=== PATIENT | female | born 1945 | race Caucasian/White ===

== ENCOUNTER 2020-07-22 10:44 | Outpatient (CLI) | payer MEDICARE, SELFPAY | END 2020-07-22 10:45 | disposition home or self-care (01) | PROVIDERS: PCP Internal Medicine | DX: Z23 Encounter for immunization (principal) | CPT/HCPCS: 0001A; 91300 ==

== ENCOUNTER 2020-08-12 10:43 | Outpatient (CLI) | payer MEDICARE, SELFPAY | END 2020-08-12 10:44 | disposition home or self-care (01) | LOC: ANHCOVIDVC 10:43 | PROVIDERS: PCP Internal Medicine | DX: Z23 Encounter for immunization (principal) | CPT/HCPCS: 0002A; 91300 ==

== ENCOUNTER 2021-07-07 08:03 | Emergency (ER) | payer MEDICARE, SELFPAY ==
--- NOTE | ~2021-07-07 | CT_ITS ---
EXAMINATION: CT cervical spine wo con DATE: 07/07/2021 08:28 INDICATION: Neck pain TECHNIQUE: Computed tomography (CT) of the cervical spine was performed without intravenous contrast. The dose-length product (DLP) was 392.47 mGy-cm. Automated exposure control and iterative reconstruc tion technique were employed. COMPARISON: None FINDINGS: There is no fracture. There are 2 mm of retrolisthesis of C4 on C5. The vertebral body heig hts are normal. There is mild loss of intervertebral disc space height at C4-5 and C5-6. The odontoid is intact. The prevertebral soft tissues are normal. There is mild to moderate facet and uncovertebr al joint osteoarthritis. An aneurysm clip is noted in the right sylvian fissure. There is a multinodu lar goiter. IMPRESSION: 1. Moderate cervical spondylosis without acute findings. Reviewed, dictated and finalized at location A. 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
--- NOTE | ~2021-07-07 | CT_ITS ---
EXAMINATION: CT brain wo con INDICATION: Headache COMPARISON: 11/23/2018 TECHNIQUE: Standard unenhanced head CT. The dose-length product (DLP) was 908.00 mGy-cm. The mA was a djusted according to patient size. Iterative reconstruction technique was employed. FINDINGS: There is no acute intraparenchymal hemorrhage. No evidence of mass lesion. No evidence of a cute infarction. An aneurysm clip is noted in the right sylvian fissure. There is unchanged chronic e ncephalomalacia of the right frontotemporal region, the right insula, and the right lentiform nucleus . 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 There is mild periventricular and subcortical hypode nsity probably related to small vessel ischemic disease. There is mild prominence of the sulci and ve ntricles related to cerebral atrophy. Intracranial calcified cerebral atherosclerosis is noted. There are no extra-axial collections. There is no mass effect or midline shift. Changes in the globes are likely from ocular lens surgery. The visualized sinuses and mastoid air cells are well aerated. Shukla es of right temporal craniotomy are noted. IMPRESSION: 1. Areas of prior infarct without acute intracranial abnormality. 2. Age related findings. Reviewed, dictated and finalized at location A. COM NETWORK MANAGER
[2021-07-07 08:07] VITALS: BP 150/93; PULSE 75; RESP 22; TEMP 36.8; O2SAT 95
--- NOTE | 2021-07-07 08:32 | ED.HA ---
HPI - Headache General Chief Complaint: Headache Stated Complaint: SOW, neck back and arm pain Time Seen by Provider: 07/07/21 08:04 Source: patient Mode of arrival: ambulatory Limitations: no limitations History of Present Illness HPI Narrative: Pt has history of cerebral and aortic aneurysms. presents with left sided neck and shoulder pain and a SOW. Pt had b/l neck pain for a couple of weeks and left sided for a couple of days worse today. Pt denies numbness or weakness. MD elicited complaint: headache Onset description: gradually Location: left and neck Quality & Timing: aching Exacerbating factors: none Relieving factors: nothing Associated symptoms: none Related Data Home Medications Medication Instructions Recorded Confirmed acetaminophen 500 mg tablet 1,000 mg PO DAILY tablet 04/29/19 06/06/21 aspirin 81 mg tablet,delayed 81 mg PO DAILY 04/29/19 06/06/21 release Allergies Allergy/AdvReac Type Severity Reaction Status Date / Time labetalol Allergy Intermediate Vomiting Verified 04/27/20 13:08 Review of Systems Review of Systems: All systems reviewed & are unremarkable except as noted in HPI and below PMFSH Past Medical History Medical History Anxiety about health Aortic atherosclerosis CAD (coronary artery disease) Carotid artery stenosis Cerebral aneurysm clipped CKD (chronic kidney disease) stage 3, GFR 30-59 ml/min Congestive heart failure COPD (chronic obstructive pulmonary disease) GERD (gastroesophageal reflux disease) HTN (hypertension) Hyperthyroidism Lichen sclerosus vulver lichen sclerosis Measles Mumps QUENTIN on CPAP SOB (shortness of breath) Thoracic aortic aneurysm Surgical History Surgical History H/O foot surgery H/O: hysterectomy History of coronary artery bypass surgery History of craniotomy Family History Family History Father Family history of coronary artery disease Patient's father is , Onset Age: 92 Mother Patient's mother is , Onset Age: 73 Leukemia Sibling Family history of chronic obstructive pulmonary disease Social History Social History Years smoked: 30 Smoking status: Former smoker Tobacco type: cigarettes Second hand tobacco smoke exposure: Yes Smoking end date: 05/21/09 Alcohol intake: never Exam Const: General: no acute distress and alert Orientation/consciousness: patient oriented x3 HENMT: Head: normal to inspection Eyes: Conjunctivae: conjunctivae normal Neck: Other: tneder with muscle spasm left cervical paraspinous muscles and left trapezius. Chest: Chest palpation & inspection: normal inspection of the chest Resp: Effort & Inspection: normal respiratory effort Auscultation: clear to auscultation bilaterally Cardio: Rate: regular rate GI: GI Palp: Yes Soft to palpation and No Tenderness to palpation present (GI) Auscultation: normal bowel sounds Skin: General skin exam: normal color Neuro: General: patient oriented x3 and moves all extremities Other: strength 5/5 upper extremites Extrem: General: normal to inspection Psych: Mental Status: mental status grossly normal Affect: normal affect Thought content: Yes Normal thought content present Course Vital Signs Vital signs: Vital Signs Temperature 98.3 F 07/07/21 08:07 Pulse Rate 75 07/07/21 08:07 Respiratory Rate 22 H 07/07/21 08:07 Blood Pressure 150/93 H 07/07/21 08:07 Pulse Oximetry 95 07/07/21 08:07 Temperature 98.3 F 07/07/21 08:07 Pulse Rate 68 07/07/21 10:04 Respiratory Rate 18 07/07/21 10:04 Blood Pressure 135/79 07/07/21 10:04 Pulse Oximetry 100 07/07/21 10:04 Discharge Plan Discharge Clinical Impression: Tension headache
[2021-07-07] MEDS: fentaNYL CITRATE INJ (*CRX) 100 MCG/2 ML VIAL 50 MCG IV PUSH (08:34)
[2021-07-07] MEDS: CYCLOBENZAPRINE HCL 10 MG TABLET PO (08:34)
[2021-07-07 08:38] VITALS: BP 133/71; PULSE 69; RESP 20; O2SAT 97
[2021-07-07 10:04] VITALS: BP 135/79; PULSE 68; RESP 18; O2SAT 100
== END 2021-07-07 10:35 | disposition home or self-care (01) ==
PROVIDERS: Emergency Provider Emergency Medicine; PCP Internal Medicine
DX: G44.209 Tension-type headache, unspecified, not intractable (principal); I25.10 Atherosclerotic heart disease of native coronary artery without angina pectoris; I13.0 Hypertensive heart and chronic kidney disease with heart failure and stage 1 through stage 4 chronic kidney disease, or unspecified chronic kidney disease; N18.30 Chronic kidney disease, stage 3 unspecified; I50.9 Heart failure, unspecified; J44.9 Chronic obstructive pulmonary disease, unspecified; K21.9 Gastro-esophageal reflux disease without esophagitis
CPT/HCPCS: 70450; 72125; 96374; 99284; A9270; J3010

== ENCOUNTER 2021-12-05 10:38 | Outpatient (CLI) | payer MEDICARE, SELFPAY ==
[2021-12-05 19:07] LABS: Basophils Absolute Auto 0.1 K/mm3 (0.0-0.1); Basophils Percent Auto 0.7 % (0.2-1.2); Eosinophils Absolute Auto 0.3 K/mm3 (0-0.3); Eosinophils Percent Auto 3.2 % (0-4.4); Hematocrit 39.7 % (37.0-47.0); Hemoglobin 12.5 g/dL (12.0-15.0); Immature Granulocyte Absolute 0.02 K/mm3 (0.00-0.031); Immature Granulocyte Percent A 0.2 % (0-0.5); Lymphocytes Absolute Auto 1.82 K/mm3 (0.9-3.2); Lymphocytes Percent Auto 20.8 % (18.3-44.2); Mean Corpuscular HGB Conc 31.5 g/dl (32-36); Mean Corpuscular Hemoglobin 28.6 pg (26-34); Mean Corpuscular Volume 90.8 fl (80-100); Mean Platelet Volume 11.9 fl (7.4-10.4); Monocytes Absolute Auto 0.6 K/mm3 (0.1-0.6); Monocytes Percent Auto 6.7 % (2.6-8.5); Neutrophils Percent Auto 68.4 % (45.5-73.1); Platelet Count Result 238 k/mm3 (150-375); Red Blood Count 4.37 M/mm3 (4.2-5.4); Red Cell Distribution Width 13.1 % (11.5-14.5); White Blood Count 8.8 K/mm3 (4.5-10.0)
== END 2021-12-05 10:39 | disposition home or self-care (01) ==
LOC: ANHGOSHLAB 10:40
PROVIDERS: PCP Internal Medicine; Visit Provider Internal Medicine
DX: N18.30 Chronic kidney disease, stage 3 unspecified (principal); I70.0 Atherosclerosis of aorta; I25.10 Atherosclerotic heart disease of native coronary artery without angina pectoris; E05.90 Thyrotoxicosis, unspecified without thyrotoxic crisis or storm
CPT/HCPCS: 36415; 85025

== ENCOUNTER 2021-12-08 12:57 | Outpatient (CLI) | payer MEDICARE, SELFPAY ==
[2021-12-08 18:58] LABS: Alanine Aminotransferase 16 U/L (6-35); Alkaline Phosphatase 91 U/L (38-126); Anion Gap 5 mmol/L (8-16); Aspartate Amino Transferase 34 U/L (14-36); Bilirubin,Total 0.6 mg/dL (0.2-1.3); Blood Urea Nitrogen 18 mg/dL (7-17); Calcium 8.4 mg/dL (8.4-10.2); Carbon Dioxide 27 mmol/L (22-30); Chloride 102 mmol/L (98-107); Cholesterol 129 mg/dL (0-200); Estimated Glomerular Filt Rate 44; Glucose 85 mg/dL (65-110); HDL Direct 38 mg/dL; Magnesium 1.7 mg/dL (1.6-2.3); Potassium 4.4 mmol/L (3.4-5.0); Sodium 134 mmol/L (137-145); Triglycerides 163 mg/dL (<150)
[2021-12-08 19:09] LABS: LDL Cholesterol Direct 53 mg/dL
[2021-12-08 19:25] LABS: Thyroid Stimulating Hormone 0.997 uIU/mL (0.465-4.680)
== END 2021-12-08 12:58 | disposition home or self-care (01) ==
LOC: ANHGOSHLAB 13:01
PROVIDERS: PCP Internal Medicine; Visit Provider Internal Medicine
DX: E05.90 Thyrotoxicosis, unspecified without thyrotoxic crisis or storm (principal); N18.30 Chronic kidney disease, stage 3 unspecified; I70.0 Atherosclerosis of aorta; I25.10 Atherosclerotic heart disease of native coronary artery without angina pectoris
CPT/HCPCS: 36415; 80053; 80061; 83735; 84443

== ENCOUNTER 2022-01-20 13:44 | Outpatient (NON) | payer MEDICARE, SELFPAY | END 2022-01-20 13:45 | disposition home or self-care (01) | LOC: ANHGOSHLAB 13:45 | PROVIDERS: PCP Internal Medicine; Visit Provider Nurse Practitioner | DX: N39.0 Urinary tract infection, site not specified (principal) | CPT/HCPCS: 87086; 87088 ==

== ENCOUNTER 2022-01-25 10:45 | Outpatient (CLI) | payer MEDICARE, SELFPAY ==
--- NOTE | ~2022-01-25 | CT_ITS ---
EXAMINATION: CT abdomen pelvis wo con DATE: 01/25/2022 11:18 INDICATION: Right flank pain with CVA tenderness. TECHNIQUE: Computed tomography (CT) of the abdomen and pelvis was performed without intravenous contr ast. Automated exposure control and iterative reconstruction technique were employed. The dose-length product was 313.22 mGy-cm. COMPARISON: CT chest, abdomen and pelvis dated 07/03/[address] urogram dated 09/07/2011 FINDINGS: Mild discoid atelectasis in the right lower lobe. Cardiomegaly. Atherosclerotic coronary artery calci fications with change of prior median sternotomy and coronary artery bypass grafting. Aortic valve ca lcification. Partially visualized new endoluminal stenting along the visualized distal portion of the tortuous descending thoracic aorta. Aneurysmal dilation of the distalmost thoracic aorta measuring u p to 5.0 cm. Small sliding-type hiatal hernia. Calcified gallstones within the normal partially decompressed gallb ladder. Liver, spleen, pancreas and bilateral adrenal glands are normal. Unchanged 2 mm phlebolith al marika the right gonadal vein along side the right ureter. Kidneys and ureters are normal with no urolit hiasis, hydroureteronephrosis or perinephric/ureteral stranding. There is prominent colonic diverticu losis with a sigmoid and descending colon predominance. There is no adjacent inflammatory change to s uggest diverticulitis. Small bowel and appendix are normal. There is calcified atherosclerosis of the aorta and many of the other arteries. Eccentric to the left suprarenal abdominal aortic aneurysm measuring 4.5 x 3.6 cm. Recently this measured 4.4 x 3.8 cm. Th e aorta narrows to normal caliber of 2.7 cm diameter just below the level of the takeoff of the pulmo nary arteries with additional fusiform infrarenal aneurysm measuring up to 4.0 x 3.7 cm. Previously t his measured up to 3.7 x 3.3 cm. Bladder is normal. The uterus is not identified and has likely been surgically resected. 1.8 cm right adnexal cyst/follicle. No free intraperitoneal gas or fluid. No pathologically enlarged abdominal or pelvic lymphadenopathy. Severe thoracolumbar spondylosis. Chronic appearing mild superior endplate c ompression fracture with additional small Schmorl's node at L1 which is new since the prior study. IMPRESSION: 1. Aneurysmal dilation of the thoracic and abdominal aorta as detailed above with interval stenting o f the visualized distal descending thoracic aorta at the site of a prior dissection. The infrarenal a neurysm has increased from 3.7 x 3.3 similar to currently measuring 4.0 x 3.7 cm. 2. Cholelithiasis. 3. Small sliding-type hiatal hernia. 4. Prominent diverticulosis. Reviewed, dictated and finalized at location A. IMPRESSION: 1. Aneurysmal dilation of the thoracic and abdominal aorta as detailed above wi th interval stenting of the visualized distal descending thoracic aorta at the site of a prior dissection. The infrarenal aneurysm has increased from 3.7 x 3. 3 similar to currently measuring 4.0 x 3.7 cm. 2. Cholelithiasis. 3. Small sliding-type hiatal hernia. 4. Prominent diverticulosis.
== END 2022-01-25 10:46 | disposition home or self-care (01) ==
PROVIDERS: PCP Internal Medicine; Visit Provider Clinical Nurse Specialist
DX: N20.0 Calculus of kidney (principal); I51.7 Cardiomegaly; I25.10 Atherosclerotic heart disease of native coronary artery without angina pectoris; K44.9 Diaphragmatic hernia without obstruction or gangrene; K57.30 Diverticulosis of large intestine without perforation or abscess without bleeding; I71.4 Abdominal aortic aneurysm, without rupture; Z95.1 Presence of aortocoronary bypass graft; N94.89 Other specified conditions associated with female genital organs and menstrual cycle
CPT/HCPCS: 74176

== ENCOUNTER 2022-01-26 08:05 | Outpatient (NON) | payer MEDICARE, SELFPAY | END 2022-01-26 08:06 | disposition home or self-care (01) | LOC: ANHGOSHLAB 08:06 | PROVIDERS: PCP Internal Medicine; Visit Provider Clinical Nurse Specialist | DX: N20.0 Calculus of kidney (principal) | CPT/HCPCS: 87086; 87088 ==

== ENCOUNTER → 2022-01-31 10:15 | Outpatient (CLI) | payer MEDICARE, SELFPAY ==
--- NOTE | ~2022-01-31 | XR_ITS ---
EXAM: XR hip BI wo pelvis DATE: 01/31/2022 10:31 HISTORY: M54.10 - Radiculopathy, site unspecified . COMPARISON: None available. FINDINGS: Decreased mineralization. No fracture or dislocation. No lytic or blastic lesion. Mild sup erior hip joint space narrowing on the right, mild subchondral sclerosis bilaterally. Mild greater tr ochanter and pelvic enthesopathy. Degenerative changes in the lumbar spine. No erosion or periosteal change. Vascular calcification. Pelvic phleboliths. Right inguinal surgical clip. IMPRESSION: Mild degenerative changes in the hips. Reviewed, dictated and finalized at location K.
--- NOTE | ~2022-01-31 | XR_ITS ---
EXAM: XR lumbar spine 2-3V DATE: 01/31/2022 10:31 HISTORY: M54.10 - Radiculopathy, site unspecified . COMPARISON: None available. FINDINGS: Decreased mineralization. 5 nonrib-bearing lumbar-type vertebral bodies. Pedicles intact. 2 mm retrolistheses at L1-2 and L2-3. Vertebral body heights preserved. Disc space narrowing and yamini nal osteophytosis at all levels, severe at L4-5 and L5-S1 where there is vacuum disc phenomenon. Mult ilevel facet hypertrophy and sclerosis from L2/3 through L5-S1. No fracture or dislocation. Atheroscl erotic calcification. Mild fusiform dilation of the abdominal aorta. Partial visualization of a thora cic aortic endograft. IMPRESSION: Minimal grade 1 retrolistheses at L1-2 and L2-3. Degenerative disc disease at all lumbar levels, severe at L4-5 and L5-S1. Multilevel facet arthropathy. Reviewed, dictated and finalized at location K. IMPRESSION: Minimal grade 1 retrolistheses at L1-2 and L2-3. Degenerative disc disease at all lumbar levels, severe at L4-5 and L5-S1. Multilevel facet arthro brian.
== END ==
PROVIDERS: PCP Nurse Practitioner; Visit Provider Nurse Practitioner
DX: M16.0 Bilateral primary osteoarthritis of hip (principal); M51.36 Other intervertebral disc degeneration, lumbar region
CPT/HCPCS: 72100; 73521

== ENCOUNTER 2022-02-27 09:05 | Outpatient (CLI) | payer MEDICARE, SELFPAY ==
--- NOTE | ~2022-02-27 | CT_ITS ---
EXAMINATION: CT diagnostic chest wo con DATE: 02/27/2022 09:36 INDICATION: Right upper lobe nodule TECHNIQUE: Computed tomography (CT) of the chest was performed without intravenous contrast. The dose -length product (DLP) was 127.58 mGy-cm. Automated exposure control and iterative reconstruction tech [employer] were employed. COMPARISON: 07/03/2015 FINDINGS: There has been interval placement of an endoluminal stent in the distal descending thoracic aorta. There is a 3 mm nodule in the left lower lobe. No suspicious pulmonary nodules are identified . There is mild atelectasis. No pleural effusion or pneumothorax. There is a 4.7 cm fusiform aneurysm of the ascending aorta measured at the level of the main pulmonary artery. Changes of coronary arter y bypass grafting are noted. There is cardiomegaly. No pathologically enlarged thoracic lymph nodes a re identified. There is severe thoracic spondylosis. IMPRESSION: 1. No CT correlate for the patient's symptoms. Suspicious pulmonary nodules are identified. 2. Fusiform aneurysm of the ascending aorta without significant change. Reviewed, dictated and finalized at location A.
== END 2022-02-27 09:06 | disposition home or self-care (01) ==
PROVIDERS: PCP Internal Medicine; Visit Provider Internal Medicine
DX: R91.1 Solitary pulmonary nodule (principal); I71.40 Abdominal aortic aneurysm, without rupture, unspecified
CPT/HCPCS: 71250

== ENCOUNTER 2022-03-07 10:49 | Outpatient (CLI) | payer MEDICARE, SELFPAY ==
[2022-03-07 19:54] LABS: Hematocrit 38.3 % (37.0-47.0); Hemoglobin 12.5 g/dL (12.0-15.0); Mean Corpuscular HGB Conc 32.6 g/dl (32-36); Mean Corpuscular Hemoglobin 29.1 pg (26-34); Mean Corpuscular Volume 89.1 fl (80-100); Mean Platelet Volume 10.4 fl (7.4-10.4); Platelet Count Result 305 k/mm3 (150-375); Red Cell Distribution Width 13.8 % (11.5-14.5); White Blood Count 9.2 K/mm3 (4.5-10.0)
[2022-03-07 20:40] LABS: Anion Gap 13 mmol/L (8-16); Blood Urea Nitrogen 18 mg/dL (7-17); Calcium 9.4 mg/dL (8.4-10.2); Carbon Dioxide 24 mmol/L (22-30); Chloride 102 mmol/L (98-107); Estimated Glomerular Filt Rate > 60; Glucose 101 mg/dL (65-110); Potassium 4.4 mmol/L (3.4-5.0); Sodium 139 mmol/L (137-145)
== END 2022-03-07 10:50 | disposition home or self-care (01) ==
LOC: ANHGOSHLAB 10:51
PROVIDERS: PCP Internal Medicine; Visit Provider Internal Medicine
DX: I10 Essential (primary) hypertension (principal); N18.30 Chronic kidney disease, stage 3 unspecified
CPT/HCPCS: 36415; 80048; 85027

== ENCOUNTER → 2022-04-05 13:29 | Outpatient (CLI) | payer MEDICARE, SELFPAY ==
--- NOTE | ~2022-04-05 | XR_ITS ---
EXAMINATION: XR thoracic spine 3V DATE: 04/05/2022 13:55 INDICATION: Mid back pain. TECHNIQUE: 3 views of thoracic spine were obtained. COMPARISON: chest CT 02/27/2022 FINDINGS: There is 8 degrees dextrocurvature of thoracic spine. There is kyphosis of thoracic spine. There is mild chronic anterior wedging of T5-T11 vertebral bodies. There is decreased disc height at many levels, severe from T5-T6 through T9-T10. There is a stent graft in descending thoracic aorta. M delmis sternotomy wires and mediastinal surgical clips are seen, likely from prior coronary artery byp ass grafting. IMPRESSION: 1. Severe thoracic spondylosis. 2. Thoracic kyphosis. Reviewed, dictated and finalized at location A. STANT TERMINAL MANAGER
== END ==
PROVIDERS: PCP Internal Medicine; Visit Provider Nurse Practitioner Family
DX: M47.894 Other spondylosis, thoracic region (principal)
CPT/HCPCS: 72072

== ENCOUNTER → 2022-04-17 09:21 | Outpatient (CLI) | payer MEDICARE, SELFPAY ==
--- NOTE | ~2022-04-17 | MR_ITS ---
EXAMINATION: MR thoracic spine wo con DATE: 04/17/2022 10:26 INDICATION: Myelopathy. Gait instability. TECHNIQUE: Magnetic resonance imaging (MRI) of the thoracic spine was performed without intravenous c ontrast. Sagittal localizer T1-weighted FSE of the cervical spine was obtained. Thoracic spine sequen kimi included sagittal T2-weighted FSE, sagittal T1-weighted FSE, sagittal T2-weighted FS FSE, and axi al T2-weighted FSE. COMPARISON: CT chest 02/27/2022 FINDINGS: There is 5 degrees dextrocurvature of thoracic spine. There is kyphosis of thoracic spine. There is mild chronic anterior wedging of T7-T10 vertebral bodies and L1 vertebral body. There is mod erately decreased disc height from T4-T5 through T7-T8, severely decreased disc height at T8-T9 and T 9-T10, and mildly decreased disc height at T11-T12. At T6, there is a central extrusion with mild angel tral canal stenosis and ventral indentation of the spinal cord. At T7-T8, there is a central extrusio n with mild central canal stenosis. At T8-T9, there is a right central extrusion with mild central ca nal stenosis and ventral indentation of the spinal cord. At T11-T12 and T12-L1, the discs are bulging with mild central canal stenosis. There is multilevel facet joint osteoarthritis, severe at multiple levels. There is multilevel mild neural foraminal stenosis bilaterally. The spinal cord signal inten sity is normal. The conus medullaris is at L1. Again seen is a fusiform aneurysm of descending aorta with stent graft. IMPRESSION: 1. Severe thoracic spondylosis. Reviewed, dictated and finalized at location A. NIGHT SITTER
--- NOTE | ~2022-04-17 | MR_ITS ---
EXAMINATION: MR cervical spine wo con DATE: 04/17/2022 10:23 INDICATION: Myelopathy. Gait instability. TECHNIQUE: Magnetic resonance imaging (MRI) of the cervical spine was performed without intravenous c ontrast. COMPARISON: None FINDINGS: There is hypolordosis of cervical spine. Vertebral body heights are normal. There is mildly decreased disc height at C4-C5 and moderately decreased disc height at C5-C6. There is developmental osseous central canal stenosis in cervical spine There is increased T2-weighted signal intensity in the spinal cord at C5-C6, consistent with myelomalacia. The following disc levels are specifically di scussed: C2-C3: There is a left central extrusion. There is no uncovertebral joint osteoarthritis. There is mo derate right and severe left facet joint osteoarthritis. There is mild left neural foraminal stenosis . There is moderate central canal stenosis with ventral and dorsal indentation of the cord. C3-C4: The disc does not extend beyond the endplate margin. There is mild bilateral uncovertebral win nt osteoarthritis. There is moderate right and severe left facet joint osteoarthritis. There is mild bilateral neural foraminal stenosis. There is mild central canal stenosis. C4-C5: The disc is bulging. There is severe right and moderate left uncovertebral joint osteoarthriti s. There is moderate bilateral facet joint osteoarthritis. There is moderate right and mild left neur al foraminal stenosis. There is moderate central canal stenosis with ventral and dorsal indentation o f the spinal cord. C5-C6: The disc is bulging. There is severe bilateral uncovertebral joint osteoarthritis. There is mi ld bilateral facet joint osteoarthritis. There is severe bilateral neural foraminal stenosis. There i s severe central canal stenosis with ventral and dorsal indentation of the spinal cord and increased signal in the cord. C6-C7: There is a left central extrusion. There is mild bilateral uncovertebral joint osteoarthritis. There is mild bilateral facet joint osteoarthritis. There is no neural foraminal stenosis. There is mild central canal stenosis. C7-T1: The disc does not extend beyond the endplate margin. There is no uncovertebral joint osteoarth ritis. There is mild right and severe left facet joint osteoarthritis. There is mild left neural fora carola stenosis. There is no central canal stenosis. IMPRESSION: 1. Myelomalacia at C5-C6. 2. Severe cervical spondylosis. Reviewed, dictated and finalized at location A. AL DEVELOPER
== END ==
PROVIDERS: PCP Internal Medicine
DX: M41.35 Thoracogenic scoliosis, thoracolumbar region (principal); R26.89 Other abnormalities of gait and mobility; M47.894 Other spondylosis, thoracic region; M47.892 Other spondylosis, cervical region
CPT/HCPCS: 72141; 72146

== ENCOUNTER 2022-08-15 10:19 | Outpatient (CLI) | payer MEDICARE, SELFPAY ==
[2022-08-15 19:03] LABS: Basophils Absolute Auto 0.1 K/mm3 (0.0-0.1); Basophils Percent Auto 0.6 % (0.2-1.2); Eosinophils Absolute Auto 0.3 K/mm3 (0-0.3); Eosinophils Percent Auto 3.8 % (0-4.4); Hematocrit 39.8 % (37.0-47.0); Hemoglobin 12.4 g/dL (12.0-15.0); Immature Granulocyte Absolute 0.01 K/mm3 (0.00-0.031); Immature Granulocyte Percent A 0.1 % (0-0.5); Lymphocytes Absolute Auto 1.78 K/mm3 (0.9-3.2); Lymphocytes Percent Auto 22.8 % (18.3-44.2); Mean Corpuscular HGB Conc 31.2 g/dl (32-36); Mean Corpuscular Hemoglobin 28.3 pg (26-34); Mean Corpuscular Volume 90.9 fl (80-100); Mean Platelet Volume 11.3 fl (7.4-10.4); Monocytes Absolute Auto 0.7 K/mm3 (0.1-0.6); Monocytes Percent Auto 8.5 % (2.6-8.5); Neutrophils Percent Auto 64.2 % (45.5-73.1); Platelet Count Result 239 k/mm3 (150-375); Red Blood Count 4.38 M/mm3 (4.2-5.4); Red Cell Distribution Width 13.4 % (11.5-14.5); White Blood Count 7.8 K/mm3 (4.5-10.0)
[2022-08-15 19:06] LABS: Alanine Aminotransferase 21 U/L (6-35); Albumin Level 4.3 g/dL (3.5-5.1); Alkaline Phosphatase 97 U/L (38-126); Anion Gap 9 mmol/L (8-16); Aspartate Amino Transferase 24 U/L (14-36); Bilirubin,Total 0.7 mg/dL (0.2-1.3); Blood Urea Nitrogen 16 mg/dL (7-17); Calcium 9.1 mg/dL (8.4-10.2); Carbon Dioxide 27 mmol/L (22-30); Chloride 99 mmol/L (98-107); Cholesterol 134 mg/dL (0-200); Estimated Glomerular Filt Rate > 60; Glucose 96 mg/dL (65-110); HDL Direct 39 mg/dL; Potassium 4.8 mmol/L (3.4-5.0); Sodium 135 mmol/L (137-145); Triglycerides 107 mg/dL (<150)
[2022-08-15 19:17] LABS: LDL Cholesterol Direct 65 mg/dL
[2022-08-15 19:34] LABS: Thyroid Stimulating Hormone 0.592 uIU/mL (0.465-4.680)
== END 2022-08-15 10:20 | disposition home or self-care (01) ==
LOC: ANHGOSHLAB 10:20
PROVIDERS: PCP Internal Medicine; Visit Provider Internal Medicine
DX: E05.90 Thyrotoxicosis, unspecified without thyrotoxic crisis or storm (principal); I25.10 Atherosclerotic heart disease of native coronary artery without angina pectoris; I65.29 Occlusion and stenosis of unspecified carotid artery; I70.0 Atherosclerosis of aorta; I12.9 Hypertensive chronic kidney disease with stage 1 through stage 4 chronic kidney disease, or unspecified chronic kidney disease; N18.30 Chronic kidney disease, stage 3 unspecified
CPT/HCPCS: 36415; 80053; 80061; 84443; 85025

== ENCOUNTER → 2022-10-03 10:57 | Outpatient (CLI) | payer MEDICARE, SELFPAY ==
--- NOTE | ~2022-10-03 | MR_ITS ---
MRI of the lumbar spine Clinical History: Spinal stenosis Technique: Axial T2-weighted images, and sagittal T1-weighted, T2-weighted, and T2 fat-sat images wer e acquired. Findings: There is no fracture or subluxation of the lumbar spine. Vertebral bodies maintain normal h eight and alignment. No suspicious bone marrow signal abnormality seen. At L1-L2, there is moderate degenerative disc narrowing with mild disc bulge and mild facet arthropat hy. No spinal canal stenosis. There is mild bilateral neural foraminal narrowing. At L2-L3, there is advanced degenerative disc narrowing. Disc bulge and facet arthropathy result in s evere spinal canal stenosis/thecal sac compression. There is severe right neural foraminal narrowing and mild left neural foraminal narrowing. At L3-L4, there is disc bulge and advanced facet arthropathy, which result in severe spinal canal deborah nosis/thecal sac compression. There is moderate to severe bilateral neural foraminal narrowing. At L4-L5, disc bulge and facet arthropathy result in severe spinal canal stenosis/thecal sac compress ion. There is severe bilateral neural foraminal narrowing. At L5-S1, diffuse disc bulge is present with mild facet arthropathy. There is lateral recess stenosis bilaterally, with severe bilateral neural foraminal narrowing. Paravertebral soft tissues are unremarkable. Impression: Advanced degenerative spondylosis, especially at L2-L3, L3-L4, L4-L5, as detailed above. Reviewed, dictated and finalized at location . Impression: Advanced degenerative spondylosis, especially at L2-L3, L3-L4, L4-L5, as detail ed above.
--- NOTE | ~2022-10-03 | XR_ITS ---
XR lumbar spine 2-3V 10/03/2022 11:48 Indication: Low back pain Procedure: 3 views lumbar spine Comparison: 01/31/2022 Findings: There is levoscoliosis. Osteopenia. There is loss of disc height at all lumbar levels most advanced at L4-5 and L5-S1. There is multilevel facet hypertrophy at L3-4 through L5-S1. There is gra de 1 degenerative spondylolisthesis at L3-4. There is lower abdominal aortic aneurysm measuring 3.3 c m. No acute fracture or traumatic malalignment. There are gallstones. There is a partially visualized aortic endograft. Impression: 1: Severe lumbar spondylosis with levoscoliosis. 2: Lower abdominal aortic aneurysm measuring 3.3 cm. 3: Cholelithiasis. Reviewed, dictated and finalized at location L. Impression: 1: Severe lumbar spondylosis with levoscoliosis. 2: Lower abdominal aortic aneurysm measuring 3.3 cm. 3: Cholelithiasis.
== END ==
PROVIDERS: PCP Internal Medicine; Visit Provider Neurological Surgery
DX: M47.896 Other spondylosis, lumbar region (principal); K80.20 Calculus of gallbladder without cholecystitis without obstruction
CPT/HCPCS: 72100; 72148

== ENCOUNTER 2023-01-17 09:20 | Outpatient (CLI) | payer MEDICARE, SELFPAY ==
--- NOTE | ~2023-01-17 | XR_ITS ---
Clinical Indication: Cough PA and lateral views of the chest: Comparison: 11/26/2015 Findings: There is linear scarring or atelectasis at the left upper lobe. Cardiomediastinal silhouet te is within normal limits. There is ectasia of the descending thoracic aorta with aortic stent graft in place, unchanged. Bones and soft tissues are unremarkable. Impression: Linear scarring or atelectasis left upper lobe. Ectatic descending thoracic aorta with aortic stent graft in place, similar to prior exam. Reviewed, dictated and finalized at location M. Impression: Linear scarring or atelectasis left upper lobe. Ectatic descending thoracic aorta with aortic stent graft in place, similar to prior exam.
== END 2023-01-17 09:21 | disposition home or self-care (01) ==
PROVIDERS: PCP Internal Medicine; Visit Provider Nurse Practitioner
DX: J44.1 Chronic obstructive pulmonary disease with (acute) exacerbation (principal)
CPT/HCPCS: 71046

== ENCOUNTER 2023-02-20 10:42 | Outpatient (CLI) | payer MEDICARE, SELFPAY ==
[2023-02-20 18:28] LABS: Basophils Absolute Auto 0.1 K/mm3 (0.0-0.1); Basophils Percent Auto 0.7 % (0.2-1.2); Eosinophils Absolute Auto 0.4 K/mm3 (0-0.3); Eosinophils Percent Auto 3.8 % (0-4.4); Hematocrit 39.3 % (37.0-47.0); Hemoglobin 12.2 g/dL (12.0-15.0); Immature Granulocyte Absolute 0.02 K/mm3 (0.00-0.031); Immature Granulocyte Percent A 0.2 % (0-0.5); Lymphocytes Absolute Auto 1.94 K/mm3 (0.9-3.2); Lymphocytes Percent Auto 20.3 % (18.3-44.2); Mean Corpuscular Hemoglobin 27.9 pg (26-34); Mean Corpuscular Volume 89.7 fl (80-100); Monocytes Absolute Auto 0.7 K/mm3 (0.1-0.6); Monocytes Percent Auto 7.5 % (2.6-8.5); Neutrophils Absolute Auto 6.4 K/mm3 (1.3-6.7); Neutrophils Percent Auto 67.5 % (45.5-73.1); Platelet Count Result 260 k/mm3 (150-375); Red Blood Count 4.38 M/mm3 (4.2-5.4); Red Cell Distribution Width 15.3 % (11.5-14.5); White Blood Count 9.5 K/mm3 (4.5-10.0)
[2023-02-20 19:27] LABS: Alanine Aminotransferase 26 U/L (6-35); Albumin Level 4.3 g/dL (3.5-5.1); Alkaline Phosphatase 86 U/L (38-126); Anion Gap 6 mmol/L (8-16); Aspartate Amino Transferase 39 U/L (14-36); Bilirubin,Total 0.8 mg/dL (0.2-1.3); Blood Urea Nitrogen 14 mg/dL (7-17); Carbon Dioxide 34 mmol/L (22-30); Chloride 97 mmol/L (98-107); Estimated Glomerular Filt Rate > 60; Glucose 86 mg/dL (65-110); Potassium 4.2 mmol/L (3.4-5.0); Sodium 137 mmol/L (137-145)
== END 2023-02-20 10:43 | disposition home or self-care (01) ==
PROVIDERS: PCP Internal Medicine; Visit Provider Internal Medicine
DX: E05.90 Thyrotoxicosis, unspecified without thyrotoxic crisis or storm (principal); I25.10 Atherosclerotic heart disease of native coronary artery without angina pectoris; I10 Essential (primary) hypertension
CPT/HCPCS: 36415; 80053; 84439; 84443; 85025

== ENCOUNTER 2023-03-05 11:29 | Outpatient (CLI) | payer MEDICARE, SELFPAY ==
--- NOTE | ~2023-03-05 | XR_ITS ---
XR chest 2V DATE: 03/05/2023 11:44 INDICATION: Dyspnea TECHNIQUE: PA and lateral views COMPARISON: 01/17/2023 PA and lateral chest FINDINGS: Cardiomegaly. Tortuosity, ectasia and calcification of the thoracic aorta, with endovascular stent of the descendin g thoracic aorta. Chronic discoid density in the left mid to upper lung. No pulmonary infiltrate or consolidation, pleural effusion or pulmonary vascular congestion or pneumo thorax is detected. Diffuse osteopenia. IMPRESSION: Cardiomegaly Chronic focal discoid scarring, left lung Aortic calcification and ectasia and tortuosity and descending thoracic aortic endovascular stent No significant change since 01/17/2023 Reviewed, dictated and finalized at location B.
== END 2023-03-05 11:30 | disposition home or self-care (01) ==
LOC: ANHIMG 11:32
PROVIDERS: PCP Internal Medicine; Visit Provider Internal Medicine Pulmonary Disease
DX: R06.00 Dyspnea, unspecified (principal); I51.7 Cardiomegaly; I70.0 Atherosclerosis of aorta; I77.819 Aortic ectasia, unspecified site; J98.4 Other disorders of lung
CPT/HCPCS: 71046

== ENCOUNTER → 2023-04-10 10:43 | Outpatient (CLI) | payer MEDICARE, SELFPAY ==
--- NOTE | ~2023-04-10 | XR_ITS ---
XR chest 2V 04/10/2023 11:19 Indication: Cough and shortness of breath Procedure: 2 view chest Comparison: Comparison to multiple prior studies sequentially, with oldest reviewed study dated 10/07. Findings: Cardiomegaly. There is atherosclerosis and ectasia of the aorta with stent in the descendin g thoracic aorta. Status post median sternotomy for CABG. Chronic atelectasis/scarring left upper tho rax. No acute focal pneumonia, edema or effusion. There is pulmonary vascular congestion. Impression: 1: No acute cardiopulmonary disease. Reviewed, dictated and finalized at location L. REPAIRER Impression: 1: No acute cardiopulmonary disease.
== END ==
PROVIDERS: PCP Nurse Practitioner; Visit Provider Nurse Practitioner
DX: R05.9 Cough, unspecified (principal); R06.02 Shortness of breath
CPT/HCPCS: 71046

== ENCOUNTER → 2023-04-16 16:04 | Outpatient (CLI) | payer MEDICARE, SELFPAY ==
--- NOTE | ~2023-04-16 | XR_ITS ---
XR chest 2V 04/16/2023 16:11 Indication: Cough and congestion Procedure: 2 view chest Comparison: Comparison to multiple prior studies sequentially, with oldest reviewed study dated 12/2015. Findings: Chronic left upper lobe atelectasis/scarring. Cardiomegaly. Status post median sternotomy f or CABG. There is an endovascular stent in the ectatic descending thoracic aorta. No pleural effusion , edema or pneumothorax. Impression: 1: Chronic left upper lobe atelectasis/scarring. Reviewed, dictated and finalized at location B. GREASE MAKER Impression: 1: Chronic left upper lobe atelectasis/scarring.
== END ==
PROVIDERS: PCP Clinical Nurse Specialist; Visit Provider Clinical Nurse Specialist
DX: R05.9 Cough, unspecified (principal); R09.81 Nasal congestion
CPT/HCPCS: 71046

== ENCOUNTER → 2023-04-17 11:33 | Outpatient (CLI) | payer MEDICARE, SELFPAY ==
--- NOTE | ~2023-04-17 | US_ITS ---
EXAMINATION: US thyroid DATE: 04/17/2023 11:52 INDICATION: Nontoxic multinodular goiter. TECHNIQUE: Multiple ultrasound images of the thyroid were obtained. COMPARISON: Ultrasound 09/03/2014 FINDINGS: The right thyroid lobe measures 5.1 x 2.4 x 3.0 cm. The left thyroid lobe measures 4.5 x 1.9 x 2.0 c m. In the right thyroid lobe, there is a 1.6 cm almost entirely cystic nodule (TI-RADS TR1). In the left thyroid lobe, there is a 12 mm mixed cystic and solid, isoechoic, wider than tall nodule with sm ooth margin without echogenic foci (TR2). The thyroid demonstrates diffusely heterogeneous echogenici ty. Vascularity is increased. IMPRESSION: 1. Thyroid nodules, likely not clinically significant. No follow-up is needed. 2. Heterogeneous, hypervascular thyroid, likely chronic lymphocytic (Jojo) thyroiditis. Reviewed, dictated and finalized at location A. E MOUNTER
== END ==
PROVIDERS: PCP Internal Medicine; Visit Provider Internal Medicine
DX: E04.2 Nontoxic multinodular goiter (principal)
CPT/HCPCS: 76536

== ENCOUNTER 2023-04-17 12:29 | Outpatient (CLI) | payer MEDICARE, SELFPAY ==
[2023-04-17 13:20] LABS: Basophils Absolute Auto 0.1 K/mm3 (0.0-0.1); Basophils Percent Auto 0.5 % (0.2-1.2); Eosinophils Absolute Auto 0.8 K/mm3 (0-0.3); Eosinophils Percent Auto 6.3 % (0-4.4); Hemoglobin 12.9 g/dL (12.0-15.0); Immature Granulocyte Absolute 0.07 K/mm3 (0.00-0.031); Immature Granulocyte Percent A 0.6 % (0-0.5); Lymphocytes Absolute Auto 2.13 K/mm3 (0.9-3.2); Mean Corpuscular HGB Conc 31.5 g/dl (32-36); Mean Corpuscular Hemoglobin 27.6 pg (26-34); Mean Corpuscular Volume 87.6 fl (80-100); Mean Platelet Volume 10.9 fl (7.4-10.4); Monocytes Absolute Auto 1.2 K/mm3 (0.1-0.6); Monocytes Percent Auto 9.4 % (2.6-8.5); Neutrophils Absolute Auto 8.3 K/mm3 (1.3-6.7); Neutrophils Percent Auto 66.2 % (45.5-73.1); Platelet Count Result 245 k/mm3 (150-375); Red Blood Count 4.68 M/mm3 (4.2-5.4); Red Cell Distribution Width 14.1 % (11.5-14.5); White Blood Count 12.6 K/mm3 (4.5-10.0)
[2023-04-17 13:26] LABS: Anion Gap 4 mmol/L (8-16); Blood Urea Nitrogen 26 mg/dL (7-17); Calcium 8.9 mg/dL (8.4-10.2); Carbon Dioxide 34 mmol/L (22-30); Chloride 97 mmol/L (98-107); Estimated Glomerular Filt Rate > 60; Glucose 93 mg/dL (65-110); Potassium 4.2 mmol/L (3.4-5.0); Sodium 135 mmol/L (137-145)
[2023-04-17 13:35] LABS: NT Pro B Type Natriuretic Pept 392 pg/mL (19.9-100)
== END 2023-04-17 12:30 | disposition home or self-care (01) ==
LOC: ANHGOSHLAB 12:30
PROVIDERS: PCP Internal Medicine; Visit Provider Clinical Nurse Specialist
DX: R06.00 Dyspnea, unspecified (principal)
CPT/HCPCS: 36415; 80048; 83880; 85025

== ENCOUNTER 2023-04-24 12:05 | Outpatient (CLI) | payer MEDICARE, SELFPAY ==
--- NOTE | 2023-04-24 12:49 | ECHO_ITS ---
Patient Info Name: Deepti Shepherd Age: 77 years : 1945 Gender: Female Ht: 63 in Wt: 198 lbs BSA: 2.04 m2 HR: 57 bpm BP: 123 / 98 mmHg Heart Rhythm: Sinus Rhythm Technical Quality: Good Exam Date: 04/24/2023 2:10 PM Exam Location: Echo Lab Patient Status: Outpatient Admit Date: 04/24/2023 Staff Ordering Physician: Kimani Issa MD Attending Provider: Kimani Issa MD Referring Physician: Luis Manuel LINDER; Exam Type: CA echo doppler color flow Study Info Complete two-dimensional, color flow and Doppler transthoracic echocardiogram is performed. Summary 1. Complete two-dimensional, color flow and Doppler transthoracic echocardiogram is performed. 2. Left ventricular chamber dimension is normal. 3. Left ventricular systolic function is normal, estimated at 55-60%. 4. There is mild concentric increased left ventricular wall thickness. 5. E/e' 11 is mildly elevated. 6. Left atrial chamber dimension is moderately enlarged. 7. Right atrial chamber dimension is mildly enlarged. 8. There is moderate aortic valve sclerosis. 9. There is trace aortic valve regurgitation. 10. There is trace tricuspid valve regurgitation. 11. No pulmonary hypertension, estimated pulmonary arterial systolic pressure is 12 mmHg. Left Ventricle E/e' 11 is mildly elevated. Left ventricular chamber dimension is normal. Left ventricular systolic function is normal, estimated at 55-60%. There is mild concentric increased left ventricular wall thickness. Right Ventricle Right ventricular chamber dimension is not well visualized. Left Atria Left atrial chamber dimension is moderately enlarged. Right Atria Right atrial chamber dimension is mildly enlarged. Aortic Valve The aortic valve is probable trileaflet. There is moderate aortic valve sclerosis. There is no aortic valve stenosis. There is trace aortic valve regurgitation. Pulmonic Valve There is no pulmonic regurgitation. Mitral Valve There is no mitral valve stenosis. There is no mitral valve regurgitation. Tricuspid Valve There is trace tricuspid valve regurgitation. No pulmonary hypertension, estimated pulmonary arterial systolic pressure is 12 mmHg. Pericardium/Pleural There is no pericardial effusion. Inferior Vena Cava Normal inferior vena cava with >50% collapse upon inspiration consistent with normal right atrial pressure, 5 mmHg. Aorta The aortic root size at the sinus of Valsalva is normal. Left Ventricular Outflow Tract Name Value Normal LVOT 2D LVOT Diameter 2.0 cm LVOT Doppler LVOT Peak Gradient 5 mmHg LVOT Mean Gradient 3 mmHg LVOT VTI 36 cm LVOT VTI/AV VTI Ratio 0.9 LVOT Stroke Volume 112 ml LVOT CO 5.6 l/min LVOT CI 2.8 l/min/m2 Pulmonic Valve Name Value Normal RVOT Doppler
[2023-04-24 13:00] VITALS: PULSE 54; O2SAT 92
[2023-04-24 13:03] VITALS: PULSE 77; O2SAT 86
[2023-04-24 13:04] VITALS: O2SAT 87
[2023-04-24 13:05] VITALS: O2SAT 90
[2023-04-24 13:15] VITALS: PULSE 60; O2SAT 93
--- NOTE | 2023-04-24 14:41 | HOMEO2EVAL ---
Evaluation was performed at [facility] Home Oxygen Evaluation RC: Home Oxygen (O2) Evaluation Start: 04/24/23 14:38 Freq: Status: Active Protocol: RPE Activity Type Activity Date Activity User E-sign Co-sign Detail Recorded Client Recorded Date Recorded By Document 04/24/23 13:00 KAYCE [email or web address] 04/24/23 14:41 KAYCE Document 04/24/23 13:03 KAYCE [id number] 04/24/23 14:41 KAYCE Document 04/24/23 13:04 KAYCE [id number] 04/24/23 14:41 KAYCE Document 04/24/23 13:05 KAYCE [id number] 04/24/23 14:41 KAYCE Document 04/24/23 13:15 KAYCE [email or web address] 04/24/23 14:41 KAYCE 04/24/23 04/24/23 04/24/23 13:00 13:03 13:04 Home O2 Evaluation [Oxygen] -Test Phase Resting Exercise Exercise -Oxygen Delivery Room Air Room Air Nasal Cannula -Oxygen Flow Rate (L/min) 1 [Pulse Oximetry] -Pulse Oximetry (90-100 %) 92 86 L 87 L [Pulse Rate] -Pulse Rate (60-100 beats/min) 54 L 77 [Evaluation] -Activity Tolerance -Rate of Perceived Exertion (PE) Query Text:Click the Protocol Button to View the RPE Scale [Exercise] -Ambulation Distance (feet) -Ambulation Distance (meters) [Comments] -Home Oxygen Evaluation Comments [Charges] -Evaluation Charges O2 Evaluation by Pulmonary 04/24/23 04/24/23 13:05 13:15 Home O2 Evaluation [Oxygen] -Test Phase Exercise Resting -Oxygen Delivery Nasal Cannula Room Air -Oxygen Flow Rate (L/min) 2 [Pulse Oximetry] -Pulse Oximetry (90-100 %) 90 93 [Pulse Rate] -Pulse Rate (60-100 beats/min) 60 [Evaluation] -Activity Tolerance Good -Rate of Perceived Exertion (PE) 13 Somewhat Query Text:Click the Protocol Button Hard to View the RPE Scale [Exercise] -Ambulation Distance (feet) 500 -Ambulation Distance (meters) 152.39 [Comments] -Home Oxygen Evaluation Comments Pt requires 2L home O2 with activity [Charges] -Evaluation Charges
--- NOTE | 2023-04-24 14:42 | PCRCNOTE ---
New home o2 eval faed to office staff, needs 2 l with activity. Pt requesting POC, will relay this to office.
--- NOTE | 2023-05-01 14:57 | WPDPFTINT ---
PFT Procedure Performed PFT Procedure Performed Spirometry with Pre/Post Bronchodilator Plethysmography (Lung Vol) Flow Vol Loop PFT Interpretation This is a pulmonary function test with pre and post-bronchodilator spirometry, and plethysmography. The test was performed and results interpreted in accordance with the 2019 and 2005 ATS/ERS Task Force guidelines respectively using the Global Lung Function Initiative-2012 reference equations. Patient demonstrated good effort and cooperation. Reproducibility criteria were met. The quality of the pre bronchodilator spirometry maneuver was Grade A and post bronchodilator spirometry maneuver was Grade B. Findings: Spirometry: There is decreased maximal expiratory airflow at all lung volumes with concave expiratory flow tracing. The contour the inspiratory flow tracing is normal. The pre bronchodilator FVC is 0.79 L, 31% predicted. The pre bronchodilator FEV1 is 0.53 L, 27% predicted. The pre bronchodilator FEV1: FVC ratio 67%. The post bronchodilator FVC is 0.95 L, representing a 160 mL increase or 20% increase. The post bronchodilator FEV1 is 0.63 L, representing a 100 mL increase or 20% increase. The post bronchodilator FEV1: FVC ratio 67%. Plethysmography: The total lung capacity is 6.09 L, 124% predicted. The residual functional residual capacity is 5.28 L, 187% predicted. The residual volume is 5.13 L, 223% predicted. In comparison to previous pulmonary function testing performed on 08/29/2018 the post bronchodilator FVC has decreased from 1.41 L to 0.95 L. The post bronchodilator FEV1 is decreased from 0.94 L to 0.63 L. The total lung capacity has increased from 4.58 L to 6.09 L. The functional residual capacity has increased from 3.84 L to 5.28 L. The residual volume has increased from 3.13 L to 5.13 L. Impression: The spirometry is normal without evidence of an obstructive abnormality. There is no significant improvement after inhaling a single dose of albuterol. The lung volumes are normal. The diffusing capacity is normal. Impression: There is a severe obstructive abnormality without significant improvement after inhaling a single dose of albuterol as the absolute increase in the FEV1 is less than 200 mL. The increase in residual volume is consistent with air trapping from an obstructive abnormality. Hyperinflation is present as demonstrated by the increase in functional residual capacity and total lung capacity and is consistent with an obstructive abnormality. In comparison to previous pulmonary function testing on 08/29/2018 there has been a greater than anticipated time dependent decrease in the FVC and FEV1 with a greater than anticipated time dependent increase in the total lung capacity, functional residual capacity and residual volume. Clinical correlation is recommended.
== END 2023-04-24 12:06 | disposition home or self-care (01) ==
PROVIDERS: PCP Internal Medicine; Visit Provider Internal Medicine Pulmonary Disease
DX: J44.9 Chronic obstructive pulmonary disease, unspecified (principal); I35.8 Other nonrheumatic aortic valve disorders; I35.1 Nonrheumatic aortic (valve) insufficiency; I07.1 Rheumatic tricuspid insufficiency; Z87.891 Personal history of nicotine dependence
CPT/HCPCS: 93306; 94060; 94618; 94726

== ENCOUNTER 2023-06-26 08:44 | Outpatient (CLI) | payer MEDICARE, SELFPAY ==
--- NOTE | ~2023-06-26 | NM_ITS ---
EXAMINATION: NM ashley stress w perfusion DATE: 06/26/2023 10:43 INDICATION: Dyspnea TECHNIQUE: Rest images were obtained following intravenous administration of 10.4 mCi Tc99m tetrofosm in (Myoview). The patient was infused intravenously with Lexiscan (Regadenoson). Then, 84.0 mCi Tc99m tetrofosmin (Myoview) was administered intravenously, and stress images were obtained and first the supine position with repeat imaging performed in the prone position. Data was reconstructed into shor t axis and horizontal and vertical long axis SPECT images. Gated SPECT images were also obtained. COMPARISON: None. FINDINGS: Large region of significant artifactually decreased activity along much of the anterior and lateral rios on the supine rest and post stress imaging which largely normalizes on the post stress imaging performed in the prone position. No definitive perfusion defects on the post stress imaging obtained in the prone position to suggest ischemia or infarction. There is normal left ventricular c hamber size, wall motion and ejection fraction. Left ventricular ejection fraction measures >70%. IMPRESSION: 1. Normal myocardial perfusion during stress with prone imaging. 2. Left ventricular ejection fraction measuring >70%. Reviewed, dictated and finalized at location A. ICAL DEPENDENCY THERAPIST
--- NOTE | 2023-06-26 09:20 | NST_ITS ---
Patient Info Name: Deepti Shepherd Age: 77 years : 1945 Gender: Female Ht: 63 in Wt: 195 lbs BSA: 2.02 m? BP: 121 / 68 mmHg HR: 49 bpm Heart Rhythm: Sinus Rhythm Exam Date: 06/26/2023 9:41 AM Admit Date: 06/26/2023 Exam Location: Echo Lab Patient Status: Outpatient Exam Type: CA stress sahley w NM Staff Ordering Physician: Raza Kinney DO Attending Provider: Raza Kinney DO Exercise Technologist: Mouna Villalpando CT Exercise Physician: Shayan Phillips DO Study Info Indications Code Description R06.09 Other forms of dyspnea Procedure(s) A regadenoson stress test was performed. Summary 1. 1. Negative lexiscan stress test for ischemic ST changes by ECG criteria. 2. 2. Stable hemodynamics throughout the test. 3. 3. Nuclear scan to follow and will be reported separately. Please correlate with it. 4. 4. Patient informed of the above results. Stress ECG Details Protocol: Lexiscan Total Time: 1 min : 0 secTotal Dose: 0.4 mg Rest HR: 52 bpm Rest Sys BP: 121 mmHg Rest Swartz BP: 68 mmHg Max Pred HR: 142 bpm Target HR: 121 bpm Peak HR: 73 bpm Peak Sys BP: 145 mmHg Peak Swartz BP: 69 mmHg % Max Pred HR:51 % Max RPP: 10,585 bpm*mmHg Termination Reason: Completed protocol Cardiac Symptoms: Shortness of breath Resting ECG Sinus bradycardia. Stress ECG No ST changes. Arrhythmias None. Stage Duration (min) Dose Medication(s) HR (bpm) SBP (mmHg ) DBP (mmHg ) Symptoms Comments REST 0 min : 58 sec 50 121 68 REST 10 min : 11 sec 52 121 68 STAGE 1 0 min : 59 sec 60 145 69 RECOVERY 1 min : 0 sec 71 145 69 RECOVERY 2 min : 0 sec 67 145 69 RECOVERY 3 min : 0 sec 68 145 69 RECOVERY 3 min : 27 sec 67 137 75 Report Signatures Electronically signed by Shayan Phillips DO on 2023 10 : 16 MTDD
== END 2023-06-26 08:45 | disposition home or self-care (01) ==
PROVIDERS: PCP Internal Medicine; Visit Provider Internal Medicine
DX: I25.10 Atherosclerotic heart disease of native coronary artery without angina pectoris (principal)
CPT/HCPCS: 78452; 93017; A9502; J2785

== ENCOUNTER 2023-06-30 08:28 | Inpatient (IN) | payer MEDICARE, SELFPAY ==
[2023-06-30] VITALS (12 sets, daily range): BP systolic 123–135; BP diastolic 61–99; PULSE 55–71; RESP 16–20; TEMP 36.4–36.6; O2SAT 93–100; BMI 34.4
--- NOTE | ~2023-06-30 | CT_ITS ---
EXAMINATION: CT brain wo con INDICATION: Headache COMPARISON: 07/07/2021 TECHNIQUE: Standard unenhanced head CT. The dose-length product (DLP) was 529.67 mGy-cm. The mA was a djusted according to patient size. Iterative reconstruction technique was employed. FINDINGS: No acute intraparenchymal hemorrhage. No evidence of mass lesion. No evidence of acute infa rction. Aneurysm clip is again noted in the right sylvian fissure. There is unchanged chronic encepha lomalacia of the right frontotemporal region, the right insula, and the right lentiform nucleus. An o ld infarct is noted in the left basal ganglia. There is mild periventricular and subcortical hypodens ity probably related to small vessel ischemic disease. There is mild prominence of the sulci and vent ricles related to cerebral atrophy. Intracranial calcified cerebral atherosclerosis is noted. No extr a-axial collections. No mass effect or midline shift. Changes in the globes are likely from ocular le ns surgery. The visualized sinuses and mastoid air cells are well aerated. There are changes of right temporal craniotomy. IMPRESSION: 1. Right-sided aneurysm clipping and areas of prior infarction without acute intracranial abnormality . 2. Age related findings. Reviewed, dictated and finalized at location F. UNITY HEALTH COUNSELOR IMPRESSION: 1. Right-sided aneurysm clipping and areas of prior infarction without acute in tracranial abnormality. 2. Age related findings.
--- NOTE | ~2023-06-30 | XR_ITS ---
EXAMINATION: XR chest 2V DATE: 06/30/2023 09:26 INDICATION: Shortness of breath TECHNIQUE: AP and lateral views of the chest are obtained. COMPARISON: 04/16/2023 FINDINGS: There is subsegmental atelectasis or scarring of the left midlung zone. The lungs are free of acute opacities. No pleural effusion or pneumothorax. Cardiomegaly is noted. There is an endovascu lar stent in the descending thoracic aorta. There is moderate thoracic spondylosis. IMPRESSION: 1. Cardiomegaly. Reviewed, dictated and finalized at location F. ER RECEPTIONIST IMPRESSION: 1. Cardiomegaly.
--- NOTE | ~2023-06-30 | CT_ITS ---
EXAMINATION:CT diagnostic chest wo con DATE: 07/03/2023 14:51 INDICATION: Left-sided atelectasis. Congestive heart failure. TECHNIQUE: Computed tomography (CT) of the chest was performed without intravenous contrast. Automate d exposure control and iterative reconstruction technique were employed. The dose-length product (DLP ) was 386.38 mGy-cm. COMPARISON: Chest CT 02/27/2022 FINDINGS: There is mild atelectasis bilaterally. No pleural effusion. Cardiomegaly is noted. There ar e coronary artery calcifications. There are changes of coronary artery bypass grafting. No pericardia l effusion. There is a 12 mm nodule in right thyroid lobe, likely not clinically significant. Calcifi ed right hilar and mediastinal lymph nodes are consistent with old granulomatous disease. There is a fusiform aneurysm of ascending aorta measuring 5.0 cm . There is a fusiform aneurysm of ascending tho racic aorta measuring up to 5.0 cm with stent graft. The central pulmonary arteries are enlarged, con sistent with pulmonary arterial hypertension. There is severe thoracic spondylosis. IMPRESSION: 1. Mild atelectasis in the lungs. 2. Cardiomegaly. 3. Fusiform aneurysm of ascending and descending aorta measuring up to 5.0 cm with stent graft in krystle cending thoracic aorta. Reviewed, dictated and finalized at location A. K OUT MAN IMPRESSION: 1. Mild atelectasis in the lungs. 2. Cardiomegaly. 3. Fusiform aneurysm of ascending and descending aorta measuring up to 5.0 cm w ith stent graft in descending thoracic aorta.
--- NOTE | ~2023-06-30 | XR_ITS ---
EXAMINATION: XR sniff test without CXR2V DATE: 07/03/2023 14:46 INDICATION: Shortness of breath. Paralysis of left hemidiaphragm. TECHNIQUE: I performed fluoroscopy of the chest while the patient performed normal breathing, deep br eathing, and forceful sniffing. The number of images was 850. The fluoroscopy exposure time was 0.5 m inutes. COMPARISON: Chest CT 07/03/2023, chest 2 views 01/17/2023 FINDINGS: There is chronic mild elevation of left hemidiaphragm. There is normal motion of the diaphr agm with all breathing tasks. There is a stent graft in descending thoracic aorta. IMPRESSION: 1. Normal motion of the diaphragm. Reviewed, dictated and finalized at location A. INE JOINER CEMENTER
--- NOTE | 2023-06-30 08:48 | ECG_ITS ---
Measurements Intervals [place] Rate: 56 P: 37 FL: 148 QRS: -19 QRSD: 90 T: 53 QT: 431 QTc: 417 Interpretive Statements SINUS BRADYCARDIA OTHERWISE NORMAL ECG NO PREVIOUS ECG AVAILABLE FOR COMPARISON Electronically Signed On 06-30-2023 10:18:48 BUYER ASSISTANT by Taqueria Sweeney M.D.
--- NOTE | 2023-06-30 09:11 | ED.SOB ---
HPI - SOB/Dyspnea General Chief Complaint: Shortness of Breath/Dyspnea Stated Complaint: diff breathing/marie Time Seen by Provider: 06/30/23 09:09 Source: patient Mode of arrival: ambulatory Limitations: no limitations History of Present Illness HPI Narrative: This is a 77-year-old female that presents to the emergency department for shortness of breath. Worsening over the last couple of days. Associated with a productive cough of yellow sputum. Reports she takes daily Breztri as well as albuterol as needed. Her master cook is Dr. Issa. She also has had a right-sided headache since last night. Denies fever, chest pain, vomiting, focal numbness or weakness. Related Data Home Medications Medication Instructions Recorded Confirmed aspirin 81 mg tablet,delayed 81 mg PO DAILY 04/29/19 06/05/23 release (Adult Low Dose Aspirin) acetaminophen 500 mg tablet 1,000 mg PO DAILY PRN 10/10/22 06/05/23 (Tylenol Extra Strength) sennosides 8.6 mg capsule (senna) 8.6 mg PO DAILY 02/20/23 06/05/23 budesonide 160 mcg-glycopyr 9 2 inh inhalation BID 06/05/23 06/05/23 mcg-formot 4.8 mcg/actuation HFA inhaler (Breztri Aerosphere) pregabalin 100 mg capsule 100 mg PO BID 06/05/23 06/05/23 Allergies Allergy/AdvReac Type Severity Reaction Status Date / Time labetalol AdvReac Intermediate Vomiting Verified 06/30/23 12:41 Review of Systems Review of Systems: CONSTITUTIONAL: Denies fever ENT: Reports congestion CARDIOVASCULAR: Denies chest pain, or edema. RESPIRATORY: Reports cough and dyspnea. GASTROINTESTINAL: Denies vomiting NEUROLOGIC: Reports headache. Denies numbness, or weakness. All systems reviewed & are unremarkable except as noted in HPI and below [facility] Past Medical History Medical History Abdominal aortic aneurysm (AAA) Anxiety about health Aortic atherosclerosis CAD (coronary artery disease) Carotid artery stenosis Cerebral aneurysm clipped CKD (chronic kidney disease) stage 3, GFR 30-59 ml/min Congestive heart failure COPD (chronic obstructive pulmonary disease) GERD (gastroesophageal reflux disease) HTN (hypertension) Hyperthyroidism Lichen sclerosus vulver lichen sclerosis Measles Mumps QUENTIN on CPAP SOB (shortness of breath) Thoracic aortic aneurysm Surgical History Surgical History H/O foot surgery H/O: hysterectomy History of coronary artery bypass surgery History of craniotomy Family History Family History Father Family history of coronary artery disease Patient's father is , Onset Age: 92 Mother Patient's mother is , Onset Age: 73 Leukemia Sibling Family history of chronic obstructive pulmonary disease Heart disease Social History Social History Smoking packs per day: 0.75 Smoking cigarettes per day: 15.0 Years smoked: 30 Smoking pack-years: 22.50 Smoking status: Former smoker Tobacco type: cigarettes Second hand tobacco smoke exposure: Yes Smoking end date: 05/21/09 Alcohol intake: never Do You Feel Safe in your Home?: Yes Lack of Transportation: No Lack of Food: Never True Current Housing: I Have Housing Concerned About Future Housing: No Difficulty Paying Gas/Electric Bills: No Difficulty Paying for Meds: No Currently Unemployed: No Education: Decline to Answer Difficulty w/ Childcare or Family Care: No Exam Narrative: GENERAL: Elderly, well-nourished, and in no acute distress. HEAD: Normocephalic, atraumatic. EYES: PERRLA and EOMI. ENT: Nares clear, no rhinorrhea or epistaxis. Mucous membranes moist. Oropharynx without tonsillar hypertrophy exudate or other lesions. Bilateral TMs pearly powell non-bulging NECK: Supple. No adenopathy or masses. CHEST: No respiratory d
[2023-06-30 09:13] LABS: Basophils Percent Auto 0.3 % (0.2-1.2); Eosinophils Absolute Auto 0.2 K/mm3 (0-0.3); Eosinophils Percent Auto 1.7 % (0-4.4); Hematocrit 34.9 % (37.0-47.0); Immature Granulocyte Absolute 0.04 K/mm3 (0.00-0.031); Immature Granulocyte Percent A 0.4 % (0-0.5); Lymphocytes Absolute Auto 1.41 K/mm3 (0.9-3.2); Lymphocytes Percent Auto 12.8 % (18.3-44.2); Mean Corpuscular HGB Conc 31.5 g/dl (32-36); Mean Corpuscular Hemoglobin 27.9 pg (26-34); Mean Corpuscular Volume 88.6 fl (80-100); Mean Platelet Volume 11.3 fl (7.4-10.4); Monocytes Absolute Auto 1.1 K/mm3 (0.1-0.6); Monocytes Percent Auto 9.5 % (2.6-8.5); Neutrophils Absolute Auto 8.3 K/mm3 (1.3-6.7); Neutrophils Percent Auto 75.3 % (45.5-73.1); Platelet Count Result 210 k/mm3 (150-375); Red Blood Count 3.94 M/mm3 (4.2-5.4)
[2023-06-30 09:25] LABS: Alanine Aminotransferase 15 U/L (6-35); Albumin Level 3.7 g/dL (3.5-5.1); Alkaline Phosphatase 77 U/L (38-126); Anion Gap 4 mmol/L (8-16); Aspartate Amino Transferase 23 U/L (14-36); Bilirubin,Total 0.8 mg/dL (0.2-1.3); Blood Urea Nitrogen 10 mg/dL (7-17); Calcium 8.9 mg/dL (8.4-10.2); Carbon Dioxide 30 mmol/L (22-30); Chloride 103 mmol/L (98-107); Estimated Glomerular Filt Rate > 60; Glucose 117 mg/dL (65-110); Potassium 4.2 mmol/L (3.4-5.0); Sodium 137 mmol/L (137-145)
[2023-06-30] MEDS: ALBUTEROL SULFATE NEB 2.5 MG/3 ML INH 15 MG INHALATION (09:51)
[2023-06-30] MEDS: IPRATROPIUM BR 0.02% INH SOLN 0.5 MG/2.5 ML VIAL 1.5 MG INHALATION (09:51)
[2023-06-30 09:55] LABS: Base Excess ABG 2.6 mEq/l (+/-2.0); Carboxyhemoglobin 0.7 % THb (0-2.0); Fractional Inspired Oxygen 21 %; HCO3 ABG 27.4 mEq/l (22.0-26.0); Methemoglobin ABG 0.3 %THb (0-1.5); Oxygen Content ABG 15.3 %vol (16.0-22.0); Oxygen Saturation ABG 91.1 % (95.0-100.0); Oxyhemoglobin 89.4 % THb (90.0-100.0); PO2 ABG 59.2 mmHg (80.0-100.0); PO2 FiO2 Ratio Arterial Blood 2.82 %; Reduced Hemoglobin 9.6 %THb (0-5.0); Total Hemoglobin 12.2 g/dL (12.0-18.0); pH ABG 7.422 (7.350-7.450)
[2023-06-30 09:56] LABS: Device ROOM AIR; Modified Allen's Test Pass; Site Drawn RIGHT RADIAL
[2023-06-30 10:05] LABS: NT Pro B Type Natriuretic Pept 1960 pg/mL (19.9-100)
[2023-06-30] MEDS: methylPREDNISolone SOD SUCC 125 MG VIAL IV PUSH (10:23)
[2023-06-30] MEDS: ACETAMINOPHEN 500 MG TABLET 1000 MG PO (10:23)
[2023-06-30 10:29] LABS: Influenza A QL RT-PCR Negative (Negative); Influenza B QL RT-PCR Negative (Negative); RSV RNA, RT-PCR Negative (Negative); SARS-CoV-2 RNA PCR Negative (Negative)
[2023-06-30] MEDS: AZITHROMYCIN 500 MG/NS 250 ML 500 MG/250 ML BAG 250 MG IVPB (13:41)
--- NOTE | 2023-06-30 14:16 | ADMGEN ---
This patient, Deepti Shepherd, was admitted to 3 Med Surg Room 313-01. Patient/family oriented to hospital policies and general routines including ID bracelet, bed and alarms, visiting hours, pain management, procedures, bathroom and other care routines, personal items, smoking policy, room service/diet, and visiting hours. Information on how to activate the Rapid Response Team has been discussed. Patient/Family are encouraged to report perceived risks to care and to ask questions if they do not understand what they are told or what they should do.
--- NOTE | 2023-06-30 14:59 | PM.IMHP ---
H&P: HPI History of Present Illness Date/Time: 06/30/23 14:45 Chief Complaint: Shortness of breath. Narrative: This is a very pleasant 77-year-old female who carries a diagnosis of COPD, obstructive sleep apnea intolerant to CPAP, coronary artery disease status post 3 vessel bypass, ascending aortic aneurysm, carotid artery stenosis, hypertension, hyperlipidemia, hyperthyroidism, cerebral aneurysm status post clipping, and gastroesophageal reflux disease who presented to the emergency department for evaluation of shortness of breath. The patient provides the following history. She is not necessarily limited by her breathing on a day-to-day basis but she has periods of time where she will have exacerbations and issues with wheezing and shortness of breath with exertion for several weeks at a time. The last several weeks she has noticed that she is wheezing a bit at nighttime and the last 3 days she has had progressive dyspnea on lesser and lesser exertion. She has been using her daily inhaler (Breztri) and her rescue inhaler which does not seem to be providing her with longstanding relief. She also complains of a right-sided headache since last evening and a cough which has been productive of copious amounts of thick, yellow sputum. She denies fever, chills, sweats, sore throat, chest pain, pleuritic pain, orthopnea, paroxysmal nocturnal dyspnea, edema, vomiting, dysphagia, concerns for aspiration, and sick contacts. In the ED: She was afebrile on arrival to the ED with stable vital signs. Her SpO2 has been running in the low to mid 90s on room air. ABG - 7.422/43/59.2/27.4. Her labs were pretty unremarkable aside from a WBC count of 11.0 and proBNP 1960. She tested negative for influenza, RSV, and COVID. Brain CT showed no acute findings. Chest x-ray showed cardiomegaly. She was given 125 mg IV Solu-Medrol, a DuoNeb, and a dose of azithromycin and ceftriaxone and she is being admitted in this setting for further treatment. Review of Systems Review of Systems: Twelve systems were reviewed and are negative except for as per HPI. [facility] Past Medical History Medical History (Updated 06/30/23 @ 15:48 by Grecia Anderson PA-C) Anxiety Aortic atherosclerosis Ascending aortic aneurysm Carotid artery stenosis Cerebral aneurysm Status post rupture and clipping x2. Chronic kidney disease Chronic obstructive pulmonary disease Longstanding diagnosis however PFTs reportedly show a nonspecific pattern with severe restrictive defect but a normal TLC. Congestive heart failure Coronary artery disease Gastroesophageal reflux disease Hypertension Hyperthyroidism Lichen sclerosus of vulva Obstructive sleep apnea on CPAP Not compliant with CPAP due to claustrophobia. Now wearing 3 L nasal cannula at nighttime. Osteoarthritis Surgical History Surgical History (Updated 06/30/23 @ 15:42 by Grecia Anderson PA-C) History of bladder suspension procedure History of coronary artery bypass graft x 3 (08/2010) History of craniotomy With clipping of cerebral aneurysms. History of tonsillectomy History of total hysterectomy History of tubal ligation Family History Family History Father Family history of coronary artery disease Patient's father is , Onset Age: 92 Mother Patient's mother is , Onset Age: 73 Leukemia Sibling Family history of chronic obstructive pulmonary disease Heart disease Social History Social History (Updated 06/30/23 @ 15:43 by Grecia Anderson PA-C) Social History: Surrogate medical decision maker: Code status: Full code. Smoking packs per day: 0.75 Smoking cigarettes per day: 15.0 Years smoked: 30 Smoking pack-years: 22.50 Smoking status: Former smoker Tobacco type: cigarettes Second hand tobacco smoke exposure: Yes Smoking end date: 05/21/09 Alcohol intake: never Substance use: never Subs
[2023-06-30] MEDS: METOPROLOL TARTRATE 50 MG TAB PO (17:46)
[2023-06-30] MEDS: PREGABALIN (*CRX) 50 MG CAPSULE 100 MG PO (17:46)
[2023-06-30] MEDS: IPRATROPIUM BR 0.02% INH SOLN 0.5 MG/2.5 ML VIAL INHALATION (21:00)
[2023-06-30] MEDS: ALBUTEROL SULFATE NEB 2.5 MG/3 ML INH INHALATION (21:00)
[2023-06-30] MEDS: ATORVASTATIN 40 MG TABLET 80 MG PO (21:24)
[2023-06-30] MEDS: guaiFENesin 12 HR 600 MG TABCR PO (21:24)
[2023-07-01] VITALS (22 sets, daily range): BP systolic 110–135; BP diastolic 47–62; PULSE 52–84; RESP 14–22; TEMP 36.2–36.9; O2SAT 90–94
[2023-07-01] MEDS: IPRATROPIUM BR 0.02% INH SOLN 0.5 MG/2.5 ML VIAL INHALATION ×4 (02:08→20:16)
[2023-07-01] MEDS: ALBUTEROL SULFATE NEB 2.5 MG/3 ML INH INHALATION ×4 (02:08→20:17)
[2023-07-01] MEDS: methylPREDNISolone SOD SUCC 125 MG VIAL 60 MG IV PUSH ×3 (05:21→21:14)
[2023-07-01 07:04] LABS: Hematocrit 33.2 % (37.0-47.0); Hemoglobin 10.7 g/dL (12.0-15.0); Mean Corpuscular HGB Conc 32.2 g/dl (32-36); Mean Corpuscular Hemoglobin 27.7 pg (26-34); Mean Platelet Volume 11.7 fl (7.4-10.4); Platelet Count Result 204 k/mm3 (150-375); Red Blood Count 3.86 M/mm3 (4.2-5.4); Red Cell Distribution Width 14.4 % (11.5-14.5); White Blood Count 9.2 K/mm3 (4.5-10.0)
[2023-07-01 07:20] LABS: Anion Gap 5 mmol/L (8-16); Blood Urea Nitrogen 15 mg/dL (7-17); Calcium 8.8 mg/dL (8.4-10.2); Carbon Dioxide 28 mmol/L (22-30); Chloride 103 mmol/L (98-107); Estimated CRCL calculation 67 ml/min; Estimated Glomerular Filt Rate > 60; Glucose 149 mg/dL (65-110); Magnesium 1.5 mg/dL (1.6-2.3); Potassium 4.2 mmol/L (3.4-5.0); Sodium 136 mmol/L (137-145)
[2023-07-01 07:45] LABS: Free T4 Free Thyroxine 1.11 ng/mL (0.78-2.19)
[2023-07-01 07:47] LABS: Thyroid Stimulating Hormone 0.304 uIU/mL (0.465-4.680)
[2023-07-01] MEDS: amLODIPine BESYLATE 5 MG TABLET 10 MG PO (08:33)
[2023-07-01] MEDS: PANTOPRAZOLE 40 MG TABLET PO (08:33)
[2023-07-01] MEDS: LOSARTAN POTASSIUM 25 MG TABLET PO (08:34)
[2023-07-01] MEDS: PREGABALIN (*CRX) 50 MG CAPSULE 100 MG PO ×2 (08:34→16:47)
[2023-07-01] MEDS: ASPIRIN 81 MG ENTERIC TABLET PO (08:34)
[2023-07-01] MEDS: guaiFENesin 12 HR 600 MG TABCR PO ×2 (08:34→20:33)
[2023-07-01] MEDS: methiMAzole 5 MG TAB PO (08:34)
[2023-07-01] MEDS: FLUoxetine HCL 20 MG CAPSULE PO (08:34)
[2023-07-01] MEDS: METOPROLOL TARTRATE 50 MG TAB PO ×2 (08:34→16:47)
[2023-07-01] MEDS: ENOXAPARIN 40 MG/0.4 ML SYRINGE SUB-Q (08:36)
[2023-07-01] MEDS: FLUTICASONE/UMECLIDIN/VILANTER 100-62.5-25 MCG ELLIPTA 1 PUFF INHALATION (09:29)
[2023-07-01] MEDS: AZITHROMYCIN 500 MG/NS 250 ML 500 MG/250 ML BAG 250 MG IVPB (14:55)
--- NOTE | 2023-07-01 15:03 | PM.IMPN ---
Progress Note: A&P Assessment and Plan (1) COPD exacerbation: Code(s): J44.1 - Chronic obstructive pulmonary disease with (acute) exacerbation Status: Acute Assessment and Plan: Presented with SOB, increased cough and septum production ABG on presentation ABG - 7.422/43/59.2/27.4 Sputum cultures pending Nebulizer treatments ordered q6hr azithromycin and ceftriaxone IV Solu-Medrol 3L O2 via NC with activity and sleep Continue to monitor respiratory status (2) Obstructive sleep apnea: Code(s): G47.33 - Obstructive sleep apnea (adult) (pediatric) Status: Acute Assessment and Plan: QUENTIN- CPAP intolerant 3L O2 via NC with activity and sleep Continue to monitor respiratory status (3) Hypertension: Code(s): I10 - Essential (primary) hypertension Status: Acute Assessment and Plan: BP stable Take Blood pressure in right arm for consistency- 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 Continue home blood pressure medications Continue to monitor (4) Coronary artery disease: Code(s): I25.10 - Atherosclerotic heart disease of [place] coronary artery without angina pectoris Status: Acute Assessment and Plan: No acute issues regarding CAD Continue home medications Monitor (5) Hyperthyroidism: Code(s): E05.90 - Thyrotoxicosis, unspecified without thyrotoxic crisis or storm Status: Acute Assessment and Plan: TSH ordered 0.304, T4 1.11, T3 pending Continue to monitor for symptoms Time Spent With Patient Time with patient: 15 - 25 minutes Subjective Date/time seen: 07/01/23 0830 Interval history: 77 year old pleasant female examined at bedside in interval assessment as she presented to ED with concerns for increased shortness of breath that worsened over a few days. She was admitted for continued on nebulizer treatments, steroids and antibiotics for acute COPD exacerbation VS congestive heart failure VS community acquired pneumonia . Today at the time of assessment she stated she is breathing better and can not hear her audible wheezes any more. Patient stated that she does get out of breath with activity at home and it will subside with rest. She notes that she wear 3L of O2 via nasal cannula at home with activity and during sleep as she can not tolerate a CPAP, and will complete the same here. She denies chest pain. BP this am 135/62- Please take in right arm. Today WBC 9.2. after administration of azithromycin and ceftriaxone. Will order BNP for trend. Sputum and blood cultures are pending. Will continue to monitor and provide support as appropriate. All patient's questions were answered to satisfaction. Review of Systems Review of Systems: All systems reviewed & are unremarkable except as noted in HPI and below Exam Narrative: General: Well-developed, nontoxic-appearing female sitting up in bed in no acute respiratory distress. HEENT: PERRL, EOMI. Sclera anicteric. Tacky mucous membranes. Neck: Supple. No JVD or lymphadenopathy. Respiratory: Respirations are nonlabored and she is speaking in full sentences. Lung sounds are a bit diminished throughout with prolonged expiratory wheezing. Occasional rhonchi improve with cough. Cardiovascular: Regular rate and rhythm with S1-S2. Gastrointestinal: Abdomen is soft, nontender, and nondistended with positive bowel sounds. Skin: Warm and dry. No rash or lesions on limited exam. Extremities: No cyanosis or clubbing. Trace pretibial edema bilaterally. Radial and pedal pulses intact. Neurological: Alert. Cranial nerves 2-12 are grossly intact. No gross focal deficits to casual conversation. Psychiatric: Pleasant and cooperative with normal mood and affect. Judgment and insight intact. Objective Data Vital Signs Vital Signs: Vital Signs - 24 hr 06/30/23 18:02 06/30/23 20:32 06/30/23 21:00 Temperature 97.8 F Pulse Rate 71 66 Respiratory Rate 18 20 Bl
[2023-07-01] MEDS: ATORVASTATIN 40 MG TABLET 80 MG PO (20:33)
[2023-07-02] VITALS (17 sets, daily range): BP systolic 117–151; BP diastolic 43–75; PULSE 55–74; RESP 16–28; TEMP 35.8–36.4; O2SAT 93–96
[2023-07-02] MEDS: ALBUTEROL SULFATE NEB 2.5 MG/3 ML INH INHALATION ×4 (01:08→20:33)
[2023-07-02] MEDS: IPRATROPIUM BR 0.02% INH SOLN 0.5 MG/2.5 ML VIAL INHALATION ×4 (01:08→20:33)
[2023-07-02] MEDS: methylPREDNISolone SOD SUCC 125 MG VIAL 60 MG IV PUSH ×3 (06:01→21:10)
[2023-07-02 06:37] LABS: Hematocrit 32.7 % (37.0-47.0); Hemoglobin 10.3 g/dL (12.0-15.0); Mean Corpuscular HGB Conc 31.5 g/dl (32-36); Mean Corpuscular Volume 85.6 fl (80-100); Platelet Count Result 221 k/mm3 (150-375); Red Blood Count 3.82 M/mm3 (4.2-5.4); Red Cell Distribution Width 14.6 % (11.5-14.5); White Blood Count 11.8 K/mm3 (4.5-10.0)
[2023-07-02 06:51] LABS: Alanine Aminotransferase 19 U/L (6-35); Albumin Level 3.5 g/dL (3.5-5.1); Alkaline Phosphatase 67 U/L (38-126); Anion Gap 8 mmol/L (8-16); Aspartate Amino Transferase 20 U/L (14-36); Bilirubin,Total 0.3 mg/dL (0.2-1.3); Blood Urea Nitrogen 20 mg/dL (7-17); Calcium 8.6 mg/dL (8.4-10.2); Carbon Dioxide 28 mmol/L (22-30); Chloride 99 mmol/L (98-107); Estimated CRCL calculation 52 ml/min; Estimated Glomerular Filt Rate > 60; Glucose 161 mg/dL (65-110); Potassium 3.9 mmol/L (3.4-5.0); Sodium 135 mmol/L (137-145)
[2023-07-02 06:57] LABS: NT Pro B Type Natriuretic Pept 2800 pg/mL (19.9-100)
[2023-07-02] MEDS: FLUTICASONE/UMECLIDIN/VILANTER 100-62.5-25 MCG ELLIPTA 1 PUFF INHALATION (07:43)
[2023-07-02] MEDS: ASPIRIN 81 MG ENTERIC TABLET PO (08:59)
[2023-07-02] MEDS: LOSARTAN POTASSIUM 25 MG TABLET PO (08:59)
[2023-07-02] MEDS: methiMAzole 5 MG TAB PO (08:59)
[2023-07-02] MEDS: amLODIPine BESYLATE 5 MG TABLET 10 MG PO (08:59)
[2023-07-02] MEDS: SENNOSIDES 8.6 MG TABLET PO (08:59)
[2023-07-02] MEDS: FLUoxetine HCL 20 MG CAPSULE PO (08:59)
[2023-07-02] MEDS: PANTOPRAZOLE 40 MG TABLET PO (08:59)
[2023-07-02] MEDS: guaiFENesin 12 HR 600 MG TABCR PO ×2 (08:59→21:06)
[2023-07-02] MEDS: METOPROLOL TARTRATE 50 MG TAB PO ×2 (08:59→17:11)
[2023-07-02] MEDS: ENOXAPARIN 40 MG/0.4 ML SYRINGE SUB-Q (08:59)
[2023-07-02] MEDS: PREGABALIN (*CRX) 50 MG CAPSULE 100 MG PO ×2 (08:59→17:11)
--- NOTE | 2023-07-02 13:17 | P.PNIM_ITS ---
Progress Note: A&P Assessment and Plan (1) COPD exacerbation: Code(s): J44.1 - Chronic obstructive pulmonary disease with (acute) exacerbation Status: Acute Assessment and Plan: * Presented with SOB, increased cough and septum production * ABG on presentation ABG - 7.422/43/59.2/27.4 * Sputum cultures pending * Nebulizer treatments ordered q6hr * azithromycin and ceftriaxone * IV Solu-Medrol * 3L O2 via NC with activity and sleep * Continue to monitor respiratory status * 2/12: Expressed breathing seems somewhat better, No auidble wheezing * Lungs Diminished, Prolonged Expiratory wheezing noted * Continue IV steroid, IV abx * Sputum and Blood cultures pending * 3L O2 with activity and sleep * Continue to monitor respiratory status and O2 saturation (2) Dyspnea: Qualifiers: Dyspnea type: dyspnea on exertion Qualified Code(s): R06.09 - Other forms of dyspnea Code(s): R06.00 - Dyspnea, unspecified Status: Acute Assessment and Plan: * See # 1 (3) Obstructive sleep apnea: Code(s): G47.33 - Obstructive sleep apnea (adult) (pediatric) Status: Acute Assessment and Plan: * QUENTIN- CPAP intolerant * 3L O2 via NC with activity and sleep * Continue to monitor respiratory status * 2: Maintain O2 at 3L via NC with activity and sleep. 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 * Continue home blood pressure medications * Continue to monitor * 2: BP 134/70 this am * Home BP medications Losartan, Amlodipine, Metoprolol continued * Vital q4hrs * Continue to monitor (5) Coronary artery disease: Code(s): I25.10 - Atherosclerotic heart disease of [place] coronary artery without angina pectoris Status: Acute Assessment and Plan: * No acute issues regarding CAD * Continue home medications * Monitor (6) Hyperthyroidism: Code(s): E05.90 - Thyrotoxicosis, unspecified without thyrotoxic crisis or storm Status: Acute Assessment and Plan: * TSH ordered 0.304, T4 1.11, T3 pending * Continue to monitor for symptoms Time Spent With Patient Time with patient: 15 - 25 minutes Subjective Date/time seen: 07/02/23 0910 Interval history: 77 year old [place] female examined at bedside in interval assessment as she presented to ED with concerns for increased shortness of breath that worsened over a few days. She was admitted for continued nebulizer treatments, steroids and antibiotics for acute COPD exacerbation VS congestive heart failure VS community acquired pneumonia . Today at the time of assessment she stated she is breathing better and can not hear her audible wheezes any more. Patient stated that she does get out of breath with activity at home and it will subside with rest. She notes that she wears 3L of O2 via nasal cannula at home with activity and during sleep as she can not tolerate a CPAP, and will complete the same he re. She denies chest pain. BP this am 135/62- Please take in right arm. Today WBC 9.2. after administration of azithromycin and ceftriaxone. Will order BNP for trend. Sputum and blood cultures are pending. Will continue to monitor and provide support as appropriate. All patient's questions were answered to satisfaction. 07/02: Deepti andrade 77 year old, examined at bedside interval assessme
--- NOTE | 2023-07-02 13:17 | PM.IMPN ---
Progress Note: A&P Assessment and Plan (1) COPD exacerbation: Code(s): J44.1 - Chronic obstructive pulmonary disease with (acute) exacerbation Status: Acute Assessment and Plan: Presented with SOB, increased cough and septum production ABG on presentation ABG - 7.422/43/59.2/27.4 Sputum cultures pending Nebulizer treatments ordered q6hr azithromycin and ceftriaxone IV Solu-Medrol 3L O2 via NC with activity and sleep Continue to monitor respiratory status 2/12: Expressed breathing seems somewhat better, No auidble wheezing Lungs Diminished, Prolonged Expiratory wheezing noted Continue IV steroid, IV abx Sputum and Blood cultures pending 3L O2 with activity and sleep Continue to monitor respiratory status and O2 saturation (2) Dyspnea: Qualifiers: Dyspnea type: dyspnea on exertion Qualified Code(s): R06.09 - Other forms of dyspnea Code(s): R06.00 - Dyspnea, unspecified Status: Acute Assessment and Plan: See # 1 (3) Obstructive sleep apnea: Code(s): G47.33 - Obstructive sleep apnea (adult) (pediatric) Status: Acute Assessment and Plan: QUENTIN- CPAP intolerant 3L O2 via NC with activity and sleep Continue to monitor respiratory status 2/: Maintain O2 at 3L via NC with activity and sleep. 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 Continue home blood pressure medications Continue to monitor 2: BP 134/70 this am Home BP medications Losartan, Amlodipine, Metoprolol continued Vital q4hrs Continue to monitor (5) Coronary artery disease: Code(s): I25.10 - Atherosclerotic heart disease of [place] coronary artery without angina pectoris Status: Acute Assessment and Plan: No acute issues regarding CAD Continue home medications Monitor (6) Hyperthyroidism: Code(s): E05.90 - Thyrotoxicosis, unspecified without thyrotoxic crisis or storm Status: Acute Assessment and Plan: TSH ordered 0.304, T4 1.11, T3 pending Continue to monitor for symptoms Time Spent With Patient Time with patient: 15 - 25 minutes Subjective Date/time seen: 07/02/23 0910 Interval history: 77 year old pleasant female examined at bedside in interval assessment as she presented to ED with concerns for increased shortness of breath that worsened over a few days. She was admitted for continued nebulizer treatments, steroids and antibiotics for acute COPD exacerbation VS congestive heart failure VS community acquired pneumonia . Today at the time of assessment she stated she is breathing better and can not hear her audible wheezes any more. Patient stated that she does get out of breath with activity at home and it will subside with rest. She notes that she wears 3L of O2 via nasal cannula at home with activity and during sleep as she can not tolerate a CPAP, and will complete the same here. She denies chest pain. BP this am 135/62- Please take in right arm. Today WBC 9.2. after administration of azithromycin and ceftriaxone. Will order BNP for trend. Sputum and blood cultures are pending. Will continue to monitor and provide support as appropriate. All patient's questions were answered to satisfaction. 07/02: Deepti is pleasant 77 year old, examined at bedside interval assessment. Per chart review and patient interview she has ongoing issues with dyspnea. Her cable television access coordinator is Dr. Issa. She expressed that her breathing does feel better today, and can not hear her self wheezing any longer. Lungs sound are diminished throughout with prolonged expiratory wheezing and ronchi noted. She denies any pain, chest pain, fever, nausea, or chill. Blood and sputum cultures are pending at
[2023-07-02] MEDS: AZITHROMYCIN 500 MG/NS 250 ML 500 MG/250 ML BAG 250 MG IVPB (15:27)
[2023-07-02] MEDS: ATORVASTATIN 40 MG TABLET 80 MG PO (21:06)
[2023-07-03] VITALS (12 sets, daily range): BP systolic 124–165; BP diastolic 43–70; PULSE 48–64; RESP 14–19; TEMP 35.8–36.9; O2SAT 93–100
[2023-07-03] MEDS: methylPREDNISolone SOD SUCC 125 MG VIAL 60 MG IV PUSH (05:28)
[2023-07-03 07:49] LABS: Hematocrit 37.5 % (37.0-47.0); Hemoglobin 11.8 g/dL (12.0-15.0); Mean Corpuscular HGB Conc 31.5 g/dl (32-36); Mean Corpuscular Hemoglobin 27.6 pg (26-34); Mean Corpuscular Volume 87.8 fl (80-100); Mean Platelet Volume 11.1 fl (7.4-10.4); Platelet Count Result 256 k/mm3 (150-375); Red Blood Count 4.27 M/mm3 (4.2-5.4); Red Cell Distribution Width 14.6 % (11.5-14.5); White Blood Count 11.5 K/mm3 (4.5-10.0)
[2023-07-03] MEDS: ALBUTEROL SULFATE NEB 2.5 MG/3 ML INH INHALATION ×2 (07:51→22:48)
[2023-07-03] MEDS: IPRATROPIUM BR 0.02% INH SOLN 0.5 MG/2.5 ML VIAL INHALATION ×2 (07:51→22:48)
[2023-07-03] MEDS: FLUTICASONE/UMECLIDIN/VILANTER 100-62.5-25 MCG ELLIPTA 1 PUFF INHALATION (07:52)
[2023-07-03 07:54] LABS: Alanine Aminotransferase 22 U/L (6-35); Albumin Level 4.1 g/dL (3.5-5.1); Alkaline Phosphatase 71 U/L (38-126); Anion Gap 7 mmol/L (8-16); Aspartate Amino Transferase 26 U/L (14-36); Bilirubin,Total 0.4 mg/dL (0.2-1.3); Blood Urea Nitrogen 19 mg/dL (7-17); Calcium 8.9 mg/dL (8.4-10.2); Carbon Dioxide 30 mmol/L (22-30); Chloride 101 mmol/L (98-107); Estimated CRCL calculation 60 ml/min; Estimated Glomerular Filt Rate > 60; Glucose 153 mg/dL (65-110); Potassium 4.2 mmol/L (3.4-5.0); Sodium 138 mmol/L (137-145)
[2023-07-03 08:13] LABS: Hemoglobin A1C 6.4 % (<5.7)
[2023-07-03] MEDS: METOPROLOL TARTRATE 50 MG TAB PO ×2 (09:22→16:46)
[2023-07-03] MEDS: amLODIPine BESYLATE 5 MG TABLET 10 MG PO (09:22)
[2023-07-03] MEDS: ASPIRIN 81 MG ENTERIC TABLET PO (09:22)
[2023-07-03] MEDS: ENOXAPARIN 40 MG/0.4 ML SYRINGE SUB-Q (09:23)
[2023-07-03] MEDS: LOSARTAN POTASSIUM 25 MG TABLET PO (09:23)
[2023-07-03] MEDS: guaiFENesin 12 HR 600 MG TABCR PO ×2 (09:23→20:15)
[2023-07-03] MEDS: methiMAzole 5 MG TAB PO (09:23)
[2023-07-03] MEDS: SENNOSIDES 8.6 MG TABLET PO (09:23)
[2023-07-03] MEDS: PREGABALIN (*CRX) 50 MG CAPSULE 100 MG PO ×2 (09:23→16:46)
[2023-07-03] MEDS: PANTOPRAZOLE 40 MG TABLET PO (09:23)
[2023-07-03] MEDS: FLUoxetine HCL 20 MG CAPSULE PO (09:23)
--- NOTE | 2023-07-03 13:59 | P.PNIM_ITS ---
Progress Note: A&P Assessment and Plan (1) COPD exacerbation: Code(s): J44.1 - Chronic obstructive pulmonary disease with (acute) exacerbation Status: Acute Assessment and Plan: * Presented with SOB, increased cough and septum production * ABG on presentation ABG - 7.422/43/59.2/27.4 * Sputum cultures pending * Nebulizer treatments ordered q6hr * azithromycin and ceftriaxone * IV Solu-Medrol * 3L O2 via NC with activity and sleep * Continue to monitor respiratory status * 07/02: Expressed breathing seems somewhat better, No auidble wheezing * Lungs Diminished, Prolonged Expiratory wheezing noted * Continue IV steroid, IV abx * Sputum and Blood cultures pending * 3L O2 with activity and sleep * Continue to monitor respiratory status and O2 saturation * 07/03: Pulmonology consulted- Dr Issa suggest issues are cardiac related- request cardiolgy consult. * IV abx converted to PO- Augmentin and Azythromcyin * No respiratory distress noted at rest during the time of assessment. Patient able to speak in full sentences without issues. (2) Dyspnea: Qualifiers: Dyspnea type: dyspnea on exertion Qualified Code(s): R06.09 - Other forms of dyspnea Code(s): R06.00 - Dyspnea, unspecified Status: Acute Assessment and Plan: * See # 1 (3) Obstructive sleep apnea: Code(s): G47.33 - Obstructive sleep apnea (adult) (pediatric) Status: Acute Assessment and Plan: * QUENTIN- CPAP intolerant * 3L O2 via NC with activity and sleep * Continue to monitor respiratory status * 07/02: Maintain O2 at 3L via NC with activity and sleep. 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 * Continue to monitor, Vitals q4hrs (5) Coronary artery disease: Code(s): I25.10 - Atherosclerotic heart disease of [place] coronary artery without angina pectoris Status: Acute Assessment and Plan: * No acute issues regarding CAD * Continue home medications * Monitor * 07/03: Pulmonology suggest that issues may be cardiac related and suggest cardiology consult in addition. * Reviewed previous echo 04/24/23 and stress test on 06/26/23. * Cardiology consulted and appreciate recommendations for further care. (6) Hyperthyroidism: Code(s): E05.90 - Thyrotoxicosis, unspecified without thyrotoxic crisis or storm Status: Acute Assessment and Plan: * TSH ordered 0.304, T4 1.11, T3 pending * Continue to monitor for symptoms Time Spent With Patient Time with patient: 15 - 25 minutes Subjective Date/time seen: 07/03/23 5841 Interval history: 77 year old pleasant female examined at bedside in interval assessment as she presented to ED with concerns for increased shortness of breath that worsened over a few days. She was admitted for continued nebulizer treatments, steroids and antibiotics for acute COPD exacerbation VS congestive heart failure VS community acquired pneumonia . Today at the time of assessment she stated she is breathing better and can not hear her audible wheezes any more. Patient stated that she d
--- NOTE | 2023-07-03 13:59 | PM.IMPN ---
Progress Note: A&P Assessment and Plan (1) COPD exacerbation: Code(s): J44.1 - Chronic obstructive pulmonary disease with (acute) exacerbation Status: Acute Assessment and Plan: Presented with SOB, increased cough and septum production ABG on presentation ABG - 7.422/43/59.2/27.4 Sputum cultures pending Nebulizer treatments ordered q6hr azithromycin and ceftriaxone IV Solu-Medrol 3L O2 via NC with activity and sleep Continue to monitor respiratory status 2: Expressed breathing seems somewhat better, No auidble wheezing Lungs Diminished, Prolonged Expiratory wheezing noted Continue IV steroid, IV abx Sputum and Blood cultures pending 3L O2 with activity and sleep Continue to monitor respiratory status and O2 saturation 07/03: Pulmonology consulted- Dr Issa suggest issues are cardiac related- request cardiolgy consult. IV abx converted to PO- Augmentin and Azythromcyin No respiratory distress noted at rest during the time of assessment. Patient able to speak in full sentences without issues. (2) Dyspnea: Qualifiers: Dyspnea type: dyspnea on exertion Qualified Code(s): R06.09 - Other forms of dyspnea Code(s): R06.00 - Dyspnea, unspecified Status: Acute Assessment and Plan: See # 1 (3) Obstructive sleep apnea: Code(s): G47.33 - Obstructive sleep apnea (adult) (pediatric) Status: Acute Assessment and Plan: QUENTIN- CPAP intolerant 3L O2 via NC with activity and sleep Continue to monitor respiratory status 07/02: Maintain O2 at 3L via NC with activity and sleep. 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 Continue to monitor, Vitals q4hrs (5) Coronary artery disease: Code(s): I25.10 - Atherosclerotic heart disease of [place] coronary artery without angina pectoris Status: Acute Assessment and Plan: No acute issues regarding CAD Continue home medications Monitor 2/13: Pulmonology suggest that issues may be cardiac related and suggest cardiology consult in addition. Reviewed previous echo 04/24/23 and stress test on 06/26/23. Cardiology consulted and appreciate recommendations for further care. (6) Hyperthyroidism: Code(s): E05.90 - Thyrotoxicosis, unspecified without thyrotoxic crisis or storm Status: Acute Assessment and Plan: TSH ordered 0.304, T4 1.11, T3 pending Continue to monitor for symptoms Time Spent With Patient Time with patient: 15 - 25 minutes Subjective Date/time seen: 07/03/23 0946 Interval history: 77 year old pleasant female examined at bedside in interval assessment as she presented to ED with concerns for increased shortness of breath that worsened over a few days. She was admitted for continued nebulizer treatments, steroids and antibiotics for acute COPD exacerbation VS congestive heart failure VS community acquired pneumonia . Today at the time of assessment she stated she is breathing better and can not hear her audible wheezes any more. Patient stated that she does get out of breath with activity at home and it will subside with rest. She notes that she wears 3L of O2 via nasal cannula at home with activity and during sleep as she can not tolerate a CPAP, and will complete the same here. She denies chest pain. BP this am 135/62- Please take in right arm. Today WBC 9.2. after administration of azithromycin and ceftriaxone. Will order BNP for trend. Sputum and blood cultures are pending. Will denise
--- NOTE | 2023-07-03 14:27 | PM.CNPUL ---
Assessment and Plan Assessment and plan (1) Obstructive sleep apnea: Code(s): G47.33 - Obstructive sleep apnea (adult) (pediatric) Status: Acute (2) Acute hypoxemic respiratory failure: Code(s): J96.01 - Acute respiratory failure with hypoxia Status: Acute Assessment and Plan: This 77-year-old female patient, who has a history of obesity and untreated sleep apnea, has been experiencing episodes of wheezing and shortness of breath. She has a known diagnosis of COPD, yet her pulmonary function tests over the years have consistently displayed a non-specific pattern with severely reduced expiratory flow rates, a preserved FEV1 to FVC ratio, and normal TLC. The consistently elevated FRC and RV found in her pulmonary function tests cannot be explained by obstructive airway disease alone. The patient has previously reported that her wheezing is episodic, triggered by physical activity, generally unresponsive to short-acting bronchodilators, and often self-resolving. During today's physical examination, the patient presented with some crackles at the bases of her lungs but no wheezing. She has a known history of left ventricular diastolic dysfunction, and given her elevated BNP levels, it's possible that congestive heart failure is the root cause of her wheezing and shortness of breath, rather than a COPD exacerbation. Additionally, physical examination revealed evidence of asymmetrical chest wall expansion, which, in conjunction with her chronically elevated left hemidiaphragm, could suggest left diaphragm paralysis. In terms of a treatment plan, I have ordered a chest CT to rule out CHF and a chest fluoroscopy to investigate possible weakness in the left hemidiaphragm. I recommend discontinuing IV steroids and antibiotics. I have also ordered an IV dosage of 20mg Lasix. The patient will require a new echocardiogram and a cardiology evaluation. I will continue to monitor the patient's progress in conjunction with you. (3) Hypoxemia: Code(s): R09.02 - Hypoxemia Status: Acute (4) Dyspnea: Qualifiers: Dyspnea type: dyspnea on exertion Qualified Code(s): R06.09 - Other forms of dyspnea Code(s): R06.00 - Dyspnea, unspecified Status: Acute (5) CAD (coronary artery disease): Qualifiers: Associated angina: without angina Coronary Disease-Associated Artery/Lesion type: [place] artery [place] vs. transplanted heart: [place] heart Qualified Code(s): I25.10 - Atherosclerotic heart disease of [place] coronary artery without angina pectoris Code(s): I25.10 - Atherosclerotic heart disease of [place] coronary artery without angina pectoris Status: Acute History of Present Illness History of Present Illness Consult date: 07/03/23 Chief complaint: COPD Exacerbation Narrative: This 77-year-old female is seen in consultation for episodic wheezing. The patient has multiple medical problems including obstructive sleep apnea intolerant to CPAP, coronary artery disease status post 3 vessel bypass, ascending aortic aneurysm carotid artery stenosis hypertension hyperlipidemia hyperthyroidism cerebral aneurysm status post clipping and GERD. The patient carries a diagnosis of COPD and has been using maintenance bronchodilators. The patient's problem seems to be episodic wheezing which may occur with activities and also at rest or at night. Patient presented to the to the emergency room with a again wheezing and shortness of breath. She had no fever chills sweats chest pain lower extremity edema. On admission her chest x-ray showed cardiomegaly and left lung discoid atelectasis. Her BNP was elevated at 1960. On arterial blood gases she had a pH of 7.42, pCO2 43 and PO2 of 59.2 on room air. The patient has been treated with antibiotics, IV steroids and short-acting bronchodilators presumably for COPD exacerbation. As stated above the patient carries a diagnosis of COPD although there has been
[2023-07-03] MEDS: FUROSEMIDE INJ 40 MG/4 ML VIAL 20 MG IV PUSH (16:46)
[2023-07-03] MEDS: AZITHROMYCIN 250 MG TABLET 500 MG PO (16:46)
[2023-07-03 16:52] LABS: Glucose Point of Care 70 mg/dl (65-105)
[2023-07-03] MEDS: ATORVASTATIN 40 MG TABLET 80 MG PO (20:15)
[2023-07-03 20:52] LABS: Glucose Point of Care 133 mg/dl (65-105)
[2023-07-04] VITALS (16 sets, daily range): BP systolic 107–136; BP diastolic 54–73; PULSE 45–96; RESP 13–18; TEMP 35.6–36.5; O2SAT 90–99
--- NOTE | 2023-07-04 | ECHO_ITS ---
Patient Info Name: Deepti Shepherd Age: 77 years : 1945 Gender: Female Ht: 62 in Wt: 200 lbs BSA: 2.04 m2 HR: 49 bpm BP: 130 / 73 mmHg Heart Rhythm: Sinus Rhythm Technical Quality: Good Exam Date: 07/04/2023 10:30 AM Exam Location: Echo Lab Patient Status: Inpatient Admit Date: 07/01/2023 Staff Ordering Physician: Shireen Bell PA-C [employer] Specialist: Vikash Hicks RDCS Attending Provider: Celestino Deleon MD Referring Physician: Ray MYERS; Exam Type: CA echo doppler color flow Study Info Indications - concern of chf Complete two-dimensional, color flow and Doppler transthoracic echocardiogram is performed. Summary 1. Complete two-dimensional, color flow and Doppler transthoracic echocardiogram is performed. 2. Left ventricular chamber dimension is normal. 3. Left ventricular systolic function is normal, estimated at 55-60%. 4. There is mildly increased left ventricular wall thickness. 5. The left ventricular diastolic function is grade II diastolic dysfunction. 6. Left atrial chamber dimension is moderately enlarged. 7. Right atrial chamber dimension is mildly enlarged. 8. There is mild mitral valve regurgitation. 9. There is moderate aortic valve calcification. 10. There is mild aortic valve regurgitation. 11. There is mild tricuspid valve regurgitation. 12. Mild pulmonary hypertension, estimated pulmonary arterial systolic pressure is 38 mmHg. 13. There is mild pulmonic regurgitation. Left Ventricle Left ventricular chamber dimension is normal. Left ventricular systolic function is normal, estimated at 55-60%. There is mildly increased left ventricular wall thickness. The left ventricular diastolic function is grade II diastolic dysfunction. Right Ventricle Right ventricular chamber dimension is normal. Right ventricular systolic function is normal. Left Atria Left atrial chamber dimension is moderately enlarged. Right Atria Right atrial chamber dimension is mildly enlarged. Aortic Valve The aortic valve is trileaflet. There is no aortic valve stenosis. There is mild aortic valve regurgitation. There is moderate aortic valve calcification. Pulmonic Valve The pulmonic valve is normal. There is no pulmonic valve stenosis. There is mild pulmonic regurgitation. Mitral Valve The mitral valve has thickened leaflets. There is no mitral valve stenosis. There is mild mitral valve regurgitation. Tricuspid Valve The tricuspid valve leaflets are normal. There is no significant tricuspid valve stenosis. There is mild tricuspid valve regurgitation. Mild pulmonary hypertension, estimated pulmonary arterial systolic pressure is 38 mmHg. Pericardium/Pleural The pericardium appears normal. There is no pericardial effusion. Inferior Vena Cava Normal inferior vena cava with >50% collapse upon inspiration consistent with elevated right atrial pressure, 10 mmHg. Aorta The aortic root size at the sinus of Valsalva is normal. Left Ventricular Outflow Tract Name Value Normal LVOT 2D LVOT Diameter 2.0 cm LVOT Doppler LVOT Peak Gradient 4 mmHg LVOT Mean Gradient 3 mmHg LVOT VTI
[2023-07-04] MEDS: ACETAMINOPHEN 325 MG TABLET 650 MG PO ×2 (04:30→15:52)
[2023-07-04 06:10] LABS: Hematocrit 36.4 % (37.0-47.0); Hemoglobin 11.5 g/dL (12.0-15.0); Mean Corpuscular HGB Conc 31.6 g/dl (32-36); Mean Corpuscular Hemoglobin 27.1 pg (26-34); Mean Corpuscular Volume 85.8 fl (80-100); Mean Platelet Volume 10.9 fl (7.4-10.4); Platelet Count Result 257 k/mm3 (150-375); Red Blood Count 4.24 M/mm3 (4.2-5.4); Red Cell Distribution Width 14.7 % (11.5-14.5); White Blood Count 12.2 K/mm3 (4.5-10.0)
[2023-07-04 06:23] LABS: Alanine Aminotransferase 22 U/L (6-35); Albumin Level 3.7 g/dL (3.5-5.1); Alkaline Phosphatase 68 U/L (38-126); Anion Gap 5 mmol/L (8-16); Aspartate Amino Transferase 23 U/L (14-36); Bilirubin,Total 0.5 mg/dL (0.2-1.3); Blood Urea Nitrogen 21 mg/dL (7-17); Calcium 8.9 mg/dL (8.4-10.2); Carbon Dioxide 36 mmol/L (22-30); Chloride 98 mmol/L (98-107); Estimated CRCL calculation 47 ml/min; Estimated Glomerular Filt Rate > 60; Glucose 97 mg/dL (65-110); Potassium 3.4 mmol/L (3.4-5.0); Sodium 139 mmol/L (137-145)
[2023-07-04 07:22] LABS: Glucose Point of Care 93 mg/dl (65-105)
[2023-07-04] MEDS: ALBUTEROL SULFATE NEB 2.5 MG/3 ML INH INHALATION ×3 (08:10→20:58)
[2023-07-04] MEDS: IPRATROPIUM BR 0.02% INH SOLN 0.5 MG/2.5 ML VIAL INHALATION ×3 (08:10→20:58)
[2023-07-04] MEDS: FLUTICASONE/UMECLIDIN/VILANTER 100-62.5-25 MCG ELLIPTA 1 PUFF INHALATION (08:11)
[2023-07-04] MEDS: METOPROLOL TARTRATE 50 MG TAB PO ×2 (08:46→17:03)
[2023-07-04] MEDS: PREGABALIN (*CRX) 50 MG CAPSULE 100 MG PO ×2 (08:46→17:03)
[2023-07-04] MEDS: methiMAzole 5 MG TAB PO (08:47)
[2023-07-04] MEDS: AMOXICILLIN/CLAVULANATE K 875-125 MG TAB 1 TABLET PO ×2 (08:47→20:50)
[2023-07-04] MEDS: FLUoxetine HCL 20 MG CAPSULE PO (08:47)
[2023-07-04] MEDS: guaiFENesin 12 HR 600 MG TABCR PO ×2 (08:47→20:50)
[2023-07-04] MEDS: PANTOPRAZOLE 40 MG TABLET PO (08:47)
[2023-07-04] MEDS: LOSARTAN POTASSIUM 25 MG TABLET PO (08:47)
[2023-07-04] MEDS: AZITHROMYCIN 250 MG TABLET 500 MG PO (08:47)
[2023-07-04] MEDS: amLODIPine BESYLATE 5 MG TABLET 10 MG PO (08:47)
[2023-07-04] MEDS: ASPIRIN 81 MG ENTERIC TABLET PO (08:47)
[2023-07-04] MEDS: ENOXAPARIN 40 MG/0.4 ML SYRINGE SUB-Q (08:48)
--- NOTE | 2023-07-04 09:47 | PM.PNPUL ---
Progress Note: A&P Assessment and Plan (1) Acute hypoxemic respiratory failure: Code(s): J96.01 - Acute respiratory failure with hypoxia Status: Acute Assessment and Plan: This 77-year-old female patient, who has a history of obesity and untreated sleep apnea, has been experiencing episodes of wheezing and shortness of breath. She has a known diagnosis of COPD, yet her pulmonary function tests over the years have consistently displayed a non-specific pattern with severely reduced expiratory flow rates, a preserved FEV1 to FVC ratio, and normal TLC. The consistently elevated FRC and RV found in her pulmonary function tests cannot be explained by obstructive airway disease alone. The patient has previously reported that her wheezing is episodic, triggered by physical activity, generally unresponsive to short-acting bronchodilators, and often self-resolving. In addition to wheezing she had on admission she had cough with sputum production of yellow phlegm. She was briefly treated with a IV steroids nebulized short-acting bronchodilators and she still on ox. She received Lasix IV last night. Her BNP was elevated on admission. She has not had any wheezing over the last 24 hours. She remains on room air. The patient's clinical history cough wheezing with sputum production suggest some lower respiratory tract infection like bronchitis which seems to have improved on antibiotics nebulized short-acting bronchodilators and IV steroids. It is possible that patient had some component of congestive heart failure given the elevated BNP and crackles heard on physical examination. Her respiratory status is back at baseline this a.m.. Chest CT showed no active lung disease. Again she has prominent pulmonary arteries consistent with pulmonary hypertension although recent echocardiogram showed no evidence of elevated pulmonary artery systolic pressure. Chest fluoroscopy showed no evidence of left diaphragm paralysis. patient has known history of left ventricular diastolic dysfunction and untreated sleep disordered breathing which makes pulmonary hypertension quite likely. Plan: Okay to DC patient home today. She will continue with current antibiotic for total of 7 days, prednisone 40 mg p.o. daily for 5 days, Trelegy inhaler daily, rescue albuterol inhaler for p.r.n. use, Lasix 20 mg p.o. daily. She will continue with her supplemental oxygen 3 liters/minute at night. Patient will return to pulmonary clinic in approximately 1 month for follow-up. Will sign off please call with any questions. (2) COPD exacerbation: Code(s): J44.1 - Chronic obstructive pulmonary disease with (acute) exacerbation Status: Acute (3) Thoracic aortic aneurysm: Qualifiers: Thoracic aorta location: unspecified Presence of rupture: without rupture Qualified Code(s): I71.20 - Thoracic aortic aneurysm, without rupture, unspecified Code(s): I71.2 - Thoracic aortic aneurysm, without rupture Status: Acute (4) Obstructive sleep apnea: Code(s): G47.33 - Obstructive sleep apnea (adult) (pediatric) Status: Acute Subjective Date/time seen: 07/04/23 09:47 Interval history: Patient stated she is doing better. She has had no wheezing over the last 24 hours. She remains on room air. Sputum production significantly less. No shortness of breath. She has undergone chest CT and chest fluoroscopy for question paralyzed diaphragm. Review of Systems Review of Systems: All systems reviewed & are unremarkable except as noted in HPI and below (HPI and below) Exam Narrative: GENERAL APPEARANCE: Well developed, well nourished, alert and cooperative, and appears to be in no acute distress while on room air SKIN: Inspection of the skin reveals no rashes, ulcerations or petechiae. HEENT: Sclerae anicteric and conjunctivae pink and moist. Extraocular movements were intact and pupils were equal, round, and reactive to light. The oral muc
[2023-07-04 11:22] LABS: Glucose Point of Care 114 mg/dl (65-105)
--- NOTE | 2023-07-04 11:29 | PM.CNCAR ---
Assessment and Plan Assessment and plan (1) COPD exacerbation: Code(s): J44.1 - Chronic obstructive pulmonary disease with (acute) exacerbation Status: Acute Assessment and Plan: She is shortness of breath as responsive to dialyzes and steroids. She has had a stress test that was normal within the past couple weeks. Treat underlying COPD (2) Abdominal aortic aneurysm (AAA): Qualifiers: Abdominal aorta location: unspecified Presence of rupture: without rupture Qualified Code(s): I71.40 - Abdominal aortic aneurysm, without rupture, unspecified Code(s): I71.40 - Abdominal aortic aneurysm, without rupture, unspecified Status: Acute Assessment and Plan: Followed by vascular surgery at [place] (3) CAD (coronary artery disease): Qualifiers: Coronary Disease-Associated Artery/Lesion type: [place] artery [place] vs. transplanted heart: [place] heart Associated angina: without angina Qualified Code(s): I25.10 - Atherosclerotic heart disease of [place] coronary artery without angina pectoris Code(s): I25.10 - Atherosclerotic heart disease of [place] coronary artery without angina pectoris Status: Acute Assessment and Plan: 1. Normal myocardial perfusion during stress with prone imaging. 2. Left ventricular ejection fraction measuring >70%. Continue aspirin, statin, metoprolol, amlodipine. Could add long-acting nitrate if this later sounds more anginal but again it does not sound like typical angina since his appearing randomly and she describes as wheeziness which is improved with nebulizers and steroids. Echocardiogram recently performed last month also is unremarkable as detailed above (4) Hypertension: Code(s): I10 - Essential (primary) hypertension Status: Acute Assessment and Plan: Continue current meds History of Present Illness History of Present Illness Consult date/time: 07/04/23 11:29 Requesting physician: Kimberly Dominguez APRN Consult reason: shortness of breath Reason For Visit: COPD Exacerbation Narrative: Reason for consultation: Shortness of breath Date of service 07/04/2023 Requesting provider: Gautam Dominguez History: Patient is a 77-year-old female who has episodic episodes of wheeziness responding to steroids and nebulizer treatments and antibiotics. This story however is much different than what reportedly was her told to pulmonology. Regardless daily today she had an acute episode of headache and eventually she had associated shortness of breath to the point that she states that she simply could not breathe. With nebulizers, symptoms did improve. She denies any unusual chest pain, syncope, presyncope, paroxysmal nocturnal dyspnea, orthopnea, edema palpitation Chest x-ray nor CT scan of the chest show significant pulmonary edema. Review of Systems Review of Systems: All systems reviewed & are unremarkable except as noted in HPI and below Constitutional: Constitutional: Denies body ache(s) Eyes: Eyes: Denies blurry vision ENT: Reports Normal hearing present Cardiovascular: Cardiovascular: Reports chest pain and Denies diaphoresis Respiratory: Respiratory: Denies chest congestion and Reports dyspnea Gastrointestinal: Gastrointestinal: Denies abdominal pain Genitourinary: Genitourinary: Denies hematuria Musculoskeletal: Musculoskeletal: Denies back pain Integumentary/Breasts: Skin/Breast: Denies erythema Neurologic: Denies Abnormal speech present Psychiatric: Psychiatric: Denies confusion Endocrine: Endocrine: Denies excessive sweating Hematologic/Lymphatic: Hematologic/Lymphatic: Denies easy bleeding Allergic/Immunologic: Allergic/Immunologic: Denies GI upset with certain foods PMFSH Past Medical History Medical History Anxiety Aortic atherosclerosis Ascending aortic aneurysm Carotid artery stenosis Cerebral aneurysm Status post rupture
--- NOTE | 2023-07-04 13:26 | P.PNIM_ITS ---
Progress Note: A&P Assessment and Plan (1) COPD exacerbation: Code(s): J44.1 - Chronic obstructive pulmonary disease with (acute) exacerbation Status: Acute Assessment and Plan: Presented with SOB, increased cough and septum production * ABG on presentation ABG - 7.422/43/59.2/27.4 * Sputum cultures positive H. Flu * Nebulizer treatments ordered q6hr * IV abx converted to PO - Augmentin * 3L O2 via NC with activity and sleep - this is her home level * Continue to monitor respiratory status * 07/03: Pulmonology consulted- Dr. Issa suggest issues are cardiac related - request cardiology consult. * Echocardiogram showing EF of 55-60% with diastolic dysfunction grade 2 (2) Dyspnea: Qualifiers: Dyspnea type: dyspnea on exertion Qualified Code(s): R06.09 - Other forms of dyspnea Code(s): R06.00 - Dyspnea, unspecified Status: Acute Assessment and Plan: * See # 1 (3) Obstructive sleep apnea: Code(s): G47.33 - Obstructive sleep apnea (adult) (pediatric) Status: Acute Assessment and Plan: * QUENTIN- CPAP intolerant * 3L O2 via NC with activity and sleep * Continue to monitor respiratory status * 07/02: Maintain O2 at 3L via NC with activity and sleep. Patient expressed she is Claustrophobic and can not tolerate CPAP (4) Hypertension: Code(s): I10 - Essential (primary) hypertension Status: Acute Assessment and Plan: * Take Blood pressure in right arm for consistency- 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 * Continue home blood pressure medications * Continue to monitor * Home BP medications Losartan, Amlodipine, Metoprolol continued (5) Coronary artery disease: Code(s): I25.10 - Atherosclerotic heart disease of [place] coronary artery without angina pectoris Status: Acute Assessment and Plan: * No acute issues regarding CAD * Continue home medications * Monitor (6) Hyperthyroidism: Code(s): E05.90 - Thyrotoxicosis, unspecified without thyrotoxic crisis or storm Status: Acute Assessment and Plan: * TSH ordered 0.304, T4 1.11 * Continue to monitor for symptoms Subjective Date/time seen: 07/04/23 13:26 Interval history: Patient states that she is doing better today. She is no longer having any audible wheezing on auscultation she does have some scant wheezes. Her breath sounds are distant. Cardiology in the room at the time my evaluation. They believe that patient is experiencing more of a COPD exacerbation. Echocardiogram ordered which did reveal a grade 2 diastolic dysfunction. Discussed issues regarding untreated sleep apnea with the patient. She does use O2 at night but refuses CPAP. Discussed that long-term sleep apnea without treatment can cause heart failure. Exam Narrative: GENERAL: Comfortable, no acute distress HENMT: moist mucous membranes EYES: EOM intact b/l NECK: no lymphadenopathy RESPIRATORY: distant breath sounds, scant wheezing CARDIO: RRR GI: soft, nontender, bowel sounds present SKIN: no rashes EXTREMITIES: no edema, redness or tenderness Objective Data Vital Signs Vital Signs: Vital Signs - 24 hr 07/03/23 16:00 07/03/23 16:00 07/03/23 20:00 Temperature 97.4 F L Pulse Rate 51 L 60 Respiratory Rate 16
--- NOTE | 2023-07-04 13:26 | PM.IMPN ---
Progress Note: A&P Assessment and Plan (1) COPD exacerbation: Code(s): J44.1 - Chronic obstructive pulmonary disease with (acute) exacerbation Status: Acute Assessment and Plan: Presented with SOB, increased cough and septum production ABG on presentation ABG - 7.422/43/59.2/27.4 Sputum cultures positive H. Flu Nebulizer treatments ordered q6hr IV abx converted to PO - Augmentin 3L O2 via NC with activity and sleep - this is her home level Continue to monitor respiratory status 07/03: Pulmonology consulted- Dr. Issa suggest issues are cardiac related - request cardiology consult. Echocardiogram showing EF of 55-60% with diastolic dysfunction grade 2 (2) Dyspnea: Qualifiers: Dyspnea type: dyspnea on exertion Qualified Code(s): R06.09 - Other forms of dyspnea Code(s): R06.00 - Dyspnea, unspecified Status: Acute Assessment and Plan: See # 1 (3) Obstructive sleep apnea: Code(s): G47.33 - Obstructive sleep apnea (adult) (pediatric) Status: Acute Assessment and Plan: QUENTIN- CPAP intolerant 3L O2 via NC with activity and sleep Continue to monitor respiratory status 07/02: Maintain O2 at 3L via NC with activity and sleep. Patient expressed she is Claustrophobic and can not tolerate CPAP (4) Hypertension: Code(s): I10 - Essential (primary) hypertension Status: Acute Assessment and Plan: Take Blood pressure in right arm for consistency- 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 Continue home blood pressure medications Continue to monitor Home BP medications Losartan, Amlodipine, Metoprolol continued (5) Coronary artery disease: Code(s): I25.10 - Atherosclerotic heart disease of [place] coronary artery without angina pectoris Status: Acute Assessment and Plan: No acute issues regarding CAD Continue home medications Monitor (6) Hyperthyroidism: Code(s): E05.90 - Thyrotoxicosis, unspecified without thyrotoxic crisis or storm Status: Acute Assessment and Plan: TSH ordered 0.304, T4 1.11 Continue to monitor for symptoms Subjective Date/time seen: 07/04/23 13:26 Interval history: Patient states that she is doing better today. She is no longer having any audible wheezing on auscultation she does have some scant wheezes. Her breath sounds are distant. Cardiology in the room at the time my evaluation. They believe that patient is experiencing more of a COPD exacerbation. Echocardiogram ordered which did reveal a grade 2 diastolic dysfunction. Discussed issues regarding untreated sleep apnea with the patient. She does use O2 at night but refuses CPAP. Discussed that long-term sleep apnea without treatment can cause heart failure. Exam Narrative: GENERAL: Comfortable, no acute distress HENMT: moist mucous membranes EYES: EOM intact b/l NECK: no lymphadenopathy RESPIRATORY: distant breath sounds, scant wheezing CARDIO: RRR GI: soft, nontender, bowel sounds present SKIN: no rashes EXTREMITIES: no edema, redness or tenderness Objective Data Vital Signs Vital Signs: Vital Signs - 24 hr 07/03/23 16:00 07/03/23 16:00 07/03/23 20:00 Temperature 97.4 F L Pulse Rate 51 L 60 Respiratory Rate 16 Blood Pressure 136/55 L Pulse Oximetry 94 94 Oxygen Delivery Room Air Oxygen Flow Rate 07/03/23 20:00 07/03/23 22:48 07/03/23 22:52 Temperature 97.1 F L Pulse Rate 55 L 48 L 48 L Respiratory Rate 14 18 Blood Pressure 130/59 L Pulse Oximetry 93 97 Oxygen Delivery Nasal Cannula Oxygen Flow Rate 3 07/03/23 23:36 07/03/23 20:00 07/04/23 00:00 Temperature 96.9 F L Pulse Rate 50 L 54 L 56 L Respiratory Rate 14 Blood Pressure 136/43 L Pulse Oximetry 100 Oxygen Delivery Oxygen Flow Rate 07/04/23 04:00 07/04/23 04:00 07/04/23 07:58 Temperature 96.9 F L 96.6 F
[2023-07-04 16:15] LABS: Glucose Point of Care 139 mg/dl (65-105)
[2023-07-04] MEDS: ATORVASTATIN 40 MG TABLET 80 MG PO (20:50)
[2023-07-04 22:02] LABS: Glucose Point of Care 168 mg/dl (65-105)
[2023-07-05] VITALS (12 sets, daily range): BP systolic 103–142; BP diastolic 58–90; PULSE 53–96; RESP 16–18; TEMP 35.6–36.9; O2SAT 92–100
[2023-07-05] MEDS: ALBUTEROL SULFATE NEB 2.5 MG/3 ML INH INHALATION ×3 (02:23→13:19)
[2023-07-05] MEDS: IPRATROPIUM BR 0.02% INH SOLN 0.5 MG/2.5 ML VIAL INHALATION ×3 (02:23→13:19)
[2023-07-05 06:08] LABS: Hemoglobin 11.9 g/dL (12.0-15.0); Mean Corpuscular HGB Conc 31.3 g/dl (32-36); Mean Corpuscular Hemoglobin 27.4 pg (26-34); Mean Corpuscular Volume 87.6 fl (80-100); Platelet Count Result 245 k/mm3 (150-375); Red Blood Count 4.34 M/mm3 (4.2-5.4); Red Cell Distribution Width 14.7 % (11.5-14.5); White Blood Count 9.8 K/mm3 (4.5-10.0)
[2023-07-05 06:24] LABS: Anion Gap 2 mmol/L (8-16); Blood Urea Nitrogen 26 mg/dL (7-17); Calcium 8.2 mg/dL (8.4-10.2); Carbon Dioxide 37 mmol/L (22-30); Chloride 98 mmol/L (98-107); Estimated CRCL calculation 47 ml/min; Estimated Glomerular Filt Rate > 60; Glucose 93 mg/dL (65-110); Potassium 3.5 mmol/L (3.4-5.0); Sodium 137 mmol/L (137-145)
[2023-07-05] MEDS: FLUTICASONE/UMECLIDIN/VILANTER 100-62.5-25 MCG ELLIPTA 1 PUFF INHALATION (07:15)
[2023-07-05 07:30] LABS: Triiodothyronine T3 Free 2.7 pg/mL (2.3-4.2)
[2023-07-05 08:05] LABS: Glucose Point of Care 79 mg/dl (65-105)
[2023-07-05] MEDS: PANTOPRAZOLE 40 MG TABLET PO (08:20)
[2023-07-05] MEDS: ASPIRIN 81 MG ENTERIC TABLET PO (08:20)
[2023-07-05] MEDS: PREGABALIN (*CRX) 50 MG CAPSULE 100 MG PO (08:21)
[2023-07-05] MEDS: methiMAzole 5 MG TAB PO (08:27)
[2023-07-05] MEDS: AMOXICILLIN/CLAVULANATE K 875-125 MG TAB 1 TABLET PO (08:27)
[2023-07-05] MEDS: guaiFENesin 12 HR 600 MG TABCR PO (08:27)
[2023-07-05] MEDS: LOSARTAN POTASSIUM 25 MG TABLET PO (08:35)
[2023-07-05] MEDS: ENOXAPARIN 40 MG/0.4 ML SYRINGE SUB-Q (08:36)
[2023-07-05] MEDS: FLUoxetine HCL 20 MG CAPSULE PO (08:36)
[2023-07-05] MEDS: METOPROLOL TARTRATE 50 MG TAB PO (08:36)
[2023-07-05] MEDS: amLODIPine BESYLATE 5 MG TABLET 10 MG PO (08:36)
[2023-07-05 11:21] LABS: Glucose Point of Care 201 mg/dl (65-105)
[2023-07-05] MEDS: INSULIN ASPART (*BKC) 100 UNITS/ML SUB-Q (11:53)
--- NOTE | 2023-07-05 14:42 | PM.DS ---
DS: Admitting Diagnosis Discharge Date 07/05/23 Admitting Diagnosis COPD exacerbation DS: Discharge Diagnosis Discharge Diagnosis (1) COPD exacerbation: Code(s): J44.1 - Chronic obstructive pulmonary disease with (acute) exacerbation Status: Acute (2) Dyspnea: Qualifiers: Dyspnea type: dyspnea on exertion Qualified Code(s): R06.09 - Other forms of dyspnea Code(s): R06.00 - Dyspnea, unspecified Status: Acute (3) Obstructive sleep apnea: Code(s): G47.33 - Obstructive sleep apnea (adult) (pediatric) Status: Acute (4) Hypertension: Code(s): I10 - Essential (primary) hypertension Status: Acute (5) Coronary artery disease: Code(s): I25.10 - Atherosclerotic heart disease of [place] coronary artery without angina pectoris Status: Acute (6) Hyperthyroidism: Code(s): E05.90 - Thyrotoxicosis, unspecified without thyrotoxic crisis or storm Status: Acute DS: Summary Hospital Course Hospital Course: This is a 77-year-old female with a past medical history of COPD, untreated QUENTIN intolerant to CPAP, CAD status post 3 vessel bypass, ascending aortic aneurysm, carotid artery stenosis, hypertension, hyperlipidemia, hypothyroidism, cerebral aneurysm status post clipping and GERD that presented to the ED on 06/30/2023 due to worsening shortness of breath. Patient had been taking her daily inhalers at home without relief of her shortness of breath. She had also developed a productive cough with copious amounts of yellow thick sputum. Chest x-ray revealing cardiomegaly with no signs of pneumonia. She was started on treatment for COPD with IV Solu-Medrol, DuoNebs and azithromycin. Was negative for influenza, RSV and COVID. Patient continue to use her 3 L of home oxygen with activity and sleep. Pulmonology was consulted on the patient and they believe that patient is having cardiac issues. Cardiology was consulted on the patient and a repeat echocardiogram was performed revealing a grade 2 diastolic dysfunction. I discussed these results with Cardiology and due to patient not being and in active exacerbation will recommend follow-up as an outpatient. Her labs and vital signs are stable patient is medically cleared for discharge at this time. Time Spent with Patient Time attestation: Total time spent providing and/or coordinating discharge services: Exam Narrative: GENERAL: Comfortable, no acute distress HENMT: moist mucous membranes EYES: EOM intact b/l NECK: no lymphadenopathy RESPIRATORY: distant breath sounds CARDIO: RRR GI: soft, nontender, bowel sounds present SKIN: no rashes EXTREMITIES: no edema, redness or tenderness DS: Data Data Completed and Pending Labs on day of discharge: Labs from last 24 hours 07/05/23 07/05/23 07/05/23 11:15 07:54 05:49 WBC 9.8 RBC 4.34 Hgb 11.9 L Hct 38.0 MCV 87.6 MCH 27.4 MCHC 31.3 L RDW 14.7 H Plt Count 245 MPV 11.0 H Sodium 137 Potassium 3.5 Chloride 98 Carbon Dioxide 37 H Anion Gap 2 L BUN 26 H Creatinine 0.90 Estim Creat Clear Calc 47 Estimated GFR > 60 Glucose 93 POC Capillary Glucose 201 H 79 Calcium 8.2 L Free T3 07/04/23 07/04/23 07/01/23 20:07 16:11 06:29 WBC RBC Hgb Hct MCV MCH MCHC RDW Plt Count MPV Sodium Potassium Chloride Carbon Dioxide Anion Gap BUN Creatinine Estim Creat Clear Calc Estimated GFR Glucose POC Capillary Glucose 168 H 139 H Calcium Free T3 2.7 Preliminary micro results at discharge 06/30/23 14:51 Blood Culture - Preliminary Blood 06/30/23 14:51 Blood Culture - Preliminary Blood Discharge Plan Discharge Attending physician on discharge: Celestino Deleon Consulting providers: Kimberly Dominguez; Terra Fuentes; Kimani Issa; Lucille Vásquez Discharging Clinician: Jose
--- NOTE | 2023-07-05 16:00 | PCCCNOTE ---
On 07/05/23, the student, [Susi Ahmadi], provided care and completed [facility] documentation on this patient. I have reviewed the student's documentation and agree with the findings.
[2023-07-05 16:45] LABS: Glucose Point of Care 121 mg/dl (65-105)
== END 2023-07-05 17:20 | disposition home health service (06) | DRG 192 ==
LOC: ANHED 12:51 → ANH3MEDSUR 13:22
PROVIDERS: Emergency Medicine; Nurse Practitioner Family; Physician Assistant; Admitting Provider Internal Medicine; Emergency Provider Physician Assistant; PCP Internal Medicine; Visit Provider Internal Medicine Critical Care Medicine
DX: J44.1 Chronic obstructive pulmonary disease with (acute) exacerbation (principal); I13.10 Hypertensive heart and chronic kidney disease without heart failure, with stage 1 through stage 4 chronic kidney disease, or unspecified chronic kidney disease; G47.33 Obstructive sleep apnea (adult) (pediatric); I25.10 Atherosclerotic heart disease of native coronary artery without angina pectoris; E05.90 Thyrotoxicosis, unspecified without thyrotoxic crisis or storm; I71.21 Aneurysm of the ascending aorta, without rupture; I65.29 Occlusion and stenosis of unspecified carotid artery; E78.5 Hyperlipidemia, unspecified; E66.9 Obesity, unspecified; E03.9 Hypothyroidism, unspecified; K21.9 Gastro-esophageal reflux disease without esophagitis; N18.30 Chronic kidney disease, stage 3 unspecified; Z91.199 Patient's noncompliance with other medical treatment and regimen due to unspecified reason; Z20.822 Contact with and (suspected) exposure to COVID-19; Z90.710 Acquired absence of both cervix and uterus; Z79.82 Long term (current) use of aspirin; Z95.1 Presence of aortocoronary bypass graft; Z87.891 Personal history of nicotine dependence; Z99.81 Dependence on supplemental oxygen; Z68.34 Body mass index [BMI] 34.0-34.9, adult
CPT/HCPCS: 36415; 36600; 70450; 71046; 71250; 76000; 80048; 80053; 82375; 82805; 82948; 83036; 83050; 83735; 83880; 84439; 84443; 84481; 85025; 85027; 87040; 87070; 87205; 87637; 93005; 93306; 94640; 96365; 96372; 96375; 97161; 97165; 99291; A9270; G0378; J0456; J0696; J1650; J1815; J1940; J2930

== ENCOUNTER 2024-03-21 14:43 | Outpatient (CLI) | payer MEDICARE, SELFPAY ==
--- NOTE | ~2024-03-21 | MR_ITS ---
EXAMINATION: MR lumbar spine wo con DATE: 03/21/2024 15:31 INDICATION: Low back pain. Lumbar radiculopathy. TECHNIQUE: Magnetic resonance imaging (MRI) of the lumbar spine was performed without intravenous con trast. Sequences included sagittal T2-weighted FSE, sagittal T2-weighted FS FSE, sagittal T1-weighted FSE, and axial T2-weighted FSE. COMPARISON: Lumbar spine MRI 10/03/2022, chest CT 07/03/2023 FINDINGS: There is 5 degrees levocurvature of lumbar spine. There is 3 mm retrolisthesis of L5 on S1. There are Schmorl's nodes at multiple levels. There is moderately decreased disc height at L1-L2, L2 -L3, and L3-L4 and severely decreased disc height at L4-L5 and L5-S1. There is ligamentum flavum hype rtrophy at the disc levels from L1-L2 through L4-L5. The distal spinal cord signal intensity is luis l. The conus medullaris is at L1. There is a fusiform aneurysm of distal descending thoracic aorta me asuring 4.5 cm. The following disc levels are specifically discussed: L1-L2: The disc is bulging. There is mild bilateral facet joint osteoarthritis. There is mild right a nd moderate left neural foraminal stenosis. There is mild central canal stenosis. L2-L3: The disc is bulging and has an annular fissure. There is severe bilateral facet joint osteoart hritis. There is moderate right and mild left neural foraminal stenosis. There is moderate central ca nal stenosis. L3-L4: The disc is bulging and has an annular fissure. There is severe bilateral facet joint osteoart hritis. There is mild bilateral neural foraminal stenosis. There is severe central canal stenosis. L4-L5: The disc is bulging and has an annular fissure. There is severe right and moderate left facet joint osteoarthritis. There is moderate right and mild left neural foraminal stenosis. There is moder ate central canal stenosis. L5-S1: The disc is bulging and has an annular fissure. There is moderate bilateral facet joint osteoa rthritis. There is moderate bilateral neural foraminal stenosis. There is mild central canal stenosis . IMPRESSION: 1. Severe lumbar spondylosis, stable from 10/03/2022. Reviewed, dictated and finalized at location B.
== END 2024-03-21 14:44 | disposition home or self-care (01) ==
LOC: GOSHIMG 14:44
PROVIDERS: PCP Internal Medicine; Visit Provider Nurse Practitioner Family
DX: M47.26 Other spondylosis with radiculopathy, lumbar region (principal)
CPT/HCPCS: 72148

== ENCOUNTER 2024-06-24 14:24 | Outpatient (CLI) | payer MEDICARE, SELFPAY ==
--- NOTE | ~2024-06-24 | XR_ITS ---
XR chest 2V 06/24/2024 14:38 Indication: Dyspnea Procedure: PA and lateral views of the chest Comparison: Comparison to multiple prior studies sequentially, with oldest reviewed study dated 06/30. Findings: Cardiomegaly. There is chronic atelectasis/scarring left mid thorax. There is thoracic aort ic ectasia with endovascular stent in the descending thoracic aorta. There is scoliosis. No acute foc al pneumonia, edema or pleural effusion. No pneumothorax. Impression: 1: No acute cardiopulmonary disease. No significant interval change. Reviewed, dictated and finalized at location B. R WOOD CUTTER Impression: 1: No acute cardiopulmonary disease. No significant interval change.
== END 2024-06-24 14:25 | disposition home or self-care (01) ==
PROVIDERS: PCP Internal Medicine; Visit Provider Clinical Nurse Specialist
DX: R09.89 Other specified symptoms and signs involving the circulatory and respiratory systems (principal); J44.1 Chronic obstructive pulmonary disease with (acute) exacerbation
CPT/HCPCS: 71046

== ENCOUNTER 2024-07-03 10:31 | Emergency (ER) | payer MEDICARE, SELFPAY ==
[2024-07-03] VITALS (7 sets, daily range): BP systolic 88–132; BP diastolic 63–81; PULSE 60–83; RESP 16–26; TEMP 36.6; O2SAT 94–97
--- NOTE | ~2024-07-03 | XR_ITS ---
EXAMINATION: XR chest 1V portable DATE: 07/03/2024 11:18 INDICATION: Cough and congestion TECHNIQUE: frontal view of the chest was obtained. COMPARISON: Chest radiograph dated 06/24/2024 FINDINGS: Unchanged mild elevation the left hemidiaphragm. Stable appearance of a linear band of discoid atelec tasis/scarring at the left midlung zone and minimal streaky atelectasis at the left costophrenic angl e. Unchanged prominent left paracardial fat pad which obscures the left heart border. No new airspace opacities, pulmonary edema, pleural effusion or pneumothorax. Mild cardiomegaly. Median sternotomy w ires and mediastinal surgical clips are seen, likely from prior coronary artery bypass grafting. Ther e is also been endoluminal stent grafting of the tortuous mid to distal descending thoracic aorta. IMPRESSION: 1. Unchanged mild discoid atelectasis in the left mid to lower lung zones. No acute cardiopulmonary d isease. 2. Cardiomegaly. 3. Endoluminal stent grafting of the mid to distal descending thoracic aorta. Reviewed, dictated and finalized at location A. [facility] IMPRESSION: 1. Unchanged mild discoid atelectasis in the left mid to lower lung zones. No a cute cardiopulmonary disease. 2. Cardiomegaly. 3. Endoluminal stent grafting of the mid to distal descending thoracic aorta.
--- OUTSIDE RECORDS SUMMARY | 2024-07-03 10:50 | XMS_ITS | Referral Summary ---
Author Organization [facility] Address [address] [place] [address] Care Team Providers Care Reports Developer Name Role Phone Raza Kinney DO Primary Care Provider [phone]- [phone] Allergies Active Allergy Reactions Criticality Noted Date Comments Labetalol Nausea only Low Medications amLODIPine (NORVASC) 10 mg tablet Take 1 tablet (10 mg total) by mouth daily 8 Active methIMAzole (TAPAZOLE) 5 mg tablet 1 tablet (5 mg total) as directed Every other day 8 Active metoprolol (LOPRESSOR) 50 mg tablet Take 1 tablet (50 mg total) by mouth 2 (two) times a day 8 Active sennosides 8.6 mg capsule daily as needed Active aspirin 81 mg chewable tablet daily. 2 Active diphenhydrAMINE- acetaminophen (TYLENOL PM) 25-500 mg tablet Act rere albuterol sulfate 90 mcg/actuation aerosol powdr breath activated Inhale Act rere FLUoxetine (PROzac) 20 mg capsule Take 1 capsule (20 mg total) by mouth daily 9 Active atorvastatin (LIPITOR) 80 mg tablet Take 1 tablet (80 mg total) by mouth daily 9 Active fluticasone furoate (ARNUITY) 100 mcg/actuation inhaler Inhale 1 puff daily Rinse mouth with water after use. Do not swallow. Active omeprazole (PriLOSEC) 40 mg capsule Take 1 capsule (40 mg total) by mouth daily 1 Active fluticasone-umec lidin-vilanter (TRELEGY ELLIPTA) 100-62.5-25 mcg inhaler Inhale 1 puff daily Active nitrofurantoin monohydrate (MACROBID) 100 mg capsule 2 Active phenazopyridine (PYRIDIUM) 200 mg tablet 2 Active sulfamethoxazole -trimethoprim (BACTRIM DS) 800-160 mg per tablet Take 1 tablet by mouth every 12 (twelve) hours 2 Active pregabalin (LYRICA) 100 mg capsule Take 1 capsule (100 mg total) by mouth 2 (two) times a day 4 Active losartan (COZAAR) 25 mg tablet Take 1 tablet (25 mg total) by mouth daily 4 Active Active Problems Problem Noted Date Diagnosed Date Heart murmur 07/18/2023 Diastolic dysfunction without heart failure 06/22 Trigeminal neuralgia 01/14/2019 Aneurysm of thoracic aorta 05/02/2016 Surgical follow-up care 10/19/2015 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 Headache 03/04/2015 Unstable angina pectoris (CMS/HCC) 10/04/2013 Overview (08/23/2016): Unstable angina Mixed hyperlipidemia 10/04/2013 Overview (08/24/2016): MIXED HYPERLIPIDEMIA Precordial pain 10/04/2013 Overview (08/25/2016): PRECORDIAL PAIN Hypertension 10/04/2013 Overview (08/25/2016): HYPERTENSION NOS Family history of ischemic heart disease 014 Overview (08/25/2016): FAM HX-ISCHEM HEART DIS Dyspnea on exertion 10/04/2013 Overview (08/25/2016): Dyspnea on exertion Abnormal electrocardiography 10/04/2013 Overview (08/25/2016): Abnormal EKG Coronary artery disease invo lving [place] coronary artery of [place] heart without angina pectoris 05/08/2013 Nonruptured cerebral aneurysm 05/08/2013 Immunizations Name Administration Dates Next Due Influenza, Trivalent, High D ose, Split, Preservative Free, Intramuscular 03/28/2019,02/28/2018 Pneumococcal Polysaccharide PPV23 03/18/2018 Social History Tobacco Use Types Packs/Day Years Used Date Smoking Tobacco: Former Cigarettes 1 50 0 11/05/1957 - 11/06/2007 Smokeless Tobacco: Never Tobacco Cessation:Counseling Given: Not Answered Comments:Smoking History Packs/day: 1 Packs Alcohol Use Standard Drinks/Week Comments No 0 (1 standard drink = 0.6 oz pur e alcohol) RARELY AUDIT-C Answer Date Recorded Q1: How often do you have a drink containing alc ohol? Patient declined 04/06/2022 Q2: How many drinks containi ng alcohol do you have on a typical day when you are drinking? Patient declined 04/06/2022 Q3: How often do you have si x or more drinks on one occasion? 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 Gender Identity Female 06/20/2021 10:31 AM HOUSE SITTER Sexual Orientation Not on file Occupation Industry Job Start Date Job End Date Retired Not on file Not on file Not on file Last Filed Vital Signs Vital Sign Reading Time Taken Comments Blood Pressure 134/80 03/10/2024 1:23 PM CDT Pulse 55 03/10/2024 1:23 PM CDT Temperature 36.3 C (97.3 F) 11/04/2019 10:17 AM CDT Respiratory Rate 23 01/22/2019 8:40 AM CDT Oxygen Saturation 96% 03/10/2024 1:23 PM CDT Inhaled Oxygen Concentration - - Weight 90.3 kg (199 lb) 03/10/2024 1:23 PM CDT Height 160 cm (5' 3 ) 03/10/2024 1:23 PM CDT Body Mass Index 35.25 03/10/2024 1:23 PM CDT Plan of Treatment Not on file Medical Devices Implanted Type Area Hire Car Driver Device Identifier Shelf Expiration Date Model / Serial / Lot Stent-09/14/2015 Implanted:09/13 by Jose Chambers MD (Quantity not on file) Stent Thoracic [facility] [id number] / [id number] / Description: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 Implanted:10/09 (Quantity not on file) Head Insurance MEDICARE SOLUTIONS Member Subscriber Plan / Payer (Ef fective 2016-Present) Name:Deepti Hernandez Relation to Subscriber:Self Name:Deepti Hernandez Payer ID:[id number] (NAIC) Type:[facility] MEDICARE Address: [place] [id number] [place] [id number] MDCR HMO REF [place] [phone] MEDICARE SOLUTIONS MEDICARE SOLUTIONS Care Teams Reports Developer Relationship Specialty Start Date End Date Raza Kinney DO PCP - General 11/06/16
--- OUTSIDE RECORDS SUMMARY | 2024-07-03 10:50 | XMS_ITS | Clinical Summary ---
Author Organization [facility] Address [address] [place] [address] Care Team Providers Care Rehab Spec Name Role Phone Raza Kinney DO Primary Care Provider [phone]- [phone] Allergies Active Allergy Reactions Criticality Noted Date [...] Abnormal EKG Coronary artery disease invo lving [place] coronary artery of [place] heart without angina pectoris 05/08/2013 Nonruptured cerebral aneurysm 05/08/2013 Immunizations Name Administration Dates Next Due Influenza, Trivalent, High D ose, Split, Preservative Free, Intramuscular 03/28/2019,02/28/2018 Pneumococcal Polysaccharide PPV23 03/18/2018 Surgical History Surgery Date Site/Laterality Comments CORONARY ARTERY BYPASS GRAFT CEREBRAL ANEURYSM REPAIR AORTIC ANEURYSM REPAIR TONSILLECTOMY FOOT SURGERY Bilateral HYSTERECTOMY partial Medical History Medical History Date Comments Chest pain Hypertension Hypothyroidism COPD (chronic obstructive pulmonary disease) (HC C) Hypercholesteremia Coronary artery disease Muscle spasm Family History Medical History Relation Name Comments Heart attack Brother Royce [place]; Cause of De ath: [place] Heart attack Daughter Heart disease Father Family history of cardiac disorder - (Added by TW Conv) Parkinsonism Father Stroke Father Bone cancer Mother Leukemia Mother Family history of leukemia - (Added by TW Conv) Diabetes Sister 1 Heart attack Sister 1 Diabetes Sister 2 Heart attack Son Hodgkin's lymphoma Son Relation Name Status Comments Brotheda Crane (Age 51) Daughter Father Mother Sister 1 Sister 2 Son Social History Tobacco Use Types Packs/Day Years [...] on file 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 Gender Identity Female 06/20/2021 10:31 AM WILDLIFE REMOVAL SPECIALIST Sexual Orientation Not on file Occupation Industry Job Start Date Job End Date Retired Not on file Not on file Not on file Obstetrics History Last Filed Vital Signs Vital Sign Reading [...] 03/10/2024 1:23 PM CDT Plan of Treatment Health Maintenance Due Date Last Done Comments Depression Screening 1944 Fall Risk Assessment 1945 Hepatitis C Screening 1945 Osteoporosis Screening-Bone Density Scan 1944 DTaP/Tdap/Td Vaccine (1 - Tdap) 10/07/1955 Hepatitis B Screening 1962 Zoster Vaccine (1 of 2) 1994 Well Visit 65+ 2009 Pneumococcal vaccine 65+ (2 of 2 - PCV) 03/18/2019 1 Influenza Vaccine (#1) 2024 03/28/2019, 2017 Medical Devices Implanted Type Area Imcu Nurse Device Identifier Shelf Expiration Date Model / Serial / Lot Stent-09/14/2015 Implanted:09/13 by Jose Chambers MD (Quantity not on file) Stent Thoracic [employer] [id number] / [id number] / Description: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 Implanted:10/09 (Quantity not on file) Head Insurance MEDICARE SOLUTIONS [facility] MDCR HMO REF Care Teams Rehab Spec Relationship Specialty Start Date End Date Raza Kinney DO PCP - General 11/06/16
--- OUTSIDE RECORDS SUMMARY | 2024-07-03 10:50 | XMS_ITS | Encounter Summary ---
Author Organization [facility] Healthcare Address [address] [place] [address] Care Team Providers Care Sane Nurse Name Role Phone Raza Kinney DO Primary Care Provider [phone]- [phone] Encounter Details Date Type Department Care Team (Late st Contact Info) Description 06/30/2023 Orders Only [facility] Health Information Management [address] [place] [id number] Scanning, Provider Social History Tobacco Use Types Packs/Day Years Used Date Smoking Tobacco: Former Cigarettes 1 50 0 11/05/1957 - 11/06/2007 Smokeless Tobacco: Never Comments:Smoking History Pac ks/day: 1 Packs Alcohol Use Standard Drinks/Week Comments [...] on file Legal Sex Female 10:18 AM 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 RESOURCE INTERNSHIP Gender Identity Female 06/20/2021 10:31 AM HUMAN RESOURCE INTERNSHIP Sexual Orientation Not on file Occupation Industry Job Start Date Job End Date Retired Not on file Not on file Not on file documented as of this encounter Plan of Treatment Not on file documented as of this encounter Procedures Procedure Name Priority Date/Time Associated Diagnosis Comments SCAN - RADIOLOGY/IMAGING 06/30/2023 documented in this encounter Results * SCAN - RADIOLOGY/IMAGING (06/30/2023) Anatomical Region Laterality Modality Other us Provider Scanning Final Result documented in this encounter Visit Diagnoses Not on filedocumented in this encounter Care Teams Sane Nurse Relationship Specialty Start Date End Date Raza Kinney DO PCP - General 11/06/16 documented as of this encounter
--- OUTSIDE RECORDS SUMMARY | 2024-07-03 10:50 | XMS_ITS | Encounter Summary ---
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 Gender Identity Female 06/20/2021 10:31 AM FUNCTIONAL CONSULTANT Sexual Orientation Not on file Occupation Industry Job Start Date Job End Date Retired Not on file Not on file Not on file documented as of this encounter Plan of Treatment Not on file documented as of this encounter Procedures Procedure Name Priority Date/Time Associated Diagnosis Comments SCAN - RADIOLOGY/IMAGING 07/03/2023 documented in this encounter Results * SCAN - RADIOLOGY/IMAGING (07/03/2023) Anatomical Region Laterality Modality Other us Provider Scanning Edited Result - Final documented in this encounter Visit Diagnoses Not on filedocumented in this encounter Care Teams Tube Maker Relationship Specialty Start Date End Date Raza Kinney DO PCP - General 11/06/16 documented as of this encounter
--- OUTSIDE RECORDS SUMMARY | 2024-07-03 10:51 | XMS_ITS | Clinical Summary ---
Author Organization [facility] Address [address] [facility] [place] [address] Care Team Providers Care Mammography Technologist Name Role Phone MonsterRaza rendon Sharmin DO Primary Care Provider [phone] Source Comments [facility],non-owned Affiliates and Associated Physician Practices is amultiple site organization consisting of ambulatory clinics and hospital sitesin [place], [place], [place] and [place]. This disclosure is being madepursuant to the Care Everywhere program and may not contain all information available regarding this patient. Last updated 18.[facility] Cozy [place] Allergies Active Allergy Reactions Criticality Noted Date Comments Labetalol Vomiting 02/01/2021 Medications * Be aware that medications may not be up to date on this document. Alwaysverify current medications with the patient. Medication Sig Dispensed Refills Start Date End Date Status albuterol HFA (PROVENTIL;VENTOLIN;P ROAIR) 108 (90 Base) MCG/ACT inhaler Inhale 2 puffs by mouth every 6 hours as needed Active amLODIPine (NORVASC) 10 MG tablet Take 10 mg by mouth once daily Active aspirin EC (ECOTRIN) 81 MG tablet Take 81 mg by mouth once daily Active atorvastatin (LIPITOR) 80 MG tablet Take 80 mg by mouth at bedtime Active diphenhydramine-APAP, sleep, (TYLENOL PM EXTRA STRENGTH) 25-500 MG tablet Take 1 tablet by mouth nightly as needed for Insomnia Active FLUoxetine (PROZAC) 20 MG capsule Take 20 mg by mouth once daily Active lisinopril (PRINIVIL; ZESTRIL) 20 MG tablet Take 20 mg by mouth once daily Active methIMAzole (TAPAZOLE) 5 MG tablet Take 5 mg by mouth every evening Active metoprolol tartrate (LOPRESSOR) 50 MG tablet Take 50 mg by mouth 2 times daily Active omeprazole (PRILOSEC) 40 MG capsule Take 40 mg by mouth once daily Active senna (SENOKOT) 8.6 MG tablet Take 8.6 mg by mouth once daily Active Fluticasone-Umeclidin -Vilant (TRELEGY ELLIPTA) 100-62.5-25 MCG/INH Inhale 1 puff by mouth once daily Active Active Problems Problem Noted Date Diagnosed Date Headache 03/04/2015 Essential (primary) hypertension 05/08/2013 Nonruptured cerebral aneurysm 05/08/2013 Atherosclerotic heart diseas e of [facility] coronary artery without angina pectoris 05/08/2013 Social History Tobacco Use Types Packs/Day Years Used Date Smoking Tobacco: Former Cigarettes Q uit: 02/01/2011 Alcohol Use Standard Drinks/Week Comments No 0 (1 standard drink = 0.6 oz pur e alcohol) Sex and Gender Information Value Date Recorded Sex Assigned at Not on file Gender Identity Not on file Sexual Orientation Not on file Last Filed Vital Signs Vital Sign Reading Time Taken Comments Blood Pressure 119/69 02/01/2021 8:30 PM CDT Pulse 60 02/01/2021 8:30 PM CDT Temperature 36.7 C (98.1 F) 02/01/2021 8:30 PM CDT Respiratory Rate 16 02/01/2021 8:30 PM CDT Oxygen Saturation 100% 02/01/2021 8:30 PM CDT Inhaled Oxygen Concentration - - Weight 86.2 kg (190 lb) 02/01/2021 6:24 PM CDT Height 160 cm (5' 3 ) 02/01/2021 6:24 PM CDT Body Mass Index 33.66 02/01/2021 6:24 PM CDT Plan of Treatment Health Maintenance Due Date Last Done Comments BONE DENSITY TESTING 1944 DTAP/TDAP/TD VACCINES (1 - Tdap) 10/07/1963 PNEUMOCOCCAL VACCINE 50+ (1 of 1 - PCV) 1994 ZOSTER VACCINE (1 of 2) 1994 Respiratory Syncytial Virus (RSV) Vaccine Pt: or over 60 yrs (1 - 1-dose 75+ series) 10/07/2019 COVID-19 VACCINE ( - 2023-2 5 season) 2024 INFLUENZA VACCINE (#1) 2024 02/28/2018 DEPRESSION SCREENING 05/21/2024 MEDICARE AWV CALENDAR YEAR 2024 HEPATITIS B VACCINE Aged Out No longe r eligible based on patient's age to complete this topic HIB VACCINE Aged Out No longer eligi ble based on patient's age to complete this topic HPV VACCINE Aged Out No longer eligi ble based on patient's age to complete this topic MENINGOCOCCAL (Group B) VACCINE Aged Out No longer eligible based on patient's age to complete this topic MENINGOCOCCAL VACCINE Aged Out No belia kacey eligible based on patient's age to complete this topic Care Teams Mammography Technologist Relationship Specialty Start Date End Date Raza Kinney DO PCP - General 05/08/13
--- OUTSIDE RECORDS SUMMARY | 2024-07-03 10:51 | XMS_ITS | Patient Health Summary ---
Author Organization [facility] Address [address] [place] [address] Care Team Providers Care Vascular Tech Name Role Phone GregoriaRaza Sharmin DO Primary Care Provider [phone] Note from [facility],non-owned Affiliates and Associated Physician Practices is amultiple site organization consisting of ambulatory clinics and hospital sitesin [place], [place], [place] and [place]. This disclosure is being madepursuant to the Care Everywhere program and may not contain all information available regarding this patient. Last updated 18.[facility] Allergies * Labetalol(Vomiting) Medications * Be aware that medications may not be up to date on this document. Alwaysverify current medications with the patient. * albuterol HFA (PROVENTIL;VENTOLIN;PROAIR) 108 (90 Base) MCG/ACT inhaler Inhale 2 puffs by mouth every 6 hours as needed * amLODIPine (NORVASC) 10 MG tablet Take 10 mg by mouth once daily * aspirin EC (ECOTRIN) 81 MG tablet Take 81 mg by mouth once daily * atorvastatin (LIPITOR) 80 MG tablet Take 80 mg by mouth at bedtime * diphenhydramine-APAP, sleep, (TYLENOL PM EXTRA STRENGTH) 25-500 MG tablet Take 1 tablet by mouth nightly as needed for Insomnia * FLUoxetine (PROZAC) 20 MG capsule Take 20 mg by mouth once daily * lisinopril (PRINIVIL; ZESTRIL) 20 MG tablet Take 20 mg by mouth once daily * methIMAzole (TAPAZOLE) 5 MG tablet Take 5 mg by mouth every evening * metoprolol tartrate (LOPRESSOR) 50 MG tablet Take 50 mg by mouth 2 times daily * omeprazole (PRILOSEC) 40 MG capsule Take 40 mg by mouth once daily * senna (SENOKOT) 8.6 MG tablet Take 8.6 mg by mouth once daily * Dgkoumlqekv-Ycudywlun-Rxcpqs (TRELEGY ELLIPTA) 100-62.5-25 MCG/INH Inhale 1 puff by mouth once daily Active Problems Problem Noted Date Diagnosed Date Headache 03/04/2015 Essential (primary) hypertension 05/08/2013 Nonruptured cerebral aneurysm 05/08/2013 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 Social [...] Mass Index 33.66 02/01/2021 6:24 PM CDT Procedures * CARDIAC EKG ORDER(Performed 02/03/2021) * CT ANGIO NECK(Performed 02/01/2021) Performed for Paresthesias * CT ANGIO BRAIN(Performed 02/01/2021) Performed for Paresthesias * CT HEAD WO CONTRAST(Performed 02/01/2021) Performed for Paresthesias * EKG 12-LEAD(Performed 02/01/2021) Performed for Paresthesias * PTT(Performed 02/01/2021) * PT-INR(Performed 02/01/2021) * COMPREHENSIVE METABOLIC PANEL(Performed 02/01/2021) * CBC W AUTO DIFFERENTIAL(Performed 02/01/2021) * CT ANGIO BRAIN(Performed 05/08/2013) * CREATININE BLOOD - POCT (IP) [facility](Performed 05/08/2013) * CT ANGIO BRAIN(Performed 05/02/2012) * CREATININE BLOOD - POCT (IP) [facility](Performed 05/02/2012) * LAB MICROBIOLOGY - [facility](Performed 10/09/2010) Results * CARDIAC EKG ORDER (02/03/2021 11:48 AM CDT) Narrative 02/03/2021 11:48 AM CDT Ordered by an unspecified provider. Scanned Document CARDIAC SERVICES ORD ERABLES * CT ANGIO NECK [id number] (02/01/2021 7:35 PM CDT) Anatomical Region Laterality Modality Head Computed Tomogra phy 02/01/2021 8:05 PM CDT Impressions 02/01/2021 8:26 PM CDT Abnormal CTA neck. Percent stenosis per NASCET criteria is 70-99% on the left. Complete occlusion in the right side. *Reading Radiologist: ANDERS GOODEN on 02/01/2021 at 8:26 PM Narrative 02/01/2021 8:[address] ANGIO NECK Ordering provider: CLOE WISDOM History: . Anesthesia of skin. Comparison: None. Technique: CT angiogram neck was performed following timed intravenous injection of contrast. Thin slice axial images and reformatted coronal images were obtained. Three dimensional reformatted images of the neck were also obtained using a [employer] workstation. 50 cc Isovue-300 was given IV. Radiation reduction technique utilized. The radiation dose 6.37 mGy. FINDINGS: Postoperative changes are seen in the right temporal lobe area with aneurysmal clip. Encephalomalacia is seen in the area. RIGHT CERVICAL CAROTID ARTERY: Occluded right internal carotid artery above the bifurcation is seen. LEFT CERVICAL CAROTID ARTERY: Moderate atheromatous disease of the carotid bulb and proximal internal carotid artery. Percent stenosis per NASCET criteria is 70-99% No carotid dissection. Otherwise, no significant atheromatous disease or stenosis of the cervical carotid system. VISUALIZED BILATERAL INTRACRANIAL CAROTID ARTERIES: Occlusion in the right side. The left is patent. Right posterior communicating artery is noted. VERTEBRAL BASILAR SYSTEM: Normal contour Dominant left vertebral artery. VISUALIZED AORTIC ARCH AND BRANCHING VESSELS: Mild atheromatous disease but no significant stenosis. Intramural thrombus is seen in the aortic arch. SOFT TISSUES: Multiple hypodensities in the right lobe of the thyroid may be nodules. CERVICAL SPINE: Age appropriate degenerative changes. Procedure Note nAders Gooden MD - 02/01/2021 CT ANGIO NECK Ordering provider: COLE WISDOM History: . Anesthesia of skin. Comparison: None. Technique: CT angiogram neck was performed following timed intravenous injection of contrast. Thin slice axial images and reformatted coronal images were obtained. Three dimensional reformatted images of the neck were also obtained using a [employer] workstation. 50 cc Isovue-300 was given IV. Radiation reduction technique utilized. The radiation dose 6.37 mGy. FINDINGS: Postoperative changes are seen in the right temporal lobe area with aneurysmal clip. Encephalomalacia is seen in the area. RIGHT CERVICAL CAROTID ARTERY: Occluded right internal carotid artery above the bifurcation is seen. LEFT CERVICAL CAROTID ARTERY: Moderate atheromatous disease of the carotid bulb and proximal internal carotid artery. Percent stenosis per NASCET criteria is 70-99% No carotid dissection. Otherwise, no significant atheromatous disease or stenosis of the cervical carotid system. VISUALIZED BILATERAL INTRACRANIAL CAROTID ARTERIES: Occlusion in the right side. The left is patent. Right posterior communicating artery is noted. VERTEBRAL BASILAR SYSTEM: Normal contour Dominant left vertebral artery. VISUALIZED AORTIC ARCH AND BRANCHING VESSELS: Mild atheromatous disease but no significant stenosis. Intramural thrombus is seen in the aortic arch. SOFT TISSUES: Multiple hypodensities in the right lobe of the thyroid may be nodules. CERVICAL SPINE: Age appropriate degenerative changes. IMPRESSION Abnormal CTA neck. Percent stenosis per NASCET criteria is 70-99% on the left. Complete occlusion in the right side. *Reading Radiologist: ANDERS GOODEN on 02/01/2021 at 8:26 PM Cole Wisdom DO CT ORDERABLES * CT ANGIO HEAD [id number] (02/01/2021 7:34 PM CDT) Only the most recent of3 resultswithin the time period is included. Anatomical Region Laterality Modality Head Computed Tomogra phy 02/01/2021 7:52 PM CDT Impressions 02/01/2021 8:07 PM CDT 1. Complete occlusion of the right internal carotid artery, maybe chronic in nature. Better appreciated in comparison to the prior CT-brain from 02/01/2021. 2. Mild atrophy and chronic ischemic changes. 3. Findings are overall similar in comparison to the prior CT-brain from 02/01/2021. Findings were discussed over the phone with Cole Wisdom DO at 8:00 pm SHUTTLE VAN DRIVER on 02/01/2021. *Reading Radiologist: Mc Spain on 02/01/2021 at 8:07 PM Narrative 02/01/2021 8:[address] ANGIOGRAM OF THE BRAIN CLINICAL HISTORY: Right facial numbness for one week. TECHNIQUE: Axial images obtained. Coronal images obtained. Sagittal images obtained. Exam is performed with 50 mL of Isovue-300 intravenous contrast. 3D maximum intensity projections (MIPs) were performed. Per PQRS, CT exam is performed using one or more of the following dose reduction technique: Automated exposure control, adjustment of mA and/or KV according to patient size, or use of iterative reconstruction techniques. COMPARISON: CT-brain of 02/01/2021. FINDINGS: There is complete occlusion of the right internal carotid artery, maybe chronic in nature. Atherosclerotic calcifications of the left intracranial internal carotid artery is seen. The anterior cerebral arteries are patent. The middle cerebral arteries are patent. The posterior cerebral arteries are patent. The bilateral vertebral arteries are patent. The veins and venous sinuses are patent. Negative for acute bleed. Negative for acute infarct. Mild cerebral and cerebellar atrophy is seen. Mild chronic ischemic changes in the deep white matter seen. Normal sized ventricles. Extra-axial compartments are normal. Sinuses are clear. Mastoid air spaces are clear. Middle ear cavities are clear. Scalp is unremarkable. Negative for enhancing mass lesion post contrast administration. Craniotomy changes of the right frontotemporal bone. Post-surgical encephalomalacia of the right temporal lobe. Procedure Note Mc Spain MD - 02/01/2021 CT ANGIOGRAM OF THE BRAIN CLINICAL HISTORY: Right facial numbness for one week. TECHNIQUE: Axial images obtained. Coronal images obtained. Sagittal images obtained. Exam is performed with 50 mL of Isovue-300 intravenous contrast. 3D maximum intensity projections (MIPs) were performed. Per PQRS, CT exam is performed using one or more of the following dose reduction technique: Automated exposure control, adjustment of mA and/or KV according to patient size, or use of iterative reconstruction techniques. COMPARISON: CT-brain of 02/01/2021. FINDINGS: There is complete occlusion of the right internal carotid artery, maybe chronic in nature. Atherosclerotic calcifications of the left intracranial internal carotid artery is seen. The anterior cerebral arteries are patent. The middle cerebral arteries are patent. The posterior cerebral arteries are patent. The bilateral vertebral arteries are patent. The veins and venous sinuses are patent. Negative for acute bleed. Negative for acute infarct. Mild cerebral and cerebellar atrophy is seen. Mild chronic ischemic changes in the deep white matter seen. Normal sized ventricles. Extra-axial compartments are normal. Sinuses are clear. Mastoid air spaces are clear. Middle ear cavities are clear. Scalp is unremarkable. Negative for enhancing mass lesion post contrast administration. Craniotomy changes of the right frontotemporal bone. Post-surgical encephalomalacia of the right temporal lobe. IMPRESSION 1. Complete occlusion of the right internal carotid artery, maybe chronic in nature. Better appreciated in comparison to the prior CT-brain from 02/01/2021. 2. Mild atrophy and chronic ischemic changes. 3. Findings are overall similar in comparison to the prior CT-brain from 02/01/2021. Findings were discussed over the phone with Cole Wisdom DO at 8:00 pm SHUTTLE VAN DRIVER on 02/01/2021. *Reading Radiologist: Mc Spain on 02/01/2021 at 8:07 PM Cole Wisdom DO CT ORDERABLES * CT BRAIN WO CONTRAST [id number] (02/01/2021 7:33 PM CDT) Anatomical Region Laterality Modality Head Computed Tomogra phy 02/01/2021 7:47 PM CDT Impressions 02/01/2021 7:52 PM CDT 1. Negative for acute intracranial process. 2. Mild atrophy and chronic ischemic changes. *Reading Radiologist: Mc Spain on 02/01/2021 at 7:52 PM Narrative 02/01/2021 7:[address] OF THE BRAIN WITHOUT IV CONTRAST CLINICAL HISTORY: Right side facial numbness for one week. TECHNIQUE: Serial axial images obtained. Exam is performed without intravenous contrast. Per PQRS, CT exam is performed using one or more of the following dose reduction techniques: Automated exposure control, adjustment of the mA and/or KV according to patient size, or use of iterative reconstruction techniques. COMPARISON: None FINDINGS: Negative for acute bleed. Negative for acute infarct. Mild cerebral and cerebellar atrophy is seen. Mild chronic ischemic changes in the deep white matter seen. Normal sized ventricles. Extra-axial compartments are normal. Sinuses are clear. Mastoid air spaces are clear. Middle ear cavities are clear. Scalp is unremarkable. Craniotomy changes of the right frontotemporal bone. Post-surgical encephalomalacia of the right temporal lobe. Procedure Note Mc Spain MD - 02/01/2021 CT OF THE BRAIN WITHOUT IV CONTRAST CLINICAL HISTORY: Right side facial numbness for one week. TECHNIQUE: Serial axial images obtained. Exam is performed without intravenous contrast. Per PQRS, CT exam is performed using one or more of the following dose reduction techniques: Automated exposure control, adjustment of the mA and/or KV according to patient size, or use of iterative reconstruction techniques. COMPARISON: None FINDINGS: Negative for acute bleed. Negative for acute infarct. Mild cerebral and cerebellar atrophy is seen. Mild chronic ischemic changes in the deep white matter seen. Normal sized ventricles. Extra-axial compartments are normal. Sinuses are clear. Mastoid air spaces are clear. Middle ear cavities are clear. Scalp is unremarkable. Craniotomy changes of the right frontotemporal bone. Post-surgical encephalomalacia of the right temporal lobe. IMPRESSION 1. Negative for acute intracranial process. 2. Mild atrophy and chronic ischemic changes. *Reading Radiologist: Mc Spain on 02/01/2021 at 7:52 PM Cole Wisdom DO CT ORDERABLES * EKG 12-LEAD (02/01/2021 6:53 PM CDT) Ventricular Rate 59 BPM [facility] Atrial Rate 59 BPM [facility] P-R Interval 148 ms [facility] QRS Duration ms 84 ms [facility] Q-T Interval ms 458 ms [facility] QTC Calculation (Bezet) 453 ms [facility] MUSE Calculated P [place] 37 degrees [facility] MUSE Calculated R [place] -22 degrees [facility] MUSE Calculated T [place] 53 degrees [facility] Interpretation EKG SINUS BRADYCARDIA ANTERIOR INFARCT , AGE UNDETERMINED ABNORMAL ECG NO PREVIOUS ECGS AVAILABLE Confirmed by ACOSTA ALMARAZ MD ([id number]), video effects editor RUTH WILLIS ([id number]) on 02/02/2021 8:58:[address] [facility] 02/01/2021 6:53 PM CDT 02/02/2021 8:58 AM CDT Cole Wisdom DO ECG ORDERABLES Performing Organization Address [facility] Co de Phone Number [facility] * PTT (02/01/2021 6:42 PM CDT) PTT 29.4 23.0 - 38.4 sec 02/01/2021 7:[address] [facility] Blood BLOOD SPECIMEN / Unknown Venipuncture / Unknown 02/01/2021 6:42 PM CDT 02/01/2021 6:46 PM CDT Cole Wisdom DO LAB - COAGULATION OR DERABLES Performing Organization Address [facility] Co de Phone Number [facility] [address] * (ABNORMAL) PT-INR (02/01/2021 6:42 PM CDT) PT 13.0 11.3 - 14.8 sec 02/01/2021 7:[address] [facility] INR 1.02(L) 2 - 3 02/01/2021 7:[address] [facility] Blood BLOOD SPECIMEN / Unknown Venipuncture / Unknown 02/01/2021 6:42 PM CDT 02/01/2021 6:[address] [facility] - 02/01/2021 7:01 PM CDT Recommended therapeutic INR ranges for Oral Anticoagulant Therapy: 2.0-3.0 For prevention of Thrombosis or Embolism and treatment of Venous Thrombosis. 2.5- 3.5 for prevention of Recurrent Embolism or treatment of patients with Mechanical Prosthetic Heart Valves. Cole Wisdom DO LAB - COAGULATION OR DERABLES [facility] [address] * (ABNORMAL) CBC W AUTO DIFFERENTIAL (02/01/2021 6:42 PM CDT) [facility] Signature WBC 10.0 4.0 - 10.0 x10E9/L 02/01/2021 6:[address] [facility] RBC 4.05 3.93 - 5.22 x10E12/L 02/01/2021 6:[address] [facility] Hemoglobin 11.9 11.2 - 15.7 gm/dL 02/01/2021 6:[address] [facility] Hematocrit 36.3 34.1 - 44.9 % 02/01/2021 6:[address] [facility] MCV 89.6 78.0 - 100.0 fl 02/01/2021 6:[address] [facility] MCH 29.4 25.6 - 34.0 pg 02/01/2021 6:[address] [facility] MCHC 32.8 32.3 - 36.5 gm/dL 02/01/2021 6:[address] [facility] RDW 13.8 11.6 - 14.4 % 02/01/2021 6:[address] [facility] MPV 10.5 9.4 - 12.4 fl 02/01/2021 6:[address] [facility] Platelet Count 253 163 - 369 x10E9/L 02/01/2021 6:[address] [facility] Neutrophils % 60.0 40.0 - 75.0 % 02/01/2021 6:[address] [facility] Lymphocytes % 26.3 19.3 - 53.1 % 02/01/2021 6:[address] [facility] Monocytes % 9.1 4.7 - 12.5 % 02/01/2021 6:[address] [facility] Eosinophils % 4.2 0.7 - 7.0 % 02/01/2021 6:[address] [facility] Basophils % 0.2 0.1 - 1.2 % 02/01/2021 6:[address] [facility] Immature Granulocytes 0.2 0 - 0.5 % 02/01/2021 6:[address] [facility] Neutrophil Absolute 5.98 1.56 - 6.13 x10E9/L 02/01/2021 6:[address] [facility] Lymphocytes Absolute 2.62 1.18 - 3.74 x10E9/L 02/01/2021 6:[address] [facility] Monocytes Absolute 0.91(H) 0.24 - 0.86 x10E9/L 02/01/2021 6:[address] [facility] Eosinophils Absolute 0.42 0.04 - 0.54 x10E9/L 02/01/2021 6:[address] [facility] Basophils Absolute 0.02 0.01 - 0.08 x10E9/L 02/01/2021 6:[address] [facility] Immature Granulocytes Absolute 0.02 0 - 0.03 x10E9/L 02/01/2021 6:[address] [facility] nRBC Auto 0 <=0 /100 WBC 02/01/2021 6:[address] [facility] nRBC Absolute 0.00 <=0 x10E9/L 02/01/2021 6:[address] [facility] Blood BLOOD SPECIMEN / Unknown Venipuncture / Unknown 02/01/2021 6:42 PM CDT 02/01/2021 6:46 PM CDT Cole Wisdom DO LAB - HEMATOLOGY ORD ERABLES Performing Organization Address [facility]/State/[facility] Co de Phone Number [facility] [address] * (ABNORMAL) COMPREHENSIVE METABOLIC PANEL (02/01/2021 6:42 PM CDT) [facility] Glucose 104 70 - 125 mg/dL 02/01/2021 7:[address] [facility] Sodium 138 136 - 145 mmol/L 02/01/2021 7:[address] [facility] Potassium 4.3 3.4 - 4.5 mmol/L 02/01/2021 7:[address] [facility] Chloride 101 98 - 107 mmol/L 02/01/2021 7:[address] [facility] CO2 25 22 - 29 mmol/L 02/01/2021 7:[address] [facility] Calcium 9.6 8.4 - 10.2 mg/dL 02/01/2021 7:[address] [facility] Anion Gap 16 10 - 20 mmol/L 02/01/2021 7:[address] [facility] BUN 20.7(H) 9.8 - 20.1 mg/dL 02/01/2021 7:[address] [facility] Creatinine 1.11 0.57 - 1.11 mg/dL 02/01/2021 7:[address] [facility] eGFR by MDRD 48(L) >60 mL/min/1.7 3m2 02/01/2021 7:[address] [facility] eGFR by MDRD 58(L) >60 mL/min/1.7 3m2 02/01/2021 7:[address] [facility] Alkaline Phosphatase 107 40 - 150 U/L 02/01/2021 7:[address] [facility] ALT 15 5 - 55 U/L 02/01/2021 7:[address] [facility] AST 15 5 - 34 U/L 02/01/2021 7:[address] [facility] Protein Total 6.7 6.4 - 8.3 gm/dL 02/01/2021 7:[address] [facility] Albumin 3.5 3.5 - 5.0 gm/dL 02/01/2021 7:[address] [facility] Globulin Total 3.2 2.6 - 4.0 gm/dL 02/01/2021 7:[address] [facility] Albumin/Globulin Ratio 1.1 0.9 - 1.6 02/01/2021 7:[address] [facility] Bilirubin Total 0.4 0.2 - 1.2 mg/dL 02/01/2021 7:[address] [facility] Blood BLOOD SPECIMEN / Unknown Venipuncture / Unknown 02/01/2021 6:42 PM CDT 02/01/2021 6:46 PM T Cole Wisdom DO LAB - CHEMISTRY [facility] Organization Address City/State/ZIP Co de Phone Number [facility] [address] * CREATININE BLOOD - POCT () [facility] (05/08/2013 10:54 AM SHUTTLE VAN DRIVER) Only the most recent of2 resultswithin the time period is included. Creatinine POCT 0.91 0.3 - 1.3 mg/dL [facility] eGFR POCT 60 60 ml/min [facility] 05/08/2013 10:5 4 AM SHUTTLE VAN DRIVER Emerald Burnett MD LAB - POINT OF CAR E ORDERABLES [facility] * LAB MICROBIOLOGY - [facility] (10/09/2010 5:13 AM CDT) 10/09/2010 5:13 AM CDT Narrative [facility] - 10/09/2010 5:13 AM CDT Sadaf Piedra MD LAB - MICROB IOLOGY ORDERABLES [facility] Care Teams Vascular Tech Relationship Specialty Start Date End Date Raza Kinney DO PCP - General 05/08/13
--- OUTSIDE RECORDS SUMMARY | 2024-07-03 10:51 | XMS_ITS | Referral Summary ---
Author Organization [facility] Address [address] [place] [address] Care Team Providers Care Smoking Pipe Repairer Name Role Phone MonsterRaza rendon Sharmin DO Primary Care Provider [phone] Source Comments [facility],non-owned Affiliates and Associated Physician Practices is amultiple site organization consisting of ambulatory clinics and hospital sitesin [place], [place], [place] and [place]. This disclosure is being madepursuant to the Care Everywhere program and may not contain all information available regarding this patient. Last updated 18.[facility] [employer] Allergies Active Allergy Reactions Criticality Noted Date [...] aneurysm 05/08/2013 Atherosclerotic heart diseas e of [place] coronary artery without angina pectoris 05/08/2013 Social [...] 02/01/2021 6:24 PM CDT Plan of Treatment Not on file Care Teams Smoking Pipe Repairer Relationship Specialty Start Date End Date Raza Kinney DO PCP - General 05/08/13
--- OUTSIDE RECORDS SUMMARY | 2024-07-03 11:36 | XMS_ITS | Clinical Summary ---
Author Organization [facility] Address [address] [facility] [facility] [place] [address] Care Team Providers Care Grease And Tallow Pumper Name Role Phone MonsterRaza rendon Sharmin DO Primary Care Provider [phone] Source Comments [facility],non-owned Affiliates and Associated Physician Practices is amultiple site organization consisting of ambulatory clinics and hospital sitesin [place], [place], [place] and [place]. This disclosure is being madepursuant to the Care Everywhere program and may not contain all information available regarding this patient. Last updated 18.[facility] [employer] Allergies Active Allergy Reactions Criticality Noted Date [...] aneurysm 05/08/2013 Atherosclerotic heart diseas e of [place] coronary artery without angina pectoris 05/08/2013 Social [...] age to complete this topic Care Teams Grease And Tallow Pumper Relationship Specialty Start Date End Date Raza Kinney DO PCP - General 05/08/13
--- OUTSIDE RECORDS SUMMARY | 2024-07-03 11:36 | XMS_ITS | Clinical Summary ---
Author Organization [facility] Address [address] [place] [address] Care Team Providers Care Cotton Feeder Name Role Phone Raza Kinney DO Primary Care Provider [phone]- [phone] Allergies Active Allergy Reactions Criticality Noted Date [...] Abnormal EKG Coronary artery disease invo [place] coronary artery of [place] heart without angina pectoris 05/08/2013 Nonruptured cerebral [...] Relation Name Comments Heart attack Brother Royce [place]; Cause of De ath: [place] Heart attack Daughter Heart disease Father Family [...] on file Legal Sex Female 10:18 AM MAINTENANCE TEAM LEADER Gender Identity Female 06/20/2021 10:31 AM MAINTENANCE TEAM LEADER Sexual Orientation Not on file Occupation Industry [...] 03/28/2019, 2017 Medical Devices Implanted Type Area Animation Camera Operator Device Identifier Shelf Expiration Date Model / Serial / Lot Stent-09/14/2015 Implanted:09/13 by Jose Chambers MD (Quantity not on file) Stent Thoracic [employer] [id number] / [id number] / Description: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 Implanted:10/09 (Quantity not on file) Head Insurance [facility] MED[facility] Address: [facility] [address] [place] [address] [facility] MDCR HMO REF [facility] MEDICARE Address: [address] [address] [place] [address] [facility] MEDICARE Address: [address] [address] [place] [address] [facility] Address: [address] [address] [place] [address] Care Teams Cotton Feeder Relationship Specialty Start Date End Date Raza Kinney DO PCP - General 11/06/16
--- OUTSIDE RECORDS SUMMARY | 2024-07-03 11:36 | XMS_ITS | Referral Summary ---
Author Organization [facility] Address [address] [place] [address] Care Team Providers Care Small Parts Assembler Name Role Phone Raza Kinney DO Primary Care Provider +1- [phone] Allergies Active Allergy Reactions Criticality Noted Date [...] Abnormal EKG Coronary artery disease invo [place] coronary artery of [place] heart without angina pectoris 05/08/2013 Nonruptured cerebral [...] on file Legal Sex Female 10:18 AM CHEMIST Gender Identity Female 06/20/2021 10:31 AM CHEMIST Sexual Orientation Not on file Occupation Industry [...] on file Medical Devices Implanted Type Area Railroad Brake Operator Device Identifier Shelf Expiration Date Model / Serial / Lot Stent-09/14/2015 Implanted:09/13 by Jose Chambers MD (Quantity not on file) Stent Thoracic [facility] [id number] / [id number] / Description: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 Implanted:10/09 (Quantity not on file) Head Insurance [facility] MEDIC[facility] Address: [place] [id number] [place] [id number] MDCR HMO [facility] Address: [address] [address] [place] [id number] [facility] MED[facility] Address: [address] [address] [place] [address] MEDICARE SOLUTIONS Care Teams Small Parts Assembler Relationship Specialty Start Date End Date Raza Kinney DO PCP - General 11/06/16
--- OUTSIDE RECORDS SUMMARY | 2024-07-03 11:36 | XMS_ITS | Patient Health Summary ---
Author Organization [facility] Address [address] [facility] [place] [address] Care Team Providers Care Auto Polisher Name Role Phone GregoriaRaza Sharmin DO Primary Care Provider [phone] Note from [facility],non-owned Affiliates and Associated Physician Practices is amultiple site organization consisting of ambulatory clinics and hospital sitesin [place], [place], [place] and [place]. This disclosure is being madepursuant to the Care Everywhere program and may not contain all information available regarding this patient. Last updated 18.[facility] Allergies * Labetalol(Vomiting) Medications * Be [...] 8.6 mg by mouth once daily * Lhikglgsjer-Tnawhvypy-Eovepr (TRELEGY ELLIPTA) 100-62.5-25 MCG/INH Inhale 1 puff by mouth once daily Active Problems Problem Noted Date Diagnosed Date Headache 03/04/2015 Essential (primary) hypertension 05/08/2013 Nonruptured cerebral aneurysm 05/08/2013 Atherosclerotic heart diseas e of [place] coronary artery without angina pectoris 05/08/2013 Social [...] 05/08/2013) * CREATININE BLOOD - POCT (IP) [facility](Performed 05/08/2013) * CT ANGIO BRAIN(Performed 05/02/2012) * CREATININE BLOOD - POCT (IP) [facility](Performed 05/02/2012) * LAB MICROBIOLOGY - [facility](Performed 10/09/2010) Results * CARDIAC EKG ORDER (02/03/2021 11:48 AM CDT) Narrative 02/03/2021 11:48 AM CDT Ordered by an unspecified provider. Scanned Document CARDIAC SERVICES ORD ERABLES * CT ANGIO NECK [id number] (02/01/2021 7:35 PM CDT) Anatomical Region Laterality Modality Head Computed Tomogra phy 02/01/2021 8:05 PM CDT Impressions 02/01/2021 8:26 PM CDT Abnormal CTA neck. Percent stenosis per NASCET criteria is 70-99% on the left. Complete occlusion in the right side. *Reading Radiologist: ANDERS GOODEN on 02/01/2021 at 8:26 PM Narrative 02/01/2021 8:[address] ANGIO NECK Ordering provider: COLE WISDOM History: . Anesthesia of skin. Comparison: None. Technique: CT angiogram neck was performed following timed intravenous injection of contrast. Thin slice axial images and reformatted coronal images were obtained. Three dimensional reformatted images of the neck were also obtained using a [employer] workstation. 50 cc Isovue-300 was given IV. [...] SPINE: Age appropriate degenerative changes. Procedure Note Anders Gooden MD - 02/01/2021 CT ANGIO NECK Ordering provider: COLE WISDOM History: . Anesthesia of skin. Comparison: None. Technique: CT angiogram neck was performed following timed intravenous injection of contrast. Thin slice axial images and reformatted coronal images were obtained. Three dimensional reformatted images of the neck were also obtained using a [employer] workstation. 50 cc Isovue-300 was given IV. [...] DO CT ORDERABLES * CT ANGIO HEAD [id number] (02/01/2021 7:34 PM CDT) Only the most [...] with Cole Wisdom DO at 8:00 pm POLE SETTER on 02/01/2021. *Reading Radiologist: Mc Spain on [...] with Cole Wisdom DO at 8:00 pm POLE SETTER on 02/01/2021. *Reading Radiologist: Mc Spain on 02/01/2021 at 8:07 PM Cole Wisdom DO CT ORDERABLES * CT BRAIN WO CONTRAST [id number] (02/01/2021 7:33 PM CDT) Anatomical Region Laterality [...] (Bezet) 453 ms SMC MUSE Calculated P [place] 37 degrees SMC MUSE Calculated R [place] -22 degrees SMC MUSE Calculated T [place] 53 degrees [facility] MUSE Interpretation EKG SINUS BRADYCARDIA ANTERIOR INFARCT , AGE UNDETERMINED ABNORMAL ECG NO PREVIOUS ECGS AVAILABLE Confirmed by ACOSTA ALMARAZ MD ([id number]), film editor RUTH WILLIS ([id number]) on 02/02/2021 8:58:59 AM [facility] MUSE 02/01/2021 6:53 PM CDT 02/02/2021 8:58 AM CDT Cole Wisdom DO ECG ORDERABLES Performing Organization Address [facility] Co de Phone Number [facility] MUSE * PTT (02/01/2021 6:42 PM CDT) PTT 29.4 23.0 - 38.4 sec 02/01/2021 7:02 PM CDT [facility] Blood BLOOD SPECIMEN / Unknown Venipuncture / Unknown 02/01/2021 6:42 PM CDT 02/01/2021 6:46 PM CDT Cole Wisdom DO LAB - COAGULATION OR DERABLES Performing Organization Address [facility] Co de Phone Number [facility] [address] * (ABNORMAL) PT-INR (02/01/2021 6:42 PM CDT) PT 13.0 11.3 - 14.8 sec 02/01/2021 7:01 PM CDT [facility] INR 1.02(L) 2 - 3 02/01/2021 7:01 PM CDT [facility] Blood BLOOD SPECIMEN / Unknown Venipuncture / Unknown 02/01/2021 6:42 PM CDT 02/01/2021 6:46 PM CDT Narrative [facility] - 02/01/2021 7:01 PM CDT Recommended therapeutic INR ranges for Oral Anticoagulant Therapy: 2.0-3.0 For prevention of Thrombosis or Embolism and treatment of Venous Thrombosis. 2.5- 3.5 for prevention of Recurrent Embolism or treatment of patients with Mechanical Prosthetic Heart Valves. Cole Wisdom DO LAB - COAGULATION OR DERABLES [facility] [address] * (ABNORMAL) CBC W AUTO DIFFERENTIAL (02/01/2021 6:42 PM CDT) [facility] Signature WBC 10.0 4.0 - 10.0 x10E9/L 02/01/2021 6:49 PM CDT [facility] RBC 4.05 3.93 - 5.22 x10E12/L 02/01/2021 6:49 PM CDT [facility] Hemoglobin 11.9 11.2 - 15.7 gm/dL 02/01/2021 6:49 PM CDT [facility] Hematocrit 36.3 34.1 - 44.9 % 02/01/2021 6:49 PM CDT [facility] MCV 89.6 78.0 - 100.0 fl 02/01/2021 6:49 PM CDT [facility] MCH 29.4 25.6 - 34.0 pg 02/01/2021 6:49 PM CDT [facility] MCHC 32.8 32.3 - 36.5 gm/dL 02/01/2021 6:49 PM CDT [facility] RDW 13.8 11.6 - 14.4 % 02/01/2021 6:49 PM CDT [facility] MPV 10.5 9.4 - 12.4 fl 02/01/2021 6:49 PM CDT [facility] Platelet Count 253 163 - 369 x10E9/L 02/01/2021 6:49 PM CDT [facility] Neutrophils % 60.0 40.0 - 75.0 % 02/01/2021 6:49 PM CDT [facility] Lymphocytes % 26.3 19.3 - 53.1 % 02/01/2021 6:49 PM CDT [facility] Monocytes % 9.1 4.7 - 12.5 % 02/01/2021 6:49 PM CDT [facility] Eosinophils % 4.2 0.7 - 7.0 % 02/01/2021 6:49 PM CDT [facility] Basophils % 0.2 0.1 - 1.2 % 02/01/2021 6:49 PM CDT [facility] Immature Granulocytes 0.2 0 - 0.5 % 02/01/2021 6:49 PM CDT [facility] Neutrophil Absolute 5.98 1.56 - 6.13 x10E9/L 02/01/2021 6:49 PM CDT [facility] Lymphocytes Absolute 2.62 1.18 - 3.74 x10E9/L 02/01/2021 6:49 PM CDT [facility] Monocytes Absolute 0.91(H) 0.24 - 0.86 x10E9/L 02/01/2021 6:49 PM CDT [facility] Eosinophils Absolute 0.42 0.04 - 0.54 x10E9/L 02/01/2021 6:49 PM CDT [facility] Basophils Absolute 0.02 0.01 - 0.08 x10E9/L 02/01/2021 6:49 PM CDT [facility] Immature Granulocytes Absolute 0.02 0 - 0.03 x10E9/L 02/01/2021 6:49 PM CDT [facility] nRBC Auto 0 <=0 /100 WBC 02/01/2021 6:49 PM CDT [facility] nRBC Absolute 0.00 <=0 x10E9/L 02/01/2021 6:49 PM CDT [facility] Blood BLOOD SPECIMEN / Unknown Venipuncture / Unknown 02/01/2021 6:42 PM CDT 02/01/2021 6:46 PM CDT Cole Wisdom DO LAB - HEMATOLOGY ORD ERABLES Performing Organization Address [facility]/State/[facility] Co de Phone Number [facility] [address] * (ABNORMAL) COMPREHENSIVE METABOLIC PANEL (02/01/2021 6:42 PM CDT) [facility] Glucose 104 70 - 125 mg/dL 02/01/2021 7:14 PM CDT [facility] Sodium 138 136 - 145 mmol/L 02/01/2021 7:14 PM CDT [facility] Potassium 4.3 3.4 - 4.5 mmol/L 02/01/2021 7:14 PM CDT [facility] Chloride 101 98 - 107 mmol/L 02/01/2021 7:14 PM CDT [facility] CO2 25 22 - 29 mmol/L 02/01/2021 7:14 PM CDT [facility] Calcium 9.6 8.4 - 10.2 mg/dL 02/01/2021 7:14 PM T [facility] Anion Gap 16 10 - 20 mmol/L 02/01/2021 7:14 PM T [facility] BUN 20.7(H) 9.8 - 20.1 mg/dL 02/01/2021 7:14 PM T [facility] Creatinine 1.11 0.57 - 1.11 mg/dL 02/01/2021 7:14 PM T [facility] eGFR by MDRD 48(L) >60 mL/min/1.7 3m2 02/01/2021 7:14 PM T [facility] eGFR by MDRD 58(L) >60 mL/min/1.7 3m2 02/01/2021 7:14 PM T [facility] Alkaline Phosphatase 107 40 - 150 U/L 02/01/2021 7:14 PM T [facility] ALT 15 5 - 55 U/L 02/01/2021 7:14 PM T [facility] AST 15 5 - 34 U/L 02/01/2021 7:14 PM T [facility] Protein Total 6.7 6.4 - 8.3 gm/dL 02/01/2021 7:14 PM T [facility] Albumin 3.5 3.5 - 5.0 gm/dL 02/01/2021 7:14 PM T [facility] Globulin Total 3.2 2.6 - 4.0 gm/dL 02/01/2021 7:14 PM T [facility] Albumin/Globulin Ratio 1.1 0.9 - 1.6 02/01/2021 7:14 PM T [facility] Bilirubin Total 0.4 0.2 - 1.2 mg/dL 02/01/2021 7:14 PM T [facility] Blood BLOOD SPECIMEN / Unknown Venipuncture / Unknown 02/01/2021 6:42 PM CDT 02/01/2021 6:46 PM T Cole Wisdom DO LAB - CHEMISTRY LISETTE [facility]EC[facility] Organization Address City/State/ZIP Co de Phone Number [facility] [address] * CREATININE BLOOD - POCT () [facility] (05/08/2013 10:54 AM POLE SETTER) Only the most recent of2 resultswithin the time period is included. Creatinine POCT 0.91 0.3 - 1.3 mg/dL [facility] eGFR POCT 60 60 ml/min [facility] 05/08/2013 10:5 4 AM POLE SETTER Emerald Burnett MD LAB - POINT OF CAR E ORDERABLES [facility] * LAB MICROBIOLOGY - [facility] (10/09/2010 5:13 AM CDT) 10/09/2010 5:13 AM CDT Narrative [facility] - 10/09/2010 5:13 AM CDT Sadaf Piedra MD LAB - MICROB IOLOGY ORDERABLES [facility] Care Teams Auto Polisher Relationship Specialty Start Date End Date Raza Kinney DO PCP - General 05/08/13
--- OUTSIDE RECORDS SUMMARY | 2024-07-03 11:36 | XMS_ITS | Encounter Summary ---
Author Organization [facility] Healthcare Address [address] [place] [address] Care Team Providers Care Silvering Department Supervisor Name Role Phone Raza Kinney DO Primary Care Provider [phone]- [phone] Encounter Details Date Type Department Care Team (Late st Contact Info) Description 07/03/2023 Orders Only [facility] Health Information Management [address] [place] [id number] Scanning, Provider Social History Tobacco Use [...] on file Legal Sex Female 10:18 AM DATA MODELING ARCHITECT Gender Identity Female 06/20/2021 10:31 AM DATA MODELING ARCHITECT Sexual Orientation Not on file Occupation Industry [...] on filedocumented in this encounter Care Teams Silvering Department Supervisor Relationship Specialty Start Date End Date Raza Kinney DO PCP - General 11/06/16 documented as of this encounter
--- OUTSIDE RECORDS SUMMARY | 2024-07-03 11:36 | XMS_ITS | Encounter Summary ---
Author Organization [facility] Healthcare Address [address] [place] [address] Care Team Providers Care Grader Patrol Name Role Phone Raza Kinney DO Primary Care Provider [phone]- [phone] Encounter Details Date Type Department Care Team (Late st Contact Info) Description 06/30/2023 Orders Only [facility] Health Information Management [address] [place] [id number] Scanning, Provider Social History Tobacco Use [...] on file Legal Sex Female 10:18 AM FLIGHT INSPECTOR Gender Identity Female 06/20/2021 10:31 AM FLIGHT INSPECTOR Sexual Orientation Not on file Occupation Industry [...] on filedocumented in this encounter Care Teams Grader Patrol Relationship Specialty Start Date End Date Raza Kinney DO PCP - General 11/06/16 documented as of this encounter
--- OUTSIDE RECORDS SUMMARY | 2024-07-03 11:36 | XMS_ITS | Referral Summary ---
Author Organization [facility] Address [address] [place] [address] Care Team Providers Care Customer Sales Distributor Name Role Phone MonsterRaza rendon Sharmin DO Primary Care Provider [phone] Source Comments [facility],non-owned Affiliates and Associated Physician Practices is amultiple site organization consisting of ambulatory clinics and hospital sitesin [place], [place], [place] and [place]. This disclosure is being madepursuant to the Care Everywhere program and may not contain all information available regarding this patient. Last updated 18.[facility] Frazr Allergies Active Allergy Reactions Criticality Noted Date [...] aneurysm 05/08/2013 Atherosclerotic heart diseas e of [place] coronary artery without angina pectoris 05/08/2013 Social [...] of Treatment Not on file Care Teams Customer Sales Distributor Relationship Specialty Start Date End Date Raza Kinney DO PCP - General 05/08/13
[2024-07-03 12:06] LABS: Influenza A QL RT-PCR Positive (Negative); Influenza B QL RT-PCR Negative (Negative); RSV RNA, RT-PCR Negative (Negative); SARS-CoV-2 RNA PCR Negative (Negative)
[2024-07-03 13:02] LABS: Basophils Percent Auto 0.1 % (0.2-1.2); Eosinophils Absolute Auto 0.1 K/mm3 (0-0.3); Eosinophils Percent Auto 0.6 % (0-4.4); Hematocrit 38.3 % (37.0-47.0); Hemoglobin 12.2 g/dL (12.0-15.0); Immature Granulocyte Absolute 0.05 K/mm3 (0.00-0.031); Immature Granulocyte Percent A 0.6 % (0-0.5); Lymphocytes Absolute Auto 1.23 K/mm3 (0.9-3.2); Lymphocytes Percent Auto 15.7 % (18.3-44.2); Mean Corpuscular HGB Conc 31.9 g/dl (32-36); Mean Corpuscular Hemoglobin 28.2 pg (26-34); Mean Corpuscular Volume 88.7 fl (80-100); Monocytes Absolute Auto 0.9 K/mm3 (0.1-0.6); Monocytes Percent Auto 11.5 % (2.6-8.5); Neutrophils Absolute Auto 5.6 K/mm3 (1.3-6.7); Neutrophils Percent Auto 71.5 % (45.5-73.1); Platelet Count Result 128 k/mm3 (150-375); Red Blood Count 4.32 M/mm3 (4.2-5.4); Red Cell Distribution Width 14.7 % (11.5-14.5); White Blood Count 7.8 K/mm3 (4.5-10.0)
[2024-07-03 13:20] LABS: Anion Gap 8 mmol/L (4-12); Blood Urea Nitrogen 20 mg/dL (7-17); Calcium 8.2 mg/dL (8.4-10.2); Carbon Dioxide 30 mmol/L (22-30); Chloride 100 mmol/L (98-107); Estimated CRCL calculation 48 ml/min; Estimated Glomerular Filt Rate > 60; Glucose 101 mg/dL (65-110); Potassium 3.9 mmol/L (3.4-5.0); Sodium 138 mmol/L (137-145)
[2024-07-03] MEDS: IPRATROPIUM 0.5 MG/ALBUTEROL SULFATE 2.5 MG AMPUL.NEB 3 ML INHALATION (13:45)
[2024-07-03] MEDS: predniSONE 20 MG TABLET 40 MG PO (14:05)
--- NOTE | 2024-07-03 14:51 | ED_ITS ---
HPI - URI/Sore Throat General Chief Complaint: Upper Respiratory Infection Stated Complaint: COUGH,CONGESTION Time Seen by Provider: 07/03/24 11:11 History of Present Illness HPI Narrative: Patient presenting with URI symptoms, has been having cough and shortness of breath and decreased appetite. Related Data Home Medications ?Medication ?Instructions ?Recorded ?Confirmed ?Last Taken ?Type aspirin 81 mg tablet,delayed 81 mg PO DAILY 04/29/19 07/03/24 07/03/24 History release (Adult Low Dose Aspirin) acetaminophen 500 mg tablet 1,000 mg PO DAILY PRN Pain, Mild 10/10/22 07/03/24 Unknown History (Tylenol Extra Strength) Allergies Allergy/AdvReac Type Severity Reaction Status Date / Time labetalol AdvReac Intermediate Vomiting Verified 07/03/24 10:32 Review of Systems 2 Review of Systems: All systems reviewed & are unremarkable except as noted in HPI and below PMFSH Past Medical History Medical History Ascending aortic aneurysm Anxiety Osteoarthritis Chronic obstructive pulmonary disease Longstanding diagnosis however PFTs reportedly show a nonspecific pattern with severe restrictive defect but a normal TLC. Gastroesophageal reflux disease Obstructive sleep apnea on CPAP Not compliant with CPAP due to claustrophobia. Now wearing 3 L nasal cannula at nighttime. Lichen sclerosus of vulva Hypertension Chronic kidney disease Coronary artery disease Carotid artery stenosis Congestive heart failure Aortic atherosclerosis Cerebral aneurysm Status post rupture and clipping x2. Hyperthyroidism Surgical History Surgical History History of coronary artery bypass graft x 3 (08/2010) History of tonsillectomy History of tubal ligation History of bladder suspension procedure History of total hysterectomy History of craniotomy With clipping of cerebral aneurysms. Family History Family History (Updated 06/24/24 @ 13:53 by Irina Li CMA) Father Family history of coronary artery disease Patient's father is , Onset Age: 92 Mother Patient's mother is , Onset Age: 73 Leukemia Sibling Family history of chronic obstructive pulmonary disease Heart disease Social History Social History Social History: Surrogate medical decision maker: Code status: Full code. Smoking packs per day: 0.75 Smoking cigarettes per day: 15.0 Years smoked: 30 Smoking pack-years: 22.50 Smoking status: Former smoker Tobacco type: cigarettes Second hand tobacco smoke exposure: Yes Smoking end date: 05/21/09 Alcohol intake: never Substance use: never Substance use type: does not use Do You Feel Safe in your Home?: Yes Lack of Transportation: No Lack of Food: Never True Current Housing: I Have Housing Concerned About Future Housing: No Difficulty Paying Gas/Electric Bills: No Difficulty Paying for Meds: No Currently Unemployed: No Education: Don't Know Difficulty w/ Childcare or Family Care: No Spiritual care concerns: No Exam 2 Narrative: EXAMINATION OF ORGAN SYSTEMS/BODY AREAS: Constitutional: Vital signs per nursing GENERAL:[No acute distress, non-toxic appearing.] HEAD: Normal with no signs of head trauma. EYES: EOMI, conjunctiva normal ENT: Hearing grossly intact LUNGS: Diminished lung sounds and wheezing bilaterally HEART: [Regular rate and rhythm] ABD: [Soft], [nontender to palpation] EXT: Normal range of motion SKIN: [No rashes or lesions.] NEURO: [Alert and oriented x 3. No gross focal sensory or strength deficits.] PSYCH: Normal affect Course Vital Signs Vital signs: Vital Signs Temperature 97.8 F 07/03/24 10:39 Pulse Rate 83 07/03/24 10:39 Respiratory Rate 16 07/03/24 10:39 Blood Pressure 132/81 07/03/24 10:39 Pulse Oximetry 94 07/03/24 10:39 Oxygen Delivery Room Air 07/03/24 10:39 Temperature 97.8 F 07/03/24 10:39 Pulse Rate 64 07/03/24 16:25 Respiratory Rate 20 07/03/24 16:25 Blood Pressure 123/69 07/03/24 16:25 Pulse Oximetry 97 07/03/24 16:25 Oxygen Delivery Nasal Cannula 07/03/24 11:23 Oxygen Flow Rate 2 07/03/24 11:23 MDM - URI/Sore Throat MDM Narrative Medical decision making narrative: Patient presents here with shortness of breath, URI symptoms. Chest x-ray clear, but she did test positive for the flu. Initially required some oxygen, she is given breathing treatments and steroids and on re-evaluation states she feels much better, oxygen improved and now 96-97% on RA, blood pressure reading was soft so I did provide IV fluids; though when I did re- evaluate her blood pressure cuff she had been laying with her arm up, and repeat blood pressure reading is 123/69 and patient has been mentating well and does not appear to have any symptomatic hypotension. Just in case, she is observed here for a little while longer, and her blood pressure continues to be completely stable. So does her oxygen saturation. Given this I really do not feel she needs to be admitted and patient is happy to go home at this time, we did discuss very strict return precautions and she is agreeable to this. I did refill her albuterol and give her steroid rx. F/u to PCP discussed Lab Data 07/03/24 12:44 07/03/24 12:44 Labs: Lab Results 07/03/24 07/03/24 Range/Units 11:22 12:44 WBC 7.8 (4.5-10.0) K/mm3 RBC 4.32 (4.2-5.4) M/mm3 Hgb 12.2 (12.0-15.0) g/dL Hct 38.3 (37.0-47.0) % MCV 88.7 (80-100) fl MCH 28.2 (26-34) pg MCHC 31.9 L (32-36) g/dl RDW 14.7 H (11.5-14.5) % Plt Count 128 L (150-375) k/mm3 MPV 12.0 H (7.4-10.4) fl Immature Gran % (Auto) 0.6 H (0-0.5) % Neut % (Auto) 71.5 (45.5-73.1) % Lymph % (Auto) 15.7 L (18.3-44.2) % [place] % (Auto) 11.5 H (2.6-8.5) % Eos % (Auto) 0.6 (0-4.4) % Baso % (Auto) 0.1 L (0.2-1.2) % Lymph # (Auto) 1.23 (0.9-3.2) K/mm3 [place] # (Auto) 0.9 H (0.1-0.6) K/mm3 Eos # (Auto) 0.1 (0-0.3) K/mm3 Baso # (Auto) 0.0 (0.0-0.1) K/mm3 Abs Immat Gran (auto) 0.05 H (0.00-0.031) K/mm3 Absolute Neuts (auto) 5.6 (1.3-6.7) K/mm3 Absolute Nucleated RBC 0.000 (0.0-0.012) K/mm3 Nucleated RBC % 0.0 (0.0-0.2) % Sodium 138 (137-145) mmol/L Potassium 3.9 (3.4-5.0) mmol/L Chloride 100 (98-107) mmol/L Carbon Dioxide 30 (22-30) mmol/L Anion Gap 8 (4-12) mmol/L BUN 20 H (7-17) mg/dL Creatinine 0.89 (0.7-1.0) mg/dL Estim Creat Clear Calc 48 ml/min Estimated GFR > 60 (59 - ) Glucose 101 (65-110) mg/dL Calcium 8.2 L (8.4-10.2) mg/dL Influenza A (RT-PCR) Positive A (Negative) Influenza B (RT-PCR) Negative (Negative) RSV (RT-PCR) Negative (Negative) SARS-CoV-2 RNA (RT-PCR) Negative (Negative) Discharge Plan Discharge Clinical Impression: Flu, Bronchitis Patient Disposition: Home, Self-Care Condition: Stable Instructions: Influenza (ED), Acute Bronchitis (ED) Additional Instructions: Please take the medications as prescribed, and if you start having any concerning symptoms, such as shortness of breath, chest pain, lightheadedness, or anything else, come back to the emergency room immediately. Patient that your keeping adequately hydrated. Follow-up with your doctor in the next 2 days. Patient Language: Kuwaiti Prescriptions: New prednisone 20 mg tablet 40 mg PO DAILY 4 Days Qty: 8 0RF albuterol sulfate 90 mcg/actuation HFA aerosol inhaler 2 puff inhalation QID PRN (Reason: shortness of breath or wheezing) Qty: 8.5 0RF oseltamivir [Tamiflu] 75 mg capsule 75 mg PO Q12H 5 Days Qty: 10 0RF No Action losartan 25 mg tablet 25 mg PO DAILY Qty: 90 3RF prednisone 20 mg tablet 20 mg PO BID Qty: 10 0RF albuterol sulfate 90 mcg/actuation HFA aerosol inhaler 2 puff inhalation Q4H PRN (Reason: shortness of breath or wheezing) Qty: 8.5 2RF aspirin [Adult Low Dose Aspirin] 81 mg tablet,delayed release (DR/EC) 81 mg PO DAILY acetaminophen [Tylenol Extra Strength] 500 mg tablet 1,000 mg PO DAILY PRN (Reason: Pain, Mild) pregabalin 100 mg capsule 100 mg PO BID Qty: 180 3RF amlodipine 10 mg tablet 10 mg PO DAILY Qty: 100 1RF Rx Instructions: TAKE 1 TABLET BY MOUTH DAILY omeprazole 20 mg capsule,delayed release(DR/EC) 20 mg PO DAILY Qty: 100 1RF Rx Instructions: TAKE 1 CAPSULE BY MOUTH DAILY Trelegy Ellipta 100-62.5-25 mcg blister with device 1 inh inhalation Q24H 30 Days Qty: 60 11RF atorvastatin 80 mg tablet 80 mg PO HS Qty: 100 1RF Rx Instructions: TAKE 1 TABLET BY MOUTH DAILY methimazole 5 mg tablet 5 mg PO DAILY Qty: 100 1RF Rx Instructions: TAKE 1 TABLET BY MOUTH DAILY metoprolol tartrate 50 mg tablet 50 mg PO BID Qty: 200 1RF Rx Instructions: TAKE 1 TABLET BY MOUTH EVERY 12 HOURS fluoxetine 20 mg capsule See Rx Instructions .ROUTE .COMPLEX Qty: 100 2RF Dose Instruction: TAKE 1 CAPSULE BY MOUTH DAILY Rx Instructions: TAKE 1 CAPSULE BY MOUTH DAILY Follow-up/Referrals: Raza Kinney DO [Primary Care Provider] -
[2024-07-03] MEDS: LACTATED RINGERS 1,000 ML 999 ML IV CONT (14:52)
== END 2024-07-03 17:10 | disposition home or self-care (01) ==
PROVIDERS: Emergency Provider Emergency Medicine; PCP Internal Medicine
DX: J11.1 Influenza due to unidentified influenza virus with other respiratory manifestations (principal); Z20.822 Contact with and (suspected) exposure to COVID-19; J44.9 Chronic obstructive pulmonary disease, unspecified; N18.9 Chronic kidney disease, unspecified; I13.0 Hypertensive heart and chronic kidney disease with heart failure and stage 1 through stage 4 chronic kidney disease, or unspecified chronic kidney disease; I50.9 Heart failure, unspecified; I70.0 Atherosclerosis of aorta; E05.90 Thyrotoxicosis, unspecified without thyrotoxic crisis or storm; G47.33 Obstructive sleep apnea (adult) (pediatric); M19.90 Unspecified osteoarthritis, unspecified site; F41.9 Anxiety disorder, unspecified; Z95.1 Presence of aortocoronary bypass graft; Z90.710 Acquired absence of both cervix and uterus; Z87.891 Personal history of nicotine dependence; Z79.82 Long term (current) use of aspirin; Z79.899 Other long term (current) drug therapy; I51.7 Cardiomegaly
CPT/HCPCS: 36415; 71045; 80048; 85025; 87637; 94640; 96360; 99283; J7120; J7512

== ENCOUNTER 2024-07-07 14:06 | Emergency (ER) | payer MEDICARE, SELFPAY ==
[2024-07-07] VITALS (7 sets, daily range): BP systolic 106–122; BP diastolic 69–88; PULSE 60–79; RESP 16–20; TEMP 36.3; O2SAT 94–97
--- NOTE | ~2024-07-07 | XR_ITS ---
EXAMINATION: XR chest 2V DATE: 07/07/2024 15:22 INDICATION: Shortness of breath. Influenza. TECHNIQUE: PA and lateral views of the chest were obtained. COMPARISON: Chest radiograph dated 07/03/2024 FINDINGS: Again seen is linear discoid atelectasis/scarring in the left midlung zone and more subtly at the demetrice ateral lung bases. No new airspace opacities, pulmonary edema, pleural effusion or pneumothorax. Card iomegaly with small left pericardial fat pad. Median sternotomy wires and mediastinal surgical clips are seen, likely from prior coronary artery bypass grafting. Endoluminal stent grafting of the descen ding thoracic aorta. Chronic mild anterior wedging of a midthoracic vertebral body. IMPRESSION: 1. No acute cardiopulmonary disease. 2. Cardiomegaly. 2. Stable appearance of endoluminal stent grafting of the mid to distal descending thoracic aorta. Reviewed, dictated and finalized at location A. GER OF DISASTER RECOVERY IMPRESSION: 1. No acute cardiopulmonary disease. 2. Cardiomegaly. 2. Stable appearance of endoluminal stent grafting of the mid to distal descend ing thoracic aorta.
--- NOTE | ~2024-07-07 | CT_ITS ---
EXAMINATION: CTA chest PE protocol DATE: 07/07/2024 17:54 INDICATION: SOA TECHNIQUE: Computed tomography angiography (CTA) of the chest was performed with 100 mL Omnipaque-350 intravenous contrast timed to evaluate the pulmonary arteries. Coronal maximum intensity projection 3D-reconstructions were created by the technologist. The dose-length product (DLP) was 516.10 mGy-cm. Automated exposure control and iterative reconstruction technique were employed. COMPARISON: X-ray chest, same date; CT chest 07/03/2023. FINDINGS: Lung parenchyma and airways: Right lower lobe medial basilar anteromedial right middle lobe atelectas is/scar, lungs otherwise clear. Patent airways. Pleura: Unremarkable. Thoracic inlet, axillae and chest wall: Multiple thyroid nodules measuring less than 1.5 cm. Intact s ternotomy wires. Thoracic aorta: The ascending thoracic aorta is dilated to 5.3 cm. the arch is dilated to 3.2 cm. The descending thoracic aorta is dilated to 4.8 cm at the hiatus, with an endograft in place. Heavy calc ified and noncalcified atherosclerotic plaque within the thoracic aorta. Mediastinum: Dilated central pulmonary arteries as can be seen with pulmonary arterial hypertension. Heart and pericardium: Severe cardiomegaly. No pericardial effusion. Coronary artery calcifications: Moderate. Upper abdomen: No significant finding. Bones: No acute osseous finding. Pulmonary arteries: Study quality: Motion artifact in the lower lobes, overall diagnostic. No pulmona ry emboli detected. IMPRESSION: No CT evidence of acute pulmonary embolus. No acute process detected in the chest. Reviewed, dictated and finalized at location K. ATIONAL INSTITUTION PRESIDENT
--- NOTE | 2024-07-07 14:49 | ED.SOB ---
HPI - SOB/Dyspnea General Chief Complaint: Shortness of Breath/Dyspnea <OSIEL Gibson Last Filed: 07/07/24 15:17> Stated Complaint: dyspnea <OSIEL Gibson Last Filed: 07/07/24 15:17> Time Seen by Provider: 07/07/24 14:49 <OSIEL Gibson Last Filed: 07/07/24 15:17> Focused HPI: Patient is a 78 y/o female, with PMH of COPD, who presents to the ED with c/o SOB. Patient reports she was diagnosed with Influenza A on 07/03. States she has been having increased SOB over the past several weeks, though it has become worse recently. States she is supposed to wear 3L NC with exertion. States recently she has had to wear the oxygen almost 24/7. Shortness of breath is significantly worse with any sort of exertion, states she has had trouble even walking around her house without oxygen. She does still have a productive cough. Denies fevers. Denies lower extremity pain or swelling. Denies chest pain. Was referred to the ED today by PCP. SaO2 was 95% on RA upon arrival to the ED. GENERAL: Elderly, obese with BMI of 35.1, and in no acute distress. HEAD: Normocephalic, atraumatic. CHEST: No respiratory distress. Coarse lung sounds in bases demetrice, rhonchi in L lower lobe, no wheezing. Frequent coughing. HEART: Regular rate and rhythm.? NEURO: ?Alert and oriented x3. Patient screened in triage and initial orders placed.? ?Additional care and disposition to be based upon?diagnostic testing and treatment. <OSIEL Gibson Last Filed: 07/07/24 15:17> Source: patient <OSIEL Gibson Last Filed: 07/07/24 15:17> Mode of arrival: ambulatory <OSIEL Gibson Last Filed: 07/07/24 15:17> Limitations: no limitations <OSIEL Gibson Last Filed: 07/07/24 15:17> History of Present Illness HPI Narrative: Agree with HPI <Omi Phillips MD - Last Filed: 07/07/24 18:42> Related Data Home Medications: Home Medications ?Medication ?Instructions ?Recorded ?Confirmed ?Last Taken ?Type aspirin 81 mg tablet,delayed 81 mg PO DAILY 04/29/19 07/03/24 07/03/24 History release (Adult Low Dose Aspirin) acetaminophen 500 mg tablet 1,000 mg PO DAILY PRN Pain, Mild 10/10/22 07/03/24 Unknown History (Tylenol Extra Strength) <Jeanna Flores PA-C - Last Filed: 07/07/24 15:17> Allergies/Adverse Reactions: Allergies Allergy/AdvReac Type Severity Reaction Status Date / Time labetalol AdvReac Intermediate Vomiting Verified 07/03/24 10:32 <Jeanna Flores PA-C - Last Filed: 07/07/24 15:17> Review of Systems Review of Systems: All systems reviewed & are unremarkable except as noted in HPI and below <Omi Phillips MD - Last Filed: 07/07/24 18:42> Constitutional: Constitutional: Reports no additional constitutional complaints <Omi Phillips MD - Last Filed: 07/07/24 18:42> Cardiovascular: Cardiovascular: Reports no additional cardiovascular complaints <Omi Phillips MD - Last Filed: 07/07/24 18:42> Respiratory: Respiratory: Denies chest congestion, Reports cough, Reports dyspnea and Denies wheezing <Omi Phillips MD - Last Filed: 07/07/24 18:42> Gastrointestinal: Gastrointestinal: Reports no additional gastrointestinal complaints <Omi Phillips MD - Last Filed: 07/07/24 18:42> Musculoskeletal: Musculoskeletal: Reports no additional musculoskeletal complaints <Omi Phillips MD - Last Filed: 07/07/24 18:42> [facility] Past Medical History Medical History: Medical History Ascending aortic aneurysm Anxiety Osteoarthritis Chronic obstructive pulmonary disease Longstanding diagnosis however PFTs reportedly show a nonspecific pattern with severe restrictive defect but a normal TLC. Gastroesophageal reflux disease Obstructive sleep apnea on CPAP Not compliant with CPAP due to claustrophobia. Now wearing 3 L nasal cannula at nighttime. Lichen sclerosus of vulva Hypertension Chronic kidney disease Coronary artery disease Carotid artery stenosis Congestive heart failure Aortic atherosclerosis Cerebral aneurysm Status post rupture and clipping x2. Hyperthyroidism <Jeanna Flores PA-C - Last Filed: 07/07/24 15:17> Surgical History Surgical History: Surgical History History of coronary artery bypass graft x 3 (08/2010) History of tonsillectomy History of tubal ligation History of bladder suspension procedure History of total hysterectomy History of craniotomy With clipping of cerebral aneurysms. <Jeanna Flores PA-C - Last Filed: 07/07/24 15:17> Family History Family History: Family History (Updated 06/24/24 @ 13:53 by Irina Li [facility]) Father Family history of coronary artery disease Patient's father is , Onset Age: 92 Mother Patient's mother is , Onset Age: 73 Leukemia Sibling Family history of chronic obstructive pulmonary disease Heart disease <Jeanna Flores PA-C - Last Filed: 07/07/24 15:17> Social History Social History: Social History Social History: Surrogate medical decision maker: Code status: Full code. Smoking packs per day: 0.75 Smoking cigarettes per day: 15.0 Years smoked: 30 Smoking pack-years: 22.50 Smoking status: Former smoker Tobacco type: cigarettes Second hand tobacco smoke exposure: Yes Smoking end date: 05/21/09 Alcohol intake: never Substance use: never Substance use type: does not use Do You Feel Safe in your Home?: Yes Lack of Transportation: No Lack of Food: Never True Current Housing: I Have Housing Concerned About Future Housing: No Difficulty Paying Gas/Electric Bills: No Difficulty Paying for Meds: No Currently Unemployed: No Education: Don't Know Difficulty w/ Childcare or Family Care: No Spiritual care concerns: No <Jeanna Flores PA-C - Last Filed: 07/07/24 15:17> Exam Narrative: GENERAL: Well-appearing, well-nourished, and in no acute distress. HEAD: Normocephalic, atraumatic. ENT: Mucous membranes moist. CHEST: Faint scattered wheezing. No respiratory distress. HEART: Regular rate and rhythm. Normal peripheral pulses. ABDOMEN: Soft, nontender, nondistended. EXTREMITIES: Normal range of motion. No edema. SKIN: Warm, dry, no rash. NEURO: Alert and oriented x3. PSYCH: Normal mood and affect. <Omi Phillips MD - Last Filed: 07/07/24 18:42> Course Course Emergency Course: Leukocytosis related to steroid use. No pulmonary edema or pneumonia. Patient given some diuresis as BNP has increased. She also received a breathing treatment. Ambulatory without hypoxia while wearing her home 3 L of oxygen. Will discharge home and recommend follow-up with PCP. <Omi Phillips MD - Last Filed: 07/07/24 18:42> Vital Signs Vital signs: Vital Signs Temperature 97.4 F L 07/07/24 14:08 Pulse Rate 67 07/07/24 14:08 Respiratory Rate 18 07/07/24 14:08 Pulse Oximetry 95 07/07/24 14:08 Temperature 97.4 F L 07/07/24 14:08 Pulse Rate 79 07/07/24 18:32 Respiratory Rate 17 07/07/24 18:32 Blood Pressure 115/82 07/07/24 18:32 Pulse Oximetry 97 07/07/24 18:32 Oxygen Delivery Room Air 07/07/24 15:55 <Jeanna Flores PA-C - Last Filed: 07/07/24 15:17> Vital Signs Temperature 97.4 F L 07/07/24 14:08 Pulse Rate 67 07/07/24 14:08 Respiratory Rate 18 07/07/24 14:08 Pulse Oximetry 95 07/07/24 14:08 Temperature 97.4 F L 07/07/24 14:08 Pulse Rate 79 07/07/24 18:32 Respiratory Rate 17 07/07/24 18:32 Blood Pressure 115/82 07/07/24 18:32 Pulse Oximetry 97 07/07/24 18:32 Oxygen Delivery Room Air 07/07/24 15:55 <Omi Phillips MD - Last Filed: 07/07/24 18:42> MDM - SOB/Dyspnea MDM Narrative Medical decision making narrative: MSE by ALINA in triage. <Jeanna Flores PA-C - Last Filed: 07/07/24 15:17> Lab Data Result diagrams: 07/07/24 15:15 07/07/24 15:15 <Jeanna Flores PA-C - Last Filed: 07/07/24 15:17> Labs: Lab Results 07/07/24 07/07/24 Range/Units 15:15 15:16 WBC 16.3 H (4.5-10.0) K/mm3 RBC 4.29 (4.2-5.4) M/mm3 Hgb 12.3 (12.0-15.0) g/dL Hct 37.0 (37.0-47.0) % MCV 86.2 (80-100) fl MCH 28.7 (26-34) pg MCHC 33.2 (32-36) g/dl RDW 13.9 (11.5-14.5) % Plt Count 185 (150-375) k/mm3 MPV 11.8 H (7.4-10.4) fl Immature Gran % (Auto) 0.9 H (0-0.5) % Neut % (Auto) 90.9 H (45.5-73.1) % Lymph % (Auto) 4.6 L (18.3-44.2) % [place] % (Auto) 3.4 (2.6-8.5) % Eos % (Auto) 0.1 (0-4.4) % Baso % (Auto) 0.1 L (0.2-1.2) % Lymph # (Auto) 0.75 L (0.9-3.2) K/mm3 [place] # (Auto) 0.6 (0.1-0.6) K/mm3 Eos # (Auto) 0.0 (0-0.3) K/mm3 Baso # (Auto) 0.0 (0.0-0.1) K/mm3 Abs Immat Gran (auto) 0.14 H (0.00-0.031) K/mm3 Absolute Neuts (auto) 14.8 H (1.3-6.7) K/mm3 Absolute Nucleated RBC 0.000 (0.0-0.012) K/mm3 Nucleated RBC % 0.0 (0.0-0.2) % Platelet Estimate Adequate (Adequate) Anisocytosis 1+ Ovalocytes 1+ [place] Cells 2+ Schistocytes None seen PT 13.7 (11.1-14.7) Seconds INR 1.0 APTT 21.9 L (22.3-36.8) Seconds Sodium 134 L (137-145) mmol/L Potassium 3.7 (3.4-5.0) mmol/L Chloride 98 (98-107) mmol/L Carbon Dioxide 27 (22-30) mmol/L Anion Gap 9 (4-12) mmol/L BUN 25 H (7-17) mg/dL Creatinine 0.82 (0.7-1.0) mg/dL Estim Creat Clear Calc 52 ml/min Estimated GFR > 60 (59 - ) Glucose 229 H (65-110) mg/dL Calcium 8.4 (8.4-10.2) mg/dL Magnesium 1.2 L (1.6-2.3) mg/dL Total Bilirubin 0.7 (0.2-1.3) mg/dL AST 22 (14-36) U/L ALT 25 (6-35) U/L Alkaline Phosphatase 74 (38-126) U/L Troponin I < 0.012 (0.000-0.034) ng/mL NT-Pro-B Natriuret Pep 5880 H (19.9-100) pg/mL Total Protein 6.0 L (6.3-8.2) g/dL Albumin 3.7 (3.5-5.1) g/dL <Jeanna Flores PA-C - Last Filed: 07/07/24 15:17> Lab Results 07/07/24 07/07/24 Range/Units 15:15 15:16 WBC 16.3 H (4.5-10.0) K/mm3 RBC 4.29 (4.2-5.4) M/mm3 Hgb 12.3 (12.0-15.0) g/dL Hct 37.0 (37.0-47.0) % MCV 86.2 (80-100) fl MCH 28.7 (26-34) pg MCHC 33.2 (32-36) g/dl RDW 13.9 (11.5-14.5) % Plt Count 185 (150-375) k/mm3 MPV 11.8 H (7.4-10.4) fl Immature Gran % (Auto) 0.9 H (0-0.5) % Neut % (Auto) 90.9 H (45.5-73.1) % Lymph % (Auto) 4.6 L (18.3-44.2) % [place] % (Auto) 3.4 (2.6-8.5) % Eos % (Auto) 0.1 (0-4.4) % Baso % (Auto) 0.1 L (0.2-1.2) % Lymph # (Auto) 0.75 L (0.9-3.2) K/mm3 [place] # (Auto) 0.6 (0.1-0.6) K/mm3 Eos # (Auto) 0.0 (0-0.3) K/mm3 Baso # (Auto) 0.0 (0.0-0.1) K/mm3 Abs Immat Gran (auto) 0.14 H (0.00-0.031) K/mm3 Absolute Neuts (auto) 14.8 H (1.3-6.7) K/mm3 Absolute Nucleated RBC 0.000 (0.0-0.012) K/mm3 Nucleated RBC % 0.0 (0.0-0.2) % Platelet Estimate Adequate (Adequate) Anisocytosis 1+ Ovalocytes 1+ [place] Cells 2+ Schistocytes None seen PT 13.7 (11.1-14.7) Seconds INR 1.0 APTT 21.9 L (22.3-36.8) Seconds Sodium 134 L (137-145) mmol/L Potassium 3.7 (3.4-5.0) mmol/L Chloride 98 (98-107) mmol/L Carbon Dioxide 27 (22-30) mmol/L Anion Gap 9 (4-12) mmol/L BUN 25 H (7-17) mg/dL Creatinine 0.82 (0.7-1.0) mg/dL Estim Creat Clear Calc 52 ml/min Estimated GFR > 60 (59 - ) Glucose 229 H (65-110) mg/dL Calcium 8.4 (8.4-10.2) mg/dL Magnesium 1.2 L (1.6-2.3) mg/dL Total Bilirubin 0.7 (0.2-1.3) mg/dL AST 22 (14-36) U/L ALT 25 (6-35) U/L Alkaline Phosphatase 74 (38-126) U/L Troponin I < 0.012 (0.000-0.034) ng/mL NT-Pro-B Natriuret Pep 5880 H (19.9-100) pg/mL Total Protein 6.0 L (6.3-8.2) g/dL Albumin 3.7 (3.5-5.1) g/dL <Omi Phillips MD - Last Filed: 07/07/24 18:42> Imaging Data Radiologist's impression: ITS Impressions Chest X-Ray 07/07/24 15:23 IMPRESSION: 1. No acute cardiopulmonary disease. 2. Cardiomegaly. 2. Stable appearance of endoluminal stent grafting of the mid to distal descending thoracic aorta. Chest CTA 07/07/24 18:18 IMPRESSION: No CT evidence of acute pulmonary embolus. No acute process detected in the chest. <Omi Phillips MD - Last Filed: 07/07/24 18:42> ECG Data EKG #1: ECG completion date: 07/07/24 <Omi Phillips MD - Last Filed: 07/07/24 18:42> ECG completion time: 14:57 <Omi Phillips MD - Last Filed: 07/07/24 18:42> EKG Interpretation: normal rate (69), sinus rhythm, non-specific ST changes, normal QRS, normal QT and other (baseline artifact) <Omi Phillips MD - Last Filed: 07/07/24 18:42> Discharge Plan Discharge Clinical Impression: Influenza A <Jeanna Flores PA-C - Last Filed: 07/07/24 15:17> Patient Disposition: Home, Self-Care <Jeanna Flores PA-C - Last Filed: 07/07/24 15:17> Condition: Stable <Jeanna Flores PA-C - Last Filed: 07/07/24 15:17> Instructions: Influenza (ED) <Jeanna Flores PA-C - Last Filed: 07/07/24 15:17> Additional Instructions: Please return to the emergency department if you develop severe and persistent chest pain, difficulty breathing, dizziness, leg swelling or if you are coughing up blood as these can be signs of a medical emergency. Please call your doctor for a follow up appointment to determine the need for further testing. <Jeanna Flores PA-C - Last Filed: 07/07/24 15:17> Patient Language: Latvian <Jeanna Flores PA-C - Last Filed: 07/07/24 15:17> Prescriptions: No Action losartan 25 mg tablet 25 mg PO DAILY Qty: 90 3RF prednisone 20 mg tablet 20 mg PO BID Qty: 10 0RF albuterol sulfate 90 mcg/actuation HFA aerosol inhaler 2 puff inhalation Q4H PRN (Reason: shortness of breath or wheezing) Qty: 8.5 2RF aspirin [Adult Low Dose Aspirin] 81 mg tablet,delayed release (DR/EC) 81 mg PO DAILY acetaminophen [Tylenol Extra Strength] 500 mg tablet 1,000 mg PO DAILY PRN (Reason: Pain, Mild) pregabalin 100 mg capsule 100 mg PO BID Qty: 180 3RF prednisone 20 mg tablet 40 mg PO DAILY 4 Days Qty: 8 0RF albuterol sulfate 90 mcg/actuation HFA aerosol inhaler 2 puff inhalation QID PRN (Reason: shortness of breath or wheezing) Qty: 8.5 0RF oseltamivir [Tamiflu] 75 mg capsule 75 mg PO Q12H 5 Days Qty: 10 0RF amlodipine 10 mg tablet 10 mg PO DAILY Qty: 100 1RF Rx Instructions: TAKE 1 TABLET BY MOUTH DAILY omeprazole 20 mg capsule,delayed release(DR/EC) 20 mg PO DAILY Qty: 100 1RF Rx Instructions: TAKE 1 CAPSULE BY MOUTH DAILY Trelegy Ellipta 100-62.5-25 mcg blister with device 1 inh inhalation Q24H 30 Days Qty: 60 11RF atorvastatin 80 mg tablet 80 mg PO HS Qty: 100 1RF Rx Instructions: TAKE 1 TABLET BY MOUTH DAILY methimazole 5 mg tablet 5 mg PO DAILY Qty: 100 1RF Rx Instructions: TAKE 1 TABLET BY MOUTH DAILY metoprolol tartrate 50 mg tablet 50 mg PO BID Qty: 200 1RF Rx Instructions: TAKE 1 TABLET BY MOUTH EVERY 12 HOURS fluoxetine 20 mg capsule See Rx Instructions .ROUTE .COMPLEX Qty: 100 2RF Dose Instruction: TAKE 1 CAPSULE BY MOUTH DAILY Rx Instructions: TAKE 1 CAPSULE BY MOUTH DAILY <Jeanna Flores PA-C - Last Filed: 07/07/24 15:17> Follow-up/Referrals: Raza Kinney DO [Primary Care Provider] - 1 Week <Jeanna Flores PA-C - Last Filed: 07/07/24 15:17>
--- NOTE | 2024-07-07 14:53 | ECG_ITS ---
Test Date: 2024-07-07 14:57:39 Measurements Intervals [place] Rate: 69 P: 150 IL: 202 QRS: -22 QRSD: 87 T: 43 QT: 402 QTc: 431 Interpretive Statements SINUS RHYTHM DELAYED PRECORDIAL R/S TRANSITION LOW QRS VOLTAGE IN PRECORDIAL LEADS BASELINE ARTIFACT- I, II, III, AVR, AVL, AVF, V1-V6 BORDERLINE ECG No previous ECG available for comparison Electronically Signed On 07-07-2024 15:04:04 SALES & SERVICE ASSOCIATE by Shayan Phillips D.O.
[2024-07-07 15:20] LABS: Basophils Percent Auto 0.1 % (0.2-1.2); Eosinophils Percent Auto 0.1 % (0-4.4); Hemoglobin 12.3 g/dL (12.0-15.0); Immature Granulocyte Absolute 0.14 K/mm3 (0.00-0.031); Immature Granulocyte Percent A 0.9 % (0-0.5); Lymphocytes Absolute Auto 0.75 K/mm3 (0.9-3.2); Lymphocytes Percent Auto 4.6 % (18.3-44.2); Mean Corpuscular HGB Conc 33.2 g/dl (32-36); Mean Corpuscular Hemoglobin 28.7 pg (26-34); Mean Corpuscular Volume 86.2 fl (80-100); Mean Platelet Volume 11.8 fl (7.4-10.4); Monocytes Absolute Auto 0.6 K/mm3 (0.1-0.6); Monocytes Percent Auto 3.4 % (2.6-8.5); Neutrophils Absolute Auto 14.8 K/mm3 (1.3-6.7); Neutrophils Percent Auto 90.9 % (45.5-73.1); Platelet Count Result 185 k/mm3 (150-375); Red Blood Count 4.29 M/mm3 (4.2-5.4); Red Cell Distribution Width 13.9 % (11.5-14.5); White Blood Count 16.3 K/mm3 (4.5-10.0)
[2024-07-07 15:31] LABS: Alanine Aminotransferase 25 U/L (6-35); Albumin Level 3.7 g/dL (3.5-5.1); Alkaline Phosphatase 74 U/L (38-126); Anion Gap 9 mmol/L (4-12); Aspartate Amino Transferase 22 U/L (14-36); Bilirubin,Total 0.7 mg/dL (0.2-1.3); Blood Urea Nitrogen 25 mg/dL (7-17); Calcium 8.4 mg/dL (8.4-10.2); Carbon Dioxide 27 mmol/L (22-30); Chloride 98 mmol/L (98-107); Estimated CRCL calculation 52 ml/min; Estimated Glomerular Filt Rate > 60; Glucose 229 mg/dL (65-110); Magnesium 1.2 mg/dL (1.6-2.3); Potassium 3.7 mmol/L (3.4-5.0); Sodium 134 mmol/L (137-145)
[2024-07-07 15:38] LABS: Anisocytosis 1+; Burr Cells 2+; Platelet Estimate Adequate (Adequate); Schistocytes None Seen
[2024-07-07 15:39] LABS: Ovalocytes 1+
[2024-07-07 15:43] LABS: Prothrombin Time 13.7 Seconds (11.1-14.7)
[2024-07-07 15:43] LABS: NT Pro B Type Natriuretic Pept 5880 pg/mL (19.9-100); Troponin I < 0.012 ng/mL (0.000-0.034)
[2024-07-07 15:44] LABS: Partial Thromboplastin Time 21.9 Seconds (22.3-36.8)
[2024-07-07] MEDS: IPRATROPIUM 0.5 MG/ALBUTEROL SULFATE 2.5 MG AMPUL.NEB 3 ML INHALATION (16:00)
--- OUTSIDE RECORDS SUMMARY | 2024-07-07 16:45 | XMS_ITS | Clinical Summary ---
Author Organization [facility] Address [address] [facility] [place] [address] Care Team Providers Care Programming Development Project Manager Name Role Phone MonsterRaza rendon Sharmin DO Primary Care Provider [phone] Source Comments [facility],non-owned Affiliates and Associated Physician Practices is amultiple site organization consisting of ambulatory clinics and hospital sitesin [place], [place], [place] and [place]. This disclosure is being madepursuant to the Care Everywhere program and may not contain all information available regarding this patient. Last updated 18.[facility] [place] Allergies Active Allergy Reactions Criticality Noted Date [...] aneurysm 05/08/2013 Atherosclerotic heart diseas e of [place] coronary artery without angina pectoris 05/08/2013 Social [...] age to complete this topic Care Teams Programming Development Project Manager Relationship Specialty Start Date End Date Raza Kinney DO PCP - General 05/08/13
--- OUTSIDE RECORDS SUMMARY | 2024-07-07 16:45 | XMS_ITS | Encounter Summary ---
Author Organization [facility] Healthcare Address [address] [place] [address] Care Team Providers Care Pulping Machine Operator Name Role Phone Raza Kinney DO Primary Care Provider [phone]- [phone] Encounter Details Date Type Department Care Team (Late st Contact Info) Description 06/30/2023 Orders Only [facility] Health Information Management [address] [place] [address] Scanning, Provider Social History Tobacco Use [...] on file Legal Sex Female 10:18 AM ADMITTING OFFICER Gender Identity Female 06/20/2021 10:31 AM ADMITTING OFFICER Sexual Orientation Not on file Occupation Industry [...] on filedocumented in this encounter Care Teams Pulping Machine Operator Relationship Specialty Start Date End Date Raza Kinney DO PCP - General 11/06/16 documented as of this encounter
--- OUTSIDE RECORDS SUMMARY | 2024-07-07 16:45 | XMS_ITS | Encounter Summary ---
Author Organization [facility] Healthcare Address [address] [place] [address] Care Team Providers Care Licensed Tax Consultant Name Role Phone Raza Kinney DO Primary Care Provider [phone]- [phone] Encounter Details Date Type Department Care Team (Late st Contact Info) Description 07/03/2023 Orders Only [facility] Health Information Management [address] [place] [id number] Scanning, Provider Social History Tobacco Use [...] on file Legal Sex Female 10:18 AM FLATBED PRESS OPERATOR Gender Identity Female 06/20/2021 10:31 AM FLATBED PRESS OPERATOR Sexual Orientation Not on file Occupation Industry [...] on filedocumented in this encounter Care Teams Licensed Tax Consultant Relationship Specialty Start Date End Date Raza Kinney DO PCP - General 11/06/16 documented as of this encounter
--- OUTSIDE RECORDS SUMMARY | 2024-07-07 16:45 | XMS_ITS | Referral Summary ---
Author Organization [facility] Address [address] [place] [address] Care Team Providers Care Substation Electrician Supervisor Name Role Phone Raza Kinney DO Primary Care Provider +1- [phone] Allergies Active Allergy Reactions Criticality Noted Date [...] Abnormal EKG Coronary artery disease invo lving [place] coronary artery of [place] heart without angina pectoris 05/08/2013 Nonruptured cerebral aneurysm 05/08/2013 Immunizations Immunization Administration Dates Next Due Influenza, Trivalent, High [...] on file Legal Sex Female 10:18 AM ROLLER BILLET MILL Gender Identity Female 06/20/2021 10:31 AM ROLLER BILLET MILL Sexual Orientation Not on file Occupation Industry [...] on file Medical Devices Implanted Type Area Bow String Maker Device Identifier Shelf Expiration Date Model / Serial / Lot Stent-09/14/2015 Implanted:09/13 by Jose Chambers MD (Quantity not on file) Stent Thoracic [facility] [id number] / [id number] / Description: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 Implanted:10/09 (Quantity not on file) Head Insurance MEDICARE SOLUTIONS [facility] MEDICARE Address: [place] [id number] [place] [id number] MDCR HMO REF [facility] Address: [address] [address] [place] [id number] MEDICARE SOLUTIONS [facility] MEDICARE Address: [address] [address] [place] [address] MEDICARE SOLUTIONS Care Teams Substation Electrician Supervisor Relationship Specialty Start Date End Date Raza Kinney DO PCP - General 11/06/16
--- OUTSIDE RECORDS SUMMARY | 2024-07-07 16:45 | XMS_ITS | Clinical Summary ---
Author Organization [facility] Address [address] [place] [address] Care Team Providers Care Gluing Machine Operator Name Role Phone Raza Kinney DO Primary Care Provider +1- [phone] Allergies Active Allergy Reactions Criticality Noted Date [...] Abnormal EKG Coronary artery disease invo lving [place] coronary artery of [place] heart without angina pectoris 05/08/2013 Nonruptured cerebral [...] Relation Name Comments Heart attack Brother Royce [place]; Cause of De ath: [place] Heart attack Daughter Heart disease Father Family [...] on file Legal Sex Female 10:18 AM NUTRITION TECHNICIAN Gender Identity Female 06/20/2021 10:31 AM NUTRITION TECHNICIAN Sexual Orientation Not on file Occupation Industry [...] 03/28/2019, 2017 Medical Devices Implanted Type Area Crester Device Identifier Shelf Expiration Date Model / Serial / Lot Stent-09/14/2015 Implanted:09/13 by Jose Chambers MD (Quantity not on file) Stent Thoracic [employer] [id number] / [id number] / Description: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 Implanted:10/09 (Quantity not on file) Head Insurance MEDICARE SOLUTIONS [facility] MDCR HMO REF Care Teams Gluing Machine Operator Relationship Specialty Start Date End Date Raza Kinney DO PCP - General 11/06/16
--- OUTSIDE RECORDS SUMMARY | 2024-07-07 16:45 | XMS_ITS | Referral Summary ---
Author Organization [facility] Address [address] [facility] [place] [address] Care Team Providers Care Senior Solutions Architect Name Role Phone MonsterRaza rendon Sharmin DO Primary Care Provider [phone] Source Comments [facility],non-owned Affiliates and Associated Physician Practices is amultiple site organization consisting of ambulatory clinics and hospital sitesin [place], [place], [place] and [place]. This disclosure is being madepursuant to the Care Everywhere program and may not contain all information available regarding this patient. Last updated 18.[facility] [employer] Allergies Active Allergy Reactions Criticality Noted Date [...] aneurysm 05/08/2013 Atherosclerotic heart diseas e of [place] coronary artery without angina pectoris 05/08/2013 Social [...] of Treatment Not on file Care Teams Senior Solutions Architect Relationship Specialty Start Date End Date Raza Kinney DO PCP - General 05/08/13
--- OUTSIDE RECORDS SUMMARY | 2024-07-07 16:45 | XMS_ITS | Patient Health Summary ---
Author Organization [facility] Address [address] [facility] [place] [address] Care Team Providers Care Administrative Judge Name Role Phone GregoriaRaza Sharmin DO Primary Care Provider [phone] Note from [facility],non-owned Affiliates and Associated Physician Practices is amultiple site organization consisting of ambulatory clinics and hospital sitesin [place], [place], [place] and [place]. This disclosure is being madepursuant to the Care Everywhere program and may not contain all information available regarding this patient. Last updated 18.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 Scanned Document CARDIAC SERVICES ORD ERABLES * CT ANGIO NECK [id number] (02/01/2021 7:35 PM CDT) Anatomical Region Laterality [...] the neck were also obtained using a [employer] workstation. 50 cc Isovue-300 was given IV. [...] the neck were also obtained using a [employer] workstation. 50 cc Isovue-300 was given IV. [...] DO CT ORDERABLES * CT ANGIO HEAD [id number] (02/01/2021 7:34 PM CDT) Only the most [...] with Cole Wisdom DO at 8:00 pm CIRCUIT BOARD ASSEMBLER on 02/01/2021. *Reading Radiologist: Mc Spain on [...] with Cole Wisdom DO at 8:00 pm CIRCUIT BOARD ASSEMBLER on 02/01/2021. *Reading Radiologist: Mc Spain on 02/01/2021 at 8:07 PM [address] DO CT ORDERABLES * CT BRAIN WO CONTRAST [id number] (02/01/2021 7:33 PM CDT) Anatomical Region Laterality [...] (Bezet) 453 ms SMC MUSE Calculated P [place] 37 degrees SMC MUSE Calculated R [place] -22 degrees SMC MUSE Calculated T [place] 53 degrees SMC MUSE Interpretation EKG SINUS BRADYCARDIA ANTERIOR INFARCT , AGE UNDETERMINED ABNORMAL ECG NO PREVIOUS ECGS AVAILABLE Confirmed by ACOSTA ALMARAZ MD ([id number]), map editor RUTH WILLIS ([id number]) on 02/02/2021 8:58:59 AM [facility] MUSE 02/01/2021 6:53 PM CDT 02/02/2021 8:58 AM CDT Cole Wisdom DO ECG ORDERABLES Performing Organization Address [facility] Co de Phone Number [facility] MUSE * PTT (02/01/2021 6:42 PM CDT) PTT 29.4 23.0 - 38.4 sec 02/01/2021 7:02 PM CDT [facility] Blood BLOOD SPECIMEN / Unknown Venipuncture / Unknown 02/01/2021 6:42 PM CDT 02/01/2021 6:46 PM CDT Cole Wisdom DO LAB - COAGULATION OR DERABLES Performing Organization Address [facility] Co de Phone Number [facility] [address] * (ABNORMAL) PT-INR (02/01/2021 6:42 PM CDT) PT 13.0 11.3 - 14.8 sec 02/01/2021 7:01 PM CDT [facility] INR 1.02(L) 2 - 3 02/01/2021 7:01 PM CDT [facility] Blood BLOOD SPECIMEN / Unknown Venipuncture / Unknown 02/01/2021 6:42 PM CDT 02/01/2021 6:46 PM CDT Narrative [facility] - 02/01/2021 7:01 PM CDT Recommended therapeutic INR ranges for Oral Anticoagulant Therapy: 2.0-3.0 For prevention of Thrombosis or Embolism and treatment of Venous Thrombosis. 2.5- 3.5 for prevention of Recurrent Embolism or treatment of patients with Mechanical Prosthetic Heart Valves. Cole Wisdom DO LAB - COAGULATION OR DERABLES [facility] [address] * (ABNORMAL) CBC W AUTO DIFFERENTIAL (02/01/2021 6:42 PM CDT) [facility] Signature WBC 10.0 4.0 - 10.0 x10E9/L 02/01/2021 6:49 PM CDT [facility] RBC 4.05 3.93 - 5.22 x10E12/L 02/01/2021 6:49 PM CDT [facility] Hemoglobin 11.9 11.2 - 15.7 gm/dL 02/01/2021 6:49 PM CDT [facility] Hematocrit 36.3 34.1 - 44.9 % 02/01/2021 6:49 PM CDT [facility] MCV 89.6 78.0 - 100.0 fl 02/01/2021 6:49 PM CDT [facility] MCH 29.4 25.6 - 34.0 pg 02/01/2021 6:49 PM CDT [facility] MCHC 32.8 32.3 - 36.5 gm/dL 02/01/2021 6:49 PM CDT [facility] RDW 13.8 11.6 - 14.4 % 02/01/2021 6:49 PM CDT [facility] MPV 10.5 9.4 - 12.4 fl 02/01/2021 6:49 PM CDT [facility] Platelet Count 253 163 - 369 x10E9/L 02/01/2021 6:49 PM CDT [facility] Neutrophils % 60.0 40.0 - 75.0 % 02/01/2021 6:49 PM CDT [facility] Lymphocytes % 26.3 19.3 - 53.1 % 02/01/2021 6:49 PM CDT [facility] Monocytes % 9.1 4.7 - 12.5 % 02/01/2021 6:49 PM CDT [facility] Eosinophils % 4.2 0.7 - 7.0 % 02/01/2021 6:49 PM CDT [facility] Basophils % 0.2 0.1 - 1.2 % 02/01/2021 6:49 PM CDT [facility] Immature Granulocytes 0.2 0 - 0.5 % 02/01/2021 6:49 PM CDT [facility] Neutrophil Absolute 5.98 1.56 - 6.13 x10E9/L 02/01/2021 6:49 PM CDT [facility] Lymphocytes Absolute 2.62 1.18 - 3.74 x10E9/L 02/01/2021 6:49 PM CDT [facility] Monocytes Absolute 0.91(H) 0.24 - 0.86 x10E9/L 02/01/2021 6:49 PM CDT [facility] Eosinophils Absolute 0.42 0.04 - 0.54 x10E9/L 02/01/2021 6:49 PM CDT [facility] Basophils Absolute 0.02 0.01 - 0.08 x10E9/L 02/01/2021 6:49 PM CDT [facility] Immature Granulocytes Absolute 0.02 0 - 0.03 x10E9/L 02/01/2021 6:49 PM CDT [facility] nRBC Auto 0 <=0 /100 WBC 02/01/2021 6:49 PM CDT [facility] nRBC Absolute 0.00 <=0 x10E9/L 02/01/2021 6:49 PM CDT [facility] Blood BLOOD SPECIMEN / Unknown Venipuncture / Unknown 02/01/2021 6:42 PM CDT 02/01/2021 6:46 PM CDT Cole Wisdom DO LAB - HEMATOLOGY ORD ERABLES Performing Organization Address [facility]/State/[facility] Co de Phone Number [facility] [address] * (ABNORMAL) COMPREHENSIVE METABOLIC PANEL (02/01/2021 6:42 PM CDT) [facility] Glucose 104 70 - 125 mg/dL 02/01/2021 7:14 PM CDT [facility] Sodium 138 136 - 145 mmol/L 02/01/2021 7:14 PM CDT [facility] Potassium 4.3 3.4 - 4.5 mmol/L 02/01/2021 7:14 PM CDT [facility] Chloride 101 98 - 107 mmol/L 02/01/2021 7:14 PM CDT [facility] CO2 25 22 - 29 mmol/L 02/01/2021 7:14 PM CDT [facility] Calcium 9.6 8.4 - 10.2 mg/dL 02/01/2021 7:14 PM T [facility] Anion Gap 16 10 - 20 mmol/L 02/01/2021 7:14 PM T [facility] BUN 20.7(H) 9.8 - 20.1 mg/dL 02/01/2021 7:14 PM T [facility] Creatinine 1.11 0.57 - 1.11 mg/dL 02/01/2021 7:14 PM T [facility] eGFR by MDRD 48(L) >60 mL/min/1.7 3m2 02/01/2021 7:14 PM T [facility] eGFR by MDRD 58(L) >60 mL/min/1.7 3m2 02/01/2021 7:14 PM T [facility] Alkaline Phosphatase 107 40 - 150 U/L 02/01/2021 7:14 PM T [facility] ALT 15 5 - 55 U/L 02/01/2021 7:14 PM T [facility] AST 15 5 - 34 U/L 02/01/2021 7:14 PM T [facility] Protein Total 6.7 6.4 - 8.3 gm/dL 02/01/2021 7:14 PM T [facility] Albumin 3.5 3.5 - 5.0 gm/dL 02/01/2021 7:14 PM T [facility] Globulin Total 3.2 2.6 - 4.0 gm/dL 02/01/2021 7:14 PM T [facility] Albumin/Globulin Ratio 1.1 0.9 - 1.6 02/01/2021 7:14 PM T [facility] Bilirubin Total 0.4 0.2 - 1.2 mg/dL 02/01/2021 7:14 PM T [facility] Blood BLOOD SPECIMEN / Unknown Venipuncture / Unknown 02/01/2021 6:42 PM CDT 02/01/2021 6:46 PM T Cole Wisdom DO LAB - CHEMISTRY LISETTE BECERRA [facility] Organization Address City/State/ZIP Co de Phone Number [facility] [address] * CREATININE BLOOD - POCT () [facility] (05/08/2013 10:54 AM CIRCUIT BOARD ASSEMBLER) Only the most recent of2 resultswithin the time period is included. Creatinine POCT 0.91 0.3 - 1.3 mg/dL [facility] eGFR POCT 60 60 ml/min [facility] 05/08/2013 10:5 4 AM CIRCUIT BOARD ASSEMBLER Emerald Burnett MD LAB - POINT OF CAR E ORDERABLES [facility] * LAB MICROBIOLOGY - [facility] (10/09/2010 5:13 AM CDT) 10/09/2010 5:13 AM CDT Narrative [facility] - 10/09/2010 5:13 AM CDT Sadaf Piedra MD LAB - MICROB IOLOGY ORDERABLES [facility] Care Teams Administrative Judge Relationship Specialty Start Date End Date Raza Kinney DO PCP - General 05/08/13
[2024-07-07] MEDS: FUROSEMIDE INJ 40 MG/4 ML VIAL IV PUSH (17:15)
--- OUTSIDE RECORDS SUMMARY | 2024-07-07 17:40 | XMS_ITS | Patient Health Summary ---
Author Organization [facility] Address [address] [place] [address] Care Team Providers Care Custom Bow Maker Name Role Phone GregoriaRaza Sharmin DO Primary Care Provider [phone] Note from [facility],non-owned Affiliates and Associated Physician Practices is amultiple site organization consisting of ambulatory clinics and hospital sitesin [place], [place], [place] and [place]. This disclosure is being madepursuant to the Care Everywhere program and may not contain all information available regarding this patient. Last updated 18.[facility] Allergies * Labetalol(Vomiting) Medications * Be aware [...] 8.6 mg by mouth once daily * Yiaercviuau-Zexvlyoie-Pznmuu (TRELEGY ELLIPTA) 100-62.5-25 MCG/INH Inhale 1 puff by mouth once daily Active Problems Problem Noted Date Diagnosed Date Headache 03/04/2015 Essential (primary) hypertension 05/08/2013 Nonruptured cerebral aneurysm 05/08/2013 Atherosclerotic heart diseas e of [place] coronary artery without angina pectoris 05/08/2013 Social [...] 05/08/2013) * CREATININE BLOOD - POCT (IP) [facility](Performed 05/08/2013) * CT ANGIO BRAIN(Performed 05/02/2012) * CREATININE BLOOD - POCT (IP) [facility](Performed 05/02/2012) * LAB MICROBIOLOGY - [facility](Performed 10/09/2010) Results * CARDIAC EKG ORDER (02/03/2021 11:48 AM CDT) Narrative 02/03/2021 11:48 AM CDT Ordered by an unspecified provider. Scanned Document CARDIAC SERVICES ORD ERABLES * CT ANGIO NECK [id number] (02/01/2021 7:35 PM CDT) Anatomical Region Laterality [...] the neck were also obtained using a Pacta workstation. 50 cc Isovue-300 was given IV. [...] the neck were also obtained using a Soukboard workstation. 50 cc Isovue-300 was given IV. [...] DO CT ORDERABLES * CT ANGIO HEAD [id number] (02/01/2021 7:34 PM CDT) Only the most [...] with Cole Wisdom DO at 8:00 pm VETERINARY ASSISTANT on 02/01/2021. *Reading Radiologist: Mc Spain on [...] with Cole Wisdom DO at 8:00 pm VETERINARY ASSISTANT on 02/01/2021. *Reading Radiologist: Mc Spain on 02/01/2021 at 8:07 PM [address] Wisdom DO CT ORDERABLES * CT BRAIN WO CONTRAST [id number] (02/01/2021 7:33 PM CDT) Anatomical Region Laterality [...] (Bezet) 453 ms [facility] MUSE Calculated P [place] 37 degrees SMC MUSE Calculated R [place] -22 degrees [facility] MUSE Calculated T [place] 53 degrees [facility] MUSE Interpretation EKG SINUS BRADYCARDIA ANTERIOR INFARCT , AGE UNDETERMINED ABNORMAL ECG NO PREVIOUS ECGS AVAILABLE Confirmed by ACOSTA ALMARAZ MD ([id number]), non linear editor RUTH WILLIS ([id number]) on 02/02/2021 8:58:59 AM [facility] 02/01/2021 6:53 PM CDT 02/02/2021 8:58 AM CDT Cole Wisdom DO ECG ORDERABLES Performing Organization Address [facility] Co de Phone Number [facility] * PTT (02/01/2021 6:42 PM CDT) PTT 29.4 23.0 - 38.4 sec 02/01/2021 7:02 PM CDT [facility] Blood BLOOD SPECIMEN / Unknown Venipuncture / Unknown 02/01/2021 6:42 PM CDT 02/01/2021 6:46 PM CDT Cole Wisdom DO LAB - COAGULATION OR DERABLES Performing Organization Address [facility] Co de Phone Number [facility] [address] * (ABNORMAL) PT-INR (02/01/2021 6:42 PM CDT) PT 13.0 11.3 - 14.8 sec 02/01/2021 7:01 PM CDT [facility] INR 1.02(L) 2 - 3 02/01/2021 7:01 PM CDT [facility] Blood BLOOD SPECIMEN / Unknown Venipuncture / Unknown 02/01/2021 6:42 PM CDT 02/01/2021 6:46 PM CDT Narrative [facility] - 02/01/2021 7:01 PM CDT Recommended therapeutic INR ranges for Oral Anticoagulant Therapy: 2.0-3.0 For prevention of Thrombosis or Embolism and treatment of Venous Thrombosis. 2.5- 3.5 for prevention of Recurrent Embolism or treatment of patients with Mechanical Prosthetic Heart Valves. Cole Wisdom DO LAB - COAGULATION OR DERABLES [facility] [address] * (ABNORMAL) CBC W AUTO DIFFERENTIAL (02/01/2021 6:42 PM CDT) [facility] Signature WBC 10.0 4.0 - 10.0 x10E9/L 02/01/2021 6:49 PM CDT [facility] RBC 4.05 3.93 - 5.22 x10E12/L 02/01/2021 6:49 PM CDT [facility] Hemoglobin 11.9 11.2 - 15.7 gm/dL 02/01/2021 6:49 PM CDT [facility] Hematocrit 36.3 34.1 - 44.9 % 02/01/2021 6:49 PM CDT [facility] MCV 89.6 78.0 - 100.0 fl 02/01/2021 6:49 PM CDT [facility] MCH 29.4 25.6 - 34.0 pg 02/01/2021 6:49 PM CDT [facility] MCHC 32.8 32.3 - 36.5 gm/dL 02/01/2021 6:49 PM CDT [facility] RDW 13.8 11.6 - 14.4 % 02/01/2021 6:49 PM CDT [facility] MPV 10.5 9.4 - 12.4 fl 02/01/2021 6:49 PM CDT [facility] Platelet Count 253 163 - 369 x10E9/L 02/01/2021 6:49 PM CDT [facility] Neutrophils % 60.0 40.0 - 75.0 % 02/01/2021 6:49 PM CDT [facility] Lymphocytes % 26.3 19.3 - 53.1 % 02/01/2021 6:49 PM CDT [facility] Monocytes % 9.1 4.7 - 12.5 % 02/01/2021 6:49 PM CDT [facility] Eosinophils % 4.2 0.7 - 7.0 % 02/01/2021 6:49 PM CDT [facility] Basophils % 0.2 0.1 - 1.2 % 02/01/2021 6:49 PM CDT [facility] Immature Granulocytes 0.2 0 - 0.5 % 02/01/2021 6:49 PM CDT [facility] Neutrophil Absolute 5.98 1.56 - 6.13 x10E9/L 02/01/2021 6:49 PM CDT [facility] Lymphocytes Absolute 2.62 1.18 - 3.74 x10E9/L 02/01/2021 6:49 PM CDT [facility] Monocytes Absolute 0.91(H) 0.24 - 0.86 x10E9/L 02/01/2021 6:49 PM CDT [facility] Eosinophils Absolute 0.42 0.04 - 0.54 x10E9/L 02/01/2021 6:49 PM CDT [facility] Basophils Absolute 0.02 0.01 - 0.08 x10E9/L 02/01/2021 6:49 PM CDT [facility] Immature Granulocytes Absolute 0.02 0 - 0.03 x10E9/L 02/01/2021 6:49 PM CDT [facility] nRBC Auto 0 <=0 /100 WBC 02/01/2021 6:49 PM CDT [facility] nRBC Absolute 0.00 <=0 x10E9/L 02/01/2021 6:49 PM CDT [facility] Blood BLOOD SPECIMEN / Unknown Venipuncture / Unknown 02/01/2021 6:42 PM CDT 02/01/2021 6:46 PM CDT Cole Wisdom DO LAB - HEMATOLOGY ORD ERABLES Performing Organization Address [facility]/State/[facility] Co de Phone Number [facility] [address] * (ABNORMAL) COMPREHENSIVE METABOLIC PANEL (02/01/2021 6:42 PM CDT) [facility] Glucose 104 70 - 125 mg/dL 02/01/2021 7:14 PM CDT [facility] Sodium 138 136 - 145 mmol/L 02/01/2021 7:14 PM CDT [facility] Potassium 4.3 3.4 - 4.5 mmol/L 02/01/2021 7:14 PM CDT [facility] Chloride 101 98 - 107 mmol/L 02/01/2021 7:14 PM CDT [facility] CO2 25 22 - 29 mmol/L 02/01/2021 7:14 PM CDT [facility] Calcium 9.6 8.4 - 10.2 mg/dL 02/01/2021 7:14 PM T [facility] Anion Gap 16 10 - 20 mmol/L 02/01/2021 7:14 PM T [facility] BUN 20.7(H) 9.8 - 20.1 mg/dL 02/01/2021 7:14 PM T [facility] Creatinine 1.11 0.57 - 1.11 mg/dL 02/01/2021 7:14 PM T [facility] eGFR by MDRD 48(L) >60 mL/min/1.7 3m2 02/01/2021 7:14 PM T [facility] eGFR by MDRD 58(L) >60 mL/min/1.7 3m2 02/01/2021 7:14 PM T [facility] Alkaline Phosphatase 107 40 - 150 U/L 02/01/2021 7:14 PM T [facility] ALT 15 5 - 55 U/L 02/01/2021 7:14 PM T [facility] AST 15 5 - 34 U/L 02/01/2021 7:14 PM T [facility] Protein Total 6.7 6.4 - 8.3 gm/dL 02/01/2021 7:14 PM T [facility] Albumin 3.5 3.5 - 5.0 gm/dL 02/01/2021 7:14 PM T [facility] Globulin Total 3.2 2.6 - 4.0 gm/dL 02/01/2021 7:14 PM T [facility] Albumin/Globulin Ratio 1.1 0.9 - 1.6 02/01/2021 7:14 PM T [facility] Bilirubin Total 0.4 0.2 - 1.2 mg/dL 02/01/2021 7:14 PM T [facility] Blood BLOOD SPECIMEN / Unknown Venipuncture / Unknown 02/01/2021 6:42 PM CDT 02/01/2021 6:46 PM T Cole Wisdom DO LAB - CHEMISTRY [facility] Organization Address City/State/ZIP Co de Phone Number [facility] [address] * CREATININE BLOOD - POCT () [facility] (05/08/2013 10:54 AM VETERINARY ASSISTANT) Only the most recent of2 resultswithin the time period is included. Creatinine POCT 0.91 0.3 - 1.3 mg/dL [facility] eGFR POCT 60 60 ml/min [facility] 05/08/2013 10:5 4 AM VETERINARY ASSISTANT Emerald Burnett MD LAB - POINT OF CAR E ORDERABLES [facility] * LAB MICROBIOLOGY - [facility] (10/09/2010 5:13 AM CDT) 10/09/2010 5:13 AM CDT Narrative [facility] - 10/09/2010 5:13 AM CDT Sadaf Piedra MD LAB - MICROB IOLOGY ORDERABLES [facility] Care Teams Custom Bow Maker Relationship Specialty Start Date End Date Raza Kinney DO PCP - General 05/08/13
--- OUTSIDE RECORDS SUMMARY | 2024-07-07 17:40 | XMS_ITS | Referral Summary ---
Author Organization [facility] Address [address] [place] [address] Care Team Providers Care Lamp Shades Supervisor Name Role Phone MonsterRaza rendon Sharmin DO Primary Care Provider [phone] Source Comments [facility],non-owned Affiliates and Associated Physician Practices is amultiple site organization consisting of ambulatory clinics and hospital sitesin [place], [place], [place] and [place]. This disclosure is being madepursuant to the Care Everywhere program and may not contain all information available regarding this patient. Last updated 18.[facility] [place] Allergies Active Allergy Reactions Criticality Noted Date [...] aneurysm 05/08/2013 Atherosclerotic heart diseas e of [place] coronary artery without angina pectoris 05/08/2013 Social [...] of Treatment Not on file Care Teams Lamp Shades Supervisor Relationship Specialty Start Date End Date Rzaa Kinney DO PCP - General 05/08/13
--- OUTSIDE RECORDS SUMMARY | 2024-07-07 17:40 | XMS_ITS | Clinical Summary ---
Author Organization [facility] Address [address] [place] [address] Care Team Providers Care Cryptologic Support Specialist Name Role Phone MonsterRaza rendon Sharmin DO Primary Care Provider [phone] Source Comments [facility],non-owned Affiliates and Associated Physician Practices is amultiple site organization consisting of ambulatory clinics and hospital sitesin [place], [place], [place] and [place]. This disclosure is being madepursuant to the Care Everywhere program and may not contain all information available regarding this patient. Last updated 18.[facility] [employer] Allergies Active Allergy Reactions Criticality Noted Date [...] aneurysm 05/08/2013 Atherosclerotic heart diseas e of [place] coronary artery without angina pectoris 05/08/2013 Social [...] age to complete this topic Care Teams Cryptologic Support Specialist Relationship Specialty Start Date End Date Raza Kinney DO PCP - General 05/08/13
== END 2024-07-07 19:09 | disposition home or self-care (01) ==
PROVIDERS: Physician Assistant; Emergency Provider Emergency Medicine; PCP Internal Medicine
DX: J10.1 Influenza due to other identified influenza virus with other respiratory manifestations (principal); F41.9 Anxiety disorder, unspecified; M19.90 Unspecified osteoarthritis, unspecified site; J44.9 Chronic obstructive pulmonary disease, unspecified; I13.0 Hypertensive heart and chronic kidney disease with heart failure and stage 1 through stage 4 chronic kidney disease, or unspecified chronic kidney disease; N18.9 Chronic kidney disease, unspecified; I50.9 Heart failure, unspecified; I25.10 Atherosclerotic heart disease of native coronary artery without angina pectoris
CPT/HCPCS: 36415; 71046; 71275; 80053; 83735; 83880; 84484; 85025; 85610; 85730; 93005; 94640; 96374; 99284; J1940; Q9967

== ENCOUNTER 2024-08-20 10:51 | Outpatient (CLI) | payer MEDICARE, SELFPAY ==
--- NOTE | ~2024-08-20 | MR_ITS ---
EXAMINATION: MR lumbar spine wo con DATE: 08/20/2024 11:25 INDICATION: Acute lumbar radiculopathy TECHNIQUE: Magnetic resonance imaging (MRI) of the lumbar spine was performed without intravenous con trast. Sequences included sagittal T2-weighted FSE, sagittal T2-weighted FS FSE, sagittal T1-weighted FSE, and axial T2-weighted FSE. COMPARISON: 03/21/2024 FINDINGS: Unchanged 5 degree lumbar levocurvature and 3 mm retrolisthesis L5 on S1. Chronic mild superior endpl ate compression fracture with minimal central vertebral body height loss at L1. Remaining vertebral b annamarie heights are normal. There are a few Schmorl's nodes along the endplates in the lumbar and lower t horacic spine. Moderate disc height loss at L1-L2, L2-L3 and L3-L4 and severe disc height loss with a ssociated fibrofatty degenerative endplate changes at L4-L5 and L5-S1. Mild disc height loss at T11-T 12. T1 hyperintense hemangioma at T11. Marrow signal is otherwise unremarkable. The conus medullaris terminates at L1. There is normal signal in the caudal spinal cord. End seen is aneurysmal dilation o f the visualized portion of the partially obscured aorta which measures up to 4.5 cm diameter at the level of the thoracic hiatus. Paravertebral soft tissues are unremarkable. The following disc levels are specifically discussed: T12-L1: Disc is mildly bulging. There is mild left and moderate right facet joint osteoarthritis. The re is no neural foraminal stenosis. There is minimal central canal stenosis. L1-L2: Disc is bulging. There is mild bilateral facet joint osteoarthritis. There is moderate bilater al neural foraminal stenosis. There is mild central canal stenosis. L2-L3: Disc is bulging with annular fissure and superimposed right foraminal zone disc extrusion with disc material extending 10 mm caudal to the level of the superior endplate of L3. There is hypertrop hy of the ligamentum flavum. There is moderate bilateral facet joint osteoarthritis. There is moderat e right and mild left neural foraminal stenosis. There is moderate to severe central canal stenosis. L3-L4: Disc is bulging with annular fissure and small central disc extrusion with disc material exten ding up to 3 mm cephalad to the level of the inferior endplate of L3. There is hypertrophy of the lig amentum flavum. There is severe bilateral facet joint osteoarthritis. There is mild to moderate bilat eral neural foraminal stenosis. There is severe central canal stenosis. L4-L5: Disc is bulging with annular fissure. There is hypertrophy of the ligamentum flavum. There is severe right and moderate left facet joint osteoarthritis. There is moderate right and mild left tenisha ral foraminal stenosis. There is moderate central canal stenosis. L5-S1: Disc is bulging with annular fissure. There is moderate bilateral facet joint osteoarthritis. There is moderate bilateral neural foraminal stenosis. There is mild central canal stenosis. IMPRESSION: 1. No significant interval change in severe lumbar spondylosis. 2. No evident change in a partially visualized at least 4.5 cm aortic aneurysm at the level of the th oracic hiatus. Reviewed, dictated and finalized at location A. IMPRESSION: 1. No significant interval change in severe lumbar spondylosis. 2. No evident change in a partially visualized at least 4.5 cm aortic aneurysm at the level of the thoracic hiatus.
== END 2024-08-20 10:52 | disposition home or self-care (01) ==
PROVIDERS: PCP Internal Medicine; Visit Provider Nurse Practitioner Family
DX: M47.26 Other spondylosis with radiculopathy, lumbar region (principal); I71.20 Thoracic aortic aneurysm, without rupture, unspecified
CPT/HCPCS: 72148

== ENCOUNTER 2024-09-18 14:42 | Outpatient (CLI) | payer MEDICARE, SELFPAY ==
--- OUTSIDE RECORDS SUMMARY | 2024-09-18 15:24 | XMS_ITS | Referral Summary ---
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; Preoperative testing; Hypocalcemia Discharge Disposition: Discharge to home or self care 09/11/2024 Orders Only [facility] Vascular Surgery [address] [place] [address] Medical Office Building [address] [place] [address] Mayur Man MD Bilateral carotid artery stenosis (Primary Dx); Aftercare following surgery of the circulatory system 09/11/2024 1:05 PM CDT - 09/11/2024 4:50 PM CDT Surgery [facility] Operating Room [address] [place] [id number] Mayur Man MD ENDARTERECTOMY - CAROTID WITH PATCH GRAFT 09/11/2024 10:31 AM CDT Anesthesia Event [facility] Operating Room [address] [place] [address] Yemi Hood MD Lentz, William Thomas, NP 09/08/2024 2:40 PM CDT Ancillary Procedure [facility] Vascular Lab IP [address] [facility] [address] [place] [address] 09/08/2024 Telephone [facility] Vascular Surgery [address] [facility] Medical Office Building [address] [place] [phone] Mayur Man MD 08/22/2024 11:30 AM CDT Office Visit [facility] Cardiology [address] [place] [address] Taqueria Sweeney MD Coronary artery disease involving eklutna coronary artery of eklutna heart without angina pectoris (Primary Dx); Mixed hyperlipidemia; Dissection of descending thoracic aorta (HCC); Heart murmur; Primary hypertension from Last 3 Months Allergies Active Allergy Reactions Criticality Noted Date Comments Labetalol Nausea only Low Medications amLODIPine (NORVASC) 10 mg tablet Take 1 tablet (10 mg total) by mouth daily 08/24/19 18 Active methIMAzole (TAPAZOLE) 5 mg tablet 1 tablet (5 mg total) as directed Every other day 10/27/19 18 Active metoprolol (LOPRESSOR) 50 mg tablet Take 1 tablet (50 mg total) by mouth 2 (two) times a day 10/27/19 18 Active aspirin 81 mg chewable tablet daily. 08/06/19 12 Active albuterol sulfate 90 mcg/actuation aerosol powdr breath activated Inhale Active FLUoxetine (PROzac) 20 mg capsule Take 1 capsule (20 mg total) by mouth daily 10/23/19 19 Active atorvastatin (LIPITOR) 80 mg tablet Take 1 tablet (80 mg total) by mouth daily 10/29/19 19 Active fluticasone-ume clidin-vilanter (TRELEGY ELLIPTA) 100-62.5-25 mcg inhaler Inhale 1 puff daily Active pregabalin (LYRICA) 100 mg capsule Take 1 capsule (100 mg total) by mouth 2 (two) times a day 06/12/19 24 Active losartan (COZAAR) 25 mg tablet Take 1 tablet (25 mg total) by mouth daily 06/05/19 24 Active acetaminophen (TYLENOL) 325 mg tablet Take 2 tablets (650 mg total) by mouth every 6 (six) hours as needed for pain 09/14/19 25 Active calcium carbonate (OS-EDMUND) 1,250 mg (500 mg elemental) tabletIndicatio ns:hypocalcemia Take 2 tablets (2,500 mg total) by mouth 2 (two) times a day 120 tablet 11 09/14/19 25 026 Active sennosides 8.6 mg capsule Take 1 capsule by mouth daily as needed (constipatio n) 09/14/19 25 Active ergocalciferol (VITAMIN D) 50,000 unit capsule Take 1 capsule (50,000 Units total) by mouth once a week for 7 doses 7 capsule 09/18/19 25 025 Active sennosides 8.6 mg capsule daily as needed 025 Discontinued diphenhydrAMINE -acetaminophen (TYLENOL PM) 25-500 mg tablet 025 Discontinued(St op Taking at Discharge) fluticasone furoate (ARNUITY) 100 mcg/actuation inhaler Inhale 1 puff daily Rinse mouth with water after use. Do not swallow. 025 Discontinued(St op Taking at Discharge) omeprazole (PriLOSEC) 40 mg capsule Take 1 capsule (40 mg total) by mouth daily 10/21/19 21 025 Discontinued(St op Taking at Discharge) nitrofurantoin monohydrate (MACROBID) 100 mg capsule 01/26/20 22 025 Discontinued(St op Taking at Discharge) phenazopyridine (PYRIDIUM) 200 mg tablet 01/21/20 22 025 Discontinued(St op Taking at Discharge) sulfamethoxazol e-trimethoprim (BACTRIM DS) 800-160 mg per tablet Take 1 tablet by mouth every 12 (twelve) hours 01/21/20 22 025 Discontinued(St op Taking at Discharge) ergocalciferol (VITAMIN D) 50,000 unit capsule Take 1 capsule (50,000 Units total) by mouth once a week for 7 doses 4 capsule 09/18/19 025 Discontinued Active Problems Problem Noted Date Diagnosed Date Hypomagnesemia 09/12/2024 Assessment & Plan (09/12/2024 6:55 AM CDT): Mg 1.3 overnight. Repleted with 4 gm -Repeat Mg level Hypophosphatemia 09/12/2024 Assessment & Plan (09/12/2024 6:56 AM CDT): Improved from 1.8 -Monitor labs Bradycardia 09/12/2024 Assessment & Plan (09/12/2024 7:10 AM CDT): Bradycardia noted this AM with HR 40-50. Likely related to phenylephrine gtt. Asymptomatic -Hold metoprolol for now -Wean phenylephrine gtt -Monitor on tele Carotid artery stenosis, unilateral 09/12/2024 Chronic hypoxic respiratory failure 09/12/2024 Assessment & Plan (09/12/2024 3:06 PM CDT): Hx COPD, home O2 -Continue O2 -Continue inhalers Weakness 09/08/2024 Hypocalcemia 09/08/2024 Assessment & Plan (09/11/2024 7:52 AM CDT): Presenting with a little over 1 week of progressive weakness, numbness, tingling and cramping that is diffuse. Noted to have calcium of 6.1 on presentation with iCal of 2.76. Intact PTH level of 97 along with a low Vitamin D level of 16 raises concern for secondary hyperparathyroidism due to vitamin D deficiency. Risk factors include altered diet with recent multiweek very restricted keto diet (eating meat and cheeses and eggs) does not take a multivitamin, does use daily omeprazole which may contribute via hypomagnesemia - Calcium at 8.5 this morning with Ionized Ca at 4.5. - Endocrine consult placed, continue ergocalciferol 50,000 IU weekly for 6-8 weeks, followed by a maintenance dose of 1,000 to 2,000 IU daily. - CaCO3 supplementation with 1g elemental Ca TID -Hypokalemia/hypomagnesemia improving - Daily iCal and BMP - Replete electrolytes as needed - Telemetry Assessment & Plan (09/12/2024 11:24 AM CDT): Ca 6.1 on admission. DDx PTH related vs unrelated. PTH 97. Vitamin D 25-OH 16. Ca improved with repletion. Symptoms resolved - Daily iCal / calcium / phos / Mg - Ca supplementation - Vitamin D supplementation - Endo following Assessment & Plan (09/11/2024 7:54 AM CDT): Presenting with a little over 1 week of progressive weakness, numbness, tingling and cramping that is diffuse. Noted to have calcium of 6.1 on presentation with iCal of 2.76. Intact PTH level of 97 along with a low Vitamin D level of 16 raises concern for secondary hyperparathyroidism due to vitamin D deficiency. Risk factors include altered diet with recent multiweek very restricted keto diet (eating meat and cheeses and eggs) does not take a multivitamin, does use daily omeprazole which may contribute via hypomagnesemia - Persistent hypocalcemia despite replacement with IV calcium gluconate. Endocrine consult placed, will change to ergocalciferol 50,000 IU weekly for 6-8 weeks, followed by a maintenance dose of 1,000 to 2,000 IU daily. - Start CaCO3 supplementation with 1g elemental Ca TID -Hypokalemia/hypomagnesemia improving - Daily iCal and BMP - Replete electrolytes as needed - Telemetry Assessment & Plan (09/09/2024 2:31 PM CDT): Presenting with a little over 1 week of progressive weakness, numbness, tingling and cramping that is diffuse. Noted to have calcium of 6.1 on presentation with iCal of 2.76. Intact PTH level of 97 along with a low Vitamin D level of 16 raises concern for secondary hyperparathyroidism due to vitamin D deficiency. Risk factors include altered diet with recent multiweek very restricted keto diet (eating meat and cheeses and eggs) does not take a multivitamin, does use daily omeprazole which may contribute via hypomagnesemia although we do not yet have a magnesium level. - Started on Vit D supplementation with 2000 units daily - BID iCal and BMP - Replete electrolytes as needed - Telemetry Assessment & Plan (09/08/2024 8:54 PM CDT): Presenting with a little over 1 week of progressive weakness, numbness, tingling and cramping that is diffuse. Noted to have calcium of 6.1 on presentation with iCal of 2.76. Etiology at present unclear, need PTH to further delineate possibilities, risk factors include altered diet with recent multiweek very restricted keto diet (eating meat and cheeses and eggs) does not take a multivitamin, does use daily omeprazole which may contribute via hypomagnesemia although we do not yet have a magnesium level. Given thyroid disease history consider autoimmune hypoparathyroidism as well. - Phos, Magnesium, PTH, Vitamin D all pending, further workup pending results. - BID iCal and BMP - replete electrolytes as necessary - Telemetry Other emphysema 09/08/2024 Assessment & Plan (09/11/2024 7:52 AM CDT): Hx of COPD, quit tobacco use 15 years ago, has a 15 pack year hx, no PFT's in our system, is on home 3L oxygen - Would benefit from pulm referral as degree of oxygen impairment is incongruent with smoking hx [facility] & Plan (09/12/2024 7:11 AM CDT): COPD, 15 pack year hx, no PFT, home 3L oxygen. No current tobacco use - Would benefit from pulm referral on d/c - Home tregy Assessment & Plan (09/10/2024 7:59 AM CDT): Hx of COPD, quit tobacco use 15 years ago, has a 15 pack year hx, no PFT's in our system, is on home 3L oxygen - Would benefit from pulm referral as degree of oxygen impairment is incongruent with smoking hx - Home trellegy Assessment & Plan (09/09/2024 2:31 PM CDT): Hx of COPD, quit tobacco use 15 years ago, has a 15 pack year hx, no PFT's in our system, is on home 3L oxygen - Would benefit from pulm referral as degree of oxygen impairment is incongruent with smoking hx - Home trellegy Assessment & Plan (09/08/2024 8:54 PM CDT): Hx of COPD, quit tobacco use 15 years ago, has a 15 pack year hx, no PFT's in our system, is on home 3L oxygen - would benefit from pulm referral as degree of oxygen impairment is incongruent with smoking hx - home trellegy Bilateral carotid artery stenosis 09/08/2024 Assessment & Plan (09/11/2024 7:52 AM CDT): Hx of AILEEN occlusion and severe LICA stenosis, initially concern for advanced disease as contributing to presentation but sx classic for hypocalcemia and also improving with calcium supplementation - Carotid US with R ICA severe obs/occl; L ICA >70% stenosis and CTA head and neck unchanged from previous scan in 02/2023. - Plan for carotid endarterectomy with vascular today Assessment & Plan (09/12/2024 6:50 AM CDT): Patient has known carotid dx with occluded R ICA and >70% stenosis of L ICA now with one week history of muscle spasms and neuropathy of bilateral hands and feet. Repeat carotid duplex with progressive disease with increased systolic and diastolic velocities. Patient is interested in undergoing left CEA this admission. - left CEA 09/11 - Wean keith gtt today. Goal BP 110-150. - Hold amlodipine, metoprolol, and losartan while on keith gtt - Monitor NV status q2, on OU Assessment & Plan (09/11/2024 7:54 AM CDT): Hx of AILEEN occlusion and severe LICA stenosis, initially concern for advanced disease as contributing to presentation but sx classic for hypocalcemia and also improving with calcium supplementation - Carotid US with R ICA severe obs/occl; L ICA >70% stenosis and CTA head and neck unchanged from previous scan in 02/2023. - Per vascular planning for performing a carotid endarterectomy potentially tomorrow Assessment & Plan (09/09/2024 2:31 PM CDT): Hx of AILEEN occlusion and severe LICA stenosis, initially concern for advanced disease as contributing to presentation but sx classic for hypocalcemia and also improving with calcium supplementation - Carotid US with R ICA severe obs/occl; L ICA >70% stenosis and CTA head and neck unchanged from previous scan in 02/2023. Per vascular planning to consider intervention this admission in the setting of progressive disease pending clinical stability. Assessment & Plan (09/08/2024 8:54 PM CDT): Hx of AILEEN occlusion and severe LICA stenosis, initially concern for advanced disease as contributing to presentation but sx classic for hypocalcemia and also improving with calcium supplementation - Repeat US today with R occlusion and >70% occlusion of L which is consistent with prior Atrial arrhythmia 09/08/2024 Assessment & Plan (09/11/2024 7:52 AM CDT): On presentation noted to have irregularly irregular rhythm, with HR in 90's, Asx at present, EKG with PAC's (best seen on V1) ST segment prolongation (due to hypocalcemia) and QTc prolongation (calcium and magnesium)_ - ECHO 09/08 Normal LV size. EF 54%. Grade I diastolic dysfunction. Abnormal GLS. LV strain: -13.6%. Normal RV size/function, mild LA dilation, mild-mod MR, mild AV thickening/AR, mild TR (RVSP 30-35 mmHg), mild-mod UT, physiologic pericardial effusion. - Telemetry to monitor rhythm and rate - Continue home metoprolol tartrate 50mg BID which she was previously prescribed for HTN - Monitor rhythm, has CHADSVASC of 5, would likely benefit from DOAC if has any bouts of A. fib Assessment & Plan (09/12/2024 6:48 AM CDT): Noted to have irregularly irregular rhythm HR in 90's, but asymptomatic, EKG with PAC's ST segment prolongation (due to hypocalcemia) and QTc prolongation (calcium and magnesium). - ECHO 09/08 EF 54%. G1DD. Normal RV size/function, mild-mod MR, mild AV thickening/AR, mild TR (RVSP 30-35 mmHg), mild-mod UT, physiologic pericardial effusion. - Telemetry to monitor rhythm and rate - Home metoprolol tartrate 50mg BID on hold due to need for phenylephrine and bradycardia Assessment & Plan (09/10/2024 7:59 AM CDT): On presentation noted to have irregularly irregular rhythm, with HR in 90's, Asx at present, EKG with PAC's (best seen on V1) ST segment prolongation (due to hypocalcemia) and QTc prolongation (calcium and magnesium)_ - ECHO 09/08 Normal LV size. EF 54%. Grade I diastolic dysfunction. Abnormal GLS. LV strain: -13.6%. Normal RV size/function, mild LA dilation, mild-mod MR, mild AV thickening/AR, mild TR (RVSP 30-35 mmHg), mild-mod UT, physiologic pericardial effusion. - Telemetry to monitor rhythm and rate - Continue home metoprolol tartrate 50mg BID which she was previously prescribed for HTN - Monitor rhythm, has CHADSVASC of 5, would likely benefit from DOAC if has any bouts of A. fib Assessment & Plan (09/09/2024 2:31 PM CDT): On presentation noted to have irregularly irregular rhythm, with HR in 90's, Asx at present, EKG with PAC's (best seen on V1) ST segment prolongation (due to hypocalcemia) and QTc prolongation (calcium and magnesium)_ - ECHO 09/08 Normal LV size. EF 54%. Grade I diastolic dysfunction. Abnormal GLS. LV strain: -13.6%. Normal RV size/function, mild LA dilation, mild-mod MR, mild AV thickening/AR, mild TR (RVSP 30-35 mmHg), mild-mod UT, physiologic pericardial effusion. - Telemetry to monitor rhythm and rate - Continue home metoprolol tartrate 50mg BID which she was previously prescribed for HTN - Monitor rhythm, has CHADSVASC of 5, would likely benefit from DOAC if has any bouts of A. fib Assessment & Plan (09/08/2024 9:43 PM CDT): On presentation noted to have irregularly irregular rhythm, with HR in 90's, Asx at present, EKG with PAC's (best seen on V1) ST segment prolongation (due to hypocalcemia) and QTc prolongation (calcium and magnesium)_ - ECHO considering baseline and worsening SOB, mild LE swelling as well - telemetry to monitor rhythm and rate - continue home metoprolol tartrate 50mg BID which she was previously prescribed for HTN - Monitor rhythm, has CHADSVASC of 5, would likely benefit from DOAC if has any bouts of A. fib Anemia 09/08/2024 Assessment & Plan (09/11/2024 7:52 AM CDT): Normocytic anemia to low 11's on presentation, denies blood loss. B12 WNL. Iron panel: Iron 28, Ferritin 155, TIBC 206, TSAT 14% suggest possible functional iron deficiency or anemia of chronic disease. Assessment & Plan (09/12/2024 6:47 AM CDT): Normocytic anemia to low 11's on presentation, B12 WNL. Iron panel: Iron 28, Ferritin 155, TIBC 206, TSAT 14% - likely iron deficiency +/- anemia of chronic disease - monitor , especially in post-op period Assessment & Plan (09/10/2024 7:59 AM CDT): Normocytic anemia to low 11's on presentation, denies blood loss. B12 WNL. Iron panel: Iron 28, Ferritin 155, TIBC 206, TSAT 14% suggest possible functional iron deficiency or anemia of chronic disease. Assessment & Plan (09/09/2024 2:31 PM CDT): Normocytic anemia to low 11's on presentation, denies blood loss - Ferritin, iron panel, B12 Assessment & Plan (09/08/2024 8:54 PM CDT): Normocytic anemia to low 11's on presentation, denies blood loss - Ferritin, iron panel, B12 Hyperthyroidism 09/08/2024 Assessment & Plan (09/11/2024 7:52 AM CDT): Unclear, patient is on low dose methimazole and has been on this for years, unclear who is managing - TSH WNL Assessment & Plan (09/11/2024 7:45 AM CDT): TSH 0.49 on admission, on methimazole - Continue home methimazole Assessment & Plan (09/10/2024 7:59 AM CDT): Unclear, patient is on low dose methimazole and has been on this for years, unclear who is managing - TSH WNL Assessment & Plan (09/09/2024 2:31 PM CDT): Unclear, patient is on low dose methimazole and has been on this for years, unclear who is managing - TSH WNL Assessment & Plan (09/08/2024 8:54 PM CDT): Unclear, patient is on low dose methimazole and has been on this for years, unclear who is managing - repeat TSH ICAO (internal carotid artery occlusion), right 09/08/2024 Heart murmur 07/18/2023 Diastolic dysfunction without heart failure 06/22 Trigeminal neuralgia 01/14/2019 Aneurysm of thoracic aorta 05/02/2016 Surgical follow-up care 10/19/2015 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 Headache 03/04/2015 Unstable angina pectoris 10/04/2013 Overview (08/23/2016): Unstable angina Mixed hyperlipidemia 10/04/2013 Overview (08/24/2016): MIXED HYPERLIPIDEMIA Precordial pain 10/04/2013 Overview (08/25/2016): PRECORDIAL PAIN Hypertension 10/04/2013 Overview (08/25/2016): HYPERTENSION NOS Assessment & Plan (09/11/2024 7:52 AM CDT): Hold home amlodipine and continue metoprolol tartrate and losartan given soft BP Assessment & Plan (09/12/2024 11:23 AM CDT): On amlodipine, metoprolol tartrate and losartan. BPs running on low normal this admission -Restart meds as able Assessment & Plan (09/10/2024 7:59 AM CDT): Hold home amlodipine and continue metoprolol tartrate and losartan given soft BP Assessment & Plan (09/09/2024 2:31 PM CDT): Home amlodipine, metoprolol tartrate and losartan Assessment & Plan (09/08/2024 8:54 PM CDT): Home amlodipine, metoprolol tartrate and losartan Family history of ischemic heart disease 014 Overview (08/25/2016): FAM HX-ISCHEM HEART DIS Dyspnea on exertion 10/04/2013 Overview (08/25/2016): Dyspnea on exertion Abnormal electrocardiography 10/04/2013 Overview (08/25/2016): Abnormal EKG Coronary artery disease invo lving eklutna coronary artery of [place] heart without angina pectoris 05/08/2013 Assessment & Plan (09/11/2024 7:52 AM CDT): Hx of 3V CABG ~10 years ago, follows with Taqueria Sweeney in [facility] cardiology. Denies CP but does have some peripheral edema and worsening SOB over last year - ECHO from 2023 with grade IIDD but normal EF, mod. Aortic sclerosis). Repeat ECHO 09/08 Normal LV size. EF 54%. Grade I diastolic dysfunction. Abnormal GLS. LV strain: -13.6%. - Continue home atorvastatin 80mg and ASA 81mg Assessment & Plan (09/12/2024 6:50 AM CDT): CABG x3 10 years ago, follows with [facility] cardiology. Some peripheral edema and worsening SOB over last year - ECHO 09/08 Normal LV size. EF 54%. G1DD - Home atorvastatin 80mg and ASA 81mg Assessment & Plan (09/10/2024 7:59 AM CDT): Hx of 3V CABG ~10 years ago, follows with Taqueria Sweeney in [facility] cardiology. Denies CP but does have some peripheral edema and worsening SOB over last year - ECHO from 2023 with grade IIDD but normal EF, mod. Aortic sclerosis). Repeat ECHO 09/08 Normal LV size. EF 54%. Grade I diastolic dysfunction. Abnormal GLS. LV strain: -13.6%. - Continue home atorvastatin 80mg and ASA 81mg Assessment & Plan (09/09/2024 2:31 PM CDT): Hx of 3V CABG ~10 years ago, follows with Taqueria Sweeney in [facility] cardiology. Denies CP but does have some peripheral edema and worsening SOB over last year - ECHO from 2023 with grade IIDD but normal EF, mod. Aortic sclerosis). Repeat ECHO 09/08 Normal LV size. EF 54%. Grade I diastolic dysfunction. Abnormal GLS. LV strain: -13.6%. - Continue home atorvastatin 80mg and ASA 81mg Assessment & Plan (09/08/2024 8:54 PM CDT): Hx of 3V CABG ~10 years ago, follows with Taqueria Sweeney in [facility] cardiology. 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 Aortic sclerosis) - home atorvastatin 80mg and ASA 81mg Nonruptured cerebral aneurysm 05/08/2013 Immunizations Immunization Administration [...] = 0.6 oz pur e alcohol) [facility] Utilities Answer Date Recorded In the past 12 months has e [employer], gas, oil, or water company threatened to shut off services in your home? No 09/09/2024 Social Connection and Isolat ion Panel [NHANES] Answer Date Recorded In a typical week, how many times do you talk on the phone with family, friends, or neighbors? More than three times a week 09/09/2024 How often do you get togethe r with friends or relatives? Three times a week 09/09/2024 How often do you attend chur ch or faith services? More than 4 times per year 09/09/2024 Do you belong to any clubs o r organizations such as sabianism groups, unions, fraternal or athletic groups, or school groups? Yes 09/09/2024 How often do you attend meet ings of the clubs or organizations you belong to? More than 4 times per year 09/09/2024 Are you , , di vorced, , never , or living with a partner? 09/09/2024 AUDIT-C Answer Date Recorded Q1: How often do you have a drink containing alcohol? Never 09/11/2024 Q2: How many drinks containi ng alcohol do you have on a typical day when you are drinking? Patient does not drink Q3: How often do you have si x or more drinks on one occasion? Never 09/11/2024 Overall Financial Resource Strain (CARDIA) Answe r Date Recorded How hard is it for you to pa y for the very basics like food, housing, medical care, and heating? Not hard at all 09/09/2024 [facility] - Occupational Stress Questionnaire Answer Date Recorded Do you feel stress - tense, restless, nervous, or anxious, or unable to sleep at night because your mind is troubled all the time - these days? Not at all 09/09/2024 Exercise Vital Sign Answer Date Recorde d On average, how many days pe r week do you engage in moderate to strenuous exercise (like a brisk walk)? 7 days 09/09/2024 On average, how many minutes do you engage in exercise at this level? 20 min 09/09/2024 Hunger Vital Sign Answer Date Recorded Within the past 12 months, y ou worried that your food would run out before you got the money to buy more. Never true 09/10/19 25 Within the past 12 months, t he food you bought just didn't last and you didn't have money to get more. Never true 09/09/2024 PRAPARE - Transportation Answer Date Re corded In the past 12 months, has l ack of transportation kept you from medical appointments or from getting medications? No 08/20 In the past 12 months, has l ack of transportation kept you from meetings, work, or from getting things needed for daily living? No 09/09/2024 Housing Stability Vital Sign Answer Darren e Recorded In the last 12 months, was t here a time when you were not able to pay the mortgage or rent on time? No 09/09/2024 In the past 12 months, how m any times have you moved where you were living? 0 09/09/2024 At any time in the past 12 m [facility], were you homeless or living in a assisted (including now)? No 09/09/2024 Personal Safety Answer Date Recorded Have you ever been in or are you currently in a harmful physical or emotional relationship or is someone making you feel afraid or unsafe? 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 Gender Identity Female 06/20/2021 10:31 AM TRANSMISSION OPERATOR Sexual Orientation Not on file Occupation Industry Job Start Date Job End Date Retired Not on file Not on file Not on file Last Filed Vital Signs Vital Sign Reading Time Taken Comments Blood Pressure 128/112 09/14/2024 7:50 AM CDT Pulse 65 09/14/2024 7:50 AM CDT Temperature 36.8 C (98.2 F) 09/14/2024 3:42 AM CDT Respiratory Rate 18 09/14/2024 7:50 AM CDT Oxygen Saturation 90% 09/14/2024 7:50 AM CDT Inhaled Oxygen Concentration - - Weight 83.9 kg (185 lb) 09/09/2024 12:00 AM CDT Height 160 cm (5' 2.99 ) 09/09/2024 12:00 AM CDT Body Mass Index 32.78 09/09/2024 12:00 AM CDT Plan of Treatment Not on file Medical Devices Implanted Type Area Maintenance Specialist Device Identifier Shelf Expiration Date Model / Serial / Lot Stent- 6 Implanted:08/20 by Jose Chambers MD (Quantity not on file) Stent Thoracic [employer] [id number] / [id number] / Description: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 Implanted:09/19 (Quantity not on file) Head [employer] Patch Vascuguard 0.88cm [id number] - [id number] - [id number] Implanted:Qty: 1 on 09/11/2024 by Mayur Man MD at [facility] Left: Carotid [employer] [id number] 03/14/2026 [id number] / [id number] / [id number] Procedures Procedure Name Priority Date/Time Associated Diagnosis Comments EGFR Routine 09/13/2024 8:21 PM CDT BASIC METABOLIC PANEL Routine 09/13/2024 8:21 PM CDT CALCIUM, IONIZED Routine 09/13/2024 8:21 PM CDT CBC WITHOUT DIFFERENTIAL Routine 09/13/2024 8:21 PM CDT EGFR Routine 09/12/2024 9:21 PM CDT BASIC METABOLIC PANEL Routine 09/12/2024 9:21 PM CDT CALCIUM, IONIZED Routine 09/12/2024 9:21 PM CDT CBC WITHOUT DIFFERENTIAL Routine 09/12/2024 9:21 PM CDT PHOSPHORUS Timed 09/12/2024 9:21 PM CDT MAGNESIUM Timed 09/12/2024 9:21 PM CDT PHOSPHORUS Timed 09/12/2024 8:04 AM CDT MAGNESIUM Timed 09/12/2024 8:04 AM CDT BASIC METABOLIC PANEL Timed 09/11/2024 8:48 PM CDT EGFR Timed 09/11/2024 8:48 PM CDT CALCIUM, IONIZED Routine 09/11/2024 8:48 PM CDT CBC WITHOUT DIFFERENTIAL Routine 09/11/2024 8:48 PM CDT PHOSPHORUS Timed 09/11/2024 8:48 PM CDT MAGNESIUM Timed 09/11/2024 8:[address] STROKE PROTOCOL W WO CONTRAST Critical/Life-T hreatening 09/11/2024 4:55 PM CDT POCT ACTIVATED CLOTTING TIME, LOW RANGE Routine 09/11/2024 1:20 PM CDT POCT ACTIVATED CLOTTING TIME, LOW RANGE Routine 09/11/2024 1:02 PM CDT POCT ACTIVATED CLOTTING TIME, LOW RANGE Routine 09/11/2024 12:42 PM CDT POCT ACTIVATED CLOTTING TIME, LOW RANGE Routine 09/11/2024 12:33 PM CDT POCT ACTIVATED CLOTTING TIME, LOW RANGE Routine 09/11/2024 12:25 PM CDT POCT ACTIVATED CLOTTING TIME, LOW RANGE Routine 09/11/2024 12:06 PM CDT UT AN PROCEDURE PLACEHOLDER Routine 09/11/2024 11:21 AM CDT UT AN PROCEDURE PLACEHOLDER Routine 09/11/2024 11:21 AM CDT UT AN PROCEDURE PLACEHOLDER Routine 09/11/2024 11:21 AM CDT UT AN PROCEDURE PLACEHOLDER Routine 09/11/2024 11:20 AM CDT UT AN ELECTIVE ENDOTRACHEAL AIRWAY Routine 09/11/2024 11:20 AM CDT ENDARTERECTOMY - CAROTID WITH PATCH GRAFT 09/11/2024 10:31 AM CDT ICAO (internal carotid artery occlusion), right TYPE AND SCREEN Timed 09/10/2024 11:29 PM CDT URINALYSIS, MICROSCOPIC ONLY STAT 09/10/2024 9:19 PM CDT URINE CULTURE STAT 09/10/2024 9:19 PM CDT URINALYSIS AND REFLEX TO MICROSCOPIC AND CULTURE STAT 09/10/2024 9:19 PM CDT EGFR Routine 09/10/2024 8:53 PM CDT MAGNESIUM Routine 09/10/2024 8:53 PM CDT BASIC METABOLIC PANEL Routine 09/10/2024 8:53 PM CDT CALCIUM, IONIZED Routine 09/10/2024 8:53 PM CDT CBC WITHOUT DIFFERENTIAL Routine 09/10/2024 8:53 PM CDT PHOSPHORUS Timed 09/10/2024 8:53 PM CDT MAGNESIUM Timed 09/10/2024 8:00 PM CDT EGFR Timed 09/09/2024 8:54 PM CDT PHOSPHORUS Timed 09/09/2024 8:54 PM CDT MAGNESIUM Timed 09/09/2024 8:54 PM CDT CALCIUM, IONIZED Timed 09/09/2024 8:54 PM CDT BASIC METABOLIC PANEL Timed 09/09/2024 8:54 PM CDT EGFR STAT 09/09/2024 4:00 PM CDT CALCIUM, IONIZED STAT 09/09/2024 4:00 PM CDT PHOSPHORUS STAT 09/09/2024 4:00 PM CDT MAGNESIUM STAT 09/09/2024 4:00 PM CDT BASIC METABOLIC PANEL STAT 09/09/2024 4:00 PM CDT TRANSTHORACIC ECHO (TTE) COMPLETE W DOPPLER/CF W CONTRAST Routine 09/09/2024 10:49 AM CDT EGFR Timed 09/09/2024 4:58 AM CDT PHOSPHORUS Timed 09/09/2024 4:58 AM CDT MAGNESIUM Timed 09/09/2024 4:58 AM CDT CALCIUM, IONIZED Timed 09/09/2024 4:58 AM CDT BASIC METABOLIC PANEL Timed 09/09/2024 4:58 AM CDT VITAMIN B12 Routine 09/09/2024 2:05 AM CDT FERRITIN Routine 09/09/2024 2:05 AM CDT IRON PROFILE W/ IBC Routine 09/09/2024 2 :05 AM CDT ECG 12-LEAD Routine 09/08/2024 9:33 PM CDT CRITICAL RESULT CALLBACK CHEMISTRY Routine 09/08/2024 7:58 PM CDT THYROID FUNCTION CASCADE Routine 09/08/2024 7:58 PM CDT PTH Routine 09/08/2024 7:58 PM CDT VITAMIN D 25 HYDROXY Routine 09/08/2024 7:58 PM CDT MAGNESIUM Routine 09/08/2024 7:58 PM CDT PHOSPHORUS Routine 09/08/2024 7:58 PM CDT CALCIUM, IONIZED Timed 09/08/2024 7:58 PM CDT CALCIUM, IONIZED Routine 09/08/2024 7:44 PM CDT CTA HEAD NECK W WO CONTRAST ED 09/08/2024 7:18 PM CDT TROPONIN I HIGH-SENSITIVITY 6-HOUR Timed 09/08/2024 6:30 PM CDT TROPONIN I HIGH-SENSITIVITY 4-HOUR Timed 09/08/2024 5:49 PM CDT US CAROTIDS DUPLEX BILATERAL ED Urgent/IP Urgent 09/08/2024 4:04 PM CDT CRITICAL RESULT CALLBACK CHEMISTRY STAT 09/08/2024 2:21 PM CDT CALCIUM, IONIZED STAT 09/08/2024 2:21 PM CDT TROPONIN I HIGH-SENSITIVITY 2-HOUR Timed 09/08/2024 2:21 PM CDT XR CHEST PA LATERAL 2 VIEWS ED 09/08/2024 1:45 PM CDT ECG 12-LEAD STAT 09/08/2024 12:41 PM CDT CRITICAL RESULT CALLBACK CHEMISTRY STAT 09/08/2024 12:34 PM CDT EGFR STAT 09/08/2024 12:34 PM CDT DIFFERENTIAL AUTO STAT 09/08/2024 12: 34 PM CDT TROPONIN I HIGH-SENSITIVITY SERIES (BASELINE, 2HR, 4HR, 6HR) STAT 09/08/2024 12:34 PM CDT COMPREHENSIVE METABOLIC PANEL STAT 09/08/2024 12:34 PM CDT CBC WITH AUTO DIFFERENTIAL STAT 09/08/2024 12:34 PM CDT from Last 3 Months Results * eGFR (09/13/2024 8:21 PM CDT) eGFR 66 >=60 mL/min/1. 73 m2 Comment: Interpretive Data Reference Interval Normal >/= 90 mL/min/1.73m2 Mildly decreased* 60 - 89 mL/min/1.73m2 Mildly to moderately decreased 45 - 59 mL/min/1.73m2 Moderately to severely decreased 30 - 44 mL/min/1.73m2 Severely decreased 15 - 29 mL/min/1.73m2 Kidney Failure < 15 mL/min/1.73m2 *Relative to young adult level Estimated glomerular filtration rate is determined by the 2020 CKD-EPI equation recommended by the National Kidney Foundation (A Unifying Approach to GFR Estimation: Recommendations of the NKF-ASK Task Force on Reassessing the Inclusion of Race in Diagnosing Kidney Disease, JASN 2020). The CKD-EPI equation should not be used for patients with unstable renal function and has not been validated in children and those over 70. Current interpretive data was last reviewed 2021. Blood 09/13/2024 8:21 PM CDT 09/13/2024 9:11 PM CDT us Giselle Nunez MD LAB BLOOD ORDERABLE S Final Result [facility] Department [place] [address] * Calcium, ionized (09/13/2024 8:21 PM CDT) Calcium, Ionized 4.60 4.50 - 5.10 mg/dL Blood 09/13/2024 8:21 PM CDT 09/13/2024 9:10 PM CDT Giselle Nunez MD LAB BLOOD ORDERABLE S Final Result Performing Organization Address [facility] Co de Phone Number [facility] Department [place] [address] * (ABNORMAL) CBC without differential (09/13/2024 8:21 PM CDT) Pathologist [facility] WBC 11.57(H) 3.80 - 9.90 K/cumm Hgb 9.6(L) 11.9 - 15.5 g/dL [facility] Hct 30.3(L) 35.6 - 45.5 % [facility] Plt 260 150 - 400 K/cumm [facility] MPV 12.0 9.1 - 12.3 fL [facility] RBC 3.52(L) 3.90 - 5.20 M/cumm [facility] MCV 86.1 81.3 - 96.4 fL [facility] MCH 27.3 27.1 - 33.3 pg [facility] MCHC 31.7(L) 32.3 - 35.7 g/dL [facility] RDW CV 15.2(H) 11.1 - 14.9 % [facility] RDW SD 48.4(H) 35.7 - 48.1 fL [facility] NRBC abs 0.00 0.00 - 0.01 K/cumm [facility] Blood 09/13/2024 8:21 PM CDT 09/13/2024 9:12 PM CDT Giselle Nunez MD LAB BLOOD ORDERABLE S Final Result [facility] Department [place] [address] * (ABNORMAL) Basic metabolic panel (09/13/2024 8:21 PM CDT) Pathologist [facility] Sodium 138 135 - 145 mmol/L Potassium, pl 4.6 3.3 - 4.9 mmol/L [facility] Chloride 99 97 - 110 mmol/L [facility] CO2 33(H) 22 - 32 mmol/L [facility] Anion gap 6 2 - 15 mmol/L [facility] BUN 13 6 - 25 mg/dL [facility] Creatinine 0.89 0.60 - 1.10 mg/dL [facility] Glucose 114 70 - 199 mg/dL [facility] Comment: Interpretive Data Fasting glucose >/= 126 mg/dl is diagnostic for diabetes. Fasting is defined as no caloric intake for at least 8 hours. Fasting glucose between 100 mg/dl to 125 mg/dl is diagnostic of prediabetes. In a patient with classic symptoms of hyperglycemia or hyperglycemic crisis, a random glucose >/= 200 mg/dl is diagnostic for diabetes. In the absence of unequivocal hyperglycemia, results should be confirmed by repeat testing. The classification and Diagnosis of Diabetes Diabetes Care 2021; 46: S19-S40. Current interpretive data was last revised 2022. Calcium 9.5 8.5 - 10.3 mg/dL [facility] Blood 09/13/2024 8:21 PM CDT 09/13/2024 9:11 PM CDT Giselle Nunez MD LAB BLOOD ORDERABLE S Final Result [facility] Department [place] [address] * eGFR (09/12/2024 9:21 PM CDT) [facility] eGFR 69 >=60 mL/min/1. 73 m2 Comment: Interpretive Data Reference Interval Normal >/= 90 mL/min/1.73m2 Mildly decreased* 60 - 89 mL/min/1.73m2 Mildly to moderately decreased 45 - 59 mL/min/1.73m2 Moderately to severely decreased 30 - 44 mL/min/1.73m2 Severely decreased 15 - 29 mL/min/1.73m2 Kidney Failure < 15 mL/min/1.73m2 *Relative to young adult level Estimated glomerular filtration rate is determined by the 2020 CKD-EPI equation recommended by the National Kidney Foundation (A Unifying Approach to GFR Estimation: Recommendations of the NKF-ASK Task Force on Reassessing the Inclusion of Race in Diagnosing Kidney Disease, JASN 2020). The CKD-EPI equation should not be used for patients with unstable renal function and has not been validated in children and those over 70. Current interpretive data was last reviewed 2021. Blood 09/12/2024 9:21 PM CDT 09/12/2024 10:29 PM CDT Giselle Nunez MD LAB BLOOD ORDERABLE S Final Result Performing Organization Address City/[facility]/ZIP Co de Phone Number [facility] Department [place] [address] * (ABNORMAL) Calcium, ionized (09/12/2024 9:21 PM CDT) Pathologist [facility] Calcium, Ionized 4.33(L) 4.50 - 5.10 mg/dL Blood 09/12/2024 9:21 PM CDT 09/12/2024 10:18 PM CDT Giselle Nunez MD LAB BLOOD ORDERABLE S Final Result [facility] Department [place] [address] * (ABNORMAL) CBC without differential (09/12/2024 9:21 PM CDT) WBC 10.69(H) 3.80 - 9.90 K/cumm Hgb 9.4(L) 11.9 - 15.5 g/dL [facility] Hct 29.2(L) 35.6 - 45.5 % [facility] Plt 214 150 - 400 K/cumm [facility] MPV 12.2 9.1 - 12.3 fL [facility] RBC 3.45(L) 3.90 - 5.20 M/cumm [facility] MCV 84.6 81.3 - 96.4 fL [facility] MCH 27.2 27.1 - 33.3 pg [facility] MCHC 32.2(L) 32.3 - 35.7 g/dL [facility] RDW CV 15.1(H) 11.1 - 14.9 % [facility] RDW SD 46.3 35.7 - 48.1 fL [facility] NRBC abs 0.00 0.00 - 0.01 K/cumm [facility] Blood 09/12/2024 9:21 PM CDT 09/12/2024 10:30 PM CDT Giselle Nunez MD LAB BLOOD ORDERABLE S Final Result Performing Organization Address [facility] de Phone Number [facility] [place] [address] * Phosphorus (09/12/2024 9:21 PM CDT) Phosphorus, pl 3.0 2.3 - 4.5 mg/dL Blood 09/12/2024 9:21 PM CDT 09/12/2024 10:29 PM CDT Giselle Nunez MD LAB BLOOD ORDERABLE S Final Result Performing Organization Address [facility] de Phone Number [facility] Department [place] [address] * Magnesium (09/12/2024 9:21 PM CDT) Magnesium 1.9 1.4 - 2.5 mg/dL Blood 09/12/2024 9:21 PM CDT 09/12/2024 10:29 PM CDT Giselle Nunez MD LAB BLOOD ORDERABLE S Final Result [facility] Department [place] [address] * (ABNORMAL) Basic metabolic panel (09/12/2024 9:21 PM CDT) Pathologist [facility] Sodium 137 135 - 145 mmol/L Potassium, pl 4.5 3.3 - 4.9 mmol/L [facility] Comment:Hemolyzed; Potassium value may be falsely elevated by as much as 0.3-0.5 mmol/L. Suggest redraw and reanalysis. Chloride 96(L) 97 - 110 mmol/L [facility] CO2 34(H) 22 - 32 mmol/L [facility] Anion gap 7 2 - 15 mmol/L [facility] BUN 13 6 - 25 mg/dL [facility] Creatinine 0.86 0.60 - 1.10 mg/dL [facility] Glucose 141 70 - 199 mg/dL [facility] Comment: Interpretive Data Fasting glucose >/= 126 mg/dl is diagnostic for diabetes. Fasting is defined as no caloric intake for at least 8 hours. Fasting glucose between 100 mg/dl to 125 mg/dl is diagnostic of prediabetes. In a patient with classic symptoms of hyperglycemia or hyperglycemic crisis, a random glucose >/= 200 mg/dl is diagnostic for diabetes. In the absence of unequivocal hyperglycemia, results should be confirmed by repeat testing. The classification and Diagnosis of Diabetes Diabetes Care 2021; 46: S19-S40. Current interpretive data was last revised 2022. Calcium 8.6 8.5 - 10.3 mg/dL [facility] Blood 09/12/2024 9:21 PM CDT 09/12/2024 10:29 PM CDT us Giselle Nunez MD LAB BLOOD ORDERABLE S Final Result [facility] Department [place] [address] * Phosphorus (09/12/2024 8:04 AM CDT) Pathologist [facility] Phosphorus, pl 2.9 2.3 - 4.5 mg/dL Blood 09/12/2024 8:04 AM CDT 09/12/2024 8:34 AM CDT us Giselle Nunez MD LAB BLOOD ORDERABLE S Final Result Performing Organization Address City/[facility] Co de Phone Number [facility] [place] [address] * Magnesium (09/12/2024 8:04 AM CDT) Magnesium 2.2 1.4 - 2.5 mg/dL Blood 09/12/2024 8:04 AM CDT 09/12/2024 8:34 AM CDT Giselle Nunez MD LAB BLOOD ORDERABLE S Final Result Performing Organization Address City/[facility] de Phone Number [facility] [place] [address] * eGFR (09/11/2024 8:48 PM CDT) eGFR 84 >=60 mL/min/1. 73 m2 Comment: Interpretive Data Reference Interval Normal >/= 90 mL/min/1.73m2 Mildly decreased* 60 - 89 mL/min/1.73m2 Mildly to moderately decreased 45 - 59 mL/min/1.73m2 Moderately to severely decreased 30 - 44 mL/min/1.73m2 Severely decreased 15 - 29 mL/min/1.73m2 Kidney Failure < 15 mL/min/1.73m2 *Relative to young adult level Estimated glomerular filtration rate is determined by the 2020 CKD-EPI equation recommended by the National Kidney Foundation (A Unifying Approach to GFR Estimation: Recommendations of the NKF-ASK Task Force on Reassessing the Inclusion of Race in Diagnosing Kidney Disease, JASN 2020). The CKD-EPI equation should not be used for patients with unstable renal function and has not been validated in children and those over 70. Current interpretive data was last reviewed 2021. Blood 09/11/2024 8:48 PM CDT 09/11/2024 8:56 PM CDT us Mayur Man MD LAB BLOOD ORDERABLES Final Res ult Performing Organization Address City/[facility]/ZIP Co de Phone Number [facility] [place] [address] * Calcium, ionized (09/11/2024 8:48 PM CDT) [facility] Calcium, Ionized 4.55 4.50 - 5.10 mg/dL Blood 09/11/2024 8:48 PM CDT 09/11/2024 8:56 PM CDT us Giselle Nunez MD LAB BLOOD ORDERABLE S Final Result Performing Organization Address [facility] de Phone Number [facility] Department [place] [address] * (ABNORMAL) CBC without differential (09/11/2024 8:48 PM CDT) [facility] WBC 9.23 3.80 - 9.90 K/cumm Hgb 9.3(L) 11.9 - 15.5 g/dL [facility] Hct 29.2(L) 35.6 - 45.5 % [facility] Plt 261 150 - 400 K/cumm [facility] MPV 11.5 9.1 - 12.3 fL [facility] RBC 3.40(L) 3.90 - 5.20 M/cumm [facility] MCV 85.9 81.3 - 96.4 fL [facility] MCH 27.4 27.1 - 33.3 pg [facility] MCHC 31.8(L) 32.3 - 35.7 g/dL [facility] RDW CV 15.3(H) 11.1 - 14.9 % [facility] RDW SD 47.8 35.7 - 48.1 fL [facility] NRBC abs 0.00 0.00 - 0.01 K/cumm [facility] Blood 09/11/2024 8:48 PM CDT 09/11/2024 9:25 PM CDT Giselle Nunez MD LAB BLOOD ORDERABLE S Final Result Performing Organization Address [facility] de Phone Number [facility] [place] [address] * Phosphorus (09/11/2024 8:48 PM CDT) [facility] Phosphorus, pl 3.4 2.3 - 4.5 mg/dL Blood 09/11/2024 8:48 PM CDT 09/11/2024 8:56 PM CDT Giselle Nunez MD LAB BLOOD ORDERABLE S Final Result Performing Organization Address [facility] de Phone Number [facility] [place] [address] * (ABNORMAL) Magnesium (09/11/2024 8:48 PM CDT) [facility] Magnesium 1.3(L) 1.4 - 2.5 mg/dL Blood 09/11/2024 8:48 PM CDT 09/11/2024 8:56 PM CDT Giselle Nunez MD LAB BLOOD ORDERABLE S Final Result Performing Organization Address [facility] [place] [address] * (ABNORMAL) Basic metabolic panel (09/11/2024 8:48 PM CDT) [facility] Sodium 137 135 - 145 mmol/L Potassium, pl 4.6 3.3 - 4.9 mmol/L [facility] Chloride 99 97 - 110 mmol/L [facility] CO2 34(H) 22 - 32 mmol/L [facility] Anion gap 4 2 - 15 mmol/L [facility] BUN 8 6 - 25 mg/dL [facility] Creatinine 0.73 0.60 - 1.10 mg/dL [facility] Glucose 200(H) 70 - 199 mg/dL [facility] Comment: Interpretive Data Fasting glucose >/= 126 mg/dl is diagnostic for diabetes. Fasting is defined as no caloric intake for at least 8 hours. Fasting glucose between 100 mg/dl to 125 mg/dl is diagnostic of prediabetes. In a patient with classic symptoms of hyperglycemia or hyperglycemic crisis, a random glucose >/= 200 mg/dl is diagnostic for diabetes. In the absence of unequivocal hyperglycemia, results should be confirmed by repeat testing. The classification and Diagnosis of Diabetes Diabetes Care 2021; 46: S19-S40. Current interpretive data was last revised 2022. Calcium 9.0 8.5 - 10.3 mg/dL [facility] Blood 09/11/2024 8:48 PM CDT 09/11/2024 8:56 PM CDT us Mayur Man MD LAB BLOOD ORDERABLES Final Res ult [facility] Department [place] [address] * CTA Stroke Head Neck W WO Contrast (09/11/2024 4:55 PM CDT) Anatomical Region Laterality Modality Head and Neck N/A Computed Tomogra phy 09/11/2024 5:22 PM CDT Impressions 09/11/2024 6:00 PM CDT 1. Interval changes of left carotid endarterectomy with a new small dissection flap at the distal left common carotid artery. 2. No acute intracranial hemorrhage. 3. 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 No new aneurysm. 4. No new large territory edematous infarct. 5. 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 6. 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 7. Right Bilateral thyroid nodules measuring up to 2.2 cm on the right and 1.5 cm on the left. Recommend correlation with thyroid ultrasound. The non-critical CT head results were discussed with Dr. Flanagan by Dr. Gonzales on 09/11/2024 at 4:58 PM. The Critical CTA results were discussed with Dr. Flanagan by Dr. Gonzales on 09/11/2024 at 5:17 PM. Dictated by: Yusef Gonzales MD The radiology attending physician has personally reviewed this study, and had reviewed and/or edited this written report and agrees with it. Electronically signed by: Karly Gonzalez MD, PhD Narrative 09/11/2024 6:00 PM CDT EXAMINATION: 1. Computed tomography angiography (CTA) of the head without and with contrast 2. 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 Left carotid endarterectomy 09/11/2024. Presenting with left-sided facial droop. TECHNIQUE: CT of the head was performed with images acquired from skull base to vertex without intravenous contrast. Computed tomographic angiography was obtained from the aortic arch to the vertex following the uneventful administration of intravenous contrast. 3D images of the CTA were generated on a dedicated workstation/sports book server. Contrast information: 94 mL Optiray-350 IV COMPARISON: CTA 09/08/2024. FINDINGS: HEAD CT FINDINGS: Postsurgical changes of right frontal craniotomy and right MCA artery aneurysm clipping. No significant change in right MCA territory encephalomalacia involving the frontal and temporal lobes. There is no acute intracranial hemorrhage. There is no large territory of parenchymal edema. There is no mass effect or midline shift. Bilateral lens replacements. The paranasal sinuses, and mastoids are unremarkable. No acute skull fracture. ANGIOGRAPHIC FINDINGS: Calcified and non-calcified atherosclerosis of the ascending and descending thoracic aorta. Two-vessel origin of the aortic branch vessels. There is no significant stenosis of the origins of the great vessels. Focal dissection flap involving the brachiocephalic artery, right common carotid artery, and right subclavian artery, similar to prior. There is no geographic area of vascular paucity in the brain. Left anterior circulation: L CCA and carotid bifurcation: interval changes of carotid endarterectomy with a small new dissection flap at the distal common carotid artery L ICA cervical: no occlusion or significant stenosis L ICA intracranial: no occlusion or significant stenosis L M1: no occlusion or significant stenosis L M2 proximal or dominant: no occlusion or significant stenosis L mid-M2/M3 branches: no occlusion or significant stenosis L IRENE: no occlusion or significant stenosis Right anterior circulation: R CCA: focal dissection flap as described above R carotid bifurcation: High-grade stenosis due to calcified atherosclerotic plaque. 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 There is no evidence for an arteriovenous malformation. INCIDENTAL FINDINGS: Operative changes of left carotid endarterectomy with subcutaneous emphysema and a left neck surgical drain. There is no suspicious cervical lymphadenopathy. There is no significant cervical spondylosis. Limited views of the lung apices are normal bilateral subsegmental atelectasis. Median sternotomy changes. Right thyroid 2.2 cm nodule and left thyroid 1.5 cm nodule. Procedure Note Karly Gonzalez MD PhD - 09/11/2024 EXAMINATION: 1. Computed tomography angiography (CTA) of the head without and with contrast 2. 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 Left carotid endarterectomy 09/11/2024. Presenting with left-sided facial droop. TECHNIQUE: CT of the head was performed with images acquired from skull base to vertex without intravenous contrast. Computed tomographic angiography was obtained from the aortic arch to the vertex following the uneventful administration of intravenous contrast. 3D images of the CTA were generated on a dedicated workstation/sports book server. Contrast information: 94 mL Optiray-350 IV COMPARISON: CTA 09/08/2024. FINDINGS: HEAD CT FINDINGS: Postsurgical changes of right frontal craniotomy and right MCA artery aneurysm clipping. No significant change in right MCA territory encephalomalacia involving the frontal and temporal lobes. There is no acute intracranial hemorrhage. There is no large territory of parenchymal edema. There is no mass effect or midline shift. Bilateral lens replacements. The paranasal sinuses, and mastoids are unremarkable. No acute skull fracture. ANGIOGRAPHIC FINDINGS: Calcified and non-calcified atherosclerosis of the ascending and descending thoracic aorta. Two-vessel origin of the aortic branch vessels. There is no significant stenosis of the origins of the great vessels. Focal dissection flap involving the brachiocephalic artery, right common carotid artery, and right subclavian artery, similar to prior. There is no geographic area of vascular paucity in the brain. Left anterior circulation: L CCA and carotid bifurcation: interval changes of carotid endarterectomy with a small new dissection flap at the distal common carotid artery L ICA cervical: no occlusion or significant stenosis L ICA intracranial: no occlusion or significant stenosis L M1: no occlusion or significant stenosis L M2 proximal or dominant: no occlusion or significant stenosis L mid-M2/M3 branches: no occlusion or significant stenosis L IRENE: no occlusion or significant stenosis Right anterior circulation: R CCA: focal dissection flap as described above R carotid bifurcation: High-grade stenosis due to calcified atherosclerotic plaque. 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 There is no evidence for an arteriovenous malformation. INCIDENTAL FINDINGS: Operative changes of left carotid endarterectomy with subcutaneous emphysema and a left neck surgical drain. There is no suspicious cervical lymphadenopathy. There is no significant cervical spondylosis. Limited views of the lung apices are normal bilateral subsegmental atelectasis. Median sternotomy changes. Right thyroid 2.2 cm nodule and left thyroid 1.5 cm nodule. IMPRESSION: 1. Interval changes of left carotid endarterectomy with a new small dissection flap at the distal left common carotid artery. 2. No acute intracranial hemorrhage. 3. 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 No new aneurysm. 4. No new large territory edematous infarct. 5. 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 6. 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 7. Right Bilateral thyroid nodules measuring up to 2.2 cm on the right and 1.5 cm on the left. Recommend correlation with thyroid ultrasound. The non-critical CT head results were discussed with Dr. Flanagan by Dr. Gonzales on 09/11/2024 at 4:58 PM. The Critical CTA results were discussed with Dr. Flanagan by Dr. Gonzales on 09/11/2024 at 5:17 PM. Dictated by: Yusef Gonzales MD The radiology attending physician has personally reviewed this study, and had reviewed and/or edited this written report and agrees with it. Electronically signed by: Karly Gonzalez MD, PhD Mayur Man MD IMG CT PROCEDURES Final Result * POCT Activated clotting time, low range (09/11/2024 1:20 PM CDT) ACT 147 123 - 168 sec POC Performer [id number] [facility] POC Device Number [id number] [facility] Blood 09/11/2024 1:20 PM CDT 09/11/2024 1:20 PM CDT us Giselle Nunez MD LAB POCT ORDERABLES - DEVICE Final Result [facility] [place] [address] * (ABNORMAL) POCT Activated clotting time, low range (09/11/2024 1:02 PM CDT) ACT 255(H) 123 - 168 sec POC Performer [id number] [facility] POC Device Number [id number] [facility] Blood 09/11/2024 1:02 PM CDT 09/11/2024 1:02 PM CDT Giselle Nunez MD LAB POCT ORDERABLES - DEVICE Final Result Performing Organization Address [facility] Co de Phone Number [facility] [place] [address] * (ABNORMAL) POCT Activated clotting time, low range (09/11/2024 12:42 PM CDT) ACT 298(H) 123 - 168 sec POC Performer [id number] [facility] POC Device Number [id number] [facility] Blood 09/11/2024 12:4 2 PM CDT 09/11/2024 12:42 PM CDT Giselle Nunez MD LAB POCT ORDERABLES - DEVICE Final Result Performing Organization Address [facility] Co de Phone Number [facility] [place] [address] * (ABNORMAL) POCT Activated clotting time, low range (09/11/2024 12:33 PM CDT) ACT 244(H) 123 - 168 sec POC Performer [id number] [facility] POC Device Number [id number] [facility] Blood 09/11/2024 12:3 3 PM CDT 09/11/2024 12:33 PM CDT Giselle Nunez MD LAB POCT ORDERABLES - DEVICE Final Result Performing Organization Address [facility] Co de Phone Number [facility] [place] [address] * (ABNORMAL) POCT Activated clotting time, low range (09/11/2024 12:25 PM CDT) ACT 232(H) 123 - 168 sec POC Performer [id number] [facility] POC Device Number [id number] [facility] Blood 09/11/2024 12:2 5 PM CDT 09/11/2024 12:25 PM CDT Giselle Nunez MD LAB POCT ORDERABLES - DEVICE Final Result Performing Organization Address [facility] [place] [address] * (ABNORMAL) POCT Activated clotting time, low range (09/11/2024 12:06 PM CDT) ACT 256(H) 123 - 168 sec POC Performer [id number] [facility] POC Device Number [id number] [facility] Blood 09/11/2024 12:0 6 PM CDT 09/11/2024 12:06 PM CDT Giselle Nunez MD LAB POCT ORDERABLES - DEVICE Final Result Performing Organization Address [facility] [place] [address] * UT AN PROCEDURE PLACEHOLDER (09/11/2024 11:21 AM CDT) Narrative Vane Garzon - 09/11/2024 11:21 AM CDT Vane Garzon 09/11/2024 11:21 AM Arterial Line Patient location: pre-op holding Indication: continuous blood pressure monitoring and blood sampling needed Ultrasound assisted: yes Staff: Supervising provider: Yemi Hood MD Placed by: Other staff: Vane Garzon Procedure prep: Prep solution: chlorhexadine/alcohol Prep: provider hat/mask and sterile gloves Skin infiltrated with lidocaine 1%: yes Arterial line: Catheter size: 20 gauge Catheter length: 1 and 3/4 inch Catheter type: wire-guided catheter Seldinger technique: yes Laterality: right Site: radial artery Line secured: Tegaderm and tape Results: good waveform and good blood return Number of attempts: 2 Assessment: Events: patient tolerated procedure well with no complications us Yemi Hood MD ANESTHESIA ORDERABLES Kathy l Result * UT AN PROCEDURE PLACEHOLDER (09/11/2024 11:21 AM CDT) Narrative Vane Garzon - 09/11/2024 11:21 AM CDT Vane Garzon 09/11/2024 11:21 AM Peripheral IV Catheter Patient location: OR Staff: Placed by: PHOTO MASK PROCESSOR: Michael Moreira CRNA Preprocedure prep: Prep solution: chlorhexadine PPE: gloves PIV line: Laterality: left Site: forearm Catheter size: 18 g Technique: palpatation and anatomical landmarks Procedure details: good blood return and occlusive dressing applied Number of attempts: 1 Assessment: Events: patient tolerated procedure well with no complications us Yemi Hood MD ANESTHESIA ORDERABLES Kathy l Result * UT AN PROCEDURE PLACEHOLDER (09/11/2024 11:21 AM CDT) Narrative Vane Garzon - 09/11/2024 11:21 AM CDT Vane Garzon 09/11/2024 11:21 AM Peripheral IV Catheter Patient location: OR Staff: Placed by: Other staff: Vane Garzon Preprocedure prep: Prep solution: chlorhexadine PPE: gloves PIV line: Laterality: right Site: hand Catheter size: 20 g Technique: palpatation and anatomical landmarks Procedure details: good blood return and occlusive dressing applied Number of attempts: 1 Assessment: Events: patient tolerated procedure well with no complications us Yemi Hood MD ANESTHESIA ORDERABLES Kathy l Result * UT AN ELECTIVE ENDOTRACHEAL AIRWAY, UT AN PROCEDURE PLACEHOLDER (09/11/2024 11:20 AM CDT) Narrative Vane Garzon - 09/11/2024 11:20 AM CDT Vane Garzon 09/11/2024 11:21 AM Airway Patient location: OR Urgency: elective Indications for airway management: anesthesia Difficult airway: no Staff: Supervising provider: Yemi Hood MD Placed by: Other staff: Vane Garzon Emergent airway documentation: Risks and benefits discussed: yes Consent obtained: yes Consent given by: patient Airway prep: Preoxygenated: yes Patient position: sniffing Mask difficulty assessment: 2 - vent by mask + OA or adjuvant Spontaneous ventilation during airway: absent Sedation level during airway: GA Final airway details: Final airway type: endotracheal airway Tube type: ETT ETT size: 7.0 mm Cuffed: yes Technique used for successful ETT placement: direct laryngoscopy Insertion site: oral Blade type: Spencer Blade size: 3 Cormack-Lehane (direct): grade I - full view of glottis Initial cuff pressure: 28 cm H2O Cuff volume: 8 mL Cuff inflated with: air ETT to teeth: 21 cm Placement verified by: auscultation and CO2 detection Airway secured with: silk tape Number of attempts: 1 Planned trial extubation: yes us Yemi Hood MD ANESTHESIA ORDERABLES Kathy l Result * Type and screen (09/10/2024 11:29 PM CDT) Shahid, indirect Negative ABO Rh A Negative [facility] Blood 09/10/2024 11:2 9 PM CDT 09/11/2024 12:18 AM CDT Narrative [facility] - 09/11/2024 1:31 AM CDT Has the patient had Daratumumab or Isatuximab in the past 6 months?->Unknown Danitza Underwood NP LAB BLOOD BANK TEST ORDERABLES Final Result [facility] Department [place] [address] * (ABNORMAL) Urinalysis reflex to microscopic and culture Urine (09/10/2024 9:19 PM CDT) Color, ur Yellow Yellow Clarity, ur Cloudy(A) Clear [facility] Specific gravity, ur 1.020 1.003 - 1.030 [facility] pH, urine 7.0 [facility] Comment: Interpretive Data U rine pH is affected by diet, medications, systemic acid-base disturbances, and renal tubular function. pH may affect urinary stone formation. For example, urine pH below 6.0 may help reduce the tendency for calcium phosphate stones and pH greater than 6.0 may reduce the tendency for uric acid stone formation. Source: [facility] Current Interpretive Data was last revised on 2017 Protein, ur ql 1+(A) Negative [facility] Glucose, ur ql Negative Negative [facility] Ketones, ur Negative Negative [facility] Bilirubin, ur Negative Negative [facility] Blood, ur Negative Negative [facility] Urobilinogen, ur <2.0 <2.0 mg/dL [facility] Nitrite, ur Negative Negative [facility] Leukocyte esterase, ur 3+(A) Negative [facility] UA reflex comment Reflex to microscopic UA will be performed. [facility] Urine 09/10/2024 9:19 PM CDT 09/10/2024 9:41 PM CDT Giselle Nunez MD LAB MICROBIOLOGY - GENERAL ORDERABLES Final Result Performing Organization Address [facility] de Phone Number [facility] Department [place] [address] * (ABNORMAL) Urinalysis, microscopic only (09/10/2024 9:19 PM CDT) WBC, ur >50(A) 0 - 5 /HPF RBC, ur 11-20(A) 0 - 2 /HPF [facility] Epithelial cells, squamous, ur 1-5 0 - 5 /HPF [facility] Bacteria, ur 1+(A) [facility] Mucous, ur Present(A) [facility] Culture Reflex Comment Reflex to urine culture will be performed. [facility] Urine 09/10/2024 9:19 PM CDT 09/10/2024 9:41 PM CDT Giselle Nunez MD LAB URINE ORDERABLE S Final Result Performing Organization Address City/[facility]/ZIP Co de Phone Number [facility] [place] [address] * (ABNORMAL) Urine culture Urine (09/10/2024 9:19 PM CDT) Report Final Report: Growth indicates contamination with mixed bacterial yasir. Please submit a new specimen with special attention given to the collection process and to prompt transport to the laboratory. (.) Organism GROWTH INDICATES CONTAMINATION WITH MIXED YASIR. [facility] Urine 09/10/2024 9:19 PM CDT 09/10/2024 11:10 PM CDT Narrative [facility] - 09/12/2024 12:39 PM CDT Urine culture reflexed based upon urinalysis results. Testing performed by [facility] ([phone]) us Giselle Nunez MD LAB MICROBIOLOGY - GENERAL ORDERABLES Final Result [facility] Department [place] [address] * eGFR (09/10/2024 8:53 PM CDT) eGFR 69 >=60 mL/min/1. 73 m2 Comment: Interpretive Data Reference Interval Normal >/= 90 mL/min/1.73m2 Mildly decreased* 60 - 89 mL/min/1.73m2 Mildly to moderately decreased 45 - 59 mL/min/1.73m2 Moderately to severely decreased 30 - 44 mL/min/1.73m2 Severely decreased 15 - 29 mL/min/1.73m2 Kidney Failure < 15 mL/min/1.73m2 *Relative to young adult level Estimated glomerular filtration rate is determined by the 2020 CKD-EPI equation recommended by the National Kidney Foundation (A Unifying Approach to GFR Estimation: Recommendations of the NKF-ASK Task Force on Reassessing the Inclusion of Race in Diagnosing Kidney Disease, JASN 202). The CKD-EPI equation should not be used for patients with unstable renal function and has not been validated in children and those over 70. Current interpretive data was last reviewed 2021. Blood 09/10/2024 8:53 PM CDT 09/10/2024 9:24 PM CDT us Giselle Nunez MD LAB BLOOD ORDERABLE S Final Result [facility] [place] [address] * Calcium, ionized (09/10/2024 8:53 PM CDT) [facility] Calcium, Ionized 4.50 4.50 - 5.10 mg/dL Blood 09/10/2024 8:53 PM CDT 09/10/2024 9:19 PM CDT Giselle Nunez MD LAB BLOOD ORDERABLE S Final Result Performing Organization Address City/[facility] Co de Phone Number [facility] [place] [address] * (ABNORMAL) CBC without differential (09/10/2024 8:53 PM CDT) [facility] WBC 9.20 3.80 - 9.90 K/cumm Hgb 10.0(L) 11.9 - 15.5 g/dL [facility] Hct 31.5(L) 35.6 - 45.5 % [facility] Plt 247 150 - 400 K/cumm [facility] MPV 11.7 9.1 - 12.3 fL [facility] RBC 3.70(L) 3.90 - 5.20 M/cumm [facility] MCV 85.1 81.3 - 96.4 fL [facility] MCH 27.0(L) 27.1 - 33.3 pg [facility] MCHC 31.7(L) 32.3 - 35.7 g/dL [facility] RDW CV 15.4(H) 11.1 - 14.9 % [facility] RDW SD 48.2(H) 35.7 - 48.1 fL [facility] NRBC abs 0.00 0.00 - 0.01 K/cumm [facility] Blood 09/10/2024 8:53 PM CDT 09/10/2024 9:31 PM CDT Giselle Nunez MD LAB BLOOD ORDERABLE S Final Result Performing Organization Address [facility] Co de Phone Number [facility] [place] [address] * (ABNORMAL) Phosphorus (09/10/2024 8:53 PM CDT) [facility] Phosphorus, pl 1.8(L) 2.3 - 4.5 mg/dL Blood 09/10/2024 8:53 PM CDT 09/10/2024 9:24 PM CDT Giselle Nunez MD LAB BLOOD ORDERABLE S Final Result Performing Organization Address [facility] de Phone Number [facility] [place] [address] * Magnesium (09/10/2024 8:53 PM CDT) [facility] Magnesium 1.8 1.4 - 2.5 mg/dL Blood 09/10/2024 8:53 PM CDT 09/10/2024 9:24 PM CDT Giselle Nunez MD LAB BLOOD ORDERABLE S Final Result Performing Organization Address [facility] [place] [address] * Basic metabolic panel (09/10/2024 8:53 PM CDT) [facility] Sodium 140 135 - 145 mmol/L Potassium, pl 4.2 3.3 - 4.9 mmol/L [facility] Chloride 100 97 - 110 mmol/L [facility] CO2 30 22 - 32 mmol/L [facility] Anion gap 10 2 - 15 mmol/L [facility] BUN 9 6 - 25 mg/dL [facility] Creatinine 0.86 0.60 - 1.10 mg/dL [facility] Glucose 151 70 - 199 mg/dL [facility] Comment: Interpretive Data Fasting glucose >/= 126 mg/dl is diagnostic for diabetes. Fasting is defined as no caloric intake for at least 8 hours. Fasting glucose between 100 mg/dl to 125 mg/dl is diagnostic of prediabetes. In a patient with classic symptoms of hyperglycemia or hyperglycemic crisis, a random glucose >/= 200 mg/dl is diagnostic for diabetes. In the absence of unequivocal hyperglycemia, results should be confirmed by repeat testing. The classification and Diagnosis of Diabetes Diabetes Care 2021; 46: S19-S40. Current interpretive data was last revised 2022. Calcium 8.5 8.5 - 10.3 mg/dL [facility] Blood 09/10/2024 8:53 PM CDT 09/10/2024 9:24 PM CDT Giselle Nunez MD LAB BLOOD ORDERABLE S Final Result Performing Organization Address City/[facility]/ZIP Co de Phone Number [facility] Department of [facility] [place] [address] * Magnesium (09/10/2024 8:00 PM CDT) [facility] Magnesium 1.9 1.4 - 2.5 mg/dL Blood 09/10/2024 8:00 PM CDT 09/10/2024 9:24 PM CDT Giselle Nunez MD LAB BLOOD ORDERABLE S Final Result Performing Organization Address City/[facility] Co de Phone Number [facility] Department [place] [address] * (ABNORMAL) eGFR (09/09/2024 8:54 PM CDT) [facility] eGFR 57(L) >=60 mL/min/1. 73 m2 Comment: Interpretive Data Reference Interval Normal >/= 90 mL/min/1.73m2 Mildly decreased* 60 - 89 mL/min/1.73m2 Mildly to moderately decreased 45 - 59 mL/min/1.73m2 Moderately to severely decreased 30 - 44 mL/min/1.73m2 Severely decreased 15 - 29 mL/min/1.73m2 Kidney Failure < 15 mL/min/1.73m2 *Relative to young adult level Estimated glomerular filtration rate is determined by the 2020 CKD-EPI equation recommended by the National Kidney Foundation (A Unifying Approach to GFR Estimation: Recommendations of the NKF-ASK Task Force on Reassessing the Inclusion of Race in Diagnosing Kidney Disease, JASN 2020). The CKD-EPI equation should not be used for patients with unstable renal function and has not been validated in children and those over 70. Current interpretive data was last reviewed 2021. Blood 09/09/2024 8:54 PM CDT 09/09/2024 9:10 PM CDT Mike Singh MD LAB BLOOD ORDERABLES Kathy l Result [facility] Department [place] [address] * (ABNORMAL) Calcium, ionized (09/09/2024 8:54 PM CDT) Calcium, Ionized 3.54(L) 4.50 - 5.10 mg/dL Blood 09/09/2024 8:54 PM CDT 09/09/2024 9:10 PM CDT Mike Singh MD LAB BLOOD ORDERABLES Kathy l Result [facility] Department [place] [address] * Phosphorus (09/09/2024 8:54 PM CDT) Phosphorus, pl 2.7 2.3 - 4.5 mg/dL Blood 09/09/2024 8:54 PM CDT 09/09/2024 9:10 PM CDT Giselle Nunez MD LAB BLOOD ORDERABLE S Final Result Performing Organization Address City/[facility]/ZIP Co de Phone Number [facility] [place] [address] * Magnesium (09/09/2024 8:54 PM CDT) Pathologist [facility] Magnesium 1.8 1.4 - 2.5 mg/dL Blood 09/09/2024 8:54 PM CDT 09/09/2024 9:10 PM CDT Giselle Nunez MD LAB BLOOD ORDERABLE S Final Result Performing Organization Address [facility] de Phone Number [facility] [facility] [place] [address] * (ABNORMAL) Basic metabolic panel (09/09/2024 8:54 PM CDT) [facility] Sodium 141 135 - 145 mmol/L Potassium, pl 3.7 3.3 - 4.9 mmol/L [facility] Chloride 102 97 - 110 mmol/L [facility] CO2 31 22 - 32 mmol/L [facility] Anion gap 8 2 - 15 mmol/L [facility] BUN 13 6 - 25 mg/dL [facility] Creatinine 1.01 0.60 - 1.10 mg/dL [facility] Glucose 193 70 - 199 mg/dL [facility] Comment: Interpretive Data Fasting glucose >/= 126 mg/dl is diagnostic for diabetes. Fasting is defined as no caloric intake for at least 8 hours. Fasting glucose between 100 mg/dl to 125 mg/dl is diagnostic of prediabetes. In a patient with classic symptoms of hyperglycemia or hyperglycemic crisis, a random glucose >/= 200 mg/dl is diagnostic for diabetes. In the absence of unequivocal hyperglycemia, results should be confirmed by repeat testing. The classification and Diagnosis of Diabetes Diabetes Care 2021; 46: S19-S40. Current interpretive data was last revised 2022. Calcium 6.6(L) 8.5 - 10.3 mg/dL [facility] Blood 09/09/2024 8:54 PM CDT 09/09/2024 9:10 PM CDT us Mike Singh MD LAB BLOOD ORDERABLES Kathy l Result Performing Organization Address [facility] Co de Phone Number [facility] [place] [address] * (ABNORMAL) eGFR (09/09/2024 4:00 PM CDT) eGFR 57(L) >=60 mL/min/1. 73 m2 Comment: Interpretive Data Reference Interval Normal >/= 90 mL/min/1.73m2 Mildly decreased* 60 - 89 mL/min/1.73m2 Mildly to moderately decreased 45 - 59 mL/min/1.73m2 Moderately to severely decreased 30 - 44 mL/min/1.73m2 Severely decreased 15 - 29 mL/min/1.73m2 Kidney Failure < 15 mL/min/1.73m2 *Relative to young adult level Estimated glomerular filtration rate is determined by the 2020 CKD-EPI equation recommended by the National Kidney Foundation (A Unifying Approach to GFR Estimation: Recommendations of the NKF-ASK Task Force on Reassessing the Inclusion of Race in Diagnosing Kidney Disease, JASN 2020). The CKD-EPI equation should not be used for patients with unstable renal function and has not been validated in children and those over 70. Current interpretive data was last reviewed 2021. Blood 09/09/2024 4:00 PM CDT 09/09/2024 4:07 PM CDT us Giselle Nunez MD LAB BLOOD ORDERABLE S Final Result Performing Organization Address City/[facility]/ZIP Co de Phone Number [facility] [place] [address] * (ABNORMAL) Calcium, ionized (09/09/2024 4:00 PM CDT) Calcium, Ionized 3.37(L) 4.50 - 5.10 mg/dL Blood 09/09/2024 4:00 PM CDT 09/09/2024 4:07 PM CDT Giselle Nunez MD LAB BLOOD ORDERABLE S Final Result Performing Organization Address City/[facility] Co de Phone Number [facility] [place] [address] * Phosphorus (09/09/2024 4:00 PM CDT) [facility] Phosphorus, pl 3.5 2.3 - 4.5 mg/dL Blood 09/09/2024 4:00 PM CDT 09/09/2024 4:07 PM CDT Giselle Nunez MD LAB BLOOD ORDERABLE S Final Result Performing Organization Address [facility] Co de Phone Number [facility] Department [place] [address] * Magnesium (09/09/2024 4:00 PM CDT) [facility] Magnesium 1.9 1.4 - 2.5 mg/dL Blood 09/09/2024 4:00 PM CDT 09/09/2024 4:07 PM CDT Result [facility] Giselle Nunez MD LAB BLOOD ORDERABLE S Final Result Performing Organization Address City/[facility] de Phone Number [facility] [place] [address] * (ABNORMAL) Basic metabolic panel (09/09/2024 4:00 PM CDT) [facility] Sodium 141 135 - 145 mmol/L Potassium, pl 3.7 3.3 - 4.9 mmol/L [facility] Chloride 100 97 - 110 mmol/L [facility] CO2 32 22 - 32 mmol/L [facility] Anion gap 9 2 - 15 mmol/L [facility] BUN 11 6 - 25 mg/dL [facility] Creatinine 1.01 0.60 - 1.10 mg/dL [facility] Glucose 125 70 - 199 mg/dL [facility] Comment: Interpretive Data Fasting glucose >/= 126 mg/dl is diagnostic for diabetes. Fasting is defined as no caloric intake for at least 8 hours. Fasting glucose between 100 mg/dl to 125 mg/dl is diagnostic of prediabetes. In a patient with classic symptoms of hyperglycemia or hyperglycemic crisis, a random glucose >/= 200 mg/dl is diagnostic for diabetes. In the absence of unequivocal hyperglycemia, results should be confirmed by repeat testing. The classification and Diagnosis of Diabetes Diabetes Care 2021; 46: S19-S40. Current interpretive data was last revised 2022. Calcium 6.8(L) 8.5 - 10.3 mg/dL [facility] Blood 09/09/2024 4:00 PM CDT 09/09/2024 4:07 PM CDT us Giselle Nunez MD LAB BLOOD ORDERABLE S Final Result [facility] Department [place] [address] * TRANSTHORACIC ECHO (TTE) COMPLETE W DOPPLER/CF W CONTRAST (09/09/2024 10:49 AM CDT) Anatomical Region Laterality Modality Ultrasound 09/09/2024 9:59 AM CDT Narrative 09/09/2024 11:19 AM CDT [facility] [place] [address] Transthoracic Echocardiographic Report Patient Name: DEEPTI HERNANDEZ J : 1945 (78y 11m) Gender: F Study Date: 09/09/2024 09:59:26 AM Ht(Inch): 62 Wt(Lb): 184.97 BSA: 1.92 Manager Title: Annalisa Cole RD,[facility] Location: [id number] Order Provider: MIKE SINGH Heart Rate: 71 BMI: 33.83 BP: 97/68 Ref Provider: MIKE SINGH PROCEDURES: Echocardiographic Report: Transthoracic complete echo with strain imaging and contrast, 2D, spectral and tissue Doppler, color flow Doppler, M-mode. Contrast: Contrast Enhancement was Employed: After initial imaging due to sub- optimal quality related to co-morbidity defined by patient's body habitus. 0.4 ml Optison Administered, (2.6 ml wasted). Technically difficult study due to: Poor acoustic windows. INDICATIONS: Atrial fibrillation and Coronary artery disease, eklutna vessel. CONCLUSIONS: 1. Normal left ventricular size based on volume index. The Ejection Fraction (Torres's) is measured at 54 %. Grade I diastolic dysfunction (normal LA pressure). The average global longitudinal strain is abnormal. The LV global strain is: -13.6 %. 2. Normal right ventricular size. Normal right ventricular systolic function. 3. Mildly dilated left atrium. 4. Mild to mod mitral valve regurgitation. 5. Mildly thickened aortic valve leaflets. Mild aortic valve regurgitation. 6. Mild tricuspid regurgitation. The Estimated RVSP is : 30-35 mmHg. 7. Mild to mod pulmonic regurgitation. 8. Physiologic pericardial effusion. 9. Aorta not well visualized due to limited TTE windows. . ATTESTATION: I have personally reviewed and interpreted this study without fellow or resident. - DISCLAIMER: The study images and the final report will be retained in the patient chart by the Echo Laboratory for the legally required time period. This chart constitutes the legal record of any testing performed. FINDINGS: Left Ventricle: Normal left ventricular size based on volume index. Normal left ventricular systolic function. The Ejection Fraction (Torres's) is measured at 54 %. Grade I diastolic dysfunction (normal LA pressure). The average global longitudinal strain is abnormal. The LV global strain is: -13.6 %. Paradoxical interventricular septal motion consistent with prior cardiac or thoracic surgery. Right Ventricle: Normal right ventricular size. Normal right ventricular systolic function. Left Atrium: Mildly dilated left atrium. Right Atrium: Right atrial dilatation. Mitral Valve: Mitral valve leaflets appear mildly thickened. Moderate mitral annular calcification. Mild to mod mitral valve regurgitation. The mean transmitral gradient is: 2 mmHg. Aortic Valve: Mildly thickened aortic valve leaflets. Mild aortic valve regurgitation. No aortic valve stenosis. The mean transaortic gradient is 9 mmHg. The aortic valve area by the continuity equation (using VTI) is 1.81 cm2. Aortic valve dimensionless index is 0.52. Tricuspid Valve: Mildly thickened tricuspid valve. Mild tricuspid regurgitation. The Estimated RVSP is : 30-35 mmHg. Pulmonic Valve: Mild to mod pulmonic regurgitation. Pericardium: Physiologic pericardial effusion. Aorta: Aorta not well visualized due to limited TTE windows. Mild aortic root dilation at sinuses of Valsalva. MEASUREMENTS: 2D/MM Value Range Doppler Value Range LVIDd 2D 5.36 cm [ 3.80 - 5.20 ] AV Peak Kee 1.9 m/s [ 1.0 - 1.7 ] LVIDs 2D 3.78 cm [ 2.20 - 3.50 ] AV Peak PG 14.44 mmHg IVSd 2D 1.37 cm [ 0.60 - 0.90 ] AV Mean PG 9 mmHg LVPWd 2D 0.84 cm [ 0.60 - 0.90 ] AV VTI 43.2 cm LV Thickness Ratio 1.6 LVOT Peak Kee 1.0 m/s [ 0.7 - 1.1 ] LV FS 2D 29.50 % [ 27.00 - 45.00 ] LVOT Peak PG 4.00 mmHg LV Mass 2D 238.33 g LVOT Mean PG 2 mmHg LV Mass Index 2D 124.13 g/m2 LVOT VTI 22.4 cm RWT 0.31 LVOT Diam 2.11 cm EDV Mod BP 102.30 ml [ 46.00 - 106.00 ] MEDHAT VTI 1.81 cm2 LV EDV Index 53.28 ml/m2 LVOT/AV VTI 0.52 - Dimensionless index (DVI) ESV Mod BP 47.52 ml [ 14.00 - 42.00 ] MV E Peak Kee 0.8 m/s [ 0.6 - 1.3 ] EF Mod BP 54 % [ 54 - 74 ] MV A Peak Kee 0.9 m/s [ 1.0 - 1.2 ] LV GLS -13.6 % [ -25.0 - -18.0 ] MV E/A 0.9 ratio [ 0.8 - 1.5 ] LA Length 4C 6.35 cm MV Peak Kee 1.1 m/s LA Length 2C 6.08 cm MV Peak PG 4.84 mmHg LA Volume BP 65.49 ml MV Mean PG 2 mmHg LA Volume Index 34.11 ml/m2 [ 16.00 - 34.00 ] MV VTI 29.8 cm RV Base Dimen 2D 4.0 cm [ 2.5 - 4.2 ] MV Decel Time 311.39 msec [ 104.00 - 258.00 ] TAPSE 1.55 cm [ 1.71 - 5.00 ] Med E` Kee 5.9 cm/sec [ 8.0 - 25.0 ] RA Volume 64.39 ml Lat E` Kee 7.7 cm/sec [ 10.0 - 25.0 ] RA Volume Index 33.54 ml/m2 Average E/E` 11.76 AoR Diam 2D 3.92 cm [ 2.70 - 3.70 ] RV S` 9.36 cm/sec Ao Root Index 2.04 cm/m2 [ 1.00 - 2.00 ] TR Peak Kee 2.5 m/s [ 1.0 - 2.8 ] TR Peak PG 25.0 mmHg PI ED Kee 126.85 m/sec Electronically Signed By: Kenan Prado M.D. 09/09/2024 11:18:43 AM CDT Procedure Note Kenan Prado MD PhD - 09/09/2024 [facility] [place] [address] Transthoracic Echocardiographic Report Patient Name: DEEPTI HERNANDEZ Viet : 1945 (78y 11m) Gender: F Study Date: 09/09/2024 09:59:26 AM Ht(Inch): 62 Wt(Lb): 184.97 BSA: 1.92 Manager Title[facility] Location: [id number] OrderProvider: MIKE SINGH Heart Rate: 71 BMI: 33.83 BP: 97/68 Ref Provider: MIKE SINGH PROCEDURES: Echocardiographic Report: Transthoracic complete echo with strain imagingand contrast, 2D, spectral and tissue Doppler, color flow Doppler, M-mode. Contrast: Contrast Enhancement was Employed: After initial imaging due tosub- optimal quality related to co-morbidity defined by patient's body habitus. 0.4 mlOptison Administered, (2.6 ml wasted). Technically difficult study due to: Poor acoustic windows. INDICATIONS: Atrial fibrillation and Coronary artery disease, eklutna vessel. CONCLUSIONS: 1. Normal left ventricular size based on volume index. The EjectionFraction (Torres's) is measured at 54 %. Grade I diastolic dysfunction (normal LA pressure).The average global longitudinal strain is abnormal. The LV global strain is: -13.6%. 2. Normal right ventricular size. Normal right ventricular systolicfunction. 3. Mildly dilated left atrium. 4. Mild to mod mitral valve regurgitation. 5. Mildly thickened aortic valve leaflets. Mild aortic valveregurgitation. 6. Mild tricuspid regurgitation. The Estimated RVSP is : 30-35 mmHg. 7. Mild to mod pulmonic regurgitation. 8. Physiologic pericardial effusion. 9. Aorta not well visualized due to limited TTE windows. . ATTESTATION: I have personally reviewed and interpreted this study without fellow orresident. - DISCLAIMER: The study images and the final report will be retained in the patientchart by the Echo Laboratory for the legally required time period. This chart constitutesthe legal record of any testing performed. FINDINGS: Left Ventricle: Normal left ventricular size based on volume index. Normalleft ventricular systolic function. The Ejection Fraction (Torres's) ismeasured at 54 %. Grade I diastolic dysfunction (normal LA pressure). The average globallongitudinal strain is abnormal. The LV global strain is: -13.6 %. Paradoxicalinterventricular septal motion consistent with prior cardiac or thoracic surgery. Right Ventricle: Normal right ventricular size. Normal right ventricularsystolic function. Left Atrium: Mildly dilated left atrium. Right Atrium: Right atrial dilatation. Mitral Valve: Mitral valve leaflets appear mildly thickened. Moderatemitral annular calcification. Mild to mod mitral valve regurgitation. The meantransmitral gradient is: 2 mmHg. Aortic Valve: Mildly thickened aortic valve leaflets. Mild aortic valveregurgitation. No aortic valve stenosis. The mean transaortic gradient is 9 mmHg. The aorticvalve area by the continuity equation (using VTI) is 1.81 cm2. Aortic valvedimensionless index is 0.52. Tricuspid Valve: Mildly thickened tricuspid valve. Mild tricuspidregurgitation. The Estimated RVSP is : 30-35 mmHg. Pulmonic Valve: Mild to mod pulmonic regurgitation. Pericardium: Physiologic pericardial effusion. Aorta: Aorta not well visualized due to limited TTE windows. Mild aorticroot dilation at sinuses of Valsalva. MEASUREMENTS: 2D/MM Value Range DopplerValue Range LVIDd 2D 5.36 cm [ 3.80 - 5.20 ] AV Peak Vel1.9 m/s [ 1.0 - 1.7 ] LVIDs 2D 3.78 cm [ 2.20 - 3.50 ] AV Peak PG14.44 mmHg IVSd 2D 1.37 cm [ 0.60 - 0.90 ] AV Mean PG9 mmHg LVPWd 2D 0.84 cm [ 0.60 - 0.90 ] AV VTI43.2 cm LV Thickness Ratio 1.6 LVOT Peak Vel1.0 m/s [ 0.7 - 1.1 ] LV FS 2D 29.50 % [ 27.00 - 45.00 ] LVOT Peak PG4.00 mmHg LV Mass 2D 238.33 g LVOT Mean PG2 mmHg LV Mass Index 2D 124.13 g/m2 LVOT VTI22.4 cm RWT 0.31 LVOT Diam2.11 cm EDV Mod BP 102.30 ml [ 46.00 - 106.00 ] MEDHAT VTI1.81 cm2 LV EDV Index 53.28 ml/m2 LVOT/AV VTI0.52 - Dimensionless index (DVI) ESV Mod BP 47.52 ml [ 14.00 - 42.00 ] MV E Peak Vel0.8 m/s [ 0.6 - 1.3 ] EF Mod BP 54 % [ 54 - 74 ] MV A Peak Vel0.9 m/s [ 1.0 - 1.2 ] LV GLS -13.6 % [ -25.0 - -18.0 ] MV E/A0.9 ratio [ 0.8 - 1.5 ] LA Length 4C 6.35 cm MV Peak Vel1.1 m/s LA Length 2C 6.08 cm MV Peak PG4.84 mmHg LA Volume BP 65.49 ml MV Mean PG2 mmHg LA Volume Index 34.11 ml/m2 [ 16.00 - 34.00 ] MV VTI29.8 cm RV Base Dimen 2D 4.0 cm [ 2.5 - 4.2 ] MV Decel Gmkd643.39 msec [ 104.00 - 258.00 ] TAPSE 1.55 cm [ 1.71 - 5.00 ] Med E` Vel5.9 cm/sec [ 8.0 - 25.0 ] RA Volume 64.39 ml Lat E` Vel7.7 cm/sec [ 10.0 - 25.0 ] RA Volume Index 33.54 ml/m2 Average E/E`11.76 AoR Diam 2D 3.92 cm [ 2.70 - 3.70 ] RV S`9.36 cm/sec Ao Root Index 2.04 cm/m2 [ 1.00 - 2.00 ] TR Peak Vel2.5 m/s [ 1.0 - 2.8 ] TR Peak PG 25.0 mmHg PI ED Kee 126.85 m/sec Electronically Signed By: Kenan Prado M.D. 09/09/2024 11:18:43 AM CDT Mike Singh MD CV ECHO PROCEDURES Final Result * eGFR (09/09/2024 4:58 AM CDT) eGFR 70 >=60 mL/min/1. 73 m2 Comment: Interpretive Data Reference Interval Normal >/= 90 mL/min/1.73m2 Mildly decreased* 60 - 89 mL/min/1.73m2 Mildly to moderately decreased 45 - 59 mL/min/1.73m2 Moderately to severely decreased 30 - 44 mL/min/1.73m2 Severely decreased 15 - 29 mL/min/1.73m2 Kidney Failure < 15 mL/min/1.73m2 *Relative to young adult level Estimated glomerular filtration rate is determined by the 2020 CKD-EPI equation recommended by the National Kidney Foundation (A Unifying Approach to GFR Estimation: Recommendations of the NKF-ASK Task Force on Reassessing the Inclusion of Race in Diagnosing Kidney Disease, JASN 2020). The CKD-EPI equation should not be used for patients with unstable renal function and has not been validated in children and those over 70. Current interpretive data was last reviewed 2021. Blood 09/09/2024 4:58 AM CDT 09/09/2024 6:06 AM CDT Mike Singh MD LAB BLOOD ORDERABLES Kathy l Result [facility] [place] [address] * (ABNORMAL) Calcium, ionized (09/09/2024 4:58 AM CDT) Calcium, Ionized 3.59(L) 4.50 - 5.10 mg/dL Blood 09/09/2024 4:58 AM CDT 09/09/2024 6:02 AM CDT Mike Singh MD LAB BLOOD ORDERABLES Kathy l Result [facility] [place] [address] * Phosphorus (09/09/2024 4:58 AM CDT) [facility] Phosphorus, pl 4.2 2.3 - 4.5 mg/dL Blood 09/09/2024 4:58 AM CDT 09/09/2024 6:02 AM CDT Giselle Nunez MD LAB BLOOD ORDERABLE S Final Result Performing Organization Address [facility] [place] [address] * Magnesium (09/09/2024 4:58 AM CDT) [facility] Magnesium 2.0 1.4 - 2.5 mg/dL Comment:Repeated and Verifie d Blood 09/09/2024 4:58 AM CDT 09/09/2024 6:02 AM CDT Giselle Nunez MD LAB BLOOD ORDERABLE S Final Result Performing Organization Address [facility] [place] [address] * (ABNORMAL) Basic metabolic panel (09/09/2024 4:58 AM CDT) [facility] Sodium 143 135 - 145 mmol/L Potassium, pl 2.8(L) 3.3 - 4.9 mmol/L [facility] Chloride 100 97 - 110 mmol/L [facility] CO2 32 22 - 32 mmol/L [facility] Anion gap 11 2 - 15 mmol/L [facility] BUN 9 6 - 25 mg/dL [facility] Creatinine 0.85 0.60 - 1.10 mg/dL [facility] Glucose 108 70 - 199 mg/dL [facility] Comment: Interpretive Data Fasting glucose >/= 126 mg/dl is diagnostic for diabetes. Fasting is defined as no caloric intake for at least 8 hours. Fasting glucose between 100 mg/dl to 125 mg/dl is diagnostic of prediabetes. In a patient with classic symptoms of hyperglycemia or hyperglycemic crisis, a random glucose >/= 200 mg/dl is diagnostic for diabetes. In the absence of unequivocal hyperglycemia, results should be confirmed by repeat testing. The classification and Diagnosis of Diabetes Diabetes Care 2021; 46: S19-S40. Current interpretive data was last revised 2022. Calcium 7.0(L) 8.5 - 10.3 mg/dL [facility] Blood 09/09/2024 4:58 AM CDT 09/09/2024 6:02 AM CDT Mike Singh MD LAB BLOOD ORDERABLES Kathy l Result Performing Organization Address [facility] Co de Phone Number [facility] Department [place] [address] * (ABNORMAL) Iron profile w/ IBC (09/09/2024 2:05 AM CDT) Iron 28(L) 35 - 145 mcg/dL TIBC 206(L) 250 - 400 mcg/dL [facility] Transferrin saturation 14(L) 20 - 50 % [facility] Blood 09/09/2024 2:05 AM CDT 09/09/2024 2:29 AM CDT Mike Singh MD LAB BLOOD ORDERABLES Kathy l Result Performing Organization Address [facility]/ZIP Co de Phone Number [facility] Department [place] [address] * (ABNORMAL) Ferritin (09/09/2024 2:05 AM CDT) Ferritin 155(H) 13 - 150 ng/mL Blood 09/09/2024 2:05 AM CDT 09/09/2024 2:29 AM CDT Mike Singh MD LAB BLOOD ORDERABLES Kathy l Result Performing Organization Address [facility]/ZIP Co de Phone Number [facility] Department [place] [address] * Vitamin B12 (09/09/2024 2:05 AM CDT) Vitamin B12 555 230 - 1,250 pg/mL Blood 09/09/2024 2:05 AM CDT 09/09/2024 2:29 AM CDT Mike Singh MD LAB BLOOD ORDERABLES Kathy l Result Performing Organization Address [facility] Co de Phone Number [facility] Department [place] [address] * ECG 12-LEAD (09/08/2024 9:33 PM CDT) Narrative [facility] - 09/08/2024 9:33 PM CDT Lyndsay Keller MD 09/08/2024 9:34 PM ECG 12 lead Date/Time: 09/08/2024 9:33 PM Performed by: Lyndsay Keller MD Authorized by: Mike Singh MD Rate: ECG rate: 79 ECG rate assessment: normal Rhythm: Rhythm: sinus rhythm Ectopy: Ectopy: PAC QRS: QRS axis: Normal QRS intervals: Normal Conduction: Conduction: abnormal Abnormal conduction: non-specific intraventricular conduction delay ST segments: ST segments: Normal T waves: T waves: flattening T wave flattening noted on lead: diffuse. Previous ECG: Previous ECG: Compared to current Date of previous EC09/06/2015 Interpretation: Interpretation: No significant change Recommended Follow-up: Recommended follow up: further workup in the ED Procedure Note Lyndsay Keller MD - 09/08/2024 9:33 PM CDT Procedure ECG 12 lead Date/Time: 09/08/2024 9:33 PM Performed by: Lyndsay Keller MD Authorized by: Mike Singh MD Rate: ECG rate: 79 ECG rate assessment: normal Rhythm: Rhythm: sinus rhythm Ectopy: Ectopy: PAC QRS: QRS axis: Normal QRS intervals: Normal Conduction: Conduction: abnormal Abnormal conduction: non-specific intraventricular conduction delay ST segments: ST segments: Normal T waves: T waves: flattening T wave flattening noted on lead: diffuse. Previous ECG: Previous ECG: Compared to current Date of previous EC09/06/2015 Interpretation: Interpretation: No significant change Recommended Follow-up: Recommended follow up: further workup in the ED Lyndsay Keller MD 09/08/[id number] Mike Singh MD ECG ORDERABLES Final Res ult Performing Organization Address [facility] Co de Phone Number [facility] * Critical Result Callback Chemistry (09/08/2024 7:58 PM CDT) Date Notified [id number] Time Notified 2109 [facility] TestName Hans [facility] Called/Read Back Shamar [facility] Credentials MD [facility] Called By JOSAFAT [facility] Blood 09/08/2024 7:58 PM CDT 09/08/2024 8:19 PM CDT Mike Singh MD LAB BLOOD ORDERABLES Kathy l Result Performing Organization Address [facility] de Phone Number [facility] Department [place] [address] * Thyroid Function [place] (09/08/2024 7:58 PM CDT) TSH 0.49 0.30 - 4.20 mcIUnit/mL Blood 09/08/2024 7:58 PM CDT 09/08/2024 8:19 PM CDT Mike Singh MD LAB BLOOD ORDERABLES Kathy l Result Performing Organization Address [facility] Co de Phone Number [facility] Department [place] [address] * (ABNORMAL) Calcium, ionized (09/08/2024 7:58 PM CDT) Pathologist [facility] Calcium, Ionized 3.17(C) 4.50 - 5.10 mg/dL Comment:Critical result call ed to and read back by Dejan Alvarenga (rn) on 09/08/2024 20:44:53 CDT to pks. Blood 09/08/2024 7:58 PM CDT 09/08/2024 8:08 PM CDT Narrative [facility] - 09/08/2024 8:45 PM CDT Two hours after Ca gluc infusion complete Mike Singh MD LAB BLOOD ORDERABLES Kathy l Result [facility] [place] [address] * (ABNORMAL) Vitamin D 25 hydroxy (09/08/2024 7:58 PM CDT) [facility] Vitamin D 25-OH 16(L) 30 - 80 ng/mL Blood 09/08/2024 7:58 PM CDT 09/08/2024 8:19 PM CDT Mike Singh MD LAB BLOOD ORDERABLES Kathy l Result Performing Organization Address City/[facility]/ZIP Co de Phone Number [facility] [place] [address] * Phosphorus (09/08/2024 7:58 PM CDT) [facility] Phosphorus, pl 3.3 2.3 - 4.5 mg/dL Blood 09/08/2024 7:58 PM CDT 09/08/2024 8:19 PM CDT Mike Singh MD LAB BLOOD ORDERABLES Kathy l Result [facility] [place] [address] * (ABNORMAL) PTH (09/08/2024 7:58 PM CDT) PTH 97(H) 15 - 65 pg/mL Blood 09/08/2024 7:58 PM CDT 09/08/2024 8:18 PM CDT Mike Singh MD LAB BLOOD ORDERABLES Kathy l Result Performing Organization Address City/[facility] Co de Phone Number [facility] [place] [address] * (ABNORMAL) Magnesium (09/08/2024 7:58 PM CDT) Pathologist [facility] Magnesium 0.7(C) 1.4 - 2.5 mg/dL Comment:Reviewed Blood 09/08/2024 7:58 PM CDT 09/08/2024 8:19 PM CDT Mike Singh MD LAB BLOOD ORDERABLES Kathy l Result Performing Organization Address [facility] Co de Phone Number [facility] [place] [address] * (ABNORMAL) Calcium, ionized (09/08/2024 7:44 PM CDT) [facility] Calcium, Ionized 3.29(L) 4.50 - 5.10 mg/dL Blood 09/08/2024 7:44 PM CDT 09/08/2024 8:08 PM CDT Mike Singh MD LAB BLOOD ORDERABLES Kathy l Result Performing Organization Address [facility] Co de Phone Number [facility] [place] [address] * CTA Head Neck W WO Contrast (09/08/2024 7:18 PM CDT) Anatomical Region Laterality Modality Head and Neck N/A Computed Tomogra phy 09/08/2024 7:52 PM CDT Impressions 09/09/2024 10:18 AM CDT 1. No acute intracranial process. 2. Similar-appearing severe atherosclerotic calcification at the left carotid bifurcation resulting greater than 70% stenosis of the proximal left internal carotid artery. 3. 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 4. 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 5. 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 Otherwise no intracranial large vessel occlusion, high-grade stenosis, aneurysm, or vascular malformation. 6. Multinodular thyroid with slight interval enlargement of a 1.5 cm left thyroid nodule. Follow-up with dedicated ultrasound can be performed if clinically indicated. Dictated by: Dami Garner MD The radiology attending physician has personally reviewed this study, and had reviewed and/or edited this written report and agrees with it. Electronically signed by: Guero Hector M.D, PHD Narrative 09/09/2024 10:18 AM CDT EXAMINATION: 1. Computed tomography angiography (CTA) of the head without and with contrast 2. Computed tomography angiography (CTA) of the neck with contrast HISTORY: 78-year-old presenting with dizziness and limp spasms for several days. Known right internal carotid artery occlusion, left internal carotid artery stenosis, and right middle cerebral artery aneurysm clipping. TECHNIQUE: CT of the head was performed with images acquired from skull base to vertex without intravenous contrast. Computed tomographic angiography was obtained from the aortic arch to the vertex following the uneventful administration of intravenous contrast. 3D images of the CTA were generated on a dedicated workstation/sports book server. Contrast information: 80 mL Optiray-350 IV COMPARISON: 03/10/2023. FINDINGS: HEAD: There are changes of a right frontal craniotomy and right middle cerebral artery aneurysm clipping with encephalomalacia along the right frontal and temporal lobes, similar compared to prior. There is no acute intracranial hemorrhage. Ventricles are of normal size and morphology. No mass effect or midline shift is present. The powell-white matter differentiation is normal. There are bilateral lens replacements. The visualized portions of the mastoids are normal. The visualized portions of the paranasal sinuses are normal. No fractures are identified. Small calcific embolus is seen in a right M4 branch, unchanged. NECK: Scattered subcentimeter lymph nodes are seen in the neck. None are pathologically enlarged. The muscles of the neck are normal. Fascial planes are preserved and the deep spaces of the neck are normal. The visualized airway is widely patent. The base of the skull and the temporal bones are normal. Limited views of the brain including the cerebellum and brainstem are normal. The visualized portions of the orbits are normal. The spinal canal is normal in caliber. Intervertebral disk heights are normal. Neural foramina are normal. There is debris in the trachea. There are multiple thyroid nodules, largest measuring up to 1.5 cm. A left thyroid nodule measuring up to 1.5 cm increase in size previously measuring up to 1.0 cm. CTA: There are severe atherosclerotic calcifications aortic arch with mural thrombus along the superior aspect of the arch. There is a common origin of the brachiocephalic trunk and left common carotid artery, anatomic variant. There is a focal dissection flap in the distal innominate artery and proximal right common carotid artery and right subclavian artery, best seen on series 11 image 577 and series 974. There is similar dating back to 2022 without evidence of propagation. Right common carotid artery is normal. 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 Left common carotid arteries normal to the bifurcation where there is severe atherosclerotic calcification resulting in severe, approximately 77% stenosis. Remaining left internal carotid artery and neck is normal in caliber. There is worsening multifocal moderate narrowing in the right M1 segment. There are changes of a right middle cerebral artery bifurcation aneurysm clipping. No area of vascular paucity with relatively symmetric arborization of MCA branches bilaterally. The right anterior cerebral artery is normal. There is mild multifocal narrowing of the left A1 segment but the left anterior cerebral artery is otherwise normal. There is mild multifocal narrowing of the left M1 segment without large vessel occlusion or high-grade stenosis. The left vertebral artery is dominant. Basilar artery is normal. There is origin of the left posterior communicating artery. Posterior cerebral arteries otherwise normal. No aneurysm or vascular malformation identified. Procedure Note Guero Hector MD PhD - 09/09/2024 EXAMINATION: 1. Computed tomography angiography (CTA) of the head without and with contrast 2. Computed tomography angiography (CTA) of the neck with contrast HISTORY: 78-year-old presenting with dizziness and limp spasms for several days. Known right internal carotid artery occlusion, left internal carotid artery stenosis, and right middle cerebral artery aneurysm clipping. TECHNIQUE: CT of the head was performed with images acquired from skull base to vertex without intravenous contrast. Computed tomographic angiography was obtained from the aortic arch to the vertex following the uneventful administration of intravenous contrast. 3D images of the CTA were generated on a dedicated workstation/sports book server. Contrast information: 80 mL Optiray-350 IV COMPARISON: 03/10/2023. FINDINGS: HEAD: There are changes of a right frontal craniotomy and right middle cerebral artery aneurysm clipping with encephalomalacia along the right frontal and temporal lobes, similar compared to prior. There is no acute intracranial hemorrhage. Ventricles are of normal size and morphology. No mass effect or midline shift is present. The powell-white matter differentiation is normal. There are bilateral lens replacements. The visualized portions of the mastoids are normal. The visualized portions of the paranasal sinuses are normal. No fractures are identified. Small calcific embolus is seen in a right M4 branch, unchanged. NECK: Scattered subcentimeter lymph nodes are seen in the neck. None are pathologically enlarged. The muscles of the neck are normal. Fascial planes are preserved and the deep spaces of the neck are normal. The visualized airway is widely patent. The base of the skull and the temporal bones are normal. Limited views of the brain including the cerebellum and brainstem are normal. The visualized portions of the orbits are normal. The spinal canal is normal in caliber. Intervertebral disk heights are normal. Neural foramina are normal. There is debris in the trachea. There are multiple thyroid nodules, largest measuring up to 1.5 cm. A left thyroid nodule measuring up to 1.5 cm increase in size previously measuring up to 1.0 cm. CTA: There are severe atherosclerotic calcifications aortic arch with mural thrombus along the superior aspect of the arch. There is a common origin of the brachiocephalic trunk and left common carotid artery, anatomic variant. There is a focal dissection flap in the distal innominate artery and proximal right common carotid artery and right subclavian artery, best seen on series 11 image 577 and series 974. There is similar dating back to 2022 without evidence of propagation. Right common carotid artery is normal. 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 Left common carotid arteries normal to the bifurcation where there is severe atherosclerotic calcification resulting in severe, approximately 77% stenosis. Remaining left internal carotid artery and neck is normal in caliber. There is worsening multifocal moderate narrowing in the right M1 segment. There are changes of a right middle cerebral artery bifurcation aneurysm clipping. No area of vascular paucity with relatively symmetric arborization of MCA branches bilaterally. The right anterior cerebral artery is normal. There is mild multifocal narrowing of the left A1 segment but the left anterior cerebral artery is otherwise normal. There is mild multifocal narrowing of the left M1 segment without large vessel occlusion or high-grade stenosis. The left vertebral artery is dominant. Basilar artery is normal. There is origin of the left posterior communicating artery. Posterior cerebral arteries otherwise normal. No aneurysm or vascular malformation identified. IMPRESSION: 1. No acute intracranial process. 2. Similar-appearing severe atherosclerotic calcification at the left carotid bifurcation resulting greater than 70% stenosis of the proximal left internal carotid artery. 3. 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 4. 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 5. 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 Otherwise no intracranial large vessel occlusion, high-grade stenosis, aneurysm, or vascular malformation. 6. Multinodular thyroid with slight interval enlargement of a 1.5 cm left thyroid nodule. Follow-up with dedicated ultrasound can be performed if clinically indicated. Dictated by: Dami Garner MD The radiology attending physician has personally reviewed this study, and had reviewed and/or edited this written report and agrees with it. Electronically signed by: Guero Hector M.D, PHD Joann Arellano MD IM CT PROCEDURES Final Result * Troponin I high-sensitivity 6-hour (09/08/2024 6:30 PM CDT) Trop I hs 12 <=17 ng/L Comment: Interpretive Data For further [facility] resources including the diagnostic algorithm and an aid in interpretation, copy and paste this link: [email or web address] [email or web address].org/show/[email or web address] Current Interpretive Data last revised 2019. Trop I hs delta -3 ng/L OT[facility] Trop I hs interp Insignificant OT[facility] Blood 09/08/2024 6:30 PM CDT 09/08/2024 6:39 PM CDT David Milian MD LAB BLOOD ORD ERABLES Final Result Performing Organization Address City/[facility] Co de Phone Number OTIS [facility] [place] [address] * Troponin I high-sensitivity 4-hour (09/08/2024 5:49 PM CDT) Trop I hs 13 <=17 ng/L Comment: Interpretive Data For further hscTnI resources including the diagnostic algorithm and an aid in interpretation, copy and paste this link: https://bjhlab.testcatalog.org/show/hsTrop-[email or web address] Current Interpretive Data last revised 2019. Trop I hs delta See Comment ng/L OTIS [facility] Comment:Inappropriate collec tion time to report a delta. Trop I hs pct delta See Comment % [facility] Comment:Inappropriate collec tion time to report a delta. Trop I hs interp See Comment [facility] Comment:Inappropriate collec tion time to report a delta. Blood 09/08/2024 5:49 PM CDT 09/08/2024 6:02 PM CDT us David Milian MD LAB BLOOD ORD ERABLES Final Result Performing Organization Address City/[facility]/ZIP Co de Phone Number OTIS [facility] Department [facility] [place] [address] * US Carotids Duplex Bilateral (09/08/2024 4:04 PM CDT) Anatomical Region Laterality Modality Vascular Bilateral Ultrasound 09/08/2024 3:13 PM CDT Narrative 09/09/2024 1:30 AM CDT [facility] - Department of Vascular Surgery, Vascular Laboratory [address] [place] [id number] Carotid Duplex Ultrasound Report Patient Name: DEEPTI HERNANDEZ J : 1945 (78y 11m) Study Date: 09/08/2024 3:13:18 PM Gender: F Tech: OR Location: [id number] Ref Provider: CONY WOODS Quality: Adequate Order Provider: CONY WOODS PROCEDURES: Carotid Report: Carotid duplex examination of the extracranial arteries was performed using 2D, color and spectral Doppler. INDICATIONS: LICA stenosis/AILEEN occlusion now symptomatic (per Dr. Man) - MEASUREMENTS: Right Value Units Left Value Units RT Prox CCA PSV 20 cm/sec LT Prox CCA PSV 66 cm/sec RT Prox CCA EDV 0 cm/sec LT Prox CCA EDV 23 cm/sec RT Distal CCA PSV 15 cm/sec LT Distal CCA PSV 78 cm/sec RT Distal CCA EDV 0 cm/sec LT Distal CCA EDV 27 cm/sec RT Prox ICA PSV 0 cm/sec LT Prox ICA PSV 503 cm/sec RT Prox ICA EDV 0 cm/sec LT Prox ICA EDV 180 cm/sec RT Mid ICA PSV 0 cm/sec LT Mid ICA PSV 174 cm/sec RT Mid ICA EDV 0 cm/sec LT Mid ICA EDV 71 cm/sec RT Distal ICA PSV 0 cm/sec LT Distal ICA PSV 100 cm/sec RT Distal ICA EDV 0 cm/sec LT Distal ICA EDV 46 cm/sec RT ECA Prx PSV 438 cm/sec LT ECA Prx PSV 142 cm/sec RT ICA/CCA 0.00 ratio LT ICA/CCA 6.46 ratio RT VERT PSV 60 cm/sec LT VERT PSV 88 cm/sec FINDINGS: Performing Manager Title: Christiane Rodriguez RVT. Rt Common Carotid Artery: The plaque in the right CCA appears to be homogenous and smooth. Atherosclerotic changes of the right common carotid artery with no hemodynamically significant Doppler findings. Rt Internal Carotid Artery: No evidence of color filling and absent Doppler signals within the right internal carotid artery. Significant atherosclerotic disease present on 2D imaging. (previously documented). Rt External Carotid Artery: Patent right external carotid artery with evidence of atherosclerotic disease present. Rt Vertebral Artery: The right vertebral artery is patent with antegrade flow. Lt Common Carotid Artery: The plaque in the left CCA appears to be heterogeneous and smooth. Atherosclerotic changes of the left common carotid artery with no hemodynamically significant Doppler findings. Lt Internal Carotid Artery: The plaque in the left internal carotid artery appears to be heterogeneous, calcified and irregular. Significant atherosclerotic changes of the left internal carotid artery with elevated peak systolic velocity and end diastolic velocity, as above. >70% stenosis. Lt External Carotid Artery: Patent left external carotid artery with evidence of atherosclerotic disease present. Lt Vertebral Artery: The left vertebral artery is patent with antegrade flow. Provider Notification: Results called on the above date to Joann Arellano MD. Time called 15:45. CONCLUSIONS: 1. The right internal carotid artery disease is consistent with a severe obstruction or complete occlusion. 2. The left internal carotid artery disease is consistent with a more than 70% stenosis. 3. No evidence of hemodynamically significant stenosis in the common carotid artery bilaterally. 4. Normal, antegrade flow is noted in bilateral vertebral arteries. HISTORY: Visual disturbance, carotid disease. PREVIOUS STUDIES: Previous carotid ultrasound on 03-10-24 Right: occluded LT: >70% stenosis. DISCLAIMER: The study images and the final report will be retained in the patient chart by the Vascular Laboratory for the legally required time period. This chart constitutes the legal record of any testing performed. ATTESTATION: I have reviewed and interpreted the pertinent images and measurements of this study. I attest to the conclusions in the final report that is provided above. Electronically Signed By: Franc Kovacs MD FACS 09/09/2024 12:18:56 AM CDT Procedure Note Franc Kovacs MD - 09/09/2024 [facility] - Department of Vascular Surgery,Vascular Laboratory [address] [place] [address] Carotid Duplex Ultrasound Report Patient Name: DEEPTI HERNANDEZ J : 1945 (78y 11m) Study Date: 09/08/2024 3:13:18 PM Gender: F Tech: OR Location: [facility] Provider: CONY WOODS Quality: Adequate Order Provider: CONY WOODS PROCEDURES: Carotid Report: Carotid duplex examination of the extracranial arterieswas performed using 2D, color and spectral Doppler. INDICATIONS: LICA stenosis/AILEEN occlusion now symptomatic (per Dr. Man) - MEASUREMENTS: Right Value Units Left Value Units RT Prox CCA PSV 20 cm/sec LT Prox CCA PSV 66 cm/sec RT Prox CCA EDV 0 cm/sec LT Prox CCA EDV 23 cm/sec RT Distal CCA PSV 15 cm/sec LT Distal CCA PSV 78 cm/sec RT Distal CCA EDV 0 cm/sec LT Distal CCA EDV 27 cm/sec RT Prox ICA PSV 0 cm/sec LT Prox ICA PSV 503 cm/sec RT Prox ICA EDV 0 cm/sec LT Prox ICA EDV 180 cm/sec RT Mid ICA PSV 0 cm/sec LT Mid ICA PSV 174 cm/sec RT Mid ICA EDV 0 cm/sec LT Mid ICA EDV 71 cm/sec RT Distal ICA PSV 0 cm/sec LT Distal ICA PSV 100 cm/sec RT Distal ICA EDV 0 cm/sec LT Distal ICA EDV 46 cm/sec RT ECA Prx PSV 438 cm/sec LT ECA Prx PSV 142 cm/sec RT ICA/CCA 0.00 ratio LT ICA/CCA 6.46 ratio RT VERT PSV 60 cm/sec LT VERT PSV 88 cm/sec FINDINGS: Performing Manager Title: Christiane Rodriguez RVT. Rt Common Carotid Artery: The plaque in the right CCA appears to behomogenous and smooth. Atherosclerotic changes of the right common carotid artery with no hemodynamically significant Doppler findings. Rt Internal Carotid Artery: No evidence of color filling and absentDoppler signals within the right internal carotid artery. Significant atheroscleroticdisease present on 2D imaging. (previously documented). Rt External Carotid Artery: Patent right external carotid artery withevidence of atherosclerotic disease present. Rt Vertebral Artery: The right vertebral artery is patent with antegradeflow. Lt Common Carotid Artery: The plaque in the left CCA appears to beheterogeneous and smooth. Atherosclerotic changes of the left common carotid artery with nohemodynamically significant Doppler findings. Lt Internal Carotid Artery: The plaque in the left internal carotid arteryappears to be heterogeneous, calcified and irregular. Significant atheroscleroticchanges of the left internal carotid artery with elevated peak systolic velocity and enddiastolic velocity, as above. >70% stenosis. Lt External Carotid Artery: Patent left external carotid artery withevidence of atherosclerotic disease present. Lt Vertebral Artery: The left vertebral artery is patent with antegradeflow. Provider Notification: Results called on the above date to Norma Arellano MD. Time called 15:45. CONCLUSIONS: 1. The right internal carotid artery disease is consistent with a severeobstruction or complete occlusion. 2. The left internal carotid artery disease is consistent with a more than70% stenosis. 3. No evidence of hemodynamically significant stenosis in the commoncarotid artery bilaterally. 4. Normal, antegrade flow is noted in bilateral vertebral arteries. HISTORY: Visual disturbance, carotid disease. PREVIOUS STUDIES: Previous carotid ultrasound on 03-10-24 Right: occluded LT: >70% stenosis. DISCLAIMER: The study images and the final report will be retained in the patientchart by the Vascular Laboratory for the legally required time period. This chartconstitutes the legal record of any testing performed. ATTESTATION: I have reviewed and interpreted the pertinent images and measurements ofthis study. I attest to the conclusions in the final report that is provided above. Electronically Signed By: Franc Kovacs MD [facility] 09/09/2024 12:18:56 AM CDT Cony Woods MD [facility] PROCEDURES Final Result * Troponin I high-sensitivity 2-hour (09/08/2024 2:21 PM CDT) Trop I hs 14 <=17 ng/L Comment: Interpretive Data For further hscTnI resources including the diagnostic algorithm and an aid in interpretation, copy and paste this link: https://bjhlab.testcatalog.org/show/[email or web address] Current Interpretive Data last revised 2019. Trop I hs delta -1 ng/L [facility] Trop I hs interp Insignificant [facility] Blood 09/08/2024 2:21 PM CDT 09/08/2024 2:49 PM CDT us David Milian MD LAB BLOOD ORD ERABLES Final Result [facility] Department [place] [address] * Critical Result Callback Chemistry (09/08/2024 2:21 PM CDT) Date Notified [id number] Time Notified 1550 [facility] TestName Ca Ionized OTIS MANZO Called/Read Back ramila MANZO Credentials RN OTIS MANZO Called By gerda MANZO Blood 09/08/2024 2:21 PM CDT 09/08/2024 3:22 PM CDT Cony Woods MD LAB BLOOD ORDERABLES Fin al Result Performing Organization Address City/[facility] Co de Phone Number [facility] Department [place] [address] * (ABNORMAL) Calcium, ionized (09/08/2024 2:21 PM CDT) Pathologist [facility] Calcium, Ionized 2.76(C) 4.50 - 5.10 mg/dL Comment:Verified Blood 09/08/2024 2:21 PM CDT 09/08/2024 2:49 PM CDT Cony Woods MD LAB BLOOD ORDERABLES Fin al Result Performing Organization Address [facility] de Phone Number [facility] Department of [place] [address] * XR Chest Pa Lateral 2 Views (09/08/2024 1:45 PM CDT) Anatomical Region Laterality Modality Body, Chest N/A Computed Radiogr aphy 09/08/2024 2:30 PM CDT Impressions 09/08/2024 2:30 PM CDT Comparison is made to a prior CT dated 03/06/2013. Median sternotomy wires are aligned and intact. 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 There are streaky areas of atelectasis within the left midlung and right mid to lower lobe, with mild bibasilar atelectasis. No focal consolidation or pulmonary edema. No pleural effusion or pneumothorax. There is moderate persistent enlargement of cardiac silhouette. Mediastinal contours are likely unchanged after accounting for technique differences. Electronically signed by: Celestino Silverio M.D. Narrative 09/08/2024 2:30 PM CDT EXAMINATION: 2 view chest radiograph Procedure Note Celestino Silverio MD - 09/08/2024 EXAMINATION: 2 view chest radiograph IMPRESSION: Comparison is made to a prior CT dated 03/06/2013. Median sternotomy wires are aligned and intact. 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 There are streaky areas of atelectasis within the left midlung and right mid to lower lobe, with mild bibasilar atelectasis. No focal consolidation or pulmonary edema. No pleural effusion or pneumothorax. There is moderate persistent enlargement of cardiac silhouette. Mediastinal contours are likely unchanged after accounting for technique differences. Electronically signed by: Celestino Silverio M.D. David Milian MD IMG XR PROCED URES Final Result * ECG 12-LEAD (09/08/2024 12:41 PM CDT) Narrative [facility] [place] - 09/08/2024 12:41 PM CDT Ricco Damian MD 09/08/2024 12:42 PM ECG 12 lead Date/Time: 09/08/2024 12:41 PM Performed by: Ricco Damian MD Authorized by: David Milian MD Comments: Irregularly irregular rhythm, rate of 90, left axis deviation, otherwise normal intervals, no convincing evidence of ischemia. Atrial fibrillation, not present on prior EKGs David Milian MD ECG ORDERABLE S Final Result [facility] * Troponin I high-sensitivity series (baseline, 2hr, 4hr, 6hr) (09/08/2024 12:34 PM CDT) Trop I hs 15 <=17 ng/L Comment: Interpretive Data For further hscTnI resources including the diagnostic algorithm and an aid in interpretation, copy and paste this link: [email or web address]://bjhlab.testcatalog.org/show/[email or web address] Current Interpretive Data last revised 2019. Blood 09/08/2024 12:3 4 PM CDT 09/08/2024 12:50 PM CDT David Milian MD LAB BLOOD ORD ERABLES Final Result Performing Organization Address City/[facility]/ZIP Co de Phone Number OTIS [facility] [place] [address] * eGFR (09/08/2024 12:34 PM CDT) eGFR 72 >=60 mL/min/1. 73 m2 Comment: Interpretive Data Reference Interval Normal >/= 90 mL/min/1.73m2 Mildly decreased* 60 - 89 mL/min/1.73m2 Mildly to moderately decreased 45 - 59 mL/min/1.73m2 Moderately to severely decreased 30 - 44 mL/min/1.73m2 Severely decreased 15 - 29 mL/min/1.73m2 Kidney Failure < 15 mL/min/1.73m2 *Relative to young adult level Estimated glomerular filtration rate is determined by the 2020 CKD-EPI equation recommended by the National Kid[employer] (A Unifying Approach to GFR Estimation: Recommendations of the NKF-ASK Task Force on Reassessing the Inclusion of Race in Diagnosing Kidney Disease, JASN 202). The CKD-EPI equation should not be used for patients with unstable renal function and has not been validated in children and those over 70. Current interpretive data was last reviewed 2021. Blood 09/08/2024 12:3 4 PM CDT 09/08/2024 12:50 PM CDT us David Milian MD LAB BLOOD ORD ERABLES Final Result Performing Organization Address City/[facility]/ZIP Co de Phone Number OTIS [facility] Department [place] [address] * (ABNORMAL) Differential, auto (09/08/2024 12:34 PM CDT) Neutrophil abs 8.43(H) 1.50 - 6.50 K/cumm Imm gran abs 0.04 0.00 - 0.10 K/cumm [facility] Lymphocyte abs 1.79 0.80 - 3.30 K/cumm [facility] Monocyte abs 1.02(H) 0.20 - 0.80 K/cumm [facility] Eosinophil abs 0.33 0.00 - 0.50 K/cumm [facility] Basophil abs 0.04 0.00 - 0.10 K/cumm [facility] Neutrophil pct 72.4 % [facility] Comment: Interpretive Data Percent cell count reference ranges are not reported, since discordance with absolute values may lead to misinterpretation of CBC data. Current Interpretive Data was last revised on 2017. Imm gran pct 0.3 % [facility] Comment: Interpretive Data Percent cell count reference ranges are not reported, since discordance with absolute values may lead to misinterpretation of CBC data. Current Interpretive Data was last revised on 2017. Lymphocyte pct 15.4 % [facility] Comment: Interpretive Data Percent cell count reference ranges are not reported, since discordance with absolute values may lead to misinterpretation of CBC data. Current Interpretive Data was last revised on 2017. Monocyte pct 8.8 % [facility] Comment: Interpretive Data Percent cell count reference ranges are not reported, since discordance with absolute values may lead to misinterpretation of CBC data. Current Interpretive Data was last revised on 2017. Eosinophil pct 2.8 % [facility] Comment: Interpretive Data Percent cell count reference ranges are not reported, since discordance with absolute values may lead to misinterpretation of CBC data. Current Interpretive Data was last revised on 2017. Basophil pct 0.3 % [facility] Comment: Interpretive Data Percent cell count reference ranges are not reported, since discordance with absolute values may lead to misinterpretation of CBC data. Current Interpretive Data was last revised on 2017. Blood 09/08/2024 12:3 4 PM CDT 09/08/2024 12:50 PM CDT David Milian MD LAB BLOOD ORD ERABLES Final Result Performing Organization Address City/[facility] Co de Phone Number [facility] [place] [address] * Critical Result Callback Chemistry (09/08/2024 12:34 PM CDT) Pathologist [facility] Date Notified [id number] Time Notified 1320 [facility]IS [facility] TestName Calcium [facility] Called/Read Back Cony [facility] Credentials MD [facility] Called By PD [facility] Blood 09/08/2024 12:3 4 PM CDT 09/08/2024 12:50 PM CDT David Milian MD LAB BLOOD ORD ERABLES Final Result Performing Organization Address [facility] Co de Phone Number [facility] Department [place] [address] * (ABNORMAL) CBC with auto differential (09/08/2024 12:34 PM CDT) [facility] WBC 11.65(H) 3.80 - 9.90 K/cumm Hgb 11.4(L) 11.9 - 15.5 g/dL [facility] Hct 35.1(L) 35.6 - 45.5 % [facility] Plt 300 150 - 400 K/cumm [facility] MPV 11.4 9.1 - 12.3 fL [facility] RBC 4.18 3.90 - 5.20 M/cumm [facility] MCV 84.0 81.3 - 96.4 fL [facility] MCH 27.3 27.1 - 33.3 pg [facility] MCHC 32.5 32.3 - 35.7 g/dL [facility] RDW CV 15.4(H) 11.1 - 14.9 % [facility] RDW SD 46.9 35.7 - 48.1 fL [facility] NRBC abs 0.00 0.00 - 0.01 K/cumm [facility] Blood Venous blood specimen / Unknown 09/08/2024 12:34 PM CDT 09/08/2024 12:50 PM CDT David Milian MD LAB BLOOD ORD ERABLES Final Result [facility] Department [place] [address] * (ABNORMAL) Comprehensive metabolic panel (09/08/2024 12:34 PM CDT) Sodium 139 135 - 145 mmol/L Potassium, pl 3.9 3.3 - 4.9 mmol/L [facility] Comment:Hemolyzed; Potassium value may be falsely elevated by as much as 0.6-1.0 mmol/L. Suggest redraw and reanalysis. Chloride 96(L) 97 - 110 mmol/L [facility] CO2 28 22 - 32 mmol/L [facility] Anion gap 15 2 - 15 mmol/L [facility] BUN 8 6 - 25 mg/dL [facility] Creatinine 0.83 0.60 - 1.10 mg/dL [facility] Glucose 98 70 - 199 mg/dL [facility] Comment: Interpretive Data Fasting glucose >/= 126 mg/dl is diagnostic for diabetes. Fasting is defined as no caloric intake for at least 8 hours. Fasting glucose between 100 mg/dl to 125 mg/dl is diagnostic of prediabetes. In a patient with classic symptoms of hyperglycemia or hyperglycemic crisis, a random glucose >/= 200 mg/dl is diagnostic for diabetes. In the absence of unequivocal hyperglycemia, results should be confirmed by repeat testing. The classification and Diagnosis of Diabetes Diabetes Care 202; 46: S19-S40. Current interpretive data was last revised 2022. Calcium 6.1(C) 8.5 - 10.3 mg/dL [facility] Bilirubin, total 0.5 0.1 - 1.2 mg/dL [facility] Protein, pl 7.0 6.5 - 8.5 g/dL [facility] Albumin 3.5 3.5 - 5.0 g/dL [facility] Alk phos 81 40 - 130 Units/L [facility] ALT 16 7 - 45 Units/L [facility] 41 10 - 45 Units/L [facility] Comment:Hemolyzed; result ma y be falsely elevated Blood 09/08/2024 12:3 4 PM CDT 09/08/2024 12:50 PM CDT us David Milian MD LAB BLOOD ORD ERABLES Final Result [facility] Department [place] [address] from Last [address] [facility] MEDICARE ADVANTAGE [employer] MDCR HMO REF [facility] MEDICARE ADVANTAGE 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
--- OUTSIDE RECORDS SUMMARY | 2024-09-18 15:24 | XMS_ITS | Clinical Summary ---
Author Organization [facility] Address [address] [place] [address] Care Team Providers Care Blood Tester Name Role Phone Mike Kinney DO Primary Care Provider [phone] Allergies Active Allergy Reactions Criticality Noted Date [...] (six) hours as needed for pain 09/14/19 Active calcium carbonate (OS-EDMUND) 1,250 mg (500 [...] nitrofurantoin monohydrate (MACROBID) 100 mg capsule 01/26/20 025 Discontinued(St op Taking at Discharge) phenazopyridine (PYRIDIUM) 200 mg tablet 01/21/20 025 Discontinued(St op Taking at Discharge) sulfamethoxazol e-trimethoprim (BACTRIM DS) 800-160 mg per tablet Take 1 tablet by mouth every 12 (twelve) hours 01/21/20 025 Discontinued(St op Taking at Discharge) ergocalciferol (VITAMIN D) 50,000 unit capsule Take 1 capsule (50,000 Units total) by mouth once a week for 7 doses 4 capsule 09/18/19 25 025 Discontinued Active Problems Problem Noted Date [...] hx - Home trellegy Assessment & Plan (09/12/2024 7:11 AM CDT): COPD, 15 pack year hx, no PFT, home 3L oxygen. No current tobacco use - Would benefit from pulm referral on d/c - Home trelegy Assessment & Plan (09/10/2024 7:59 AM CDT): [...] thickening/AR, mild TR (RVSP 30-35 mmHg), mild-mod VT, physiologic pericardial effusion. - Telemetry to monitor [...] thickening/AR, mild TR (RVSP 30-35 mmHg), mild-mod VT, physiologic pericardial effusion. - Telemetry to monitor [...] thickening/AR, mild TR (RVSP 30-35 mmHg), mild-mod VT, physiologic pericardial effusion. - Telemetry to monitor [...] thickening/AR, mild TR (RVSP 30-35 mmHg), mild-mod VT, physiologic pericardial effusion. - Telemetry to monitor [...] Abnormal EKG Coronary artery disease invo lving grindstone coronary artery of grindstone heart without angina pectoris 05/08/2013 Assessment & Plan (09/11/2024 7:52 AM CDT): Hx of 3V CABG ~10 years ago, follows with [facility] S[facility]ey in [facility] cardiology. Denies CP but [...] CABG x3 10 years ago, follows with [facility] cardiology. Some peripheral edema and worsening SOB over last year - ECHO 09/08 Normal LV size. EF 54%. G1DD - Home atorvastatin 80mg and ASA 81mg Assessment & Plan (09/10/2024 7:59 AM CDT): Hx of 3V CABG ~10 years ago, follows with [facility] Sweeney in [facility] cardiology. Denies CP but [...] years ago, follows with [facility] Sweeney in [facility] cardiology. Denies CP but [...] years ago, follows with [facility] Sweeney in [facility] cardiology. 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 Aortic sclerosis) - home atorvastatin 80mg and ASA 81mg Nonruptured cerebral aneurysm 05/08/2013 Encounters Date Type Department Care Team Description 09/11/2024 1:05 PM CDT - 09/11/2024 4:50 PM CDT Surgery [facility] Operating Room [address] [place] [address] Mayur Man MD ENDARTERECTOMY - CAROTID WITH PATCH GRAFT 09/11/2024 10:31 AM CDT Anesthesia Event [facility] Operating Room [address] [place] [address] Yemi Hood MD Lentz, William Thomas, NP 09/11/2024 Orders Only [facility] Vascular Surgery [address] [facility] [address] [place] [address] Mayur Man MD Bilateral carotid artery stenosis (Primary Dx); Aftercare following surgery of the circulatory system 09/08/2024 2:40 PM CDT Ancillary Procedure [facility] Vascular Lab IP [address] [facility] [address] [place] [address] 09/08/2024 12:45 PM CDT - 09/14/2024 2:42 PM CDT Hospital Encounter [facility] [address] [place] [address] Rah Moore MD Kane, MD Nicolasa Cummings, MD Enrique Damon Tarek Waleed Metry, MD Rubin, Brian G., MD Weakness (Primary Dx); ICAO (internal carotid artery occlusion), right; Coronary artery disease involving autologous artery coronary bypass graft with angina pectoris; Preoperative testing; Hypocalcemia Discharge Disposition: Discharge to home or self care 09/08/2024 Telephone [facility] Vascular Surgery [address] [facility] [address] [place] [address] Mayur Man MD 08/22/2024 11:30 AM CDT Office Visit [facility] Cardiology [address] [place] [address] [facility] Sweeney MD Coronary artery disease involving grindstone coronary artery of grindstone heart without angina pectoris (Primary Dx); Mixed hyperlipidemia; Dissection of descending thoracic aorta (HCC); Heart murmur; Primary hypertension from Last 3 Months Immunizations Immunization Administration Dates Next Due Influenza, [...] Relation Name Comments Heart attack Brother Royce [place]; Cause of De ath: [place] Heart attack Daughter Heart disease Father Family history of cardiac disorder - (Added by TW Conv) Parkinsonism Father Stroke Father Bone cancer Mother Leukemia Mother Family history of leukemia - (Added by TW Conv) Diabetes Sister 1 Heart attack Sister 1 Diabetes Sister 2 Heart attack Son Hodgkin's lymphoma Son Relation Name Status Comments Brother Royce (Age 51) Daughter Father Mother Sister 1 Sister 2 Son Social History Tobacco Use Types Packs/Day Years Used Date Smoking Tobacco: Former Cigarettes 1 50 0 11/05/1957 - 11/06/2007 Smokeless Tobacco: Never Tobacco Cessation:Counseling Given: Not Answered Comments:Smoking History Packs/day: 1 Packs Alcohol Use Standard Drinks/Week Comments No 0 (1 standard drink = 0.6 oz pur e alcohol) [facility] Utilities Answer Date Recorded In the past 12 months has [employer], gas, oil, or water [employer] threatened to shut off services in your [...] week 09/09/2024 How often do you attend [facility] ch or episcopal services? More than 4 times per year 09/09/2024 Do you belong to any clubs o r organizations such as sikh groups, unions, fraternal or athletic groups, or [...] and heating? Not hard at all 09/09/2024 [facility] [place] of Occupat ional Health - Occupational Stress [...] any time in the past 12 m [facility], were you homeless or living in a fdc (including now)? No 09/09/2024 Personal Safety Answer Date Recorded Have you ever been in or are you currently in a harmful physical or emotional relationship or is someone making you feel afraid or unsafe? Denies 09/11/2024 Comments No Sex and Gender Information Value Date Recorded Sex Assigned at Not on file Legal Sex Female 10:18 AM ACCOUNT PLANNER Gender Identity Female 06/20/2021 10:31 AM ACCOUNT PLANNER Sexual Orientation Not on file Occupation Industry [...] 09/09/2024 12:00 AM CDT Plan of Treatment Health Maintenance Due Date Last Done Comments Depression Screening 1945 Hepatitis C Screening 1945 Osteoporosis Screening-Bone Density Scan 1944 DTaP/Tdap/Td Vaccine (1 - Tdap) 10/07/1955 Hepatitis B Screening 1962 Zoster Vaccine (1 of 2) 1994 Well Visit 65+ 2009 Pneumococcal vaccine 65+ (2 of 2 - PCV) 03/18/2019 1 Influenza Vaccine (Season Ended) 2025 03/28/20 19, 02/28/2018 Fall Risk Assessment 09/14/2025 09/14/2024 Medical Devices Implanted Type Area Senior Internal Auditor Device Identifier Shelf Expiration Date Model / Serial / Lot Stent- 6 Implanted:08/20 by Jose Chambers MD (Quantity not on file) Stent Thoracic Med[employer]onic [id number] / [id number] / Description: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 Implanted:09/19 (Quantity not on file) Head [employer] [facility] Harish Patch Vascuguard 0.88cm [id number] - [id number] - [id number] Implanted:Qty: 1 on 09/11/2024 by Mayur Man MD at [facility] Left: Carotid [facility] Harish [id number] 03/14/2026 [id number] / [id number] / [id number] Procedures Procedure Name Priority Date/Time Associated Diagnosis [...] LOW RANGE Routine 09/11/2024 12:06 PM CDT VT AN PROCEDURE PLACEHOLDER Routine 09/11/2024 11:21 AM CDT VT AN PROCEDURE PLACEHOLDER Routine 09/11/2024 11:21 AM CDT VT AN PROCEDURE PLACEHOLDER Routine 09/11/2024 11:21 AM CDT VT AN PROCEDURE PLACEHOLDER Routine 09/11/2024 11:20 AM CDT VT AN ELECTIVE ENDOTRACHEAL AIRWAY Routine 09/11/2024 11:20 [...] Results * eGFR (09/13/2024 8:21 PM CDT) [facility] eGFR 66 >=60 mL/min/1. 73 m2 Comment: [...] ORDERABLE S Final Result Performing Organization Address City/[facility]/ZIP Co de Phone Number [facility] Department [place] [address] * Calcium, ionized (09/13/2024 8:21 PM CDT) Calcium, Ionized 4.60 4.50 - 5.10 mg/dL Blood 09/13/2024 8:21 PM CDT 09/13/2024 9:10 PM CDT Giselle Nunez MD LAB BLOOD ORDERABLE S Final Result Performing Organization Address City/[facility] Co de Phone Number [facility] Department [place] [address] * (ABNORMAL) CBC without differential (09/13/2024 8:21 PM CDT) WBC 11.57(H) 3.80 - 9.90 K/cumm Hgb 9.6(L) 11.9 - 15.5 g/dL [facility] Hct 30.3(L) 35.6 - 45.5 % [facility] Plt 260 150 - 400 K/cumm [facility] MPV 12.0 9.1 - 12.3 fL [facility] RBC 3.52(L) 3.90 - 5.20 M/cumm [facility] MCV 86.1 81.3 - 96.4 fL [facility] MCH 27.3 27.1 - 33.3 pg [facility] MCHC 31.7(L) 32.3 - 35.7 g/dL [facility] RDW CV 15.2(H) 11.1 - 14.9 % [facility] RDW SD 48.4(H) 35.7 - 48.1 fL [facility] NRBC abs 0.00 0.00 - 0.01 K/cumm [facility] Blood 09/13/2024 8:21 PM CDT 09/13/2024 9:12 PM CDT Janine Santos Nunez MD LAB BLOOD ORDERABLE S Final Result [facility] Department [place] [address] * (ABNORMAL) Basic metabolic panel (09/13/2024 8:21 PM CDT) Sodium 138 135 - 145 mmol/L Potassium, pl 4.6 3.3 - 4.9 mmol/L [facility] Chloride 99 97 - 110 mmol/L [facility] CO2 33(H) 22 - 32 mmol/L [facility] Anion gap 6 2 - 15 mmol/L [facility] BUN 13 6 - 25 mg/dL [facility] Creatinine 0.89 0.60 - 1.10 mg/dL [facility] Glucose 114 70 - 199 mg/dL [facility] Comment: Interpretive Data Fasting glucose >/= 126 [...] 2022. Calcium 9.5 8.5 - 10.3 mg/dL [facility] Blood 09/13/2024 8:21 PM CDT 09/13/2024 9:11 PM CDT Giselle Nunez MD LAB BLOOD ORDERABLE S Final Result OT[facility] [place] [address] * eGFR (09/12/2024 9:21 PM CDT) eGFR 69 >=60 mL/min/1. 73 [...] LAB BLOOD ORDERABLE S Final Result OTIS [facility] [place] [address] * (ABNORMAL) Calcium, ionized (09/12/2024 9:21 PM CDT) [facility] Calcium, Ionized 4.33(L) 4.50 - 5.10 mg/dL Blood 09/12/2024 9:21 PM CDT 09/12/2024 10:18 PM CDT Giselle Nunez MD LAB BLOOD ORDERABLE S Final Result [facility] Department [place] [address] * (ABNORMAL) CBC without differential (09/12/2024 9:21 PM CDT) [facility] WBC 10.69(H) 3.80 - 9.90 K/cumm Hgb 9.4(L) 11.9 - 15.5 g/dL [facility] Hct 29.2(L) 35.6 - 45.5 % [facility] Plt 214 150 - 400 K/cumm [facility] MPV 12.2 9.1 - 12.3 fL [facility] RBC 3.45(L) 3.90 - 5.20 M/cumm [facility] MCV 84.6 81.3 - 96.4 fL [facility] MCH 27.2 27.1 - 33.3 pg [facility] MCHC 32.2(L) 32.3 - 35.7 g/dL [facility] RDW CV 15.1(H) 11.1 - 14.9 % [facility] RDW SD 46.3 35.7 - 48.1 fL [facility] NRBC abs 0.00 0.00 - 0.01 K/cumm [facility] Blood 09/12/2024 9:21 PM CDT 09/12/2024 10:30 PM CDT Giselle Nunez MD LAB BLOOD ORDERABLE S Final Result [facility] Department [place] [address] * Phosphorus (09/12/2024 9:21 PM CDT) [facility] Phosphorus, pl 3.0 2.3 - 4.5 mg/dL Blood 09/12/2024 9:21 PM CDT 09/12/2024 10:29 PM CDT Giselle Nunez MD LAB BLOOD ORDERABLE S Final Result Performing Organization Address [facility] [place] [address] * Magnesium (09/12/2024 9:21 PM CDT) [facility] Magnesium 1.9 1.4 - 2.5 mg/dL Blood 09/12/2024 9:21 PM CDT 09/12/2024 10:29 PM CDT Giselle Nunez MD LAB BLOOD ORDERABLE S Final Result Performing Organization Address [facility] de Phone Number [facility] [place] [address] * (ABNORMAL) Basic metabolic panel (09/12/2024 9:21 PM CDT) [facility] Sodium 137 135 - 145 mmol/L Potassium, pl 4.5 3.3 - 4.9 mmol/L [facility] Comment:Hemolyzed; Potassium value may be falsely elevated by as much as 0.3-0.5 mmol/L. Suggest redraw and reanalysis. Chloride 96(L) 97 - 110 mmol/L [facility] CO2 34(H) 22 - 32 mmol/L [facility] Anion gap 7 2 - 15 mmol/L [facility] BUN 13 6 - 25 mg/dL [facility] Creatinine 0.86 0.60 - 1.10 mg/dL [facility] Glucose 141 70 - 199 mg/dL [facility] Comment: Interpretive Data Fasting glucose >/= 126 [...] 2022. Calcium 8.6 8.5 - 10.3 mg/dL [facility] Blood 09/12/2024 9:21 PM CDT 09/12/2024 10:29 PM CDT Giselle Nunez MD LAB BLOOD ORDERABLE S Final Result [facility] Department [place] [address] * Phosphorus (09/12/2024 8:04 AM CDT) Phosphorus, pl 2.9 2.3 - 4.5 mg/dL Blood 09/12/2024 8:04 AM CDT 09/12/2024 8:34 AM CDT Giselle Nunez MD LAB BLOOD ORDERABLE S Final Result [facility] Department [place] [address] * Magnesium (09/12/2024 8:04 AM CDT) Magnesium 2.2 1.4 - 2.5 mg/dL Blood 09/12/2024 8:04 AM CDT 09/12/2024 8:34 AM CDT Giselle Nunez MD LAB BLOOD ORDERABLE S Final Result Performing Organization Address [facility] Co de Phone Number [facility] [place] [address] * eGFR (09/11/2024 8:48 PM CDT) eGFR [...] 8:48 PM CDT 09/11/2024 8:56 PM CDT Mayur Man MD LAB BLOOD ORDERABLES Final Res ult [facility] [place] [address] * Calcium, ionized (09/11/2024 8:48 PM CDT) Calcium, Ionized 4.55 4.50 - 5.10 mg/dL Blood 09/11/2024 8:48 PM CDT 09/11/2024 8:56 PM CDT Giselle Nnuez MD LAB BLOOD ORDERABLE S Final Result Performing Organization Address [facility]/ZIP Co de Phone Number [facility] [place] [address] * (ABNORMAL) CBC without differential (09/11/2024 8:48 PM CDT) Pathologist [facility] WBC 9.23 3.80 - 9.90 K/cumm Hgb 9.3(L) 11.9 - 15.5 g/dL [facility] Hct 29.2(L) 35.6 - 45.5 % [facility] Plt 261 150 - 400 K/cumm [facility] MPV 11.5 9.1 - 12.3 fL [facility] RBC 3.40(L) 3.90 - 5.20 M/cumm [facility] MCV 85.9 81.3 - 96.4 fL [facility] MCH 27.4 27.1 - 33.3 pg [facility] MCHC 31.8(L) 32.3 - 35.7 g/dL [facility] RDW CV 15.3(H) 11.1 - 14.9 % [facility] RDW SD 47.8 35.7 - 48.1 fL [facility] NRBC abs 0.00 0.00 - 0.01 K/cumm [facility] Blood 09/11/2024 8:48 PM CDT 09/11/2024 9:25 PM CDT Giselle Nunez MD LAB BLOOD ORDERABLE S Final Result [facility] [place] [address] * Phosphorus (09/11/2024 8:48 PM CDT) Pathologist [facility] Phosphorus, pl 3.4 2.3 - 4.5 mg/dL Blood 09/11/2024 8:48 PM CDT 09/11/2024 8:56 PM CDT Giselle Nunez MD LAB BLOOD ORDERABLE S Final Result Performing Organization Address City/[facility]/ZIP Co de Phone Number [facility] Department [place] [address] * (ABNORMAL) Magnesium (09/11/2024 8:48 PM CDT) Pathologist [facility] Magnesium 1.3(L) 1.4 - 2.5 mg/dL Blood 09/11/2024 8:48 PM CDT 09/11/2024 8:56 PM CDT Giselle Nunez MD LAB BLOOD ORDERABLE S Final Result Performing Organization Address [facility] Co de Phone Number [facility] [place] [address] * (ABNORMAL) Basic metabolic panel (09/11/2024 8:48 PM CDT) Pathologist [facility] Sodium 137 135 - 145 mmol/L Potassium, pl 4.6 3.3 - 4.9 mmol/L [facility] Chloride 99 97 - 110 mmol/L [facility] CO2 34(H) 22 - 32 mmol/L [facility] Anion gap 4 2 - 15 mmol/L [facility] BUN 8 6 - 25 mg/dL [facility] Creatinine 0.73 0.60 - 1.10 mg/dL [facility] Glucose 200(H) 70 - 199 mg/dL [facility] Comment: Interpretive Data Fasting glucose >/= 126 [...] 2022. Calcium 9.0 8.5 - 10.3 mg/dL [facility] Blood 09/11/2024 8:48 PM CDT 09/11/2024 8:56 PM CDT us Mayur Man MD LAB BLOOD ORDERABLES Final Res ult [facility] Department [place] [address] * CTA Stroke Head Neck W WO [...] the CTA were generated on a dedicated workstation/patient observer. Contrast information: 94 mL Optiray-350 IV COMPARISON: [...] Artery: no occlusion or significant stenosis L SERVICE DELIVERY DIRECTOR: origin left posterior communicating artery, no occlusion or significant stenosis R SERVICE DELIVERY DIRECTOR: mild irregularity R superior cerebellar artery: mild [...] the CTA were generated on a dedicated workstation/patient observer. Contrast information: 94 mL Optiray-350 IV COMPARISON: [...] Artery: no occlusion or significant stenosis L SERVICE DELIVERY DIRECTOR: origin left posterior communicating artery, no occlusion or significant stenosis R SERVICE DELIVERY DIRECTOR: mild irregularity R superior cerebellar artery: mild [...] 147 123 - 168 sec POC Performer [id number] [facility] POC Device Number [id number] [facility] Blood 09/11/2024 1:20 PM CDT 09/11/2024 1:20 PM CDT Giselle Nunez MD LAB POCT ORDERABLES - DEVICE Final Result Performing Organization Address [facility] Co de Phone Number [facility] [place] [address] * (ABNORMAL) POCT Activated clotting time, low range (09/11/2024 1:02 PM CDT) ACT 255(H) 123 - 168 sec POC Performer [id number] [facility] POC Device Number [id number] [facility] Blood 09/11/2024 1:02 PM CDT 09/11/2024 1:02 PM CDT Giselle Nunez MD LAB POCT ORDERABLES - DEVICE Final Result Performing Organization Address [facility] Co de Phone Number [facility] [place] [address] * (ABNORMAL) POCT Activated clotting time, low range (09/11/2024 12:42 PM CDT) ACT 298(H) 123 - 168 sec POC Performer [id number] [facility] POC Device Number [id number] [facility] Blood 09/11/2024 12:4 2 PM CDT 09/11/2024 12:42 PM CDT Giselle Nunez MD LAB POCT ORDERABLES - DEVICE Final Result Performing Organization Address [facility] Co de Phone Number [facility] [place] [address] * (ABNORMAL) POCT Activated clotting time, low range (09/11/2024 12:33 PM CDT) ACT 244(H) 123 - 168 sec POC Performer [id number] [facility] POC Device Number [id number] [facility] Blood 09/11/2024 12:3 3 PM CDT 09/11/2024 12:33 PM CDT Giselle Nunez MD LAB POCT ORDERABLES - DEVICE Final Result Performing Organization Address [facility] de Phone Number [facility] [place] [address] * (ABNORMAL) POCT Activated clotting time, low range (09/11/2024 12:25 PM CDT) ACT 232(H) 123 - 168 sec POC Performer [id number] [facility] POC Device Number [id number] [facility] Blood 09/11/2024 12:2 5 PM CDT 09/11/2024 12:25 PM CDT us Giselle Nunez MD LAB POCT ORDERABLES - DEVICE Final Result Performing Organization Address [facility] Co de Phone Number [facility] [place] [address] * (ABNORMAL) POCT Activated clotting time, low range (09/11/2024 12:06 PM CDT) ACT 256(H) 123 - 168 sec POC Performer [id number] [facility] POC Device Number [id number] [facility] Blood 09/11/2024 12:0 6 PM CDT 09/11/2024 12:06 PM CDT us Giselle Nunez MD LAB POCT ORDERABLES - DEVICE Final Result [facility] Department [place] [address] * VT AN PROCEDURE PLACEHOLDER (09/11/2024 11:21 AM CDT) Narrative Vane Garozn - 09/11/2024 11:21 AM CDT Vane Garzon [...] MD ANESTHESIA ORDERABLES Kathy l Result * VT AN PROCEDURE PLACEHOLDER (09/11/2024 11:21 AM CDT) Narrative Vane Garzon - 09/11/2024 11:21 AM CDT Vane Garzon 09/11/2024 11:21 AM Peripheral IV Catheter Patient location: OR Staff: Placed by: GENERAL AGENT: Michael Moreira CRNA Preprocedure prep: Prep solution: chlorhexadine PPE: gloves PIV line: Laterality: left Site: forearm Catheter size: 18 g Technique: palpatation and anatomical landmarks Procedure details: good blood return and occlusive dressing applied Number of attempts: 1 Assessment: Events: patient tolerated procedure well with no complications us Yemi Hood MD ANESTHESIA ORDERABLES Kathy l Result * VT AN PROCEDURE PLACEHOLDER (09/11/2024 11:21 AM CDT) [...] MD ANESTHESIA ORDERABLES Kathy l Result * VT AN ELECTIVE ENDOTRACHEAL AIRWAY, VT AN PROCEDURE PLACEHOLDER (09/11/2024 11:20 AM CDT) Vane Hahn - 09/11/2024 11:20 AM CDT Vane Garzon [...] Shahid, indirect Negative ABO Rh A Negative [facility] Blood 09/10/2024 11:2 9 PM CDT 09/11/2024 12:18 AM CDT Narrative [facility] - 09/11/2024 1:31 AM CDT Has the patient had Daratumumab or Isatuximab in the past 6 months?->Unknown Danitza Underwood NP LAB BLOOD BANK TEST ORDERABLES Final Result [facility] Department [place] [address] * (ABNORMAL) Urinalysis reflex to microscopic and culture Urine (09/10/2024 9:19 PM CDT) Pathologist [facility] Color, ur Yellow Yellow Clarity, ur Cloudy(A) Clear [facility] Specific gravity, ur 1.020 1.003 - 1.030 [facility] pH, urine 7.0 [facility] Comment: Interpretive Data U rine pH is affected by diet, medications, systemic acid-base disturbances, and renal tubular function. pH may affect urinary stone formation. For example, urine pH below 6.0 may help reduce the tendency for calcium phosphate stones and pH greater than 6.0 may reduce the tendency for uric acid stone formation. Source: [facility] Current Interpretive Data was last revised on 2017 Protein, ur ql 1+(A) Negative [facility] Glucose, ur ql Negative Negative [facility] Ketones, ur Negative Negative [facility] Bilirubin, ur Negative Negative [facility] Blood, ur Negative Negative [facility] Urobilinogen, ur <2.0 <2.0 mg/dL [facility] Nitrite, ur Negative Negative [facility] Leukocyte esterase, ur 3+(A) Negative [facility] UA reflex comment Reflex to microscopic UA will be performed. [facility] Urine 09/10/2024 9:19 PM CDT 09/10/2024 9:41 PM CDT Giselle Nunez MD LAB MICROBIOLOGY - GENERAL ORDERABLES Final Result Performing Organization Address [facility] Co de Phone Number [facility] [place] [address] * (ABNORMAL) Urinalysis, microscopic only (09/10/2024 9:19 PM CDT) WBC, ur >50(A) 0 - 5 /HPF RBC, ur 11-20(A) 0 - 2 /HPF [facility] Epithelial cells, squamous, ur 1-5 0 - 5 /HPF [facility] Bacteria, ur 1+(A) [facility] Mucous, ur Present(A) [facility] Culture Reflex Comment Reflex to urine culture will be performed. 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 Please submit a new specimen with special attention given to the collection process and to prompt transport to the laboratory. (.) Organism GROWTH INDICATES CONTAMINATION WITH MIXED YASIR. [facility] Urine 09/10/2024 9:19 PM CDT 09/10/2024 11:10 PM CDT Narrative [facility] - 09/12/2024 12:39 PM CDT Urine culture reflexed based upon urinalysis results. Testing performed by [facility] ([phone]) Giselle Nunez MD LAB MICROBIOLOGY - GENERAL ORDERABLES Final Result Performing Organization Address [facility] Co de Phone Number [facility] Department [place] [address] * eGFR (09/10/2024 8:53 PM CDT) eGFR [...] MD LAB BLOOD ORDERABLE S Final Result [facility] [place] [address] * Calcium, ionized (09/10/2024 8:53 PM CDT) Calcium, Ionized 4.50 4.50 - 5.10 mg/dL Blood 09/10/2024 8:53 PM CDT 09/10/2024 9:19 PM CDT Giselle Nunez MD LAB BLOOD ORDERABLE S Final Result [facility] Department [place] [address] * (ABNORMAL) CBC without differential (09/10/2024 8:53 PM CDT) Pathologist [facility] WBC 9.20 3.80 - 9.90 K/cumm Hgb 10.0(L) 11.9 - 15.5 g/dL [facility] Hct 31.5(L) 35.6 - 45.5 % [facility] Plt 247 150 - 400 K/cumm [facility] MPV 11.7 9.1 - 12.3 fL [facility] RBC 3.70(L) 3.90 - 5.20 M/cumm [facility] MCV 85.1 81.3 - 96.4 fL [facility] MCH 27.0(L) 27.1 - 33.3 pg [facility] MCHC 31.7(L) 32.3 - 35.7 g/dL [facility] RDW CV 15.4(H) 11.1 - 14.9 % [facility] RDW SD 48.2(H) 35.7 - 48.1 fL [facility] NRBC abs 0.00 0.00 - 0.01 K/cumm [facility] Blood 09/10/2024 8:53 PM CDT 09/10/2024 9:31 PM CDT Giselle Nunez MD LAB BLOOD ORDERABLE S Final Result Performing Organization Address City/State/[facility] Co de Phone Number [facility] Department [place] [address] * (ABNORMAL) Phosphorus (09/10/2024 8:53 PM CDT) Pathologist [facility] Phosphorus, pl 1.8(L) 2.3 - 4.5 mg/dL Blood 09/10/2024 8:53 PM CDT 09/10/2024 9:24 PM CDT Giselle Nunez MD LAB BLOOD ORDERABLE S Final Result [facility] Department [place] [address] * Magnesium (09/10/2024 8:53 PM CDT) [facility] Magnesium 1.8 1.4 - 2.5 mg/dL Blood 09/10/2024 8:53 PM CDT 09/10/2024 9:24 PM CDT Giselle Nunez MD LAB BLOOD ORDERABLE S Final Result Performing Organization Address City/[facility] Co de Phone Number [facility] One [facility] [place] [address] * Basic metabolic panel (09/10/2024 8:53 PM CDT) [facility] Sodium 140 135 - 145 mmol/L Potassium, pl 4.2 3.3 - 4.9 mmol/L [facility] Chloride 100 97 - 110 mmol/L [facility] CO2 30 22 - 32 mmol/L [facility] Anion gap 10 2 - 15 mmol/L [facility] BUN 9 6 - 25 mg/dL [facility] Creatinine 0.86 0.60 - 1.10 mg/dL [facility] Glucose 151 70 - 199 mg/dL [facility] Comment: Interpretive Data Fasting glucose >/= 126 [...] 2022. Calcium 8.5 8.5 - 10.3 mg/dL [facility] Blood 09/10/2024 8:53 PM CDT 09/10/2024 9:24 PM CDT Giselle Nunez MD LAB BLOOD ORDERABLE S Final Result [facility] [place] [address] * Magnesium (09/10/2024 8:00 PM CDT) Magnesium 1.9 1.4 - 2.5 mg/dL Blood 09/10/2024 8:00 PM CDT 09/10/2024 9:24 PM CDT Giselle Nunez MD LAB BLOOD ORDERABLE S Final Result Performing Organization Address [facility] Co de Phone Number [facility] [place] [address] * (ABNORMAL) eGFR (09/09/2024 8:54 PM CDT) eGFR 57(L) >=60 mL/min/1. 73 [...] ORDERABLES Kathy l Result Performing Organization Address [facility] Co de Phone Number [facility] [place] [address] * (ABNORMAL) Calcium, ionized (09/09/2024 8:54 PM CDT) Calcium, Ionized 3.54(L) 4.50 - 5.10 mg/dL Blood 09/09/2024 8:54 PM CDT 09/09/2024 9:10 PM CDT Mike Singh MD LAB BLOOD ORDERABLES Kathy l Result Performing Organization Address [facility] de Phone Number [facility] [place] [address] * Phosphorus (09/09/2024 8:54 PM CDT) Phosphorus, pl 2.7 2.3 - 4.5 mg/dL Blood 09/09/2024 8:54 PM CDT 09/09/2024 9:10 PM CDT Giselle Nunez MD LAB BLOOD ORDERABLE S Final Result Performing Organization Address [facility] de Phone Number [facility] Department [place] [address] * Magnesium (09/09/2024 8:54 PM CDT) Magnesium 1.8 1.4 - 2.5 mg/dL Blood 09/09/2024 8:54 PM CDT 09/09/2024 9:10 PM CDT Giselle Nunez MD LAB BLOOD ORDERABLE S Final Result Performing Organization Address [facility] Co de Phone Number [facility] Department [place] [address] * (ABNORMAL) Basic metabolic panel (09/09/2024 8:54 PM CDT) Pathologist [facility] Sodium 141 135 - 145 mmol/L Potassium, pl 3.7 3.3 - 4.9 mmol/L [facility] Chloride 102 97 - 110 mmol/L [facility] CO2 31 22 - 32 mmol/L [facility] Anion gap 8 2 - 15 mmol/L [facility] BUN 13 6 - 25 mg/dL [facility] Creatinine 1.01 0.60 - 1.10 mg/dL [facility] Glucose 193 70 - 199 mg/dL [facility] Comment: Interpretive Data Fasting glucose >/= 126 [...] 2022. Calcium 6.6(L) 8.5 - 10.3 mg/dL [facility] Blood 09/09/2024 8:54 PM CDT 09/09/2024 9:10 PM CDT Mike Singh MD LAB BLOOD ORDERABLES Kathy l Result [facility] Department [place] [address] * (ABNORMAL) eGFR (09/09/2024 4:00 PM CDT) Pathologist [facility] eGFR 57(L) >=60 mL/min/1. 73 m2 Comment: [...] MD LAB BLOOD ORDERABLE S Final Result [facility] Department [place] [address] * (ABNORMAL) Calcium, ionized (09/09/2024 4:00 PM CDT) Calcium, Ionized 3.37(L) 4.50 - 5.10 mg/dL Blood 09/09/2024 4:00 PM CDT 09/09/2024 4:07 PM CDT Giselle Nunez MD LAB BLOOD ORDERABLE S Final Result [facility] Department [place] [address] * Phosphorus (09/09/2024 4:00 PM CDT) Phosphorus, pl 3.5 2.3 - 4.5 mg/dL Blood 09/09/2024 4:00 PM CDT 09/09/2024 4:07 PM CDT Giselle Nunez MD LAB BLOOD ORDERABLE S Final Result Performing Organization Address City/[facility]/ZIP Co de Phone Number [facility] Department [place] [address] * Magnesium (09/09/2024 4:00 PM CDT) Pathologist [facility] Magnesium 1.9 1.4 - 2.5 mg/dL Blood 09/09/2024 4:00 PM CDT 09/09/2024 4:07 PM CDT Giselle Nunez MD LAB BLOOD ORDERABLE S Final Result Performing Organization Address [facility] de Phone Number [facility] [place] [address] * (ABNORMAL) Basic metabolic panel (09/09/2024 4:00 PM CDT) [facility] Sodium 141 135 - 145 mmol/L Potassium, pl 3.7 3.3 - 4.9 mmol/L [facility] Chloride 100 97 - 110 mmol/L [facility] CO2 32 22 - 32 mmol/L [facility] Anion gap 9 2 - 15 mmol/L [facility] BUN 11 6 - 25 mg/dL [facility] Creatinine 1.01 0.60 - 1.10 mg/dL [facility] Glucose 125 70 - 199 mg/dL [facility] Comment: Interpretive Data Fasting glucose >/= 126 [...] 2022. Calcium 6.8(L) 8.5 - 10.3 mg/dL [facility] Blood 09/09/2024 4:00 PM CDT 09/09/2024 4:07 PM CDT us Giselle Nunez MD LAB BLOOD ORDERABLE S Final Result [facility] Department [place] [address] * TRANSTHORACIC ECHO (TTE) COMPLETE W DOPPLER/CF W CONTRAST (09/09/2024 10:49 AM CDT) Anatomical Region Laterality Modality Ultrasound 09/09/2024 9:59 AM CDT Narrative 09/09/2024 11:19 AM CDT [facility] [place] [address] Transthoracic Echocardiographic Report Patient Name: DEEPTI HERNANDEZ J : 1945 (78y 11m) Gender: F Study Date: 09/09/2024 09:59:26 AM Ht(Inch): 62 Wt(Lb): 184.97 BSA: 1.92 Script Writer: Annalisa Cole RDCSLIFECARE BEHAVIORAL HEALTH HOSPITALRiaz Location: [id number] Order Provider: MIKE SINGH Heart Rate: 71 [...] INDICATIONS: Atrial fibrillation and Coronary artery disease, grindstone vessel. CONCLUSIONS: 1. Normal left ventricular size [...] Note Kenan Prado MD PhD - 09/09/2024 [facility] [place] [address] Transthoracic Echocardiographic Report Patient Name: DEEPTI HERNANDEZ J : 1945 (78y 11m) Gender: F Study Date: 09/09/2024 09:59:26 AM Ht(Inch): 62 Wt(Lb): 184.97 BSA: 1.92 Script Writer: Annalisa Cole RDCSLIFECARE BEHAVIORAL HEALTH HOSPITALRiaz Location: [id number] OrderProvider: MIKE SINGH Heart Rate: 71 BMI: [...] INDICATIONS: Atrial fibrillation and Coronary artery disease, grindstone vessel. CONCLUSIONS: 1. Normal left ventricular size [...] [ 2.5 - 4.2 ] MV Decel Tptj551.39 msec [ 104.00 - 258.00 ] TAPSE [...] Inclusion of Race in Diagnosing Kidney Disease, GISELLE 2020). The CKD-EPI equation should not be used for patients with unstable renal function and has not been validated in children and those over 70. Current interpretive data was last reviewed 2021. Blood 09/09/2024 4:58 AM CDT 09/09/2024 6:06 AM CDT Mike Singh MD LAB BLOOD ORDERABLES Kathy l Result Performing Organization Address City/[facility] Co de Phone Number [facility] [place] [address] * (ABNORMAL) Calcium, ionized (09/09/2024 4:58 AM CDT) Calcium, Ionized 3.59(L) 4.50 - 5.10 mg/dL Blood 09/09/2024 4:58 AM CDT 09/09/2024 6:02 AM CDT us Mike Singh MD LAB BLOOD ORDERABLES Kathy l Result Performing Organization Address [facility] Co de Phone Number [facility] [place] [address] * Phosphorus (09/09/2024 4:58 AM CDT) Phosphorus, pl 4.2 2.3 - 4.5 mg/dL Blood 09/09/2024 4:58 AM CDT 09/09/2024 6:02 AM CDT Giselle Nunez MD LAB BLOOD ORDERABLE S Final Result Performing Organization Address City/[facility] Co de Phone Number [facility] [place] [address] * Magnesium (09/09/2024 4:58 AM CDT) Magnesium 2.0 1.4 - 2.5 mg/dL Comment:Repeated and Verifie d Blood 09/09/2024 4:58 AM CDT 09/09/2024 6:02 AM CDT us Giselle Nunez MD LAB BLOOD ORDERABLE S Final Result Performing Organization Address City/[facility]/ZIP Co de Phone Number [facility] Department [place] [address] * (ABNORMAL) Basic metabolic panel (09/09/2024 4:58 AM CDT) [facility] Sodium 143 135 - 145 mmol/L Potassium, pl 2.8(L) 3.3 - 4.9 mmol/L [facility] Chloride 100 97 - 110 mmol/L [facility] CO2 32 22 - 32 mmol/L [facility] Anion gap 11 2 - 15 mmol/L [facility] BUN 9 6 - 25 mg/dL [facility] Creatinine 0.85 0.60 - 1.10 mg/dL [facility] Glucose 108 70 - 199 mg/dL [facility] Comment: Interpretive Data Fasting glucose >/= 126 [...] 2022. Calcium 7.0(L) 8.5 - 10.3 mg/dL [facility] Blood 09/09/2024 4:58 AM CDT 09/09/2024 6:02 AM CDT us Mike Singh MD LAB BLOOD ORDERABLES Kathy l Result Performing Organization Address City/[facility]/ZIP Co de Phone Number [facility] [address] * (ABNORMAL) Iron profile w/ IBC (09/09/2024 2:05 AM CDT) Pathologist [facility] Iron 28(L) 35 - 145 mcg/dL TIBC 206(L) 250 - 400 mcg/dL [facility] Transferrin saturation 14(L) 20 - 50 % [facility] Blood 09/09/2024 2:05 AM CDT 09/09/2024 2:29 AM CDT Mike Singh MD LAB BLOOD [place] [address] * (ABNORMAL) Ferritin (09/09/2024 2:05 AM CDT) Pathologist [facility] Ferritin 155(H) 13 - 150 ng/mL Blood 09/09/2024 2:05 AM CDT 09/09/2024 2:29 AM CDT Mike Singh MD LAB BLOOD ORDERABLES Kathy l Result [facility] [place] [address] * Vitamin B12 (09/09/2024 2:05 AM CDT) Pathologist [facility] Vitamin B12 555 230 - 1,250 pg/mL Blood 09/09/2024 2:05 AM CDT 09/09/2024 2:29 AM CDT Mike Singh MD LAB BLOOD ORDERABLES Kathy l Result [facility] [place] [address] * ECG 12-LEAD (09/08/2024 9:33 PM CDT) Narrative [facility] - 09/08/2024 9:33 PM [...] Singh MD ECG ORDERABLES Final Res ult [facility] * Critical Result Callback Chemistry (09/08/2024 7:58 PM CDT) Date Notified [id number] Time Notified [facility] TestName Magnesium [facility] Called/Read Back Shamar BERG [facility] Credentials MD BERG [facility] Called By JOSAFAT BERG [facility] Blood 09/08/2024 7:58 PM CDT 09/08/2024 8:19 PM CDT Mike Singh MD LAB BLOOD ORDERABLES Kathy l Result Performing Organization Address City/[facility]/ZIP Co de Phone Number [facility] [place] [address] * Thyroid Function Long Bottom (09/08/2024 7:58 PM CDT) TSH 0.49 0.30 - 4.20 mcIUnit/mL Blood 09/08/2024 7:58 PM CDT 09/08/2024 8:19 PM CDT Mike Singh MD LAB BLOOD ORDERABLES Kathy l Result Performing Organization Address [facility] de Phone Number [facility] [place] [address] * (ABNORMAL) Calcium, ionized (09/08/2024 7:58 PM CDT) Calcium, Ionized 3.17(C) 4.50 - 5.10 mg/dL Comment:Critical result call ed to and read back by Dejan Alvarenga (rn) on 09/08/2024 20:44:53 CDT to pks. Blood 09/08/2024 7:58 PM CDT 09/08/2024 8:08 PM CDT Narrative [facility] - 09/08/2024 8:45 PM CDT Two hours after Ca gluc infusion complete Mike Singh MD LAB BLOOD ORDERABLES Kathy l Result Performing Organization Address City/[facility]/ZIP Co de Phone Number [facility] [place] [address] * (ABNORMAL) Vitamin D 25 hydroxy (09/08/2024 7:58 PM CDT) [facility] Vitamin D 25-OH 16(L) 30 - 80 ng/mL Blood 09/08/2024 7:58 PM CDT 09/08/2024 8:19 PM CDT Mike Singh MD LAB BLOOD ORDERABLES Kathy l Result Performing Organization Address City/[facility] Co de Phone Number [facility] [place] [address] * Phosphorus (09/08/2024 7:58 PM CDT) [facility] Phosphorus, pl 3.3 2.3 - 4.5 mg/dL Blood 09/08/2024 7:58 PM CDT 09/08/2024 8:19 PM CDT Mike Singh MD LAB BLOOD ORDERABLES Kathy l Result Performing Organization Address [facility] Co de Phone Number [facility] [place] [address] * (ABNORMAL) PTH (09/08/2024 7:58 PM CDT) [facility] PTH 97(H) 15 - 65 pg/mL Blood 09/08/2024 7:58 PM CDT 09/08/2024 8:18 PM CDT Mike Singh MD LAB BLOOD ORDERABLES Kathy l Result Performing Organization Address [facility] Co de Phone Number [facility] [place] [address] * (ABNORMAL) Magnesium (09/08/2024 7:58 PM CDT) [facility] Magnesium 0.7(C) 1.4 - 2.5 mg/dL Comment:Reviewed Blood 09/08/2024 7:58 PM CDT 09/08/2024 8:19 PM CDT Mike Singh MD LAB BLOOD ORDERABLES Kathy l Result [facility] [place] [address] * (ABNORMAL) Calcium, ionized (09/08/2024 7:44 PM CDT) Calcium, Ionized 3.29(L) 4.50 - 5.10 mg/dL Blood 09/08/2024 7:44 PM CDT 09/08/2024 8:08 PM CDT Mike Singh MD LAB BLOOD ORDERABLES Kathy l Result Performing Organization Address [facility] Co de Phone Number [facility] Department [place] [address] * CTA Head Neck W WO Contrast [...] the CTA were generated on a dedicated workstation/patient observer. Contrast information: 80 mL Optiray-350 IV COMPARISON: [...] the CTA were generated on a dedicated workstation/patient observer. Contrast information: 80 mL Optiray-350 IV COMPARISON: [...] Electronically signed by: Guero Hector M.D, PHD us Joann Arellano MD IMG CT PROCEDURES Final Result * Troponin I high-sensitivity 6-hour (09/08/2024 6:30 PM CDT) Pathologist [facility] Trop I hs 12 <=17 ng/L Comment: Interpretive Data For further hscTnI resources including the diagnostic algorithm and an aid in interpretation, copy and paste this link: https://bjhlab.testcatalog.org/show/hsTrop-1 Current Interpretive Data last revised 2019. Trop I hs delta -3 ng/L [facility] Trop I hs interp Insignificant [facility] Blood 09/08/2024 6:30 PM CDT 09/08/2024 6:39 PM CDT us David Milian MD LAB BLOOD ORD ERABLES Final Result [facility] Department [place] [address] * Troponin I high-sensitivity 4-hour (09/08/2024 5:49 PM CDT) Pathologist [facility] Trop I hs 13 <=17 ng/L Comment: Interpretive Data For further hscTnI resources including the diagnostic algorithm and an aid in interpretation, copy and paste this link: https://bjhlab.testcatalog.org/show/hsTrop-1 Current Interpretive Data last revised 2019. Trop I hs delta See Comment ng/L [facility] Comment:Inappropriate collec tion time to report a delta. Trop I hs pct delta See Comment % [facility] Comment:Inappropriate collec tion time to report a delta. Trop I hs interp See Comment [facility] Comment:Inappropriate collec tion time to report a delta. Blood 09/08/2024 5:49 PM CDT 09/08/2024 6:02 PM CDT us David Milian MD LAB BLOOD ORD ERABLES Final Result Performing Organization Address City/State/[facility] Co de Phone Number [facility] Department [place] [address] * US Carotids Duplex Bilateral (09/08/2024 4:04 PM CDT) Anatomical Region Laterality Modality Vascular Bilateral Ultrasound 09/08/2024 3:13 PM CDT Narrative 09/09/2024 1:30 AM CDT [facility] - Department of Vascular Surgery, Vascular Laboratory [address] [place] [id number] Carotid Duplex Ultrasound Report Patient Name: DEEPTI HERNANDEZ J : 1945 (78y 11m) Study Date: 09/08/2024 3:13:18 PM Gender: F Tech: IA Location: 2184 Ref Provider: CONY WOODS Quality: [...] LT VERT PSV 88 cm/sec FINDINGS: Performing Script Writer: Christiane Rodriguez RVT. Rt Common Carotid Artery: [...] that is provided above. Electronically Signed By: Frnac Kovacs MD FACS 09/09/2024 12:18:56 AM CDT Procedure Note Franc Kovacs MD - 09/09/2024 [employer] [facility] [employer] [facility] - Department of Vascular Surgery,Vascular Laboratory [address] [place] [id number] Carotid Duplex Ultrasound Report Patient Name: DEEPTI HERNANDEZ J : 1945 (78y 11m) Study Date: 09/08/2024 3:13:18 PM Gender: F Tech: PR Location: 2184 Ref Provider: CONY WOODS Quality: [...] LT VERT PSV 88 cm/sec FINDINGS: Performing Script Writer: WILIAM WickT. Rt Common Carotid Artery: The plaque in [...] Kovacs MD FACS 09/09/2024 12:18:56 AM CDT Con[facility] Woods [facility] Final Result * Troponin I high-sensitivity 2-hour (09/08/2024 2:21 PM CDT) Pathologist [facility] Trop I hs 14 <=17 ng/L Comment: Interpretive Data For further hscTnI resources including the diagnostic algorithm and an aid in interpretation, copy and paste this link: https://bjhlab.testcatalog.org/show/hsTrop-1 Current Interpretive Data last revised 2019. Trop I hs delta -1 ng/L [facility] Trop I hs interp Insignificant [facility] Blood 09/08/2024 2:21 PM CDT 09/08/2024 2:49 PM CDT David Milian MD LAB BLOOD ORD ERABLES Final Result [facility] Department of [place] [address] * Critical Result Callback Chemistry (09/08/2024 2:21 PM CDT) [facility] Date Notified [id number] Time [facility]ified [facility] TestName Ca Ionized [facility] Called/Read Back ramila GARDINER Credentials RN OT[facility] Called By gerda BERG [facility] Blood 09/08/2024 2:21 PM CDT 09/08/2024 3:22 PM CDT Cony Woods MD LAB BLOOD ORDERABLES Fin al Result [facility] Department [place] [address] * (ABNORMAL) Calcium, ionized (09/08/2024 2:21 PM CDT) Calcium, Ionized 2.76(C) 4.50 - 5.10 mg/dL Comment:Verified Blood 09/08/2024 2:21 PM CDT 09/08/2024 2:49 PM CDT us Cony Woods MD LAB BLOOD ORDERABLES Fin al Result Performing Organization Address City/State/ZIP Co wa Phone Number OT[facility] [place] [address] * XR Chest Pa Lateral 2 Views [...] ECG 12-LEAD (09/08/2024 12:41 PM CDT) Narrative [facility] - 09/08/2024 12:41 PM CDT Ricco Damian MD 09/08/2024 12:42 PM ECG 12 lead Date/Time: 09/08/2024 12:41 PM Performed by: Ricco Damian MD Authorized by: David Milian MD Comments: Irregularly irregular rhythm, rate of 90, left axis deviation, otherwise normal intervals, no convincing evidence of ischemia. Atrial fibrillation, not present on prior EKGs David Milian MD ECG ORDERABLE S Final Result Performing Organization Address City/[facility] Co de Phone Number [facility] * Troponin I high-sensitivity series (baseline, 2hr, 4hr, 6hr) (09/08/2024 12:34 PM CDT) Pathologist [facility] Trop I hs 15 <=17 ng/L Comment: Interpretive Data For further hscTnI resources including the diagnostic algorithm and an aid in interpretation, copy and paste this link: [email or web address]/[email or web address] Current Interpretive Data last revised 2019. Blood 09/08/2024 12:3 4 PM CDT 09/08/2024 12:50 PM CDT David Milian MD LAB BLOOD ORD ERABLES Final Result [facility] [place] [address] * eGFR (09/08/2024 12:34 PM CDT) Pathologist [facility] eGFR 72 >=60 mL/min/1. 73 m2 Comment: [...] MD LAB BLOOD ORD ERABLES Final Result [facility] [place] [address] * (ABNORMAL) Differential, auto (09/08/2024 12:34 PM CDT) Neutrophil abs 8.43(H) 1.50 - 6.50 K/cumm Imm gran abs 0.04 0.00 - 0.10 K/cumm [facility] Lymphocyte abs 1.79 0.80 - 3.30 K/cumm [facility] Monocyte abs 1.02(H) 0.20 - 0.80 K/cumm [facility] Eosinophil abs 0.33 0.00 - 0.50 K/cumm [facility] Basophil abs 0.04 0.00 - 0.10 K/cumm [facility] Neutrophil pct 72.4 % [facility] Comment: Interpretive Data Percent cell count reference ranges are not reported, since discordance with absolute values may lead to misinterpretation of CBC data. Current Interpretive Data was last revised on 2017. Imm gran pct 0.3 % [facility] Comment: Interpretive Data Percent cell count reference ranges are not reported, since discordance with absolute values may lead to misinterpretation of CBC data. Current Interpretive Data was last revised on 2017. Lymphocyte pct 15.4 % [facility] Comment: Interpretive Data Percent cell count reference ranges are not reported, since discordance with absolute values may lead to misinterpretation of CBC data. Current Interpretive Data was last revised on 2017. Monocyte pct 8.8 % [facility] Comment: Interpretive Data Percent cell count reference ranges are not reported, since discordance with absolute values may lead to misinterpretation of CBC data. Current Interpretive Data was last revised on 2017. Eosinophil pct 2.8 % [facility] Comment: Interpretive Data Percent cell count reference ranges are not reported, since discordance with absolute values may lead to misinterpretation of CBC data. Current Interpretive Data was last revised on 2017. Basophil pct 0.3 % [facility] Comment: Interpretive Data Percent cell count reference ranges are not reported, since discordance with absolute values may lead to misinterpretation of CBC data. Current Interpretive Data was last revised on 2017. Blood 09/08/2024 12:3 4 PM CDT 09/08/2024 12:50 PM CDT David Milian MD LAB BLOOD ORD ERABLES Final Result [facility] Department [place] [address] * Critical Result Callback Chemistry (09/08/2024 12:34 PM CDT) Date Notified [id number] Time Notified 1320 OT[facility] TestName Calcium [facility] Called/Read Back Cony MANZO Credentials MD [facility] Called By PD [facility] Blood 09/08/2024 12:3 4 PM CDT 09/08/2024 12:50 PM CDT David Milian MD LAB BLOOD ORD ERABLES Final Result Performing Organization Address City/[facility]/ZIP Co de Phone Number [facility] [place] [address] * (ABNORMAL) CBC with auto differential (09/08/2024 12:34 PM CDT) [facility] WBC 11.65(H) 3.80 - 9.90 K/cumm Hgb 11.4(L) 11.9 - 15.5 g/dL [facility] Hct 35.1(L) 35.6 - 45.5 % [facility] Plt 300 150 - 400 K/cumm [facility] MPV 11.4 9.1 - 12.3 fL [facility] RBC 4.18 3.90 - 5.20 M/cumm [facility] MCV 84.0 81.3 - 96.4 fL [facility] MCH 27.3 27.1 - 33.3 pg [facility] MCHC 32.5 32.3 - 35.7 g/dL [facility] RDW CV 15.4(H) 11.1 - 14.9 % [facility] RDW SD 46.9 35.7 - 48.1 fL [facility] NRBC abs 0.00 0.00 - 0.01 K/cumm [facility] Blood Venous blood specimen / Unknown 09/08/2024 12:34 PM CDT 09/08/2024 12:50 PM CDT David Milian MD LAB BLOOD ORD ERABLES Final Result [facility] Department [place] [address] * (ABNORMAL) Comprehensive metabolic panel (09/08/2024 12:34 PM CDT) [facility] Sodium 139 135 - 145 mmol/L Potassium, pl 3.9 3.3 - 4.9 mmol/L [facility] Comment:Hemolyzed; Potassium value may be falsely elevated by as much as 0.6-1.0 mmol/L. Suggest redraw and reanalysis. Chloride 96(L) 97 - 110 mmol/L [facility] CO2 28 22 - 32 mmol/L [facility] Anion gap 15 2 - 15 mmol/L [facility] BUN 8 6 - 25 mg/dL [facility] Creatinine 0.83 0.60 - 1.10 mg/dL [facility] Glucose 98 70 - 199 mg/dL [facility] Comment: Interpretive Data Fasting glucose >/= 126 [...] 2022. Calcium 6.1(C) 8.5 - 10.3 mg/dL [facility] Bilirubin, total 0.5 0.1 - 1.2 mg/dL [facility] Protein, pl 7.0 6.5 - 8.5 g/dL [facility] Albumin 3.5 3.5 - 5.0 g/dL [facility] Alk phos 81 40 - 130 Units/L [facility] ALT 16 7 - 45 Units/L [facility] AST 41 10 - 45 Units/L [facility] Comment:Hemolyzed; result ma y be falsely elevated Blood 09/08/2024 12:3 4 PM CDT 09/08/2024 12:50 PM CDT us David Milian MD LAB BLOOD ORD ERABLES Final Result [facility] [place] [address] from Last 3 Months Insurance [facility] MEDICARE ADVANTAGE [facility] MEDIC[facility] Address: [place] [phone] [employer]CR HMO REF [facility] MEDICARE Address: [address] [place], [place] [id number] [facility] MEDICARE ADVANTAGE [facility] MEDIC[facility] Address: [address] [address] [place] [address] , [facility]ER [facility] MEDICARE ADVANTAGE [facility] MEDIC[facility] Address: [place] [id number] [place] [address] Advance Directives For more information, please contact: [phone] * Full Code (Latest Code Status on File) Date Activated Date Inactivated Comments 09/08/2024 8:49 PM 09/14/2024 6:47 PM Care Teams Blood Tester Relationship Specialty Start Date End Date Mike Kinney DO PCP - General 11/06/16
--- OUTSIDE RECORDS SUMMARY | 2024-09-18 15:25 | XMS_ITS | Clinical Summary ---
Author Organization [facility] [employer] Address [address] [place] [address] Care Team Providers Care Professor Of Pathology Name Role Phone MonsterR[employer] rendon Sharmin DO Primary Care Provider [phone] [facility] [employer],non-owned Affiliates and Associated Physician Practices is amultiple site organization consisting of ambulatory clinics and hospital sitesin [place], [place], [place] and [place]. This disclosure is being madepursuant to the Care Everywhere program and may not contain all information available regarding this patient. Last updated 18.[facility] [employer] Allergies Active Allergy Reactions Criticality Noted Date Comments Labetalol Vomiting 02/01/2021 Medications * Be aware that medications may not be up to date on this document. Alwaysverify current medications with the patient. albuterol HFA (PROVENTIL;VENT MELANIE;PROAIR) 108 (90 Base) MCG/ACT inhaler Inhale 2 puffs by mouth every 6 hours as needed Active amLODIPine (NORVASC) 10 MG tablet Take 10 mg by mouth once daily Active aspirin EC (ECOTRIN) 81 MG tablet Take 81 mg by mouth once daily Active atorvastatin (LIPITOR) 80 MG tablet Take 80 mg by mouth at bedtime Active diphenhydramine -APAP, sleep, (TYLENOL PM EXTRA STRENGTH) 25-500 MG [...] 8.6 mg by mouth once daily Active Fluticasone-Ume clidin-Vilant (TRELEGY ELLIPTA) 100-62.5-25 MCG/INH Inhale 1 puff by mouth once daily Active Active Problems Problem Noted Date Diagnosed Date Headache 03/04/2015 Essential (primary) hypertension 05/08/2013 Nonruptured cerebral aneurysm 05/08/2013 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 Social History Tobacco Use Types Packs/Day Years Used Date Smoking Tobacco: Former Cigarettes Q uit: 02/01/2011 Alcohol Use Standard Drinks/Week Comments No 0 (1 standard drink = 0.6 oz pur e alcohol) Comments Unknown Sex and Gender Information Value Date Recorded Sex Assigned at Not on file Legal Sex 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 Gender Identity Not on file Sexual Orientation [...] VACCINE ( - 2023-2 5 season) 2024 DEPRESSION SCREENING 05/21/2024 INFLUENZA VACCINE (Season Ended) 2025 02/29/20 18 HEPATITIS B VACCINE Aged Out No longe r eligible based on patient's age to complete this topic HIB VACCINE Aged Out No longer eligi ble based on patient's age to complete this topic HPV VACCINE Aged Out No longer eligi ble based on patient's age to complete this topic MENINGOCOCCAL (Group B) VACC INE SHARED DECISION-MAKING Aged Out No longer eligibl e based on patient's age to complete this topic MENINGOCOCCAL GROUPS A/C/Y/W VACCINE Aged Out No longer eligible b ased on patient's age to complete this topic Insurance [employer] MANAGED MEDICARE ADV Care Teams Professor Of Pathology Relationship Specialty Start Date End Date Raza Kinney DO PCP - General 05/08/13
[2024-09-18 19:20] LABS: Basophils Percent Auto 0.4 % (0.2-1.2); Eosinophils Absolute Auto 0.5 K/mm3 (0-0.3); Eosinophils Percent Auto 4.9 % (0-4.4); Hematocrit 32.4 % (37.0-47.0); Hemoglobin 9.8 g/dL (12.0-15.0); Immature Granulocyte Absolute 0.07 K/mm3 (0.00-0.031); Immature Granulocyte Percent A 0.7 % (0-0.5); Lymphocytes Absolute Auto 1.83 K/mm3 (0.9-3.2); Lymphocytes Percent Auto 17.4 % (18.3-44.2); Mean Corpuscular HGB Conc 30.2 g/dl (32-36); Mean Corpuscular Hemoglobin 27.2 pg (26-34); Mean Platelet Volume 11.4 fl (7.4-10.4); Neutrophils Absolute Auto 7.1 K/mm3 (1.3-6.7); Neutrophils Percent Auto 67.6 % (45.5-73.1); Platelet Count Result 325 k/mm3 (150-375); White Blood Count 10.5 K/mm3 (4.5-10.0)
[2024-09-18 19:51] LABS: Anion Gap 7 mmol/L (4-12); Blood Urea Nitrogen 20 mg/dL (7-17); Calcium 8.5 mg/dL (8.4-10.2); Carbon Dioxide 29 mmol/L (22-30); Chloride 99 mmol/L (98-107); Estimated Glomerular Filt Rate 53; Glucose 100 mg/dL (65-110); Magnesium 1.6 mg/dL (1.6-2.3); Phosphorus 3.4 mg/dL (2.5-4.5); Potassium 4.5 mmol/L (3.4-5.0); Sodium 135 mmol/L (137-145)
[2024-09-18 21:01] LABS: Parathyroid Intact 142.1 pg/mL (14.5-75.2)
[2024-09-18 21:22] LABS: Vitamin D 25 Hydroxy 23.3 ng/mL
[2024-09-19 14:38] LABS: Ionized Calcium 4.8 mg/dL (4.7-5.5)
== END 2024-09-18 14:43 | disposition home or self-care (01) ==
LOC: ANHGOSHLAB 14:44
PROVIDERS: PCP Internal Medicine; Visit Provider Nurse Practitioner
DX: E83.51 Hypocalcemia (principal); E83.42 Hypomagnesemia; I65.23 Occlusion and stenosis of bilateral carotid arteries
CPT/HCPCS: 36415; 80048; 82306; 82330; 83735; 83970; 84100; 85025

== ENCOUNTER 2024-09-29 11:30 | Outpatient (CLI) | payer MEDICARE, SELFPAY ==
--- NOTE | ~2024-09-29 | US_ITS ---
EXAMINATION: US thyroid DATE: 09/29/2024 11:52 INDICATION: Nontoxic single thyroid nodule TECHNIQUE: Multiple ultrasound images of the thyroid were obtained. COMPARISON: None. FINDINGS: The right thyroid lobe measures 5.5 x 2.2 x 2.2 cm. The left thyroid lobe measures 5.2 x 1.5 x 1.8 c m. In the right thyroid lobe there is a 1.4 cm wider than tall hypoechoic solid nodule with ill-defi jyothi margins with central coarse shadowing calcification (TI-RADS 4, moderately suspicious , FNA if >= 1.5 cm, annual followup is >=1 cm). At the superior right thyroid lobe there is an additional 1 cm TI RADS 4 nodule with similar imaging features but without the coarse calcification. 1.5 cm almost comp letely cystic TI RADS 1 nodule at the inferior left thyroid lobe. There is heterogeneous echogenicity , coarsened echotexture and increased vascular flow diffusely throughout both thyroid lobes. IMPRESSION: 1. 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 2. A few thyroid nodules including a 1.4 cm Ti RADS 4 right thyroid nodule for which annual ultrasoun d follow-up would be recommended. Reviewed, dictated and finalized at location A. IMPRESSION: 1. Heterogeneous hypervascular thyroid with appearance suggestive chronic lymph ocytic processes Jojo's) thyroiditis. 2. A few thyroid nodules including a 1.4 cm Ti RADS 4 right thyroid nodule for which annual ultrasound follow-up would be recommended.
== END 2024-09-29 11:31 | disposition home or self-care (01) ==
LOC: MICIMG 11:30
PROVIDERS: PCP Internal Medicine; Visit Provider Nurse Practitioner
DX: E04.1 Nontoxic single thyroid nodule (principal); E05.90 Thyrotoxicosis, unspecified without thyrotoxic crisis or storm
CPT/HCPCS: 76536

== ENCOUNTER 2024-09-30 09:56 | Outpatient (CLI) | payer MEDICARE, SELFPAY ==
--- OUTSIDE RECORDS SUMMARY | 2024-09-30 10:10 | XMS_ITS | Clinical Summary ---
Author Organization [facility] [employer] Address [address] 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 This disclosure is being madepursuant to the Care Everywhere program and may not contain all information available regarding this patient. 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
--- OUTSIDE RECORDS SUMMARY | 2024-09-30 10:10 | XMS_ITS | Referral Summary ---
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; Preoperative testing; Hypocalcemia Discharge Disposition: Discharge to home or self care 09/11/2024 Orders Only [facility] Vascular Surgery [address] [place] [address] Medical Office Building [address] [place] [address] Mayur Man MD Bilateral carotid artery stenosis (Primary Dx); Aftercare following surgery of the circulatory system 09/11/2024 1:05 PM CDT - 09/11/2024 4:50 PM CDT Surgery [facility] Operating Room [address] [place] [phone] Mayur Man MD ENDARTERECTOMY - CAROTID WITH PATCH GRAFT 09/11/2024 10:31 AM CDT Anesthesia Event [facility] Operating Room [address] [place] [address] Yemi Hood MD Lentz, William Thomas, NP 09/08/2024 2:40 PM CDT Ancillary Procedure [facility] Vascular Lab IP [address] [facility] [address] [place] [address] 09/08/2024 Telephone [facility] Vascular Surgery [address] [facility] Medical Office Building 3 [address] [place] [address] Mayur Man MD 08/22/2024 11:30 AM CDT Office Visit [facility] Cardiology [address] [place] [address] Taqueria Sweeney MD Coronary artery disease involving [place] coronary artery of [place] heart without angina pectoris (Primary Dx); Mixed [...] is incongruent with smoking hx - [facility] Assessment & Plan (09/12/2024 7:11 AM CDT): [...] admission. - left CEA 09/11 - Wean ketih gtt today. Goal BP 110-150. - Hold [...] thickening/AR, mild TR (RVSP 30-35 mmHg), mild-mod ID, physiologic pericardial effusion. - Telemetry to monitor [...] thickening/AR, mild TR (RVSP 30-35 mmHg), mild-mod ID, physiologic pericardial effusion. - Telemetry to monitor [...] thickening/AR, mild TR (RVSP 30-35 mmHg), mild-mod ID, physiologic pericardial effusion. - Telemetry to monitor [...] thickening/AR, mild TR (RVSP 30-35 mmHg), mild-mod ID, physiologic pericardial effusion. - Telemetry to monitor [...] [place] heart without angina pectoris 05/08/2013 Assessment & Plan (09/11/2024 7:52 AM CDT): Hx of 3V CABG ~10 years ago, follows with Taqueria Sweeney in [facility] cardiology. Denies CP but does have some [...] CABG x3 10 years ago, follows with [facility] cardiology. Some peripheral edema and worsening SOB over last year - ECHO 09/08 Normal LV size. EF 54%. G1DD - Home atorvastatin 80mg and ASA 81mg Assessment & Plan (09/10/2024 7:59 AM CDT): Hx of 3V CABG ~10 years ago, follows with Taqueria Sweeney in [facility] cardiology. Denies CP but does have some [...] years ago, follows with Taqueria Sweeney in [facility] cardiology. Denies CP but does have some [...] years ago, follows with Taqueria Sweeney in [facility] cardiology. Denies CP but does have some [...] = 0.6 oz pur e alcohol) R[facility]ELY [facility] Utilities Answer Date Recorded In the past 12 months has e [employer], gas, oil, or water company threatened to [...] often do you attend chur ch or worship services? More than 4 times per year 09/09/2024 Do you belong to any clubs o r organizations such as adventist groups, unions, fraternal or athletic groups, or [...] and heating? 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 Sexual Orientation Not on file Occupation Industry [...] on file Medical Devices Implanted Type Area Programmer Analyst Consultant Device Identifier Shelf Expiration Date Model / Serial / Lot Stent- 6 Implanted:08/20 by Jose Chambers MD (Quantity not on file) Stent Thoracic Medtronic [id number] / [id number] / Description: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 Implanted:09/19 (Quantity not on file) Head [facility] Patch Vascuguard 0.88cm [id number] - [id number] - [id number] Implanted:Qty: 1 on 09/11/2024 by Mayur Man MD at [facility] Left: Carotid [facility] [id number] 03/14/2026 [id number] / [id number] / [id number] Procedures Procedure Name Priority Date/Time Associated Diagnosis [...] LOW RANGE Routine 09/11/2024 12:06 PM CDT ID AN PROCEDURE PLACEHOLDER Routine 09/11/2024 11:21 AM CDT ID AN PROCEDURE PLACEHOLDER Routine 09/11/2024 11:21 AM CDT ID AN PROCEDURE PLACEHOLDER Routine 09/11/2024 11:21 AM CDT ID AN PROCEDURE PLACEHOLDER Routine 09/11/2024 11:20 AM CDT ID AN ELECTIVE ENDOTRACHEAL AIRWAY Routine 09/11/2024 11:20 [...] ORDERABLE S Final Result [facility] [place] [address] * Calcium, ionized (09/13/2024 8:21 PM CDT) Calcium, Ionized 4.60 4.50 - 5.10 mg/dL Blood 09/13/2024 8:21 PM CDT 09/13/2024 9:10 PM CDT Giselle Nunez MD LAB BLOOD ORDERABLE S Final Result Performing Organization Address [facility] Co de Phone Number [facility] [place] [address] * (ABNORMAL) CBC without differential (09/13/2024 8:21 PM CDT) Pathologist [facility] WBC 11.57(H) 3.80 - 9.90 K/cumm Hgb 9.6(L) 11.9 - 15.5 g/dL [facility] Hct 30.3(L) 35.6 - 45.5 % [facility] Plt 260 150 - 400 K/cumm [facility] MPV 12.0 9.1 - 12.3 fL [facility] RBC 3.52(L) 3.90 - 5.20 M/cumm [facility] MCV 86.1 81.3 - 96.4 fL [facility] MCH 27.3 27.1 - 33.3 pg [facility] MCHC 31.7(L) 32.3 - 35.7 g/dL [facility] RDW CV 15.2(H) 11.1 - 14.9 % [facility] RDW SD 48.4(H) 35.7 - 48.1 fL [facility] NRBC abs 0.00 0.00 - 0.01 K/cumm [facility] Blood 09/13/2024 8:21 PM CDT 09/13/2024 9:12 PM CDT Giselle Nunez MD LAB BLOOD ORDERABLE S Final Result [facility] Department [place] [address] * (ABNORMAL) Basic metabolic panel (09/13/2024 8:21 PM CDT) Pathologist [facility] Sodium 138 135 - 145 mmol/L Potassium, pl 4.6 3.3 - 4.9 mmol/L [facility] Chloride 99 97 - 110 mmol/L [facility] CO2 33(H) 22 - 32 mmol/L [facility] Anion gap 6 2 - 15 mmol/L [facility] BUN 13 6 - 25 mg/dL [facility] Creatinine 0.89 0.60 - 1.10 mg/dL [facility] Glucose 114 70 - 199 mg/dL [facility] Comment: Interpretive Data Fasting glucose >/= 126 [...] Calcium 9.5 8.5 - 10.3 mg/dL [facility] Blood 09/13/2024 8:21 PM CDT 09/13/2024 9:11 PM CDT Giselle Nunez MD LAB BLOOD ORDERABLE S Final Result [facility] Department [place] [address] * eGFR (09/12/2024 9:21 PM CDT) [facility] eGFR 69 >=60 mL/min/1. 73 m2 Comment: [...] ORDERABLE S Final Result Performing Organization Address City/[facility]/ZIP Co de Phone Number [facility] Department [place] [address] * (ABNORMAL) Calcium, ionized (09/12/2024 9:21 PM CDT) Pathologist [facility] Calcium, Ionized 4.33(L) 4.50 - 5.10 mg/dL Blood 09/12/2024 9:21 PM CDT 09/12/2024 10:18 PM CDT Giselle Nunez MD LAB BLOOD ORDERABLE S Final Result [facility] [place] [address] * (ABNORMAL) CBC without differential (09/12/2024 9:21 PM CDT) WBC 10.69(H) 3.80 - 9.90 K/cumm Hgb 9.4(L) 11.9 - 15.5 g/dL [facility] Hct 29.2(L) 35.6 - 45.5 % [facility] Plt 214 150 - 400 K/cumm [facility] MPV 12.2 9.1 - 12.3 fL [facility] RBC 3.45(L) 3.90 - 5.20 M/cumm [facility] MCV 84.6 81.3 - 96.4 fL [facility] MCH 27.2 27.1 - 33.3 pg [facility] MCHC 32.2(L) 32.3 - 35.7 g/dL [facility] RDW CV 15.1(H) 11.1 - 14.9 % [facility] RDW SD 46.3 35.7 - 48.1 fL [facility] NRBC abs 0.00 0.00 - 0.01 K/cumm [facility] Blood 09/12/2024 9:21 PM CDT 09/12/2024 10:30 PM CDT Giselle Nunez MD LAB BLOOD ORDERABLE S Final Result Performing Organization Address [facility] de Phone Number [facility] [place] [address] * Phosphorus (09/12/2024 9:21 PM CDT) Phosphorus, pl 3.0 2.3 - 4.5 mg/dL Blood 09/12/2024 9:21 PM CDT 09/12/2024 10:29 PM CDT Giselle Nunez MD LAB BLOOD ORDERABLE S Final Result Performing Organization Address [facility] de Phone Number [facility] [place] [address] * Magnesium (09/12/2024 9:21 PM CDT) Magnesium 1.9 1.4 - 2.5 mg/dL Blood 09/12/2024 9:21 PM CDT 09/12/2024 10:29 PM CDT Giselle Nunez MD LAB BLOOD ORDERABLE S Final Result [facility] Department [place] [address] * (ABNORMAL) Basic metabolic panel (09/12/2024 9:21 PM CDT) Pathologist [facility] Sodium 137 135 - 145 mmol/L Potassium, pl 4.5 3.3 - 4.9 mmol/L [facility] Comment:Hemolyzed; Potassium value may be falsely elevated by as much as 0.3-0.5 mmol/L. Suggest redraw and reanalysis. Chloride 96(L) 97 - 110 mmol/L [facility] CO2 34(H) 22 - 32 mmol/L [facility] Anion gap 7 2 - 15 mmol/L [facility] BUN 13 6 - 25 mg/dL [facility] Creatinine 0.86 0.60 - 1.10 mg/dL [facility] Glucose 141 70 - 199 mg/dL [facility] Comment: Interpretive Data Fasting glucose >/= 126 [...] Calcium 8.6 8.5 - 10.3 mg/dL [facility] Blood 09/12/2024 9:21 PM CDT 09/12/2024 10:29 PM CDT us Giselle Nunez MD LAB BLOOD ORDERABLE S Final Result [facility] [place] [address] * Phosphorus (09/12/2024 8:04 AM CDT) Pathologist [facility] Phosphorus, pl 2.9 2.3 - 4.5 mg/dL Blood 09/12/2024 8:04 AM CDT 09/12/2024 8:34 AM CDT us Giselle Nunez MD LAB BLOOD ORDERABLE S Final Result Performing Organization Address City/[facility] Co de Phone Number [facility] [place] [address] * Magnesium (09/12/2024 8:04 AM CDT) Magnesium 2.2 1.4 - 2.5 mg/dL Blood 09/12/2024 8:04 AM CDT 09/12/2024 8:34 AM CDT Giselle Nunez MD LAB BLOOD ORDERABLE S Final Result Performing Organization Address City/[facility] de Phone Number [facility] [place] [address] * eGFR (09/11/2024 8:48 PM CDT) eGFR [...] ORDERABLES Final Res ult Performing Organization Address City/[facility]/ZIP Co de Phone Number [facility] [place] [address] * Calcium, ionized (09/11/2024 8:48 PM CDT) [facility] Calcium, Ionized 4.55 4.50 - 5.10 mg/dL Blood 09/11/2024 8:48 PM CDT 09/11/2024 8:56 PM CDT us Giselle Nunez MD LAB BLOOD ORDERABLE S Final Result Performing Organization Address [facility] de Phone Number [facility] [place] [address] * (ABNORMAL) CBC without differential (09/11/2024 8:48 PM CDT) [facility] WBC 9.23 3.80 - 9.90 K/cumm Hgb 9.3(L) 11.9 - 15.5 g/dL [facility] Hct 29.2(L) 35.6 - 45.5 % [facility] Plt 261 150 - 400 K/cumm [facility] MPV 11.5 9.1 - 12.3 fL [facility] RBC 3.40(L) 3.90 - 5.20 M/cumm [facility] MCV 85.9 81.3 - 96.4 fL [facility] MCH 27.4 27.1 - 33.3 pg [facility] MCHC 31.8(L) 32.3 - 35.7 g/dL [facility] RDW CV 15.3(H) 11.1 - 14.9 % [facility] RDW SD 47.8 35.7 - 48.1 fL [facility] NRBC abs 0.00 0.00 - 0.01 K/cumm [facility] Blood 09/11/2024 8:48 PM CDT 09/11/2024 9:25 PM CDT Giselle Nunez MD LAB BLOOD ORDERABLE S Final Result Performing Organization Address [facility] de Phone Number [facility] [place] [address] * Phosphorus (09/11/2024 8:48 PM CDT) [facility] Phosphorus, pl 3.4 2.3 - 4.5 mg/dL Blood 09/11/2024 8:48 PM CDT 09/11/2024 8:56 PM CDT Giselle Nunez MD LAB BLOOD ORDERABLE S Final Result Performing Organization Address [facility] de Phone Number [facility] [place] [address] * (ABNORMAL) Magnesium (09/11/2024 8:48 PM CDT) [facility] Magnesium 1.3(L) 1.4 - 2.5 mg/dL Blood 09/11/2024 8:48 PM CDT 09/11/2024 8:56 PM CDT Giselle Nunez MD LAB BLOOD ORDERABLE S Final Result Performing Organization Address [facility] [place] [address] * (ABNORMAL) Basic metabolic panel (09/11/2024 8:48 PM CDT) [facility] Sodium 137 135 - 145 mmol/L Potassium, pl 4.6 3.3 - 4.9 mmol/L [facility] Chloride 99 97 - 110 mmol/L [facility] CO2 34(H) 22 - 32 mmol/L [facility] Anion gap 4 2 - 15 mmol/L [facility] BUN 8 6 - 25 mg/dL [facility] Creatinine 0.73 0.60 - 1.10 mg/dL [facility] Glucose 200(H) 70 - 199 mg/dL [facility] Comment: Interpretive Data Fasting glucose >/= 126 [...] Calcium 9.0 8.5 - 10.3 mg/dL [facility] Blood 09/11/2024 8:48 PM CDT 09/11/2024 8:56 PM CDT us Mayur Man MD LAB BLOOD ORDERABLES Final Res ult [facility] [place] [address] * CTA Stroke Head Neck W WO [...] the CTA were generated on a dedicated workstation/navy airspace officer. Contrast information: 94 mL Optiray-350 IV COMPARISON: [...] Artery: no occlusion or significant stenosis L WOOD FINISHER: origin left posterior communicating artery, no occlusion or significant stenosis R WOOD FINISHER: mild irregularity R superior cerebellar artery: mild [...] the CTA were generated on a dedicated workstation/navy airspace officer. Contrast information: 94 mL Optiray-350 IV COMPARISON: [...] Artery: no occlusion or significant stenosis L WOOD FINISHER: origin left posterior communicating artery, no occlusion or significant stenosis R WOOD FINISHER: mild irregularity R superior cerebellar artery: mild [...] 147 123 - 168 sec POC Performer [id number] [facility] POC Device Number [id number] [facility] Blood 09/11/2024 1:20 PM CDT 09/11/2024 1:20 PM CDT us Giselle Nunez MD LAB POCT ORDERABLES - DEVICE Final Result [facility] [place] [address] * (ABNORMAL) POCT Activated clotting time, low range (09/11/2024 1:02 PM CDT) ACT 255(H) 123 - 168 sec POC Performer [id number] [facility] POC Device Number [id number] [facility] Blood 09/11/2024 1:02 PM CDT 09/11/2024 1:02 PM CDT Giselle Nunez MD LAB POCT ORDERABLES - DEVICE Final Result Performing Organization Address [facility] Co de Phone Number [facility] [place] [address] * (ABNORMAL) POCT Activated clotting time, low range (09/11/2024 12:42 PM CDT) ACT 298(H) 123 - 168 sec POC Performer [id number] [facility] POC Device Number [id number] [facility] Blood 09/11/2024 12:4 2 PM CDT 09/11/2024 12:42 PM CDT Giselle Nunez MD LAB POCT ORDERABLES - DEVICE Final Result Performing Organization Address [facility] Co de Phone Number [facility] [place] [address] * (ABNORMAL) POCT Activated clotting time, low range (09/11/2024 12:33 PM CDT) ACT 244(H) 123 - 168 sec POC Performer [id number] [facility] POC Device Number [id number] [facility] Blood 09/11/2024 12:3 3 PM CDT 09/11/2024 12:33 PM CDT Giselle Nunez MD LAB POCT ORDERABLES - DEVICE Final Result Performing Organization Address [facility] Co de Phone Number [facility] [place] [address] * (ABNORMAL) POCT Activated clotting time, low range (09/11/2024 12:25 PM CDT) ACT 232(H) 123 - 168 sec POC Performer [id number] [facility] POC Device Number [id number] [facility] Blood 09/11/2024 12:2 5 PM CDT 09/11/2024 12:25 PM CDT Giselle Nunez MD LAB POCT ORDERABLES - DEVICE Final Result Performing Organization Address [facility] [place] [address] * (ABNORMAL) POCT Activated clotting time, low range (09/11/2024 12:06 PM CDT) ACT 256(H) 123 - 168 sec POC Performer [id number] [facility] POC Device Number [id number] [facility] Blood 09/11/2024 12:0 6 PM CDT 09/11/2024 12:06 PM CDT Giselle Nunez MD LAB POCT ORDERABLES - DEVICE Final Result Performing Organization Address [facility] [place] [address] * ID AN PROCEDURE PLACEHOLDER (09/11/2024 11:21 AM CDT) [...] MD ANESTHESIA ORDERABLES Kathy l Result * ID AN PROCEDURE PLACEHOLDER (09/11/2024 11:21 AM CDT) Narrative Vane Garzon - 09/11/2024 11:21 AM CDT Vane Garzon 09/11/2024 11:21 AM Peripheral IV Catheter Patient location: OR Staff: Placed by: ACQUISITIONS LOGISTICS ANALYST: Michael Moreira CRNA Preprocedure prep: Prep solution: chlorhexadine PPE: gloves PIV line: Laterality: left Site: forearm Catheter size: 18 g Technique: palpatation and anatomical landmarks Procedure details: good blood return and occlusive dressing applied Number of attempts: 1 Assessment: Events: patient tolerated procedure well with no complications us Yemi Hood MD ANESTHESIA ORDERABLES Kathy l Result * ID AN PROCEDURE PLACEHOLDER (09/11/2024 11:21 AM CDT) [...] MD ANESTHESIA ORDERABLES Kathy l Result * ID AN ELECTIVE ENDOTRACHEAL AIRWAY, ID AN PROCEDURE PLACEHOLDER (09/11/2024 11:20 AM CDT) [...] indirect Negative ABO Rh A Negative [facility] Blood 09/10/2024 11:2 9 PM CDT 09/11/2024 12:18 AM CDT Narrative [facility] - 09/11/2024 1:31 AM CDT Has the patient had Daratumumab or Isatuximab in the past 6 months?->Unknown Danitza Underwood NP LAB BLOOD BANK TEST ORDERABLES Final Result [facility] [place] [address] * (ABNORMAL) Urinalysis reflex to microscopic and culture Urine (09/10/2024 9:19 PM CDT) Color, ur Yellow Yellow Clarity, ur Cloudy(A) Clear [facility] Specific gravity, ur 1.020 1.003 - 1.030 [facility] pH, urine 7.0 [facility] Comment: Interpretive Data U rine pH is affected by diet, medications, systemic acid-base disturbances, and renal tubular function. pH may affect urinary stone formation. For example, urine pH below 6.0 may help reduce the tendency for calcium phosphate stones and pH greater than 6.0 may reduce the tendency for uric acid stone formation. Source: [facility] Current Interpretive Data was last revised on 2017 Protein, ur ql 1+(A) Negative [facility] Glucose, ur ql Negative Negative [facility] Ketones, ur Negative Negative [facility] Bilirubin, ur Negative Negative [facility] Blood, ur Negative Negative [facility] Urobilinogen, ur <2.0 <2.0 mg/dL [facility] Nitrite, ur Negative Negative [facility] Leukocyte esterase, ur 3+(A) Negative [facility] UA reflex comment Reflex to microscopic UA will be performed. [facility] Urine 09/10/2024 9:19 PM CDT 09/10/2024 9:41 PM CDT Giselle Nunez MD LAB MICROBIOLOGY - GENERAL ORDERABLES Final Result Performing Organization Address [facility] de Phone Number [facility] [place] [address] * (ABNORMAL) Urinalysis, microscopic only (09/10/2024 9:19 PM CDT) WBC, ur >50(A) 0 - 5 /HPF RBC, ur 11-20(A) 0 - 2 /HPF [facility] Epithelial cells, squamous, ur 1-5 0 - 5 /HPF [facility] Bacteria, ur 1+(A) [facility] Mucous, ur Present(A) [facility] Culture Reflex Comment Reflex to urine culture will be performed. 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 Please submit a new specimen with special attention given to the collection process and to prompt transport to the laboratory. (.) Organism GROWTH INDICATES CONTAMINATION WITH MIXED YASIR. [facility] Urine 09/10/2024 9:19 PM CDT 09/10/2024 11:10 PM CDT Narrative [facility] - 09/12/2024 12:39 PM CDT Urine culture reflexed based upon urinalysis results. Testing performed by [facility] Microbiology Laboratory ([phone]) us Giselle Nunez MD LAB MICROBIOLOGY - GENERAL ORDERABLES Final Result [facility] [place] [address] * eGFR (09/10/2024 8:53 PM CDT) eGFR [...] MD LAB BLOOD ORDERABLE S Final Result [facility] [place] [address] * Calcium, ionized (09/10/2024 8:53 PM CDT) [facility] Calcium, Ionized 4.50 4.50 - 5.10 mg/dL Blood 09/10/2024 8:53 PM CDT 09/10/2024 9:19 PM CDT Giselle Nunez MD LAB BLOOD ORDERABLE S Final Result Performing Organization Address City/[facility] Co de Phone Number [facility] [place] [address] * (ABNORMAL) CBC without differential (09/10/2024 8:53 PM CDT) [facility] WBC 9.20 3.80 - 9.90 K/cumm Hgb 10.0(L) 11.9 - 15.5 g/dL [facility] Hct 31.5(L) 35.6 - 45.5 % [facility] Plt 247 150 - 400 K/cumm [facility] MPV 11.7 9.1 - 12.3 fL [facility] RBC 3.70(L) 3.90 - 5.20 M/cumm [facility] MCV 85.1 81.3 - 96.4 fL [facility] MCH 27.0(L) 27.1 - 33.3 pg [facility] MCHC 31.7(L) 32.3 - 35.7 g/dL [facility] RDW CV 15.4(H) 11.1 - 14.9 % [facility] RDW SD 48.2(H) 35.7 - 48.1 fL [facility] NRBC abs 0.00 0.00 - 0.01 K/cumm [facility] Blood 09/10/2024 8:53 PM CDT 09/10/2024 9:31 PM CDT Giselle Nunez MD LAB BLOOD ORDERABLE S Final Result Performing Organization Address [facility] Co de Phone Number [facility] [place] [address] * (ABNORMAL) Phosphorus (09/10/2024 8:53 PM CDT) [facility] Phosphorus, pl 1.8(L) 2.3 - 4.5 mg/dL Blood 09/10/2024 8:53 PM CDT 09/10/2024 9:24 PM CDT Giselle Nunez MD LAB BLOOD ORDERABLE S Final Result Performing Organization Address [facility] de Phone Number [facility] [place] [address] * Magnesium (09/10/2024 8:53 PM CDT) [facility] Magnesium 1.8 1.4 - 2.5 mg/dL Blood 09/10/2024 8:53 PM CDT 09/10/2024 9:24 PM CDT Giselle Nunez MD LAB BLOOD ORDERABLE S Final Result Performing Organization Address [facility] [place] [address] * Basic metabolic panel (09/10/2024 8:53 PM CDT) [facility] Sodium 140 135 - 145 mmol/L Potassium, pl 4.2 3.3 - 4.9 mmol/L [facility] Chloride 100 97 - 110 mmol/L [facility] CO2 30 22 - 32 mmol/L [facility] Anion gap 10 2 - 15 mmol/L [facility] BUN 9 6 - 25 mg/dL [facility] Creatinine 0.86 0.60 - 1.10 mg/dL [facility] Glucose 151 70 - 199 mg/dL [facility] Comment: Interpretive Data Fasting glucose >/= 126 [...] Calcium 8.5 8.5 - 10.3 mg/dL [facility] Blood 09/10/2024 8:53 PM CDT 09/10/2024 9:24 PM CDT Giselle Nunez MD LAB BLOOD ORDERABLE S Final Result Performing Organization Address City/[facility]/ZIP Co de Phone Number [facility] [place] [employer] [place] [address] * Magnesium (09/10/2024 8:00 PM CDT) [facility] Magnesium 1.9 1.4 - 2.5 mg/dL Blood 09/10/2024 8:00 PM CDT 09/10/2024 9:24 PM CDT Giselle Nunez MD LAB BLOOD ORDERABLE S Final Result Performing Organization Address City/[facility] Co de Phone Number [facility] Department [place] [address] * (ABNORMAL) eGFR (09/09/2024 8:54 PM CDT) [facility] eGFR 57(L) >=60 mL/min/1. 73 m2 Comment: [...] MD LAB BLOOD ORDERABLES Kathy l Result [facility] [place] [address] * (ABNORMAL) Calcium, ionized (09/09/2024 8:54 PM CDT) Calcium, Ionized 3.54(L) 4.50 - 5.10 mg/dL Blood 09/09/2024 8:54 PM CDT 09/09/2024 9:10 PM CDT Mike Singh MD LAB BLOOD ORDERABLES Kathy l Result [facility] [place] [address] * Phosphorus (09/09/2024 8:54 PM CDT) Phosphorus, pl 2.7 2.3 - 4.5 mg/dL Blood 09/09/2024 8:54 PM CDT 09/09/2024 9:10 PM CDT Giselle Nunez MD LAB BLOOD ORDERABLE S Final Result Performing Organization Address City/[facility]/ZIP Co de Phone Number [facility] [place] [address] * Magnesium (09/09/2024 8:54 PM CDT) Pathologist [facility] Magnesium 1.8 1.4 - 2.5 mg/dL Blood 09/09/2024 8:54 PM CDT 09/09/2024 9:10 PM CDT Giselle Nunez MD LAB BLOOD ORDERABLE S Final Result Performing Organization Address [facility] de Phone Number [facility] [place] [address] * (ABNORMAL) Basic metabolic panel (09/09/2024 8:54 PM CDT) [facility] Sodium 141 135 - 145 mmol/L Potassium, pl 3.7 3.3 - 4.9 mmol/L [facility] Chloride 102 97 - 110 mmol/L [facility] CO2 31 22 - 32 mmol/L [facility] Anion gap 8 2 - 15 mmol/L [facility] BUN 13 6 - 25 mg/dL [facility] Creatinine 1.01 0.60 - 1.10 mg/dL [facility] Glucose 193 70 - 199 mg/dL [facility] Comment: Interpretive Data Fasting glucose >/= 126 [...] Calcium 6.6(L) 8.5 - 10.3 mg/dL [facility] Blood 09/09/2024 8:54 PM CDT 09/09/2024 9:10 PM CDT us Mike Singh MD LAB BLOOD ORDERABLES Kathy l Result Performing Organization Address [facility] Co de Phone Number [facility] [place] [address] * (ABNORMAL) eGFR (09/09/2024 4:00 PM CDT) [...] ORDERABLE S Final Result Performing Organization Address City/[facility]/ZIP Co de Phone Number [facility] [place] [address] * (ABNORMAL) Calcium, ionized (09/09/2024 4:00 PM CDT) Calcium, Ionized 3.37(L) 4.50 - 5.10 mg/dL Blood 09/09/2024 4:00 PM CDT 09/09/2024 4:07 PM CDT Giselle Nunez MD LAB BLOOD ORDERABLE S Final Result Performing Organization Address City/[facility] Co de Phone Number [facility] [place] [address] * Phosphorus (09/09/2024 4:00 PM CDT) [facility] Phosphorus, pl 3.5 2.3 - 4.5 mg/dL Blood 09/09/2024 4:00 PM CDT 09/09/2024 4:07 PM CDT Giselle Nunez MD LAB BLOOD ORDERABLE S Final Result Performing Organization Address [facility] Co de Phone Number [facility] [place] [address] * Magnesium (09/09/2024 4:00 PM CDT) [facility] Magnesium 1.9 1.4 - 2.5 mg/dL Blood 09/09/2024 4:00 PM CDT 09/09/2024 4:07 PM CDT Result [facility] Giselle Nunez MD LAB BLOOD ORDERABLE S Final Result Performing Organization Address City/[facility] de Phone Number [facility] [place] [address] * (ABNORMAL) Basic metabolic panel (09/09/2024 4:00 PM CDT) [facility] Sodium 141 135 - 145 mmol/L Potassium, pl 3.7 3.3 - 4.9 mmol/L [facility] Chloride 100 97 - 110 mmol/L [facility] CO2 32 22 - 32 mmol/L [facility] Anion gap 9 2 - 15 mmol/L [facility] BUN 11 6 - 25 mg/dL [facility] Creatinine 1.01 0.60 - 1.10 mg/dL [facility] Glucose 125 70 - 199 mg/dL [facility] Comment: Interpretive Data Fasting glucose >/= 126 [...] Calcium 6.8(L) 8.5 - 10.3 mg/dL [facility] Blood 09/09/2024 4:00 PM CDT 09/09/2024 4:07 PM CDT us Giselle Nunez MD LAB BLOOD ORDERABLE S Final Result [facility] [place] [address] * TRANSTHORACIC ECHO (TTE) COMPLETE W DOPPLER/CF W CONTRAST (09/09/2024 10:49 AM CDT) Anatomical Region Laterality Modality Ultrasound 09/09/2024 9:59 AM CDT Narrative 09/09/2024 11:19 AM CDT [facility] [place] [address] Transthoracic Echocardiographic Report Patient Name: DEEPTI HERNANDEZ J : 1945 (78y 11m) Gender: F Study Date: 09/09/2024 09:59:26 AM Ht(Inch): 62 Wt(Lb): 184.97 BSA: 1.92 Appeals Representative: Annalisa Cole RD,[facility] Location: [id number] Order Provider: MIKE SINGH Heart Rate: 71 [...] INDICATIONS: Atrial fibrillation and Coronary artery disease, [place] vessel. CONCLUSIONS: 1. Normal left ventricular size [...] Note Kenan Prado MD PhD - 09/09/2024 [facility] [place] [address] Transthoracic Echocardiographic Report Patient Name: DEEPTI HERNANDEZ Viet : 1945 (78y 11m) Gender: F Study Date: 09/09/2024 09:59:26 AM Ht(Inch): 62 Wt(Lb): 184.97 BSA: 1.92 Appeals Representative[facility] Annal[facility] Location: [id number] OrderProvider: MIKE SINGH Heart Rate: 71 BMI: 33.83 BP: 97/68 Ref Provider: IMKE SINGH PROCEDURES: Echocardiographic Report: Transthoracic complete echo with strain imagingand contrast, 2D, spectral and tissue Doppler, color flow Doppler, M-mode. Contrast: Contrast Enhancement was Employed: After initial imaging due tosub- optimal quality related to co-morbidity defined by patient's body habitus. 0.4 mlOptison Administered, (2.6 ml wasted). Technically difficult study due to: Poor acoustic windows. INDICATIONS: Atrial fibrillation and Coronary artery disease, [place] vessel. CONCLUSIONS: 1. Normal left ventricular size [...] [ 2.5 - 4.2 ] MV Decel [id number] msec [ 104.00 - 258.00 ] TAPSE [...] MD LAB BLOOD ORDERABLES Kathy l Result [facility] [place] [address] * (ABNORMAL) Calcium, ionized (09/09/2024 4:58 AM CDT) Calcium, Ionized 3.59(L) 4.50 - 5.10 mg/dL Blood 09/09/2024 4:58 AM CDT 09/09/2024 6:02 AM CDT Mike Singh MD LAB BLOOD ORDERABLES Kathy l Result [facility] [place] [address] * Phosphorus (09/09/2024 4:58 AM CDT) [facility] Phosphorus, pl 4.2 2.3 - 4.5 mg/dL Blood 09/09/2024 4:58 AM CDT 09/09/2024 6:02 AM CDT Giselle Nunez MD LAB BLOOD ORDERABLE S Final Result Performing Organization Address [facility] [place] [address] * Magnesium (09/09/2024 4:58 AM CDT) [facility] Magnesium 2.0 1.4 - 2.5 mg/dL Comment:Repeated and Verifie d Blood 09/09/2024 4:58 AM CDT 09/09/2024 6:02 AM CDT Giselle Nunez MD LAB BLOOD ORDERABLE S Final Result Performing Organization Address [facility] [place] [address] * (ABNORMAL) Basic metabolic panel (09/09/2024 4:58 AM CDT) [facility] Sodium 143 135 - 145 mmol/L Potassium, pl 2.8(L) 3.3 - 4.9 mmol/L [facility] Chloride 100 97 - 110 mmol/L [facility] CO2 32 22 - 32 mmol/L [facility] Anion gap 11 2 - 15 mmol/L [facility] BUN 9 6 - 25 mg/dL [facility] Creatinine 0.85 0.60 - 1.10 mg/dL [facility] Glucose 108 70 - 199 mg/dL [facility] Comment: Interpretive Data Fasting glucose >/= 126 [...] Calcium 7.0(L) 8.5 - 10.3 mg/dL [facility] Blood 09/09/2024 4:58 AM CDT 09/09/2024 6:02 AM CDT Mike Singh MD LAB BLOOD ORDERABLES Kathy l Result Performing Organization Address [facility] Co de Phone Number [facility] [place] [address] * (ABNORMAL) Iron profile w/ IBC (09/09/2024 2:05 AM CDT) Iron 28(L) 35 - 145 mcg/dL TIBC 206(L) 250 - 400 mcg/dL [facility] Transferrin saturation 14(L) 20 - 50 % [facility] Blood 09/09/2024 2:05 AM CDT 09/09/2024 2:29 AM CDT Mike Singh MD LAB BLOOD ORDERABLES Kathy l Result Performing Organization Address [facility]/ZIP Co de Phone Number [facility] [place] [address] * (ABNORMAL) Ferritin (09/09/2024 2:05 AM CDT) Ferritin 155(H) 13 - 150 ng/mL Blood 09/09/2024 2:05 AM CDT 09/09/2024 2:29 AM CDT Mike Singh MD LAB BLOOD ORDERABLES Kathy l Result Performing Organization Address [facility]/ZIP Co de Phone Number OTIS GARDINER [facility] [place] [address] * Vitamin B12 (09/09/2024 2:05 AM CDT) Vitamin B12 555 230 - 1,250 pg/mL Blood 09/09/2024 2:05 AM CDT 09/09/2024 2:29 AM CDT Mike Singh MD LAB BLOOD ORDERABLES Kathy l Result Performing Organization Address [facility] Co de Phone Number [facility] [place] [address] * ECG 12-LEAD (09/08/2024 9:33 PM CDT) Narrative [facility] - 09/08/2024 9:33 PM CDT Lyndsay Keller [...] ORDERABLES Final Res ult Performing Organization Address [facility] Co de Phone Number [facility] * Critical Result Callback Chemistry (09/08/2024 7:58 PM CDT) Date Notified [id number] Time Notified 2109 [facility] TestName Hans [facility] Called/Read Back Shamar [facility] Credentials MD [facility] Called By JOSAFAT [facility] Blood 09/08/2024 7:58 PM CDT 09/08/2024 8:19 PM CDT Mike Singh MD LAB BLOOD ORDERABLES Kathy l Result Performing Organization Address [facility] de Phone Number [facility] [place] [address] * Thyroid Function [place] (09/08/2024 7:58 PM CDT) TSH 0.49 0.30 - 4.20 mcIUnit/mL Blood 09/08/2024 7:58 PM CDT 09/08/2024 8:19 PM CDT Mike Singh MD LAB BLOOD ORDERABLES Kathy l Result Performing Organization Address [facility] Co de Phone Number [facility] [place] [address] * (ABNORMAL) Calcium, ionized (09/08/2024 7:58 PM CDT) Pathologist [facility] Calcium, Ionized 3.17(C) 4.50 - 5.10 mg/dL Comment:Critical result call ed to and read back by Dejan Alvarenga (rn) on 09/08/2024 20:44:53 CDT to pks. Blood 09/08/2024 7:58 PM CDT 09/08/2024 8:08 PM CDT Narrative [facility] - 09/08/2024 8:45 PM CDT Two hours after Ca gluc infusion complete Mike Singh MD LAB BLOOD ORDERABLES Kathy l Result [facility] [place] [address] * (ABNORMAL) Vitamin D 25 hydroxy (09/08/2024 7:58 PM CDT) [facility] Vitamin D 25-OH 16(L) 30 - 80 ng/mL Blood 09/08/2024 7:58 PM CDT 09/08/2024 8:19 PM CDT Mike Singh MD LAB BLOOD ORDERABLES Kathy l Result Performing Organization Address City/[facility]/ZIP Co de Phone Number [facility] [place] [employer] [employer] [place] [address] * Phosphorus (09/08/2024 7:58 PM CDT) [facility] Phosphorus, pl 3.3 2.3 - 4.5 mg/dL Blood 09/08/2024 7:58 PM CDT 09/08/2024 8:19 PM CDT Mike Singh MD LAB BLOOD ORDERABLES Kathy l Result [facility] [place] [address] * (ABNORMAL) PTH (09/08/2024 7:58 PM CDT) PTH 97(H) 15 - 65 pg/mL Blood 09/08/2024 7:58 PM CDT 09/08/2024 8:18 PM CDT Mike Singh MD LAB BLOOD ORDERABLES Kathy l Result Performing Organization Address City/[facility] Co de Phone Number [facility] [place] [address] * (ABNORMAL) Magnesium (09/08/2024 7:58 PM CDT) Pathologist [facility] Magnesium 0.7(C) 1.4 - 2.5 mg/dL Comment:Reviewed Blood 09/08/2024 7:58 PM CDT 09/08/2024 8:19 PM CDT Mike Singh MD LAB BLOOD ORDERABLES Kathy l Result Performing Organization Address [facility] Co de Phone Number [facility] [place] [address] * (ABNORMAL) Calcium, ionized (09/08/2024 7:44 PM CDT) [facility] Calcium, Ionized 3.29(L) 4.50 - 5.10 mg/dL Blood 09/08/2024 7:44 PM CDT 09/08/2024 8:08 PM CDT Mike Singh MD LAB BLOOD ORDERABLES Kathy l Result Performing Organization Address [facility] Co de Phone Number [facility] [place] [address] * CTA Head Neck W WO Contrast [...] the CTA were generated on a dedicated workstation/navy airspace officer. Contrast information: 80 mL Optiray-350 IV COMPARISON: [...] the CTA were generated on a dedicated workstation/navy airspace officer. Contrast information: 80 mL Optiray-350 IV COMPARISON: [...] <=17 ng/L Comment: Interpretive Data For further [facility] resources including the diagnostic algorithm and an aid in interpretation, copy and paste this link: https://bjab.testcatPanacela Labs.org/show/hsTrop-1 Current Interpretive Data last revised 2019. Trop I hs delta -3 ng/L [facility] Trop I hs interp Insignificant [facility] Blood 09/08/2024 6:30 PM CDT 09/08/2024 6:39 PM CDT David Milian MD LAB BLOOD ORD ERABLES Final Result Performing Organization Address City/[facility] Co de Phone Number [facility] [place] [address] * Troponin I high-sensitivity 4-hour (09/08/2024 5:49 PM CDT) Trop I hs 13 <=17 ng/L Comment: Interpretive Data For further hscTnI resources including the diagnostic algorithm and an aid in interpretation, copy and paste this link: https://bjhlab.testcatalog.org/show/hsTrop-1 Current Interpretive Data last revised 2019. Trop I hs delta See Comment ng/L [facility] Comment:Inappropriate collec tion time to report a delta. Trop I hs pct delta See Comment % [facility] Comment:Inappropriate collec tion time to report a delta. Trop I hs interp See Comment [facility] Comment:Inappropriate collec tion time to report a delta. Blood 09/08/2024 5:49 PM CDT 09/08/2024 6:02 PM CDT us Dvaid Milian MD LAB BLOOD ORD ERABLES Final Result Performing Organization Address City/[facility]/ZIP Co de Phone Number [facility] [place] [address] * US Carotids Duplex Bilateral (09/08/2024 4:04 PM CDT) Anatomical Region Laterality Modality Vascular Bilateral Ultrasound 09/08/2024 3:13 PM CDT Narrative 09/09/2024 1:30 AM CDT [facility] - Department of Vascular Surgery, Vascular Laboratory [address] [place] [id number] Carotid Duplex Ultrasound Report Patient Name: DEEPTI HERNANDEZ J : 1945 (78y 11m) Study Date: 09/08/2024 3:13:18 PM Gender: F Tech: [place] Location: [id number] Ref Provider: CONY WOODS Quality: [...] LT VERT PSV 88 cm/sec FINDINGS: Performing Appeals Representative: Christiane Rodriguez RVT. Rt Common Carotid Artery: [...] Procedure Note Franc Kovacs MD - 09/09/2024 [facility] - Department of Vascular Surgery,Vascular Laboratory [address] [place] [address] Carotid Duplex Ultrasound Report Patient Name: DEEPTI HERNANDEZ J : 1945 (78y 11m) Study Date: 09/08/2024 3:13:18 PM Gender: F Tech: [place] Location: [facility] Provider: CONY WOODS Quality: Adequate Order Provider: [...] LT VERT PSV 88 cm/sec FINDINGS: Performing Appeals Representative: Christiane Rodriguez RVT. Rt Common Carotid Artery: [...] above. Electronically Signed By: Franc Kovacs MD [facility] 09/09/2024 12:18:56 AM CDT Cony Woods MD [facility] PROCEDURES Final Result * Troponin I high-sensitivity [...] MD LAB BLOOD ORD ERABLES Final Result [facility] [place] [address] * Critical Result Callback Chemistry (09/08/2024 2:21 PM CDT) Date Notified [id number] Time Notified 1550 OTIS GARDINER TestName Ca Ionized OTIS MANZO Called/Read Back ramila MANZO Credentials RN OTIS MANZO Called By gerda MANZO Blood 09/08/2024 2:21 PM CDT 09/08/2024 3:22 PM CDT Cony Woods MD LAB BLOOD ORDERABLES Fin al Result Performing Organization Address City/[facility] Co de Phone Number [facility] [place] [address] * (ABNORMAL) Calcium, ionized (09/08/2024 2:21 PM CDT) Pathologist [facility] Calcium, Ionized 2.76(C) 4.50 - 5.10 mg/dL Comment:Verified Blood 09/08/2024 2:21 PM CDT 09/08/2024 2:49 PM CDT Cony Woods MD LAB BLOOD ORDERABLES Fin al Result Performing Organization Address [facility] de Phone Number [facility] [place] [address] * XR Chest Pa Lateral 2 Views [...] ECG 12-LEAD (09/08/2024 12:41 PM CDT) Narrative [facility] - 09/08/2024 12:41 PM [...] Milian MD ECG ORDERABLE S Final Result [facility] * Troponin I high-sensitivity series (baseline, 2hr, [...] ORD ERABLES Final Result Performing Organization Address City/[facility]/ZIP Co de Phone Number OT[facility] [place] [employer] [employer] [place] [address] * eGFR (09/08/2024 12:34 PM CDT) eGFR [...] ORD ERABLES Final Result Performing Organization Address City/[facility]/ZIP Co de Phone Number [facility] [place] [address] * (ABNORMAL) Differential, auto (09/08/2024 12:34 PM CDT) Neutrophil abs 8.43(H) 1.50 - 6.50 K/cumm Imm gran abs 0.04 0.00 - 0.10 K/cumm [facility] Lymphocyte abs 1.79 0.80 - 3.30 K/cumm [facility] Monocyte abs 1.02(H) 0.20 - 0.80 K/cumm [facility] Eosinophil abs 0.33 0.00 - 0.50 K/cumm [facility] Basophil abs 0.04 0.00 - 0.10 K/cumm [facility] Neutrophil pct 72.4 % [facility] Comment: Interpretive Data Percent cell count reference ranges are not reported, since discordance with absolute values may lead to misinterpretation of CBC data. Current Interpretive Data was last revised on 2017. Imm gran pct 0.3 % [facility] Comment: Interpretive Data Percent cell count reference ranges are not reported, since discordance with absolute values may lead to misinterpretation of CBC data. Current Interpretive Data was last revised on 2017. Lymphocyte pct 15.4 % [facility] Comment: Interpretive Data Percent cell count reference ranges are not reported, since discordance with absolute values may lead to misinterpretation of CBC data. Current Interpretive Data was last revised on 2017. Monocyte pct 8.8 % [facility] Comment: Interpretive Data Percent cell count reference ranges are not reported, since discordance with absolute values may lead to misinterpretation of CBC data. Current Interpretive Data was last revised on 2017. Eosinophil pct 2.8 % [facility] Comment: Interpretive Data Percent cell count reference ranges are not reported, since discordance with absolute values may lead to misinterpretation of CBC data. Current Interpretive Data was last revised on 2017. Basophil pct 0.3 % [facility] Comment: Interpretive Data Percent cell count reference ranges are not reported, since discordance with absolute values may lead to misinterpretation of CBC data. Current Interpretive Data was last revised on 2017. Blood 09/08/2024 12:3 4 PM CDT 09/08/2024 12:50 PM CDT David Milian MD LAB BLOOD ORD ERABLES Final Result Performing Organization Address [facility] [facility] Co de Phone Number [facility] [place] [address] * Critical Result Callback Chemistry (09/08/2024 12:34 PM CDT) Pathologist [facility] [place] Date Notified [id number] Time Notified [address] [facility] TestName Calcium [facility] Called/Read Back Cony [facility] Credentials MD [facility] Called By PD [facility] Blood 09/08/2024 12:3 4 PM CDT 09/08/2024 12:50 PM CDT David Milian MD LAB BLOOD ORD ERABLES Final Result Performing Organization Address [facility] Co de Phone Number [facility] Department [place] [address] * (ABNORMAL) CBC with auto differential (09/08/2024 12:34 PM CDT) [facility] WBC 11.65(H) 3.80 - 9.90 K/cumm Hgb 11.4(L) 11.9 - 15.5 g/dL [facility] Hct 35.1(L) 35.6 - 45.5 % [facility] Plt 300 150 - 400 K/cumm [facility] MPV 11.4 9.1 - 12.3 fL [facility] RBC 4.18 3.90 - 5.20 M/cumm [facility] MCV 84.0 81.3 - 96.4 fL [facility] MCH 27.3 27.1 - 33.3 pg [facility] MCHC 32.5 32.3 - 35.7 g/dL [facility] RDW CV 15.4(H) 11.1 - 14.9 % [facility] RDW SD 46.9 35.7 - 48.1 fL [facility] NRBC abs 0.00 0.00 - 0.01 K/cumm [facility] Blood Venous blood specimen / Unknown 09/08/2024 12:34 PM CDT 09/08/2024 12:50 PM CDT David Milian MD LAB BLOOD ORD ERABLES Final Result [facility] [place] [address] * (ABNORMAL) Comprehensive metabolic panel (09/08/2024 12:34 PM CDT) Sodium 139 135 - 145 mmol/L Potassium, pl 3.9 3.3 - 4.9 mmol/L [facility] Comment:Hemolyzed; Potassium value may be falsely elevated by as much as 0.6-1.0 mmol/L. Suggest redraw and reanalysis. Chloride 96(L) 97 - 110 mmol/L [facility] CO2 28 22 - 32 mmol/L [facility] Anion gap 15 2 - 15 mmol/L [facility] BUN 8 6 - 25 mg/dL [facility] Creatinine 0.83 0.60 - 1.10 mg/dL [facility] Glucose 98 70 - 199 mg/dL [facility] Comment: Interpretive Data Fasting glucose >/= 126 [...] Calcium 6.1(C) 8.5 - 10.3 mg/dL [facility] Bilirubin, total 0.5 0.1 - 1.2 mg/dL [facility] Protein, pl 7.0 6.5 - 8.5 g/dL [facility] Albumin 3.5 3.5 - 5.0 g/dL [facility] Alk phos 81 40 - 130 Units/L [facility] ALT 16 7 - 45 Units/L [facility] AST 41 10 - 45 Units/L [facility] Comment:Hemolyzed; result ma y be falsely elevated Blood 09/08/2024 12:3 4 PM CDT 09/08/2024 12:50 PM CDT us David Milian MD LAB BLOOD ORD ERABLES Final Result [facility] [place] [address] from Last 3 Months Insurance [facility] MEDICARE ADVANTAGE U[employer] MDCR HMO REF [facility] MEDIC[facility] ADVANTAGE [facility] MED[facility] Advance Directives For more information, please contact: [phone] * Full Code (Latest Code Status on File) Date Activated Date Inactivated Comments 09/08/2024 8:49 PM 09/14/2024 6:47 PM Care Teams [employer] Associate Relationship Specialty Start Date End Date Mike Kinney DO PCP - General 11/06/16
--- OUTSIDE RECORDS SUMMARY | 2024-09-30 10:10 | XMS_ITS | Clinical Summary ---
Author Organization [facility] Address [address] [place] [address] Care Team Providers Care Paper Conservator Name Role Phone Mike Kinney DO Primary Care Provider [phone] Allergies Active Allergy Reactions Criticality Noted Date [...] thickening/AR, mild TR (RVSP 30-35 mmHg), mild-mod NV, physiologic pericardial effusion. - Telemetry to monitor [...] thickening/AR, mild TR (RVSP 30-35 mmHg), mild-mod NV, physiologic pericardial effusion. - Telemetry to monitor [...] thickening/AR, mild TR (RVSP 30-35 mmHg), mild-mod NV, physiologic pericardial effusion. - Telemetry to monitor [...] thickening/AR, mild TR (RVSP 30-35 mmHg), mild-mod NV, physiologic pericardial effusion. - Telemetry to monitor [...] Abnormal EKG Coronary artery disease invo lving torres martinez coronary artery of torres martinez heart without angina pectoris 05/08/2013 Assessment & Plan (09/11/2024 7:52 AM CDT): Hx of 3V CABG ~10 years ago, follows with Taqueria Sweeney in [facility] cardiology. Denies CP but does have some [...] CABG x3 10 years ago, follows with [facility] cardiology. Some peripheral edema and worsening SOB over last year - ECHO 09/08 Normal LV size. EF 54%. G1DD - Home atorvastatin 80mg and ASA 81mg Assessment & Plan (09/10/2024 7:59 AM CDT): Hx of 3V CABG ~10 years ago, follows with Taqueria Sweeney in [facility] cardiology. Denies CP but does have some [...] 3V CABG ~10 years ago, follows with Taqueira Sweeney in [facility] cardiology. Denies CP but does have some [...] years ago, follows with Taqueria Sweeney in [facility] cardiology. 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 Medical Office Building [address] [place] [address] Mayur Man MD Bilateral carotid artery stenosis (Primary Dx); Aftercare following surgery of the circulatory system 09/08/2024 2:40 PM CDT Ancillary Procedure [facility] IP [address] [facility] [address] [place] [address] 09/08/2024 12:45 PM CDT - 09/14/2024 2:42 PM CDT Hospital Encounter [facility] [address] [place] [address] Rah Moore MD Kane, MD Nicolasa Cummings, MD Enrique Damon Tarek Waleed Metry, MD Rubin, Brian G., MD Weakness (Primary Dx); ICAO (internal carotid artery occlusion), right; Coronary artery disease involving autologous artery coronary bypass graft with angina pectoris; Preoperative testing; Hypocalcemia Discharge Disposition: Discharge to home or self care 09/08/2024 Telephone [facility] [address] [facility] Medical Office [address] [place] [address] Mayur Man MD 08/22/2024 11:30 AM CDT Office Visit [facility] Cardiology [address] [place] [address] Taqueria Sweeney MD Coronary artery disease involving torres martinez coronary artery of torres martinez heart without angina pectoris (Primary Dx); Mixed [...] Relation Name Comments Heart attack Brother Royce CT; Cause of De ath: CT Heart attack Daughter Heart disease Father Family [...] = 0.6 oz pur e alcohol) [facility] Utilities Answer Date Recorded In the past 12 months has [facility] [employer], gas, oil, or [employer] threatened to shut off services in your [...] week 09/09/2024 How often do you attend [facility] ch or yazidi services? More than 4 times per year 09/09/2024 Do you belong to any clubs o r organizations such as scientologist groups, unions, fraternal or athletic groups, or [...] and heating? Not hard at all 09/09/2024 [facility] [place] of Occupat ional Health - Occupational Stress [...] any time in the past 12 m [facility], were you homeless or living in a skilled nursing (including now)? No 09/09/2024 Personal Safety Answer Date Recorded Have you ever been in or are you currently in a harmful physical or emotional relationship or is someone making you feel afraid or unsafe? Denies 09/11/2024 Comments No Sex and Gender Information Value Date Recorded Sex Assigned at Not on file Legal Sex Female 10:18 AM MYSQL DEVELOPER Gender Identity Female 06/20/2021 10:31 AM MYSQL DEVELOPER Sexual Orientation Not on file Occupation Industry [...] 09/14/2025 09/14/2024 Medical Devices Implanted Type Area Butcher Scullion Device Identifier Shelf Expiration Date Model / Serial / Lot Stent- 6 Implanted:08/20 by Jose Chambers MD (Quantity not on file) Stent Thoracic Medtronic [id number] / [id number] / Description: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 Implanted:09/19 (Quantity not on file) Head [facility] Harish Patch Vascuguard 0.88cm [id number] - [id number] - [id number] Implanted:Qty: 1 on 09/11/2024 by Mayur Man MD at [facility] Left: Carotid [facility] Harish [id number] 03/14/2026 [id number] / [id number] / [id number] Procedures Procedure Name Priority Date/Time Associated Diagnosis [...] LOW RANGE Routine 09/11/2024 12:06 PM CDT NV AN PROCEDURE PLACEHOLDER Routine 09/11/2024 11:21 AM CDT NV AN PROCEDURE PLACEHOLDER Routine 09/11/2024 11:21 AM CDT NV AN PROCEDURE PLACEHOLDER Routine 09/11/2024 11:21 AM CDT NV AN PROCEDURE PLACEHOLDER Routine 09/11/2024 11:20 AM CDT NV AN ELECTIVE ENDOTRACHEAL AIRWAY Routine 09/11/2024 11:20 [...] ORDERABLE S Final Result Performing Organization Address City/[facility]/ZIP Co de Phone Number [facility] [place] [address] * Calcium, ionized (09/13/2024 8:21 PM CDT) Calcium, Ionized 4.60 4.50 - 5.10 mg/dL Blood 09/13/2024 8:21 PM CDT 09/13/2024 9:10 PM CDT Giselle Nunez MD LAB BLOOD ORDERABLE S Final Result Performing Organization Address City/[facility] Co de Phone Number [facility] [place] [address] * (ABNORMAL) CBC without differential (09/13/2024 8:21 PM CDT) WBC 11.57(H) 3.80 - 9.90 K/cumm Hgb 9.6(L) 11.9 - 15.5 g/dL [facility] Hct 30.3(L) 35.6 - 45.5 % [facility] Plt 260 150 - 400 K/cumm [facility] MPV 12.0 9.1 - 12.[address] [facility] RBC 3.52(L) 3.90 - 5.20 M/cumm [facility] MCV 86.1 81.3 - 96.[address] [facility] MCH 27.3 27.1 - 33.[address] [facility] MCHC 31.7(L) 32.3 - 35.7 g/dL [facility] RDW CV 15.2(H) 11.1 - 14.9 % [facility] RDW SD 48.4(H) 35.7 - 48.[address] [facility] NRBC abs 0.00 0.00 - 0.01 K/cumm [facility] Blood 09/13/2024 8:21 PM CDT 09/13/2024 9:12 PM CDT Janine Santos Nunez MD LAB BLOOD ORDERABLE S Final Result [facility] Department [place] [address] * (ABNORMAL) Basic metabolic panel (09/13/2024 8:21 PM CDT) Sodium 138 135 - 145 mmol/L Potassium, pl 4.6 3.3 - 4.9 mmol/L [facility] Chloride 99 97 - 110 mmol/L [facility] CO2 33(H) 22 - 32 mmol/L [facility] Anion gap 6 2 - 15 mmol/L [facility] BUN 13 6 - 25 mg/dL [facility] Creatinine 0.89 0.60 - 1.10 mg/dL [facility] Glucose 114 70 - 199 mg/dL [facility] Comment: Interpretive Data Fasting glucose >/= [...] LAB BLOOD ORDERABLE S Final Result [facility] [place] [address] * eGFR (09/12/2024 9:21 PM CDT) eGFR [...] LAB BLOOD ORDERABLE S Final Result [facility] [place] [place] [address] * (ABNORMAL) Calcium, ionized (09/12/2024 9:21 PM CDT) [facility] Calcium, Ionized 4.33(L) 4.50 - 5.10 mg/dL Blood 09/12/2024 9:21 PM CDT 09/12/2024 10:18 PM CDT Giselle Nunez MD LAB BLOOD ORDERABLE S Final Result [facility] [place] [address] * (ABNORMAL) CBC without differential (09/12/2024 9:21 PM CDT) [facility] WBC 10.69(H) 3.80 - 9.90 K/cumm Hgb 9.4(L) 11.9 - 15.5 g/dL [facility] Hct 29.2(L) 35.6 - 45.5 % [facility] Plt 214 150 - 400 K/cumm [facility] MPV 12.2 9.1 - 12.[address] [facility] RBC 3.45(L) 3.90 - 5.20 M/cumm [facility] MCV 84.6 81.3 - 96.[address] [facility] MCH 27.2 27.1 - 33.[address] [facility] MCHC 32.2(L) 32.3 - 35.7 g/dL [facility] RDW CV 15.1(H) 11.1 - 14.9 % [facility] RDW SD 46.3 35.7 - 48.[address] [facility] NRBC abs 0.00 0.00 - 0.01 K/cumm [facility] Blood 09/12/2024 9:21 PM CDT 09/12/2024 10:30 PM CDT Giselle Nunez MD LAB BLOOD ORDERABLE S Final Result [facility] [place] [address] * Phosphorus (09/12/2024 9:21 PM CDT) [facility] Phosphorus, pl 3.0 2.3 - 4.5 mg/dL Blood 09/12/2024 9:21 PM CDT 09/12/2024 10:29 PM CDT Giselle Nunez MD LAB BLOOD ORDERABLE S Final Result Performing Organization Address [facility] [place] [address] * Magnesium (09/12/2024 9:21 PM CDT) [facility] Magnesium 1.9 1.4 - 2.5 mg/dL Blood 09/12/2024 9:21 PM CDT 09/12/2024 10:29 PM CDT Giselle Nunez MD LAB BLOOD ORDERABLE S Final Result Performing Organization Address [facility] de Phone Number [facility] [place] [address] * (ABNORMAL) Basic metabolic panel (09/12/2024 9:21 PM CDT) [facility] Sodium 137 135 - 145 mmol/L Potassium, pl 4.5 3.3 - 4.9 mmol/L [facility] Comment:Hemolyzed; Potassium value may be falsely elevated by as much as 0.3-0.5 mmol/L. Suggest redraw and reanalysis. Chloride 96(L) 97 - 110 mmol/L [facility] CO2 34(H) 22 - 32 mmol/L [facility] Anion gap 7 2 - 15 mmol/L [facility] BUN 13 6 - 25 mg/dL [facility] Creatinine 0.86 0.60 - 1.10 mg/dL [facility] Glucose 141 70 - 199 mg/dL [facility] Comment: Interpretive Data Fasting glucose >/= [...] 2022. Calcium 8.6 8.5 - 10.3 mg/dL [facility] Blood 09/12/2024 9:21 PM CDT 09/12/2024 10:29 PM CDT Giselle Nunez MD LAB BLOOD ORDERABLE S Final Result [facility] [place] [address] * Phosphorus (09/12/2024 8:04 AM CDT) Phosphorus, pl 2.9 2.3 - 4.5 mg/dL Blood 09/12/2024 8:04 AM CDT 09/12/2024 8:34 AM CDT Giselle Nunez MD LAB BLOOD ORDERABLE S Final Result [facility] [place] [address] * Magnesium (09/12/2024 8:04 AM CDT) Magnesium 2.2 1.4 - 2.5 mg/dL Blood 09/12/2024 8:04 AM CDT 09/12/2024 8:34 AM CDT Giselle Nunez MD LAB BLOOD ORDERABLE S Final Result Performing Organization Address [facility] Co de Phone Number [facility] [place] [address] * eGFR (09/11/2024 8:48 PM CDT) eGFR [...] LAB BLOOD ORDERABLES Final Res ult [facility] [place] [address] * Calcium, ionized (09/11/2024 8:48 PM CDT) Calcium, Ionized 4.55 4.50 - 5.10 mg/dL Blood 09/11/2024 8:48 PM CDT 09/11/2024 8:56 PM CDT Giselle Nunez MD LAB BLOOD ORDERABLE S Final Result Performing Organization Address [facility]/ZIP Co de Phone Number [facility] [place] [employer] [place] [address] * (ABNORMAL) CBC without differential (09/11/2024 8:48 PM CDT) Pathologist [facility] WBC 9.23 3.80 - 9.90 K/cumm Hgb 9.3(L) 11.9 - 15.5 g/dL [facility] Hct 29.2(L) 35.6 - 45.5 % [facility] Plt 261 150 - 400 K/cumm [facility] MPV 11.5 9.1 - 12.[address] [facility] RBC 3.40(L) 3.90 - 5.20 M/cumm [facility] MCV 85.9 81.3 - 96.[address] [facility] MCH 27.4 27.1 - 33.[address] [facility] MCHC 31.8(L) 32.3 - 35.7 g/dL [facility] RDW CV 15.3(H) 11.1 - 14.9 % [facility] RDW SD 47.8 35.7 - 48.[address] [facility] NRBC abs 0.00 0.00 - 0.01 K/cumm [facility] Blood 09/11/2024 8:48 PM CDT 09/11/2024 9:25 PM CDT Giselle Nunez MD LAB BLOOD ORDERABLE S Final Result [facility] [place] [address] * Phosphorus (09/11/2024 8:48 PM CDT) Pathologist [facility] Phosphorus, pl 3.4 2.3 - 4.5 mg/dL Blood 09/11/2024 8:48 PM CDT 09/11/2024 8:56 PM CDT Giselle Nunez MD LAB BLOOD ORDERABLE S Final Result Performing Organization Address City/[facility]/ZIP Co de Phone Number [facility] [place] [address] * (ABNORMAL) Magnesium (09/11/2024 8:48 PM CDT) Pathologist [facility] Magnesium 1.3(L) 1.4 - 2.5 mg/dL Blood 09/11/2024 8:48 PM CDT 09/11/2024 8:56 PM CDT Giselle Nunez MD LAB BLOOD ORDERABLE S Final Result Performing Organization Address [facility] Co de Phone Number [facility] [place] [address] * (ABNORMAL) Basic metabolic panel (09/11/2024 8:48 PM CDT) Pathologist [facility] Sodium 137 135 - 145 mmol/L Potassium, pl 4.6 3.3 - 4.9 mmol/L [facility] Chloride 99 97 - 110 mmol/L [facility] CO2 34(H) 22 - 32 mmol/L [facility] Anion gap 4 2 - 15 mmol/L [facility] BUN 8 6 - 25 mg/dL [facility] Creatinine 0.73 0.60 - 1.10 mg/dL [facility] Glucose 200(H) 70 - 199 mg/dL [facility] Comment: Interpretive Data Fasting glucose >/= [...] 2022. Calcium 9.0 8.5 - 10.3 mg/dL [facility] Blood 09/11/2024 8:48 PM CDT 09/11/2024 8:56 PM CDT us Mayur Man MD LAB BLOOD ORDERABLES Final Res ult [facility] [place] [address] * CTA Stroke Head Neck W WO [...] the CTA were generated on a dedicated workstation/gravity meter observer. Contrast information: 94 mL Optiray-350 IV [...] Artery: no occlusion or significant stenosis L INSTRUCTOR BALLROOM DANCING: origin left posterior communicating artery, no occlusion or significant stenosis R INSTRUCTOR BALLROOM DANCING: mild irregularity R superior cerebellar artery: mild [...] the CTA were generated on a dedicated workstation/gravity meter observer. Contrast information: 94 mL Optiray-350 IV [...] Artery: no occlusion or significant stenosis L INSTRUCTOR BALLROOM DANCING: origin left posterior communicating artery, no occlusion or significant stenosis R INSTRUCTOR BALLROOM DANCING: mild irregularity R superior cerebellar artery: mild [...] 147 123 - 168 sec POC Performer [id number] [facility] POC Device Number [id number] [facility] Blood 09/11/2024 1:20 PM CDT 09/11/2024 1:20 PM CDT Giselle Nunez MD LAB POCT ORDERABLES - DEVICE Final Result Performing Organization Address [facility] Co de Phone Number [facility] [place] [address] * (ABNORMAL) POCT Activated clotting time, low range (09/11/2024 1:02 PM CDT) ACT 255(H) 123 - 168 sec POC Performer [id number] [facility] POC Device Number [id number] [facility] Blood 09/11/2024 1:02 PM CDT 09/11/2024 1:02 PM CDT Giselle Nunez MD LAB POCT ORDERABLES - DEVICE Final Result Performing Organization Address [facility] Co de Phone Number [facility] [place] [address] * (ABNORMAL) POCT Activated clotting time, low range (09/11/2024 12:42 PM CDT) ACT 298(H) 123 - 168 sec POC Performer [id number] [facility] POC Device Number [id number] [facility] Blood 09/11/2024 12:4 2 PM CDT 09/11/2024 12:42 PM CDT Giselle Nunez MD LAB POCT ORDERABLES - DEVICE Final Result Performing Organization Address [facility] Co de Phone Number [facility] [employer] [place] [address] * (ABNORMAL) POCT Activated clotting time, low range (09/11/2024 12:33 PM CDT) ACT 244(H) 123 - 168 sec POC Performer [id number] [facility] POC Device Number [id number] [facility] Blood 09/11/2024 12:3 3 PM CDT 09/11/2024 12:33 PM CDT Giselle Nunez MD LAB POCT ORDERABLES - DEVICE Final Result Performing Organization Address [facility] de Phone Number [facility] [place] [employer] [place] [address] * (ABNORMAL) POCT Activated clotting time, low range (09/11/2024 12:25 PM CDT) ACT 232(H) 123 - 168 sec POC Performer [id number] [facility] POC Device Number [id number] [facility] Blood 09/11/2024 12:2 5 PM CDT 09/11/2024 12:25 PM CDT us Giselle Nunez MD LAB POCT ORDERABLES - DEVICE Final Result Performing Organization Address [facility] Co de Phone Number [facility] [place] [employer] [place] [address] * (ABNORMAL) POCT Activated clotting time, low range (09/11/2024 12:06 PM CDT) ACT 256(H) 123 - 168 sec POC Performer [id number] [facility] POC Device Number [id number] [facility] Blood 09/11/2024 12:0 6 PM CDT 09/11/2024 12:06 PM CDT us Giselle Nunez MD LAB POCT ORDERABLES - DEVICE Final Result [facility] [place] [address] * NV AN PROCEDURE PLACEHOLDER (09/11/2024 11:21 AM CDT) [...] MD ANESTHESIA ORDERABLES Kathy l Result * NV AN PROCEDURE PLACEHOLDER (09/11/2024 11:21 AM CDT) Narrative Vane Garzon - 09/11/2024 11:21 AM CDT Vane Garzon 09/11/2024 11:21 AM Peripheral IV Catheter Patient location: OR Staff: Placed by: MANNEQUIN WIG MAKER: Michael Moreira CRNA Preprocedure prep: Prep solution: chlorhexadine PPE: gloves PIV line: Laterality: left Site: forearm Catheter size: 18 g Technique: palpatation and anatomical landmarks Procedure details: good blood return and occlusive dressing applied Number of attempts: 1 Assessment: Events: patient tolerated procedure well with no complications us Yemi Hood MD ANESTHESIA ORDERABLES Kathy l Result * NV AN PROCEDURE PLACEHOLDER (09/11/2024 11:21 AM CDT) [...] MD ANESTHESIA ORDERABLES Kathy l Result * NV AN ELECTIVE ENDOTRACHEAL AIRWAY, NV AN PROCEDURE PLACEHOLDER (09/11/2024 11:20 AM CDT) [...] Shahid, indirect Negative ABO Rh A Negative [facility] Blood 09/10/2024 11:2 9 PM CDT 09/11/2024 12:18 AM CDT Narrative [facility] - 09/11/2024 1:31 AM CDT Has the patient had Daratumumab or Isatuximab in the past 6 months?->Unknown Danitza Underwood NP LAB BLOOD BANK TEST ORDERABLES Final Result [facility] [place] [address] * (ABNORMAL) Urinalysis reflex to microscopic and culture Urine (09/10/2024 9:19 PM CDT) Pathologist [facility] Color, ur Yellow Yellow Clarity, ur Cloudy(A) Clear [facility] Specific gravity, ur 1.020 1.003 - 1.[address] [facility] pH, urine 7.[address] [facility] Comment: Interpretive Data U rine pH is affected by diet, medications, systemic acid-base disturbances, and renal tubular function. pH may affect urinary stone formation. For example, urine pH below 6.0 may help reduce the tendency for calcium phosphate stones and pH greater than 6.0 may reduce the tendency for uric acid stone formation. Source: [facility] Current Interpretive Data was last revised on 2017 Protein, ur ql 1+(A) Negative [facility] Glucose, ur ql Negative Negative [facility] Ketones, ur Negative Negative [facility] Bilirubin, ur Negative Negative [facility] Blood, ur Negative Negative [facility] Urobilinogen, ur <2.0 <2.0 mg/dL [facility] Nitrite, ur Negative Negative [facility] Leukocyte esterase, ur 3+(A) Negative [facility] UA reflex comment Reflex to microscopic UA will be performed. [facility] Urine 09/10/2024 9:19 PM CDT 09/10/2024 9:41 PM CDT Giselle Nunez MD LAB MICROBIOLOGY - GENERAL ORDERABLES Final Result Performing Organization Address [facility] Co de Phone Number [facility] [place] [address] * (ABNORMAL) Urinalysis, microscopic only (09/10/2024 9:19 PM CDT) WBC, ur >50(A) 0 - 5 /HPF RBC, ur 11-20(A) 0 - 2 /HPF [facility] Epithelial cells, squamous, ur 1-5 0 - 5 /HPF [facility] Bacteria, ur 1+(A) [facility] Mucous, ur Present(A) [facility] Culture Reflex Comment Reflex to urine culture will be performed. [facility] Urine 09/10/2024 9:19 PM CDT 09/10/2024 9:41 PM CDT Giselle Nunez MD LAB URINE ORDERABLE S Final Result Performing Organization Address [facility] de Phone Number [facility] [place] [address] * (ABNORMAL) Urine culture Urine (09/10/2024 9:19 PM CDT) Report Final Report: Growth indicates contamination with mixed bacterial yasir. Please submit a new specimen with special attention given to the collection process and to prompt transport to the laboratory. (.) Organism GROWTH INDICATES CONTAMINATION WITH MIXED YASIR. [facility] Urine 09/10/2024 9:19 PM CDT 09/10/2024 11:10 PM CDT Narrative [facility] - 09/12/2024 12:39 PM CDT Urine culture reflexed based upon urinalysis results. Testing performed by [facility] ([phone]) Giselle Nunez MD LAB MICROBIOLOGY - GENERAL ORDERABLES Final Result Performing Organization Address [facility] Co de Phone Number [facility] [place] [address] * eGFR (09/10/2024 8:53 PM CDT) eGFR [...] MD LAB BLOOD ORDERABLE S Final Result [facility] [place] [employer] [place] [address] * Calcium, ionized (09/10/2024 8:53 PM CDT) Calcium, Ionized 4.50 4.50 - 5.10 mg/dL Blood 09/10/2024 8:53 PM CDT 09/10/2024 9:19 PM CDT Giselle Nunez MD LAB BLOOD ORDERABLE S Final Result [facility] [place] [address] * (ABNORMAL) CBC without differential (09/10/2024 8:53 PM CDT) Pathologist [facility] WBC 9.20 3.80 - 9.90 K/cumm Hgb 10.0(L) 11.9 - 15.5 g/dL [facility] Hct 31.5(L) 35.6 - 45.5 % [facility] Plt 247 150 - 400 K/cumm [facility] MPV 11.7 9.1 - 12.[address] [facility] RBC 3.70(L) 3.90 - 5.20 M/cumm [facility] MCV 85.1 81.3 - 96.[address] [facility] MCH 27.0(L) 27.1 - 33.[address] [facility] MCHC 31.7(L) 32.3 - 35.7 g/dL [facility] RDW CV 15.4(H) 11.1 - 14.9 % [facility] RDW SD 48.2(H) 35.7 - 48.[address] [facility] NRBC abs 0.00 0.00 - 0.01 K/cumm [facility] Blood 09/10/2024 8:53 PM CDT 09/10/2024 9:31 PM CDT Giselle Nunez MD LAB BLOOD ORDERABLE S Final Result Performing Organization Address City/State/[facility] Co de Phone Number [facility] [place] [address] * (ABNORMAL) Phosphorus (09/10/2024 8:53 PM CDT) Pathologist [facility] Phosphorus, pl 1.8(L) 2.3 - 4.5 mg/dL Blood 09/10/2024 8:53 PM CDT 09/10/2024 9:24 PM CDT Giselle Nunez MD LAB BLOOD ORDERABLE S Final Result [facility] [place] [address] * Magnesium (09/10/2024 8:53 PM CDT) [facility] Magnesium 1.8 1.4 - 2.5 mg/dL Blood 09/10/2024 8:53 PM CDT 09/10/2024 9:24 PM CDT Giselle Nunez MD LAB BLOOD ORDERABLE S Final Result Performing Organization Address City/[facility] Co de Phone Number [facility] [place] [address] * Basic metabolic panel (09/10/2024 8:53 PM CDT) [facility] Sodium 140 135 - 145 mmol/L Potassium, pl 4.2 3.3 - 4.9 mmol/L [facility] Chloride 100 97 - 110 mmol/L [facility] CO2 30 22 - 32 mmol/L [facility] Anion gap 10 2 - 15 mmol/L [facility] BUN 9 6 - 25 mg/dL [facility] Creatinine 0.86 0.60 - 1.10 mg/dL [facility] Glucose 151 70 - 199 mg/dL [facility] Comment: Interpretive Data Fasting glucose >/= [...] 2022. Calcium 8.5 8.5 - 10.3 mg/dL [facility] Blood 09/10/2024 8:53 PM CDT 09/10/2024 9:24 PM CDT Giselle Nunez MD LAB BLOOD ORDERABLE S Final Result [facility] [place] [address] * Magnesium (09/10/2024 8:00 PM CDT) Magnesium 1.9 1.4 - 2.5 mg/dL Blood 09/10/2024 8:00 PM CDT 09/10/2024 9:24 PM CDT Giselle Nunez MD LAB BLOOD ORDERABLE S Final Result Performing Organization Address [facility] Co de Phone Number [facility] [place] [address] * (ABNORMAL) eGFR (09/09/2024 8:54 PM CDT) [...] ORDERABLES Kathy l Result Performing Organization Address [facility] Co de Phone Number [facility] [place] [address] * (ABNORMAL) Calcium, ionized (09/09/2024 8:54 PM CDT) Calcium, Ionized 3.54(L) 4.50 - 5.10 mg/dL Blood 09/09/2024 8:54 PM CDT 09/09/2024 9:10 PM CDT Mike Singh MD LAB BLOOD ORDERABLES Kathy l Result Performing Organization Address [facility] de Phone Number [facility] [place] [address] * Phosphorus (09/09/2024 8:54 PM CDT) Phosphorus, pl 2.7 2.3 - 4.5 mg/dL Blood 09/09/2024 8:54 PM CDT 09/09/2024 9:10 PM CDT Giselle Nunez MD LAB BLOOD ORDERABLE S Final Result Performing Organization Address [facility] de Phone Number [facility] [place] [address] * Magnesium (09/09/2024 8:54 PM CDT) Magnesium 1.8 1.4 - 2.5 mg/dL Blood 09/09/2024 8:54 PM CDT 09/09/2024 9:10 PM CDT Giselle Nunez MD LAB BLOOD ORDERABLE S Final Result Performing Organization Address [facility] Co de Phone Number [facility] [place] [address] * (ABNORMAL) Basic metabolic panel (09/09/2024 8:54 PM CDT) Pathologist [facility] Sodium 141 135 - 145 mmol/L Potassium, pl 3.7 3.3 - 4.9 mmol/L [facility] Chloride 102 97 - 110 mmol/L [facility] CO2 31 22 - 32 mmol/L [facility] Anion gap 8 2 - 15 mmol/L [facility] BUN 13 6 - 25 mg/dL [facility] Creatinine 1.01 0.60 - 1.10 mg/dL [facility] Glucose 193 70 - 199 mg/dL [facility] Comment: Interpretive Data Fasting glucose >/= [...] 2022. Calcium 6.6(L) 8.5 - 10.3 mg/dL [facility] Blood 09/09/2024 8:54 PM CDT 09/09/2024 9:10 PM CDT Mike Singh MD LAB BLOOD ORDERABLES Kathy l Result [facility] [place] [address] * (ABNORMAL) eGFR (09/09/2024 4:00 PM CDT) [...] MD LAB BLOOD ORDERABLE S Final Result [facility] [place] [address] * (ABNORMAL) Calcium, ionized (09/09/2024 4:00 PM CDT) Calcium, Ionized 3.37(L) 4.50 - 5.10 mg/dL Blood 09/09/2024 4:00 PM CDT 09/09/2024 4:07 PM CDT Giselle Nunez MD LAB BLOOD ORDERABLE S Final Result [facility] [place] [address] * Phosphorus (09/09/2024 4:00 PM CDT) Phosphorus, pl 3.5 2.3 - 4.5 mg/dL Blood 09/09/2024 4:00 PM CDT 09/09/2024 4:07 PM CDT Giselle Nunez MD LAB BLOOD ORDERABLE S Final Result Performing Organization Address City/[facility]/ZIP Co de Phone Number [facility] [place] [address] * Magnesium (09/09/2024 4:00 PM CDT) Pathologist [facility] Magnesium 1.9 1.4 - 2.5 mg/dL Blood 09/09/2024 4:00 PM CDT 09/09/2024 4:07 PM CDT Giselle Nunez MD LAB BLOOD ORDERABLE S Final Result Performing Organization Address [facility] de Phone Number [facility] [place] [address] * (ABNORMAL) Basic metabolic panel (09/09/2024 4:00 PM CDT) [facility] Sodium 141 135 - 145 mmol/L Potassium, pl 3.7 3.3 - 4.9 mmol/L [facility] Chloride 100 97 - 110 mmol/L [facility] CO2 32 22 - 32 mmol/L [facility] Anion gap 9 2 - 15 mmol/L [facility] BUN 11 6 - 25 mg/dL [facility] Creatinine 1.01 0.60 - 1.10 mg/dL [facility] Glucose 125 70 - 199 mg/dL [facility] Comment: Interpretive Data Fasting glucose >/= [...] Calcium 6.8(L) 8.5 - 10.3 mg/dL [facility] Blood 09/09/2024 4:00 PM CDT 09/09/2024 4:07 PM CDT us Giselle Nunez MD LAB BLOOD ORDERABLE S Final Result [facility] [place] [address] * TRANSTHORACIC ECHO (TTE) COMPLETE W DOPPLER/CF W CONTRAST (09/09/2024 10:49 AM CDT) Anatomical Region Laterality Modality Ultrasound 09/09/2024 9:59 AM CDT Narrative 09/09/2024 11:19 AM CDT [facility] [place] [address] Transthoracic Echocardiographic Report Patient Name: DEEPTI HERNANDEZ J : 1945 (78y 11m) Gender: F Study Date: 09/09/2024 09:59:26 AM Ht(Inch): 62 Wt(Lb): 184.97 BSA: 1.92 Manager Internet: Annalisa Cole RDCSLATROBE HOSPITALRiaz Location: [id number] Order Provider: MIKE SINGH Heart Rate: 71 [...] INDICATIONS: Atrial fibrillation and Coronary artery disease, torres martinez vessel. CONCLUSIONS: 1. Normal left ventricular size [...] Note Kenan Prado MD PhD - 09/09/2024 [facility] [place] [address] Transthoracic Echocardiographic Report Patient Name: DEEPTI HERNANDEZ J : 1945 (78y 11m) Gender: F Study Date: 09/09/2024 09:59:26 AM Ht(Inch): 62 Wt(Lb): 184.97 BSA: 1.92 Manager Internet: Annalisa Cole RDCSLATROBE HOSPITALRiaz Location: [id number] OrderProvider: MIKE SINGH Heart Rate: 71 BMI: [...] INDICATIONS: Atrial fibrillation and Coronary artery disease, torres martinez vessel. CONCLUSIONS: 1. Normal left ventricular size [...] [ 2.5 - 4.2 ] MV Decel [id number] msec [ 104.00 - 258.00 ] TAPSE [...] ORDERABLES Kathy l Result Performing Organization Address City/[facility] Co de Phone Number [facility] [employer] [place] [address] * (ABNORMAL) Calcium, ionized (09/09/2024 4:58 AM CDT) Calcium, Ionized 3.59(L) 4.50 - 5.10 mg/dL Blood 09/09/2024 4:58 AM CDT 09/09/2024 6:02 AM CDT us Mike Singh MD LAB BLOOD ORDERABLES Kathy l Result Performing Organization Address [facility] Co de Phone Number [facility] [employer] [place] [address] * Phosphorus (09/09/2024 4:58 AM CDT) Phosphorus, pl 4.2 2.3 - 4.5 mg/dL Blood 09/09/2024 4:58 AM CDT 09/09/2024 6:02 AM CDT Giselle Nunez MD LAB BLOOD ORDERABLE S Final Result Performing Organization Address City/[facility] Co de Phone Number [facility] [place] [place] [address] * Magnesium (09/09/2024 4:58 AM CDT) Magnesium 2.0 1.4 - 2.5 mg/dL Comment:Repeated and Verifie d Blood 09/09/2024 4:58 AM CDT 09/09/2024 6:02 AM CDT us Giselle Nunez MD LAB BLOOD ORDERABLE S Final Result Performing Organization Address City/[facility]/ZIP Co de Phone Number [facility] Department [place] [address] * (ABNORMAL) Basic metabolic panel (09/09/2024 4:58 AM CDT) [facility] Sodium 143 135 - 145 mmol/L Potassium, pl 2.8(L) 3.3 - 4.9 mmol/L [facility] Chloride 100 97 - 110 mmol/L [facility] CO2 32 22 - 32 mmol/L [facility] Anion gap 11 2 - 15 mmol/L [facility] BUN 9 6 - 25 mg/dL [facility] Creatinine 0.85 0.60 - 1.10 mg/dL [facility] Glucose 108 70 - 199 mg/dL [facility] Comment: Interpretive Data Fasting glucose >/= [...] 2022. Calcium 7.0(L) 8.5 - 10.3 mg/dL [facility] Blood 09/09/2024 4:58 AM CDT 09/09/2024 6:02 AM CDT us Mike Singh MD LAB BLOOD ORDERABLES Kathy l Result Performing Organization Address City/[facility]/ZIP Co de Phone Number [facility] [place] [address] * (ABNORMAL) Iron profile w/ IBC (09/09/2024 2:05 AM CDT) Pathologist [facility] Iron 28(L) 35 - 145 mcg/dL TIBC 206(L) 250 - 400 mcg/dL [facility] Transferrin saturation 14(L) 20 - 50 % [facility] Blood 09/09/2024 2:05 AM CDT 09/09/2024 2:29 AM CDT Mike Singh MD LAB BLOOD [place] [address] * (ABNORMAL) Ferritin (09/09/2024 2:05 AM CDT) Pathologist [facility] Ferritin 155(H) 13 - 150 ng/mL Blood 09/09/2024 2:05 AM CDT 09/09/2024 2:29 AM CDT Mike Singh MD LAB BLOOD ORDERABLES Kathy l Result [facility] [place] [address] * Vitamin B12 (09/09/2024 2:05 AM CDT) Pathologist [facility] Vitamin B12 555 230 - 1,250 pg/mL Blood 09/09/2024 2:05 AM CDT 09/09/2024 2:29 AM CDT Mike Singh MD LAB BLOOD ORDERABLES Kathy l Result [facility] [place] [address] * ECG 12-LEAD (09/08/2024 9:33 PM CDT) Narrative [facility] - 09/08/2024 9:33 PM CDT Lyndsay Keller [...] MD ECG ORDERABLES Final Res ult [facility] * Critical Result Callback Chemistry (09/08/2024 7:58 PM CDT) Date Notified [id number] Time Notified 2109 [facility] TestName Magnesium [facility] Called/Read Back Shamar B[facility] Credentials MD BERG [facility] Called By JOSAFAT BER[facility] Blood 09/08/2024 7:58 PM CDT 09/08/2024 8:19 PM CDT Mike Singh MD LAB BLOOD ORDERABLES Kathy l Result Performing Organization Address City/[facility]/ZIP Co de Phone Number [facility] [place] [employer] [place] [address] * Thyroid Function Ogilvie (09/08/2024 7:58 PM CDT) TSH 0.49 0.30 - 4.20 mcIUnit/mL Blood 09/08/2024 7:58 PM CDT 09/08/2024 8:19 PM CDT Mike Singh MD LAB BLOOD ORDERABLES Kathy l Result Performing Organization Address [facility] de Phone Number [facility] [place] [place] [address] * (ABNORMAL) Calcium, ionized (09/08/2024 7:58 PM CDT) Calcium, Ionized 3.17(C) 4.50 - 5.10 mg/dL Comment:Critical result call ed to and read back by Dejan Alvarenga (rn) on 09/08/2024 20:44:53 CDT to pks. Blood 09/08/2024 7:58 PM CDT 09/08/2024 8:08 PM CDT Narrative [facility] - 09/08/2024 8:45 PM CDT Two hours after Ca gluc infusion complete Mike Singh MD LAB BLOOD ORDERABLES Kathy l Result Performing Organization Address City/[facility]/ZIP Co de Phone Number [facility] [employer] [place] [address] * (ABNORMAL) Vitamin D 25 hydroxy (09/08/2024 7:58 PM CDT) [facility] Vitamin D 25-OH 16(L) 30 - 80 ng/mL Blood 09/08/2024 7:58 PM CDT 09/08/2024 8:19 PM CDT Mike Singh MD LAB BLOOD ORDERABLES Kathy l Result Performing Organization Address City/[facility] Co de Phone Number [facility] [place] [address] * Phosphorus (09/08/2024 7:58 PM CDT) [facility] Phosphorus, pl 3.3 2.3 - 4.5 mg/dL Blood 09/08/2024 7:58 PM CDT 09/08/2024 8:19 PM CDT Mike Singh MD LAB BLOOD ORDERABLES Kathy l Result Performing Organization Address [facility] Co de Phone Number [facility] [place] [address] * (ABNORMAL) PTH (09/08/2024 7:58 PM CDT) [facility] PTH 97(H) 15 - 65 pg/mL Blood 09/08/2024 7:58 PM CDT 09/08/2024 8:18 PM CDT Mike Singh MD LAB BLOOD ORDERABLES Kathy l Result Performing Organization Address [facility] Co de Phone Number [facility] [place] [place] [address] * (ABNORMAL) Magnesium (09/08/2024 7:58 PM CDT) [facility] Magnesium 0.7(C) 1.4 - 2.5 mg/dL Comment:Reviewed Blood 09/08/2024 7:58 PM CDT 09/08/2024 8:19 PM CDT Mike Singh MD LAB BLOOD ORDERABLES Kathy l Result [facility] [place] [address] * (ABNORMAL) Calcium, ionized (09/08/2024 7:44 PM CDT) Calcium, Ionized 3.29(L) 4.50 - 5.10 mg/dL Blood 09/08/2024 7:44 PM CDT 09/08/2024 8:08 PM CDT Mike Singh MD LAB BLOOD ORDERABLES Kathy l Result Performing Organization Address [facility] Co de Phone Number [facility] [place] [address] * CTA Head Neck W WO Contrast [...] the CTA were generated on a dedicated workstation/gravity meter observer. Contrast information: 80 mL Optiray-350 IV [...] the CTA were generated on a dedicated workstation/gravity meter observer. Contrast information: 80 mL Optiray-350 IV [...] MD LAB BLOOD ORD ERABLES Final Result [facility] [place] [address] * Troponin I high-sensitivity 4-hour (09/08/2024 5:49 PM CDT) Pathologist [facility] Trop I hs 13 <=17 ng/L Comment: Interpretive Data For further hscTnI resources including the diagnostic algorithm and an aid in interpretation, copy and paste this link: https://bjhlab.testcatalog.org/show/hsTrop-1 Current Interpretive Data last revised 2019. Trop I hs delta See Comment ng/L [facility] Comment:Inappropriate collec tion time to report a delta. Trop I hs pct delta See Comment % [facility] Comment:Inappropriate collec tion time to report a delta. Trop I hs interp See Comment [facility] Comment:Inappropriate collec tion time to report a delta. Blood 09/08/2024 5:49 PM CDT 09/08/2024 6:02 PM CDT us David Milian MD LAB BLOOD ORD ERABLES Final Result Performing Organization Address City/State/[facility] Co de Phone Number [facility] [place] [address] * US Carotids Duplex Bilateral (09/08/2024 4:04 PM CDT) Anatomical Region Laterality Modality Vascular Bilateral Ultrasound 09/08/2024 3:13 PM CDT Narrative 09/09/2024 1:30 AM CDT [facility] - Department of Vascular Surgery, Vascular Laboratory [address] [place] [id number] Carotid Duplex Ultrasound Report Patient Name: DEEPTI [...] VERT PSV 88 cm/sec FINDINGS: Performing Manager Internet: Christiane Rodriguez RVT. Rt Common Carotid Artery: [...] Procedure Note Franc Kovacs MD - 09/09/2024 [employer] - Department of Vascular Surgery,Vascular Laboratory [address] [place] [id number] Carotid Duplex Ultrasound Report Patient Name: DEEPTI HERNANDEZ J : 1945 (78y 11m) Study Date: 09/08/2024 3:13:18 PM Gender: F Tech: [place] Location: 2184 Ref Provider: CONY WOODS Quality: [...] VERT PSV 88 cm/sec FINDINGS: Performing Manager Internet: WILIAM WickT. Rt Common Carotid Artery: The [...] 09/09/2024 12:18:56 AM CDT Cony Woods MD [facility] Final Result * Troponin I high-sensitivity 2-hour (09/08/2024 2:21 PM CDT) Pathologist [facility] Trop I hs 14 <=17 ng/L Comment: Interpretive Data For further hscTnI resources including the diagnostic algorithm and an aid in interpretation, copy and paste this link: https://bjhlab.testcatalog.org/show/hsTrop-1 Current Interpretive Data last revised 2019. Trop I hs delta -1 ng/L [facility] Trop I hs interp Insignificant [facility] Blood 09/08/2024 2:21 PM CDT 09/08/2024 2:49 PM CDT David Milian MD LAB BLOOD ORD ERABLES Final Result [facility] Department [place] [address] * Critical Result Callback Chemistry (09/08/2024 2:21 PM CDT) [facility] Date Notified [id number] Time Notified 1550 [facility] TestName Ca Ionized [facility] Called/Read Back ramila GARDINER Credentials RN [facility] Called By gerda BERG [facility] Blood 09/08/2024 2:21 PM CDT 09/08/2024 3:22 PM CDT Cony Woods MD LAB BLOOD ORDERABLES Fin al Result [facility] [place] [address] * (ABNORMAL) Calcium, ionized (09/08/2024 2:21 PM CDT) Calcium, Ionized 2.76(C) 4.50 - 5.10 mg/dL Comment:Verified Blood 09/08/2024 2:21 PM CDT 09/08/2024 2:49 PM CDT us Cony Woods MD LAB BLOOD ORDERABLES Fin al Result Performing Organization Address City/State/ZIP Co wi Phone Number [facility] [place] [address] * XR Chest Pa Lateral 2 Views [...] ECG 12-LEAD (09/08/2024 12:41 PM CDT) Narrative [facility] - 09/08/2024 12:41 PM CDT Ricco Damian [...] ORDERABLE S Final Result Performing Organization Address City/[facility] Co de Phone Number [facility] * Troponin I high-sensitivity series (baseline, 2hr, [...] MD LAB BLOOD ORD ERABLES Final Result [facility] Department [place] [address] * eGFR (09/08/2024 12:34 PM CDT) Pathologist [...] MD LAB BLOOD ORD ERABLES Final Result [facility] [place] [address] * (ABNORMAL) Differential, auto (09/08/2024 12:34 PM CDT) Neutrophil abs 8.43(H) 1.50 - 6.50 K/cumm Imm gran abs 0.04 0.00 - 0.10 K/cumm [facility] Lymphocyte abs 1.79 0.80 - 3.30 K/cumm [facility] Monocyte abs 1.02(H) 0.20 - 0.80 K/cumm [facility] Eosinophil abs 0.33 0.00 - 0.50 K/cumm [facility] Basophil abs 0.04 0.00 - 0.10 K/cumm [facility] Neutrophil pct 72.4 % [facility] Comment: Interpretive Data Percent cell count reference ranges are not reported, since discordance with absolute values may lead to misinterpretation of CBC data. Current Interpretive Data was last revised on 2017. Imm gran pct 0.3 % [facility] Comment: Interpretive Data Percent cell count reference ranges are not reported, since discordance with absolute values may lead to misinterpretation of CBC data. Current Interpretive Data was last revised on 2017. Lymphocyte pct 15.4 % [facility] Comment: Interpretive Data Percent cell count reference ranges are not reported, since discordance with absolute values may lead to misinterpretation of CBC data. Current Interpretive Data was last revised on 2017. Monocyte pct 8.8 % [facility] Comment: Interpretive Data Percent cell count reference ranges are not reported, since discordance with absolute values may lead to misinterpretation of CBC data. Current Interpretive Data was last revised on 2017. Eosinophil pct 2.8 % [facility] Comment: Interpretive Data Percent cell count reference ranges are not reported, since discordance with absolute values may lead to misinterpretation of CBC data. Current Interpretive Data was last revised on 2017. Basophil pct 0.3 % [facility] Comment: Interpretive Data Percent cell count reference ranges are not reported, since discordance with absolute values may lead to misinterpretation of CBC data. Current Interpretive Data was last revised on 2017. Blood 09/08/2024 12:3 4 PM CDT 09/08/2024 12:50 PM CDT David Milian MD LAB BLOOD ORD ERABLES Final Result [facility] [place] [address] * Critical Result Callback Chemistry (09/08/2024 12:34 PM CDT) Date Notified [id number] Time Notified 1320 [facility] TestName Calcium [facility] Called/Read Back Cony MANZO Credentials MD [facility] Called By PD [facility] Blood 09/08/2024 12:3 4 PM CDT 09/08/2024 12:50 PM CDT David Milian MD LAB BLOOD ORD ERABLES Final Result Performing Organization Address City/[facility]/ZIP Co de Phone Number [facility] [place] [address] * (ABNORMAL) CBC with auto differential (09/08/2024 12:34 PM CDT) [facility] WBC 11.65(H) 3.80 - 9.90 K/cumm Hgb 11.4(L) 11.9 - 15.5 g/dL [facility] Hct 35.1(L) 35.6 - 45.5 % [facility] Plt 300 150 - 400 K/cumm [facility] MPV 11.4 9.1 - 12.[address] [facility] RBC 4.18 3.90 - 5.20 M/cumm [facility] MCV 84.0 81.3 - 96.[address] [facility] MCH 27.3 27.1 - 33.[address] [facility] MCHC 32.5 32.3 - 35.7 g/dL [facility] RDW CV 15.4(H) 11.1 - 14.9 % [facility] RDW SD 46.9 35.7 - 48.[address] [facility] NRBC abs 0.00 0.00 - 0.01 K/cumm [facility] Blood Venous blood specimen / Unknown 09/08/2024 12:34 PM CDT 09/08/2024 12:50 PM CDT David Milian MD LAB BLOOD ORD ERABLES Final Result [facility] Department [place] [address] * (ABNORMAL) Comprehensive metabolic panel (09/08/2024 12:34 PM CDT) [facility] Sodium 139 135 - 145 mmol/L Potassium, pl 3.9 3.3 - 4.9 mmol/L [facility] Comment:Hemolyzed; Potassium value may be falsely elevated by as much as 0.6-1.0 mmol/L. Suggest redraw and reanalysis. Chloride 96(L) 97 - 110 mmol/L [facility] CO2 28 22 - 32 mmol/L [facility] Anion gap 15 2 - 15 mmol/L [facility] BUN 8 6 - 25 mg/dL [facility] Creatinine 0.83 0.60 - 1.10 mg/dL [facility] Glucose 98 70 - 199 mg/dL [facility] Comment: Interpretive Data Fasting glucose >/= [...] 2022. Calcium 6.1(C) 8.5 - 10.3 mg/dL [facility] Bilirubin, total 0.5 0.1 - 1.2 mg/dL [facility] Protein, pl 7.0 6.5 - 8.5 g/dL [facility] Albumin 3.5 3.5 - 5.0 g/dL [facility] Alk phos 81 40 - 130 Units/L [facility] ALT 16 7 - 45 Units/L [facility] AST 41 10 - 45 Units/L [facility] Comment:Hemolyzed; result ma y be falsely elevated Blood 09/08/2024 12:3 4 PM CDT 09/08/2024 12:50 PM CDT us David Milian MD LAB BLOOD ORD ERABLES Final Result [facility] Department [place] [address] from Last 3 Months Insurance [facility]IC[facility] ADVANTAGE [facility] Address: [place] [id number] [place] HMO REF [facility] Address: [address] [place], [place] [id number] [facility]IC[facility] ADVANTAGE [facility] Address: [address] [address] [place] [address] [facility] Address: [place] [id number] [place] [address] Advance Directives For more information, please contact: [phone] * Full Code (Latest Code Status on File) Date Activated Date Inactivated Comments 09/08/2024 8:49 PM 09/14/2024 6:47 PM Care Teams Paper Conservator Relationship Specialty Start Date End Date Mike Kinney DO PCP - General 11/06/16
[2024-09-30 13:16] LABS: Basophils Absolute Auto 0.1 K/mm3 (0.0-0.1); Basophils Percent Auto 0.6 % (0.2-1.2); Eosinophils Absolute Auto 0.4 K/mm3 (0-0.3); Eosinophils Percent Auto 4.7 % (0-4.4); Hematocrit 34.6 % (37.0-47.0); Hemoglobin 10.2 g/dL (12.0-15.0); Immature Granulocyte Absolute 0.04 K/mm3 (0.00-0.031); Immature Granulocyte Percent A 0.5 % (0-0.5); Lymphocytes Absolute Auto 1.65 K/mm3 (0.9-3.2); Lymphocytes Percent Auto 19.4 % (18.3-44.2); Mean Corpuscular HGB Conc 29.5 g/dl (32-36); Mean Corpuscular Hemoglobin 27.3 pg (26-34); Mean Corpuscular Volume 92.8 fl (80-100); Mean Platelet Volume 12.1 fl (7.4-10.4); Monocytes Absolute Auto 0.7 K/mm3 (0.1-0.6); Monocytes Percent Auto 7.8 % (2.6-8.5); Neutrophils Absolute Auto 5.7 K/mm3 (1.3-6.7); Platelet Count Result 215 k/mm3 (150-375); Red Blood Count 3.73 M/mm3 (4.2-5.4); Red Cell Distribution Width 16.3 % (11.5-14.5); White Blood Count 8.5 K/mm3 (4.5-10.0)
[2024-09-30 14:17] LABS: Acanthocytes 1+; Anisocytosis 1+; Crenated RBC 2+; Hypochromasia 1+; Ovalocytes 1+; Platelet Estimate Adequate (Adequate); Poikilocytosis 1+; Schistocytes None Seen
[2024-09-30 23:23] LABS: Hemoglobin A1C 5.7 % (<5.7)
== END 2024-09-30 09:57 | disposition home or self-care (01) ==
PROVIDERS: PCP Internal Medicine; Visit Provider Internal Medicine
DX: D64.9 Anemia, unspecified (principal); E83.51 Hypocalcemia; I10 Essential (primary) hypertension; I25.10 Atherosclerotic heart disease of native coronary artery without angina pectoris; R73.03 Prediabetes
CPT/HCPCS: 36415; 82607; 82728; 82746; 83036; 85025

== ENCOUNTER 2025-02-17 11:47 | Outpatient (CLI) | payer MEDICARE, SELFPAY ==
--- OUTSIDE RECORDS SUMMARY | 2025-02-17 12:00 | XMS_ITS | Clinical Summary ---
Author Organization [facility] [employer] Address [address] [place] [address] Care Team Providers Care Corrosion Control Technician Name Role Phone MonsterRaza rendon Sharmin DO Primary Care Provider [phone] Source Comments [facility] [employer]non-owned Affiliates and Associated Physician Practices is amultiple site organization consisting of ambulatory clinics and hospital sitesin [place], [place], [place] and [place]. This disclosure is being madepursuant to the Care Everywhere program and may not contain all information available regarding this patient. Last updated 18.[facility] [employer] 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 Gender Identity Not on file Sexual Orientation [...] 6:24 PM CDT Height 160 cm (5' 3) 02/01/2021 6:24 PM CDT Body Mass Index 33.66 02/01/2021 6:24 PM CDT Plan of Treatment Health Maintenance Due Date Last Done Comments BONE DENSITY TESTING 1945 DTAP/TDAP/TD VACCINES (1 - Tdap) 10/07/1963 PNEUMOCOCCAL VACCINE 50+ (1 of 1 - PCV) 1994 ZOSTER VACCINE (1 of 2) 1994 Respiratory Syncytial Virus (RSV) Vaccine Pt: or over 60 yrs (1 - 1-dose 75+ series) 10/07/2019 DEPRESSION SCREENING 05/21/2024 COVID-19 VACCINE (2023-2 5 season) 2025 INFLUENZA VACCINE (#1) 2025 02/28/2018 HEPATITIS B VACCINE Aged Out No longe [...] Insurance [employer] MANAGED MEDICARE ADV Care Teams Corrosion Control Technician Relationship Specialty Start Date End Date Raza Kinney DO PCP - General 05/08/13
--- OUTSIDE RECORDS SUMMARY | 2025-02-17 12:00 | XMS_ITS | Clinical Summary ---
Author Organization [facility] Address [address] [place] [address] Care Team Providers Care Scale And Skip Car Operator Name Role Phone Raza Kinney DO Primary Care Provider [phone] Allergies Active Allergy Reactions Criticality Noted Date Comments Labetalol Nausea only Low Medications amLODIPine (NORVASC) 10 mg tablet Take 1 tablet (10 mg total) by mouth daily 08/23/2017 Active methIMAzole (TAPAZOLE) 5 mg tablet 1 tablet (5 mg total) as directed Every other day 10/26/2017 Active metoprolol (LOPRESSOR) 50 mg tablet Take 1 tablet (50 mg total) by mouth 2 (two) times a day 10/26/2017 Active aspirin 81 mg chewable tablet daily. 08/06/2011 Act rere albuterol sulfate 90 mcg/actuation aerosol powdr breath activated Inhale Active FLUoxetine (PROzac) 20 mg capsule Take 1 capsule (20 mg total) by mouth daily 10/22/2018 Active atorvastatin (LIPITOR) 80 mg tablet Take 1 tablet (80 mg total) by mouth daily 10/28/2018 Active fluticasone-ume clidin-vilanter (TRELEGY ELLIPTA) 100-62.5-25 mcg inhaler Inhale 1 puff daily Active pregabalin (LYRICA) 100 mg capsule Take 1 capsule (100 mg total) by mouth 2 (two) times a day 06/12/2023 Active losartan (COZAAR) 25 mg tablet Take 1 tablet (25 mg total) by mouth daily 06/05/2023 Active acetaminophen (TYLENOL) 325 mg tablet Take 2 tablets (650 mg total) by mouth every 6 (six) hours as needed for pain 09/13/2024 Active calcium carbonate (OS-EDMUND) 1,250 mg (500 mg elemental) tabletIndicatio ns:hypocalcemia Take 2 tablets (2,500 mg total) by mouth 2 (two) times a day 120 tablet 11 09/13/2024 09/14/19 Active sennosides 8.6 mg capsule Take 1 capsule by mouth daily as needed (constipation ) 09/13/2024 Active ergocalciferol (VITAMIN D) 50,000 unit capsule Take 1 capsule (50,000 Units total) by mouth once a week for 7 doses 7 capsule 09/17/2024 Active Active Problems Problem Noted Date Diagnosed [...] is incongruent with smoking hx - Home treegy Assessment & Plan (09/12/2024 7:11 AM CDT): [...] thickening/AR, mild TR (RVSP 30-35 mmHg), mild-mod OH, physiologic pericardial effusion. - Telemetry to monitor [...] thickening/AR, mild TR (RVSP 30-35 mmHg), mild-mod OH, physiologic pericardial effusion. - Telemetry to monitor [...] thickening/AR, mild TR (RVSP 30-35 mmHg), mild-mod OH, physiologic pericardial effusion. - Telemetry to monitor [...] thickening/AR, mild TR (RVSP 30-35 mmHg), mild-mod OH, physiologic pericardial effusion. - Telemetry to monitor [...] Abnormal EKG Coronary artery disease invo [place]ving [place] coronary artery of [place] heart without angina pectoris 05/08/2013 Assessment & Plan (09/11/2024 7:52 AM CDT): Hx of 3V CABG ~10 years ago, follows with [facility] in [facility] cardiology. Denies CP but does have some [...] CABG x3 10 years ago, follows with [facility] cardiology. Some peripheral edema and worsening SOB over last year - ECHO 09/08 Normal LV size. EF 54%. G1DD - Home atorvastatin 80mg and ASA 81mg Assessment & Plan (09/10/2024 7:59 AM CDT): Hx of 3V CABG ~10 years ago, follows with [facility] in [facility] cardiology. Denies CP but does have some [...] years ago, follows with [facility] in [facility] cardiology. Denies CP but does have some [...] years ago, follows with [facility] in [facility] cardiology. Denies CP but does have some [...] Hypertension Hypothyroidism COPD (chronic obstructive pulmonary disease) Hypercholesteremia Coronary artery disease Muscle spasm Family History Medical History Relation Name Comments Heart attack Brother Royce [place]; Cause of De ath: [place] Heart attack Daughter Heart disease Father Family [...] = 0.6 oz pur e alcohol) RARELY [employer] Answer Date Recorded In the past 12 months has [employer], gas, oil, or water [employer] threatened to shut off services in your home? No 09/09/2024 Social Connection and Isolation Panel Answer Date Recorded In a typical week, how many times do you talk on the phone with family, friends, or neighbors? More than three times a week 09/09/2024 How often do you get togethe r with friends or relatives? Three times a week 09/09/2024 How often do you attend [facility] or taoist services? More than 4 times per year 09/09/2024 Do you belong to any clubs o r organizations such as latter day groups, unions, fraternal or athletic groups, or [...] and heating? Not hard at all 09/09/2024 [facility] - Occupational Stress Questionnaire Answer Date Recorded [...] any time in the past 12 m [facility], were you homeless or living in a residential (including now)? No 09/09/2024 Personal Safety Answer Date Recorded Have you ever been in or are you currently in a harmful physical or emotional relationship or is someone making you feel afraid or unsafe? 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 Gender Identity Female 06/20/2021 10:31 AM LIFTER/DRIVER Sexual Orientation Not on file Occupation Industry Job Start Date Job End Date Retired Not on file Not on file Not on file Obstetrics History Last Filed Vital Signs Vital Sign Reading Time Taken Comments Blood Pressure 138/69 10/21/2024 10:40 AM CDT Pulse 62 10/21/2024 10:40 AM CDT Temperature 36.8 C (98.2 F) 09/14/2024 3:42 AM CDT Respiratory Rate 18 09/14/2024 7:50 AM CDT Oxygen Saturation 94% 10/21/2024 10:40 AM CDT Inhaled Oxygen Concentration - - Weight 83.9 kg (185 lb) 10/21/2024 10:40 AM CDT Height 157.5 cm (5' 2) 10/21/2024 10:40 AM CDT Body Mass Index 33.84 10/21/2024 10:40 AM CDT Plan of Treatment Health Maintenance Due Date Last Done Comments Depression Screening 1945 Osteoporosis Screening-Bone Density Scan 1945 DTaP/Tdap/Td Vaccine (1 - Tdap) 10/07/1955 Hepatitis B Screening 1962 Zoster Vaccine (1 of 2) 1994 Well Visit 65+ 2009 Pneumococcal vaccine 65+ (2 of 2 - PCV) 03/18/2019 1 Influenza Vaccine (#1) 2025 03/28/2019, 2017 Fall Risk Assessment 09/14/2025 09/14/2024 Medical Devices Implanted Type Area Transit Operator Device Identifier Shelf Expiration Date Model / Serial / Lot Stent- 6 Implanted:08/20 by Jose Chambers MD (Quantity not on file) Stent Thoracic Medtronic [id number] / [id number] / Description: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 Implanted:09/19 (Quantity not on file) Head Attachments.me Harish Patch Vascuguard 0.88cm [id number] - [id number] - [id number] Implanted:Qty: 1 on 09/11/2024 by Mayur Man MD at [facility] Left: Carotid [facility] [id number] 03/14/2026 [id number] / [id number] / [id number] Insurance [facility] Address[address] H[address] REF [facility] Address: [place] [id number] [place] [id number] [employer]HC MEDICARE ADVANTAGE [facility] Address: [address] [address] [place] [address] [employer] MEDICARE ADVANTAGE Advance Directives For more information, please contact: [phone] * Full Code (Latest Code Status on File) Date Activated Date Inactivated Comments 09/08/2024 8:49 PM 09/14/2024 6:47 PM Care Teams Scale And Skip Car Operator Relationship Specialty Start Date End Date Raza Kinney DO PCP - General 11/06/16
[2025-02-17 13:21] LABS: Alanine Aminotransferase 12 U/L (6-35); Albumin Level 4.1 g/dL (3.5-5.1); Alkaline Phosphatase 71 U/L (38-126); Anion Gap 8 mmol/L (4-12); Aspartate Amino Transferase 31 U/L (14-36); Bilirubin,Total 0.6 mg/dL (0.2-1.3); Blood Urea Nitrogen 17 mg/dL (7-17); Calcium 8.4 mg/dL (8.4-10.2); Carbon Dioxide 32 mmol/L (22-30); Chloride 98 mmol/L (98-107); Estimated Glomerular Filt Rate > 60; Glucose 87 mg/dL (65-110); Magnesium 1.2 mg/dL (1.6-2.3); Potassium 3.5 mmol/L (3.4-5.0); Sodium 138 mmol/L (137-145); Total Protein 6.9 g/dL (6.3-8.2)
[2025-02-17 13:35] LABS: Free T3 4.24 pg/mL (2.34-5.61); Free T4 Free Thyroxine 0.93 ng/dL (0.78-2.19)
[2025-02-17 13:57] LABS: Thyroid Stimulating Hormone 2.530 uIU/mL (0.465-4.680)
== END 2025-02-17 11:48 | disposition home or self-care (01) ==
PROVIDERS: PCP Internal Medicine; Visit Provider Internal Medicine
DX: I12.9 Hypertensive chronic kidney disease with stage 1 through stage 4 chronic kidney disease, or unspecified chronic kidney disease (principal); N18.30 Chronic kidney disease, stage 3 unspecified; E55.9 Vitamin D deficiency, unspecified; I25.10 Atherosclerotic heart disease of native coronary artery without angina pectoris; E05.90 Thyrotoxicosis, unspecified without thyrotoxic crisis or storm; E04.1 Nontoxic single thyroid nodule
CPT/HCPCS: 36415; 80053; 82306; 83735; 84439; 84443; 84481

== ENCOUNTER 2025-03-30 11:12 | Outpatient (CLI) | payer MEDICARE, SELFPAY ==
--- NOTE | ~2025-03-30 | XR_ITS ---
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 Findings: No acute fracture or malalignment. No significant degenerative changes. Soft tissues unremarkable. Impression: No acute fracture or malalignment. Reviewed, dictated and finalized at location P. E ASSEMBLER Impression: No acute fracture or malalignment.
--- NOTE | ~2025-03-30 | XR_ITS ---
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 Findings: No acute fracture or malalignment. No significant degenerative changes. Soft tissues unremarkable. Impression: No acute fracture or malalignment. Reviewed, dictated and finalized at location P. LESS MANAGER Impression: No acute fracture or malalignment.
== END 2025-03-30 11:13 | disposition home or self-care (01) ==
LOC: GOSHIMG 11:12
PROVIDERS: PCP Internal Medicine; Visit Provider Internal Medicine
DX: R07.89 Other chest pain (principal); M25.512 Pain in left shoulder
CPT/HCPCS: 71101; 73030

== ENCOUNTER 2025-04-30 13:15 | Outpatient (CLI) | payer MEDICARE, SELFPAY ==
[2025-04-30 13:30] VITALS: PULSE 50; O2SAT 95
[2025-04-30 13:35] VITALS: PULSE 69; O2SAT 89
[2025-04-30 13:45] VITALS: PULSE 48; O2SAT 94
--- NOTE | 2025-04-30 14:47 | HOMEO2EVAL ---
Evaluation was performed at [facility] Home Oxygen Evaluation RC: Home Oxygen (O2) Evaluation Start: 04/30/25 14:43 Freq: Status: Active Protocol: RPE Activity Type Activity Date Activity User E-sign Co-sign Detail Recorded Client Recorded Date Recorded By Document 04/30/25 13:30 KAYCE [email or web address] 04/30/25 14:45 KAYCE Document 04/30/25 13:35 KAYCE [email or web address] 04/30/25 14:45 KAYCE Document 04/30/25 13:45 KAYCE [email or web address] 04/30/25 14:45 KAYCE 04/30/25 04/30/25 04/30/25 13:30 13:35 13:45 Home O2 Evaluation [Oxygen] -Test Phase Resting Exercise Resting -Oxygen Delivery Room Air Room Air Room Air [Pulse Oximetry] -Pulse Oximetry (90-100 %) 95 89 L 94 [Pulse Rate] -Pulse Rate (60-100 beats/min) 50 L 69 48 L [Evaluation] -Activity Tolerance Fair [Exercise] -Ambulation Distance (feet) 400 -Ambulation Distance (meters) 121.91 [Charges] -Evaluation Charges O2 Evaluation by Pulmonary
== END 2025-04-30 13:16 | disposition home or self-care (01) ==
PROVIDERS: PCP Internal Medicine; Visit Provider Nurse Practitioner Family
DX: Z99.81 Dependence on supplemental oxygen (principal); J44.9 Chronic obstructive pulmonary disease, unspecified
CPT/HCPCS: 94618

== ENCOUNTER 2025-05-12 10:00 | Outpatient (RCR) | payer MEDICARE, SELFPAY ==
--- NOTE | 2025-04-10 16:38 | OPREHPOC ---
Outpatient Therapy Plan of Care This is a Multidisciplinary Plan of Care that may contain components documented by all disciplines (PT, OT, and ST.) PT Problem 1 PT Problem #1 Knowledge Deficit PT Goal 1 Goal / Goal Update [place] with HEP Target Visit 4 PT Goal 2 Goal / Goal Update Report no pain greater than 2/10 for 2 consecutive weeks Target Visit 8 PT Problem 2 PT Problem #2 Impaired Range of Motion PT Goal 1 Goal / Goal Update 1. Achieve 170 degrees of shoulder flexion ROM to improve capsular mobility for self care Target Visit 8 PT Goal 2 Goal / Goal Update 1. Improve left cervical rotation to 50+ degrees to improve functional cervical mobility Target Visit 8 PT Problem 3 PT Problem #3 Impaired Strength PT Goal 1 Goal / Goal Update 1. Improve left shoulder flexion strength to 4+/5 to improve lifting ability and object manipulation 2. Improve left shoulder external rotation strength to 4+/5 to improve capsular stability for self care Target Visit 8
--- NOTE | 2025-04-10 16:42 | PTOPEVAL1 ---
Assessment and note entered by Cristofer Romero, PT Evaluation Information Assessment Status Evaluation ICD-10 Condition Codes (PT) Pain in left shoulder M25.512 Onset January 2025 Subjective Information Reports that she feels that she really is having a pain on the whole left side of her upper body not just her shoulder. Most of her pain is at night and she cannot lay on her left side at all and cannot handle pressure on the shoulder and neck. She had X-rays and was told that they were unremarkable. She gets pain when actively lifting the shoulder overhead. She has a history of fall on her right side. Reported Pain Level Pain Score 0: Self Report Assessment PT Clinical Summary Patient presents with cervical mobility limitation and postural deficits affecting shoulder ROM and cervical mobility. Will benefit from skilled therapy to address these deficits for functional improvement and pain relief. Plan of Care PT Services Indicated Yes Treatment Frequency and 2x/week for 8 visits Duration These treatments will address the objective and functional deficits as defined above. The patient will be advanced safely and appropriately in order for the patient to progress towards his/her prior level of function. Additional exercises will be introduced and as well as a comprehensive home exercise program upon discharge, if needed, ?to ensure carryover of functional gains achieved in the clinic. This treatment plan has been reviewed and agreement upon by the patient.
--- NOTE | 2025-04-28 14:22 | PCPTNOTE ---
Pt no showed appointment this date. Pt called 20 minutes after scheduled appointment time and stated that she knew she had an appointment somewhere this date, but didn't know where.
--- NOTE | 2025-05-12 10:50 | OPREHPOC ---
Outpatient Therapy Plan of Care This is a Multidisciplinary Plan of Care that may contain components documented by all disciplines (PT, OT, and ST.) PT Problem 1 PT Problem #1 Knowledge Deficit PT Goal 1 Goal / Goal Update [place] with HEP Target Visit 4 Progress Met PT Goal 2 Goal / Goal Update Report no pain greater than 2/10 for 2 consecutive weeks Target Visit 8 Progress Partially Met PT Problem 2 PT Problem #2 Impaired Range of Motion PT Goal 1 Goal / Goal Update 1. Achieve 170 degrees of shoulder flexion ROM to improve capsular mobility for self care Target Visit 8 Progress Partially Met PT Goal 2 Goal / Goal Update 1. Improve left cervical rotation to 50+ degrees to improve functional cervical mobility Target Visit 8 Progress Partially Met PT Problem 3 PT Problem #3 Impaired Strength PT Goal 1 Goal / Goal Update 1. Improve left shoulder flexion strength to 4+/5 to improve lifting ability and object manipulation 2. Improve left shoulder external rotation strength to 4+/5 to improve capsular stability for self care Target Visit 8 Progress Partially Met
--- NOTE | 2025-05-12 10:50 | PTOPDC ---
Assessment and note entered by Cristofer Romero, PT Evaluation Information Assessment Status Discharge ICD-10 Condition Codes (PT) Pain in left shoulder M25.512 Onset January 2025 Subjective Information Reports that she has seen improvement, especially6 of a night. She is not having pain at rest at this point, but have pain with certain motions and pressure. Reported Pain Level Pain Score 2: Self Report Assessment PT Clinical Summary Patient has made progress on all goals a this time but fell short of each. She has shown strength and ROM improvement in the sufficient category. Patient has elected to hold therapy and continue independent exercise at this time. Plan of Care PT Services Indicated Yes
== END 2025-05-12 15:59 | disposition home or self-care (01) ==
LOC: ANHGOSHPT 10:00
PROVIDERS: PCP Internal Medicine; Visit Provider Internal Medicine
DX: M25.512 Pain in left shoulder (principal); R07.89 Other chest pain
CPT/HCPCS: 97014; 97110; 97112; 97140; 97161; 97530; G0283